=== PATIENT | female | born 1970 | race Caucasian/White ===

== ENCOUNTER → 2018-10-22 | Outpatient (CLI) | payer OTHER ==
[~2018-10-22] MED LIST: ASPI-624 PO; ATR20T PO; BUPR100T15 PO; BUPR100T8 PO; CARV6.252 PO; CHOL10007 PO; CYAN5000 SL; CYCL10TA9 PO; DOCU-143 PO; EFFIENT PO; FENO134C PO; FENO135C4 PO; HYDR-4227 PO; HYDR118S10 PO; IBUP-1773 PO; IBUP-30 PO; LISI10TA2 PO; OMEG1CAP58 PO; PANT40TA3 PO; POTA99TA15 PO; ROSU20TA2 PO; TRAM50TA2 PO; XARELTO PO
[2018-10-22 10:39] LABS: HEMOGLOBIN 13.7 G/DL (11.5-16.0); MEAN PLATELET VOLUME 11.7 FL (7.4-10.4); RED CELL DISTRIBUTION WIDTH 13.9 % (10.0-14.5); WHITE BLOOD COUNT 12.5 10^3/uL (4.3-11.0)
[2018-10-22 10:58] LABS: BUN/CREATININE RATIO 14; CALCIUM 9.5 MG/DL (8.5-10.1); CARBON DIOXIDE 24 MMOL/L (21-32); CHLORIDE 106 MMOL/L (98-107); CREATININE SERUM 0.58 MG/DL (0.60-1.30); GFR ESTIMATED > 60; GLUCOSE 112 MG/DL (70-105); POTASSIUM 3.4 MMOL/L (3.6-5.0); SODIUM 137 MMOL/L (135-145)
--- NOTE | 2018-10-22 18:50 | Diagnostic Imaging Report ---
EXAMINATION: PA chest at 10:15 a.m. INDICATION: Cough and fever. FINDINGS: The heart size is within normal limits and stable when compared to 10/26/2015. In the interval since the prior study, a few strands of increased density have developed in both lung bases. I suspect that these are secondary to scar formation and/or chronic atelectasis. There is no consolidated pneumonia identified and there is no sign of a pleural effusion. There is no evidence for pulmonary congestion either. The prominent epicardial fat pad in the right cardiophrenic angle seen previously is more striking on this exam. The mediastinum is not widened. The osseous structures are intact. IMPRESSION: Strands of chronic atelectasis/scar formation have developed in both lung bases since the prior exam. There is no acute cardiopulmonary abnormality noted. Dictated by: Dictated on workstation # [id number]
== END ==
LOC: RAD 09:56
PROVIDERS: ATTEND Family Medicine
DX: R05 Cough (principal); R50.9 Fever, unspecified
CPT/HCPCS: 36415; 71045; 80048; 85027

== ENCOUNTER 2018-10-24 10:22 | Emergency (ER) | payer OTHER ==
[~2018-10-24] VITALS: Ht 160 cm; Wt 77.1 kg
[~2018-10-24 10:22] MED LIST changes: -CYCL10TA9 PO; -OMEG1CAP58 PO
--- OUTSIDE RECORDS SUMMARY | 2018-10-24 10:30 | XMS REPORT | CCD ---
Author Author Krista Cody Organization Krista Cody MD, [facility] Address [address] [place] [address] Phone Care Team Providers Care Database Report Writer Name Role Phone PP Unavailable CCM Unavailable Summary Purpose Interface Exchange Insurance Providers Payer name Policy type / Coverage type Covered democrat ID Effective Begin Date Effective End Date Cigna Commercial Insurance [id number] Unknown Family history Grandmother Diagnosis Age At Onset No Family Disease Entered N/A Aunt Diagnosis Age At Onset Myocardial infarction Unknown Diabetes Unknown Cardiovascular disease Unknown Father Diagnosis Age At Onset Myocardial infarction Unknown Stroke Unknown Uncle Diagnosis Age At Onset Heart disease Unknown Grandfather Diagnosis Age At Onset No Family Disease Entered N/A Mother Diagnosis Age At Onset Hodgkin's disease Unknown Uncle Diagnosis Age At Onset Diabetes mellitus Type 2 Unknown Social History Social History Element Codes Description Effective Dates Tobacco history SNOMED CT: 48293841 Current every day smoker 4cigarettes a day - restarted in May of 201709/02/2017 Marital status Unknown 10/04/2013 Number of children Unknown 3 10/04/2013 Living arrangements Unknown House 10/04/2013 Employment Unknown 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 Unknown Has never used illegal drugs 10/04/2013 Allergies, Adverse Reactions, Alerts Substance Reaction Codes Entered Date Inactivated Date Status * NO KNOWN ENVIRONMENTAL ALLERGIES Unknown 10/04/2013 No Inactive Date Active * NO KNOWN FOOD ALLERGIES Unknown 10/04/2013 No Inactive Date Active * NO KNOWN DRUG ALLERGIES Unknown 10/04/2013 No Inactive Date Active Past Medical History Illness Codes Condition Status Onset Date Resolved Date Cough ICD-9: 786.2 ICD-10: R05 Active 08/13/2017 Unknown Fever presenting with conditions classified elsewhere ICD-9: 780.61 ICD-10: R50.81 Active 10/21/2018 Unknown Pneumonia due to other specified bacteria ICD-9: 482.81 ICD-10: J15.8 Active 10/21/2018 Unknown Encounter for general adult medical examination without abnormal findings ICD-9: V70.0 ICD-10: Z00.00 Active 02/18/2017 Unknown Essential (primary) hypertension ICD-9: 401.9 ICD-10: I10 Active 02/03/2016 Unknown Tobacco use ICD-9: 305.1 ICD-10: Z72.0 Active 02/18/2017 Unknown Acute upper respiratory infection, unspecified ICD-9: 465.9 ICD-10: J06.9 Active 08/13/2017 Unknown Corns and callosities ICD- 9: 700 ICD-10: L84 Active 02/18/2017 Unknown Encounter for screening mammogram for malignant neoplasm of breast ICD-9: V76.12 ICD-10: Z12.31 Active 02/18/2017 Unknown Chronic pain syndrome ICD- 9: 338.4 ICD-10: G89.4 Active 02/03/2016 Unknown 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 ICD-10: I25.10 Active 05/30/2015 Unknown Hyperglycemia, unspecified ICD-9: 790.29 ICD-10: R73.9 Active 05/30/2015 Unknown Pain in leg, unspecified ICD-9: 729.5 ICD-10: M79.606 Active 05/30/2015 Unknown Elevated glucose ICD-9: 790.29 Active 12/19/2014 Unknown OTH SCREENING MAMMOGRAM ICD-9: V76.12 Active 12/19/2014 Unknown Routine medical exam ICD- 9: V70.0 Active 12/19/2014 Unknown Depression Unknown Active 03/29/2014 Unknown Depression ICD-9: 311 Active 03/29/2014 Unknown Coronary artery disease ICD-9: 414.00 Active 12/01/2013 Unknown Hair loss ICD-9: 704.00 Active 12/01/2013 Unknown Chronic groin pain ICD- 9: 789.00 Active 11/03/2013 Unknown ESSENTIAL HYPERTENSION ICD-9: 401.9 Active 11/03/2013 Unknown Nerve pain ICD-9: 729.2 Active 11/03/2013 Unknown Hyperlipidemia Unknown Active 10/04/2013 Unknown Hypertension Unknown Active 10/04/2013 Unknown Miscarriage Unknown Active 10/04/2013 Unknown Myocardial infarction Unknown Active 10/04/2013 Unknown HYPERLIPIDEMIA ICD-9: 272.4 Active 10/04/2013 Unknown Non-healing open wound of left groin ICD-9: 879.5 Active 10/04/2013 Unknown Problems Condition Codes Effective Dates Condition Status Cough ICD-9: 786.2 ICD-10: R05 08/13/2017 Active Fever presenting with conditions classified elsewhere ICD-9: 780.61 ICD-10: R50.81 10/21/2018 Active Pneumonia due to other specified bacteria ICD-9: 482.81 ICD-10: J15.8 10/21/2018 Active Encounter for general adult medical examination without abnormal findings ICD-9: V70.0 ICD-10: Z00.00 02/18/2017 Active Essential (primary) hypertension ICD-9: 401.9 ICD-10: I10 02/03/2016 Active Tobacco use ICD-9: 305.1 ICD-10: Z72.0 02/18/2017 Active Acute upper respiratory infection, unspecified ICD-9: 465.9 ICD-10: J06.9 08/13/2017 Active Corns and callosities ICD- 9: 700 ICD-10: L84 02/18/2017 Active Encounter for screening mammogram for malignant neoplasm of breast ICD-9: V76.12 ICD-10: Z12.31 02/18/2017 Active Chronic pain syndrome ICD- 9: 338.4 ICD-10: G89.4 02/03/2016 Active 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 ICD-10: I25.10 05/30/2015 Active Hyperglycemia, unspecified ICD-9: 790.29 ICD-10: R73.9 05/30/2015 Active Pain in leg, unspecified ICD-9: 729.5 ICD-10: M79.606 05/30/2015 Active Elevated glucose ICD-9: 790.29 12/19/2014 Active OTH SCREENING MAMMOGRAM ICD-9: V76.12 12/19/2014 Active Routine medical exam ICD- 9: V70.0 12/19/2014 Active Depression Unknown 03/29/2014 Active Depression ICD-9: 311 03/29/2014 Active Coronary artery disease ICD-9: 414.00 12/01/2013 Active Hair loss ICD-9: 704.00 12/01/2013 Active Chronic groin pain ICD- 9: 789.00 11/03/2013 Active ESSENTIAL HYPERTENSION ICD-9: 401.9 11/03/2013 Active Nerve pain ICD-9: 729.2 11/03/2013 Active Hyperlipidemia Unknown 10/04/2013 Active Hypertension Unknown 10/04/2013 Active Miscarriage Unknown 10/04/2013 Active Myocardial infarction Unknown 10/04/2013 Active HYPERLIPIDEMIA ICD-9: 272.4 10/04/2013 Active Non-healing open wound of left groin ICD-9: 879.5 10/04/2013 Active Medications Medication Codes Instructions Start Date Stop Date Status Fill Instructions cefdinir 300 mg capsule RxNorm: 834583 1 Capsule(s) PO BID 10/21/2018 10/30/2018 Active Kenalog 40 mg/mL suspension for injection RxNorm: 6869899 Milliliter(s) Inj 10/21/2018 10/21/2018 Inactive ceftriaxone 500 mg solution for injection RxNorm: 9245295 Inj 10/21/2018 10/21/2018 Inactive Crestor 40 mg tablet RxNorm: 974905 Tablet(s) PO Tablet(s) TAKE 1 TABLET BY MOUTH DAILY 12/15/2017 04/13/2018 Inactive Zithromax Z-Gagandeep 250 mg tablet RxNorm: 788008 1 Tablet(s) PO UD 08/13/2017 08/17/2017 Inactive Trilipix 135 mg capsule,delayed release RxNorm: 983852 Capsule(s) PO TAKE 1 CAPSULE BY MOUTH EVERY EVENING 07/17/2017 07/11/2018 Inactive Crestor 20 mg tablet RxNorm: 113314 Tablet(s) TAKE 1 TABLET BY MOUTH DAILY 07/17/2017 12/14/2017 Inactive Chantix 1 mg tablet RxNorm: 986244 1 Tablet(s) PO daily 02/18/2017 06/17/2017 Inactive Wellbutrin SR 150 mg tablet,extended release RxNorm: 513706 1 Tablet(s) PO BID 12/31/2016 03/30/2017 Inactive Crestor 20 mg tablet RxNorm: 244902 Tablet(s) TAKE 1 TABLET BY MOUTH DAILY 12/31/2016 03/30/2017 Inactive Trilipix 135 mg capsule,delayed release RxNorm: 274838 Capsule(s) PO TAKE 1 CAPSULE BY MOUTH EVERY EVENING 12/31/2016 03/30/2017 Inactive Wellbutrin SR 150 mg tablet,sustained-release RxNorm: 832061 1 Tablet(s) PO BID 07/31/2016 12/30/2016 Inactive Crestor 20 mg tablet RxNorm: 035560 Tablet(s) TAKE 1 TABLET BY MOUTH DAILY 07/31/2016 12/30/2016 Inactive Trilipix 135 mg capsule,delayed release RxNorm: 461414 Capsule(s) PO TAKE 1 CAPSULE BY MOUTH EVERY EVENING 07/31/2016 12/30/2016 Inactive tramadol 50 mg tablet RxNorm: 241083 Tablet(s) TAKE 1 TABLET BY MOUTH THREE TIMES DAILY NEEDED 06/10/2016 01/27/2017 Inactive tramadol 50 mg tablet RxNorm: 267372 Tablet(s) TAKE 1 TABLET BY MOUTH THREE TIMES DAILY NEEDED 03/11/2016 06/08/2016 Inactive tramadol 50 mg tablet RxNorm: 241776 Tablet(s) TAKE 1 TABLET BY MOUTH THREE TIMES DAILY NEEDED 02/05/2016 03/05/2016 Inactive Generic For:*ULTRAM 50MG 12/24/2015 10:55:16 AM tramadol 50 mg tablet RxNorm: 228799 1 Tablet(s) PO TID PRN as needed 12/25/2015 12/25/2015 Inactive tramadol 50 mg tablet RxNorm: 346311 TAKE 1 TABLET BY MOUTH THREE TIMES DAILY NEEDED -NEEDS TO MAKE AN APPOINTMENT WITH FOR REFILLS 12/25/2015 01/23/2016 Inactive Generic For:*ULTRAM 50MG 12/24/2015 10:55:16 AM tramadol 50 mg tablet RxNorm: 777922 1 Tablet(s) PO TID PRN as needed 11/15/2015 12/13/2015 Inactive Wellbutrin SR 100 mg tablet,sustained-release RxNorm: 956843 1 Tablet(s) BID 1 TABLET(S) BY MOUTH TWICE DAILY 10/31/2015 10/31/2015 Inactive Generic For:*WELLBUTRIN 100MG SR 07/02/2015 9:16:05 AM Crestor 20 mg tablet RxNorm: 147402 Tablet(s) TAKE 1 TABLET BY MOUTH DAILY 10/31/2015 04/27/2016 Inactive 04/27/2015 1:12:55 PM Trilipix 135 mg capsule,delayed release RxNorm: 746324 Capsule(s) PO TAKE 1 CAPSULE BY MOUTH EVERY EVENING 10/31/2015 04/27/2016 Inactive Generic For:TRILIPIX 135MG CAP 04/27/2015 1:12:50 PM Wellbutrin SR 150 mg tablet,sustained-release RxNorm: 973646 1 Tablet(s) PO BID 10/31/2015 04/27/2016 Inactive Trilipix 135 mg capsule,delayed release RxNorm: 503034 Capsule(s) TAKE 1 CAPSULE BY MOUTH EVERY EVENING 09/18/2015 10/30/2015 Inactive Generic For:TRILIPIX 135MG CAP 04/27/2015 1:12:50 PM Crestor 20 mg tablet RxNorm: 193763 Tablet(s) TAKE 1 TABLET BY MOUTH DAILY 09/18/2015 10/30/2015 Inactive 04/27/2015 1:12:55 PM Ultram 50 mg tablet RxNorm: 244252 1 Tablet(s) PO TID PRN as needed 08/22/2015 02/03/2016 Inactive tramadol 50 mg tablet RxNorm: 392339 1 Tablet(s) PO TID PRN as needed 08/22/2015 10/19/2015 Inactive tramadol 50 mg tablet RxNorm: 565223 1 Tablet(s) PO TID PRN as needed 07/18/2015 08/06/2015 Inactive Wellbutrin SR 100 mg tablet,sustained-release RxNorm: 368434 1 TABLET(S) BY MOUTH TWICE DAILY 07/02/2015 10/29/2015 Inactive Generic For:*WELLBUTRIN 100MG SR 07/02/2015 9:16:05 AM tramadol 50 mg tablet RxNorm: 923004 1 Tablet(s) PO TID PRN as needed 05/31/2015 08/21/2015 Inactive Effient 10 mg tablet RxNorm: 563391 1 Tablet(s) PO daily 05/16/2015 02/17/2017 Inactive DC briliant since insurance approved effient tramadol 50 mg tablet RxNorm: 282456 1 Tablet(s) PO TID PRN as needed 04/27/2015 05/15/2015 Inactive Crestor 20 mg tablet RxNorm: 713473 TAKE 1 TABLET BY MOUTH DAILY 04/27/2015 08/24/2015 Inactive 04/27/2015 1:12:55 PM Trilipix 135 mg capsule,delayed release RxNorm: 969181 TAKE 1 CAPSULE BY MOUTH EVERY EVENING 04/27/2015 08/24/2015 Inactive Generic For:TRILIPIX 135MG CAP 04/27/2015 1:12:50 PM tramadol 50 mg tablet RxNorm: 916937 1 Tablet(s) PO TID PRN as needed 01/04/2015 03/24/2015 Inactive Wellbutrin SR 100 mg tablet,sustained-release RxNorm: 043323 1 Tablet(s) PO BID 12/20/2014 04/18/2015 Inactive tramadol 50 mg tablet RxNorm: 420787 1 Tablet(s) PO TID PRN as needed 12/04/2014 12/23/2014 Inactive Crestor 20 mg tablet RxNorm: 992065 1 Tablet(s) PO daily 11/14/2014 03/13/2015 Inactive stop lipitor Trilipix 135 mg capsule,delayed release RxNorm: 991501 1 Capsule(s) PO QPM 11/14/2014 03/13/2015 Inactive tramadol 50 mg tablet RxNorm: 281683 1 Tablet(s) PO TID PRN as needed 11/02/2014 11/21/2014 Inactive tramadol 50 mg tablet RxNorm: 855775 1 Tablet(s) PO TID PRN as needed 10/02/2014 11/01/2014 Inactive BRILINTA 90 mg tablet RxNorm: 3608593 2 po on 1st day in am then 1 tab po that chantelle then 1 bid Tablet(s) PO 08/10/2014 08/10/2014 Inactive dc effient Effient 10 mg tablet RxNorm: 669749 1 Tablet(s) PO daily 08/10/2014 03/07/2015 Inactive DC briliant since insurance approved effient BRILINTA 90 mg tablet RxNorm: 8528061 2 po on 1st day in am then 1 tab po that chantelle then 1 bid Tablet(s) PO 08/10/2014 08/09/2014 Inactive dc effient tramadol 50 mg tablet RxNorm: 359472 1 Tablet(s) PO TID PRN as needed 08/07/2014 09/15/2014 Inactive tramadol 50 mg tablet RxNorm: 567729 1 Tablet(s) PO TID PRN as needed 06/12/2014 07/21/2014 Inactive Trilipix 135 mg capsule,delayed release RxNorm: 829872 1 Capsule(s) PO QPM 04/19/2014 08/16/2014 Inactive Cymbalta 30 mg capsule,delayed release RxNorm: 637678 1 Capsule(s) PO daily 03/29/2014 07/24/2014 Inactive tramadol 50 mg tablet RxNorm: 020391 1 Tablet(s) PO TID PRN as needed 03/08/2014 05/06/2014 Inactive hydrocodone 7.5 mg-acetaminophen 325 mg tablet RxNorm: 530570 1 or 2 q 6 hr Tablet(s) PO PRN as needed 02/20/2014 05/03/2015 Inactive Crestor 20 mg tablet RxNorm: 495672 1 Tablet(s) PO daily 02/07/2014 06/06/2014 Inactive stop lipitor hydrocodone 7.5 mg-acetaminophen 325 mg tablet RxNorm: 673760 1 or 2 q 6 hr Tablet(s) PO PRN as needed 12/01/2013 02/19/2014 Inactive gabapentin 100 mg capsule RxNorm: 961791 2 Capsule(s) PO TID 12/01/2013 01/29/2014 Inactive hydrocodone 7.5 mg-acetaminophen 325 mg tablet RxNorm: 932917 1 or 2 q 6 hr Tablet(s) PO PRN as needed 12/01/2013 05/04/2015 Inactive gabapentin 100 mg capsule RxNorm: 942554 2 Capsule(s) PO TID 12/01/2013 03/07/2014 Inactive gabapentin 100 mg capsule RxNorm: 408888 1 Capsule(s) PO TID 11/03/2013 11/30/2013 Inactive hydrocodone 7.5 mg-acetaminophen 325 mg tablet RxNorm: 402729 1 or 2 q 6 hr Tablet(s) PO PRN 11/03/2013 11/30/2013 Inactive Trilipix 135 mg capsule,delayed release RxNorm: 860427 1 Capsule(s) PO QPM 11/02/2013 03/01/2014 Inactive Ultram 50 mg tablet RxNorm: 724906 1 Tablet(s) PO TID PRN 11/02/2013 03/07/2014 Inactive aspirin 81 mg capsule,delayed release RxNorm: 636672 1 Capsule(s) PO daily No Start Date Active Klor-Con 10 mEq tablet,extended release RxNorm: 852351 1 Tablet(s) PO daily No Start Date 02/07/2014 Inactive Cymbalta oral RxNorm: 161778 oral No Start Date 03/28/2014 Inactive carvedilol 6.25 mg tablet RxNorm: 430223 1 Tablet(s) PO BID No Start Date 01/27/2017 Inactive atorvastatin 40 mg tablet RxNorm: 495736 1 Tablet(s) PO QPM No Start Date 02/06/2014 Inactive Effient 10 mg tablet RxNorm: 110234 1 Tablet(s) PO daily No Start Date 08/09/2014 Inactive Crestor 20 mg tablet RxNorm: 951644 1 Tablet(s) PO daily No Start Date 02/06/2014 Inactive stop lipitor Trilipix 135 mg capsule,delayed release RxNorm: 477840 1 Capsule(s) PO QPM No Start Date 11/01/2013 Inactive Ultram 50 mg tablet RxNorm: 718121 1 Tablet(s) PO TID PRN No Start Date 11/01/2013 Inactive hydrocodone 7.5 mg-acetaminophen 325 mg tablet RxNorm: 987826 1 or 2 q 6 hr Tablet(s) PO PRN No Start Date 11/02/2013 Inactive Medication Administered Medication Codes Instructions Start Date Status ceftriaxone 500 mg solution for injection RxNorm: 3013604 10/21/2018 Active Kenalog 40 mg/mL suspension for injection RxNorm: 6903482 Milliliter 10/21/2018 Active Immunizations Vaccine Codes Date Status Influenza CVX: 141 10/04/2013 completed Assessments Condition Codes Effective Dates Fever presenting with conditions classified elsewhere ICD-10: R50.81 ICD-9: 780.61 10/21/2018 Cough ICD-10: R05 ICD-9: 786.2 10/21/2018 Pneumonia due to other specified bacteria ICD-10: J15.8 ICD-9: 482.81 10/21/2018 Essential (primary) hypertension ICD-10: I10 ICD-9: 401.9 09/02/2017 Encounter for general adult medical examination without abnormal findings ICD-10: Z00.00 ICD-9: V70.0 09/02/2017 Tobacco use ICD-10: Z72.0 ICD-9: 305.1 09/02/2017 Acute upper respiratory infection, unspecified ICD-10: J06.9 ICD-9: 465.9 08/13/2017 Encounter for screening mammogram for malignant neoplasm of breast ICD-10: Z12.31 ICD-9: V76.12 02/18/2017 Corns and callosities ICD-10: L84 ICD-9: 700 02/18/2017 Chronic pain syndrome ICD-10: G89.4 ICD-9: 338.4 02/04/2016 Atherosclerotic heart disease of false pass coronary artery without angina pectoris ICD-10: I25.10 ICD-9: 414.00 05/31/2015 Pain in leg, unspecified ICD-10: M79.606 ICD-9: 729.5 05/31/2015 Hyperglycemia, unspecified ICD-10: R73.9 ICD-9: 790.29 05/31/2015 Elevated glucose ICD-9: 790.29 12/20/2014 Routine medical exam ICD-9: V70.0 12/20/2014 OTH SCREENING MAMMOGRAM ICD-9: V76.12 12/20/2014 ESSENTIAL HYPERTENSION ICD-9: 401.9 03/29/2014 Depression ICD-9: 311 03/29/2014 Chronic groin pain ICD-9: 789.00 03/29/2014 Nerve pain ICD-9: 729.2 03/08/2014 Coronary artery disease ICD-9: 414.00 03/08/2014 Hair loss ICD-9: 704.00 12/01/2013 Non-healing open wound of left groin ICD-9: 879.5 10/04/2013 HYPERLIPIDEMIA ICD-9: 272.4 10/04/2013 Reason For Visit Reason For Visit Effective Dates Notes fever 10/21/2018 well woman exam (40-65 years) 09/02/2017 cough 08/13/2017 skin lesion 02/18/2017 medication follow up 02/04/2016 medication follow up 05/31/2015 hypertension 12/20/2014 lower leg pain 03/29/2014 lower leg pain 03/08/2014 lower leg pain 02/08/2014 lower leg pain 12/01/2013 hypertension 11/03/2013 hypertension 10/04/2013 Results Observation Observation Code Item Item Code Result Date Comp Metabolic Nzv635 NA 133 mEq/L 12/04/2017 Comp Metabolic Pma034 K UNAVAILABLE; Specimen inadequately centrifuged, please recollect mEq/L 12/04/2017 Comp Metabolic Tca343 CL 106 mEq/L 12/04/2017 Comp Metabolic Kls867 CO2 22.0 mEq/L 12/04/2017 Comp Metabolic Ykw435 ANION GAP 13 12/04/2017 Comp Metabolic Mau899 GLUCOSE 94 mg/dL 12/04/2017 Comp Metabolic Nee306 Creat 0.5 mg/dL 12/04/2017 Comp Metabolic Kcz118 eGFR 131 ml/min/1.73m2 12/04/2017 Comp Metabolic Exl213 BUN 18 mg/dL 12/04/2017 Comp Metabolic Pwh952 B/C Ratio 34.0 Ratio 12/04/2017 Comp Metabolic Fmq840 CALCIUM 8.9 mg/dL 12/04/2017 Comp Metabolic Wmk697 ALK PHOS 83 U/L 12/04/2017 Comp Metabolic Tmr538 AST(SGOT) 16 U/L 12/04/2017 Comp Metabolic Cws091 ALT(SGPT) 13 U/L 12/04/2017 Comp Metabolic Oyj611 BILI T 0.2 mg/dL 12/04/2017 Comp Metabolic Jfi046 ALBUMIN 3.6 g/dL 12/04/2017 Comp Metabolic Lis953 TPRO 6.3 g/dL 12/04/2017 Comp Metabolic Wde799 GLOB 2.7 g/dL 12/04/2017 Comp Metabolic Zde851 A/G Ratio 1.3 Ratio 12/04/2017 Comp Metabolic Ihh484 Osmo 268 mOsmo 12/04/2017 Tsh Ord6 TSH (3rd IS) 2.22 uIU/mL 12/04/2017 Lipid Ord30 CHOL 263 mg/dL 12/04/2017 Lipid Ord30 HDL 34.0 mg/dl 12/04/2017 Lipid Ord30 TRIG 358 mg/dL 12/04/2017 Lipid Ord30 LDL 157 mg/dL 12/04/2017 Lipid Ord30 C/HDL 7.7 Ratio 12/04/2017 Cbc With Differential Ord2 WBC 8.92 K/ul 12/04/2017 Cbc With Differential Ord2 RBC 4.34 M/ul 12/04/2017 Cbc With Differential Ord2 HGB 13.8 g/dl 12/04/2017 Cbc With Differential Ord2 HCT 41.7 % 12/04/2017 Cbc With Differential Ord2 Neut% 65.4 % 12/04/2017 Cbc With Differential Ord2 MCV 96.1 fl 12/04/2017 Cbc With Differential Ord2 Lymph% 26.5 % 12/04/2017 Cbc With Differential Ord2 MCH 31.8 pg 12/04/2017 Cbc With Differential Ord2 Rains% 6.5 % 12/04/2017 Cbc With Differential Ord2 MCHC 33.1 pg 12/04/2017 Cbc With Differential Ord2 Eos% 1.3 % 12/04/2017 Cbc With Differential Ord2 PLT 260 K/ul 12/04/2017 Cbc With Differential Ord2 Baso% 0.3 % 12/04/2017 Cbc With Differential Ord2 RDW 13.5 % 12/04/2017 Cbc With Differential Ord2 Neut ABS# 5.83 K/ul 12/04/2017 Cbc With Differential Ord2 Lymph ABS# 2.36 K/ul 12/04/2017 Cbc With Differential Ord2 Rains ABS# 0.6 K/ul 12/04/2017 Cbc With Differential Ord2 Eos ABS# 0.1 K/ul 12/04/2017 Cbc With Differential Ord2 Baso ABS# 0.0 K/ul 12/04/2017 %Hba1C Csk865 % HbA1c 84758- 6 5.8 % 12/04/2017 %Hba1C Wnd434 Gluc Ave 120 mg/dL 12/04/2017 Lipid Ord30 CHOL 177 mg/dL 06/06/2015 Lipid Ord30 HDL 54.0 mg/dl 06/06/2015 Lipid Ord30 TRIG 100 mg/dL 06/06/2015 Lipid Ord30 LDL 103 mg/dL 06/06/2015 Lipid Ord30 C/HDL 3.3 Ratio 06/06/2015 Cbc With Differential Ord2 WBC 7.9 K/uL 06/06/2015 Cbc With Differential Ord2 LYM 2.7 K/uL 06/06/2015 Cbc With Differential Ord2 LYM% 33.6 % 06/06/2015 Cbc With Differential Ord2 NEUT/GRAN 4.7 K/uL 06/06/2015 Cbc With Differential Ord2 NEUT/GRAN % 59.4 % 06/06/2015 Cbc With Differential Ord2 MID 0.6 K/uL 06/06/2015 Cbc With Differential Ord2 MID% 7.0 % 06/06/2015 Cbc With Differential Ord2 RBC 4.21 M/uL 06/06/2015 Cbc With Differential Ord2 HGB 13.0 g/dL 06/06/2015 Cbc With Differential Ord2 HCT 42.4 % 06/06/2015 Cbc With Differential Ord2 MCV 101 fL 06/06/2015 Cbc With Differential Ord2 MCH 31 pg 06/06/2015 Cbc With Differential Ord2 MCHC 31 g/dL 06/06/2015 Cbc With Differential Ord2 PLT 305 K/uL 06/06/2015 Cbc With Differential Ord2 RDW 14.2 % 06/06/2015 Comp Metabolic Dve767 NA 136 mEq/L 06/06/2015 Comp Metabolic Orw782 K 3.7 mEq/L 06/06/2015 Comp Metabolic Mnj765 CL 102 mEq/L 06/06/2015 Comp Metabolic Cre187 CO2 24.0 mEq/L 06/06/2015 Comp Metabolic Iiv718 ANION GAP 14 06/06/2015 Comp Metabolic Vef031 GLUCOSE 111 mg/dL 06/06/2015 Comp Metabolic Axx042 Creat 0.8 mg/dL 06/06/2015 Comp Metabolic Qfr719 eGFR 80 ml/min/1.73m2 06/06/2015 Comp Metabolic Hzu498 BUN 18 mg/dL 06/06/2015 Comp Metabolic Umn670 B/C Ratio 22.0 Ratio 06/06/2015 Comp Metabolic Dkh860 CALCIUM 9.7 mg/dL 06/06/2015 Comp Metabolic Bpp728 ALK PHOS 54 U/L 06/06/2015 Comp Metabolic Btp430 AST(SGOT) 19 U/L 06/06/2015 Comp Metabolic Oeu967 ALT(SGPT) 19 U/L 06/06/2015 Comp Metabolic Tis377 BILI T 0.4 mg/dL 06/06/2015 Comp Metabolic Ssd966 ALBUMIN 3.9 g/dL 06/06/2015 Comp Metabolic Yva384 TPRO 6.6 g/dL 06/06/2015 Comp Metabolic Oik413 GLOB 2.7 g/dL 06/06/2015 Comp Metabolic Dxt191 A/G Ratio 1.4 Ratio 06/06/2015 Comp Metabolic Dec145 Osmo 275 mOsmo 06/06/2015 Tsh Ord6 hTSH II 3.02 uIU/mL 06/06/2015 %Hba1C Yrl810 % HbA1c 44069- 6 5.8 % 06/06/2015 %Hba1C Skk591 Gluc Ave 120 mg/dL 06/06/2015 %Hba1C Mil035 % HbA1c 48704- 6 5.8 % 12/20/2014 %Hba1C Axm812 Gluc Ave 120 mg/dL 12/20/2014 LIPID GRP HDL TEST 44 MG/DL 05/10/2014 LIPID GRP TRIG 140 MG/DL 05/10/2014 LIPID GRP TEST LDL 129 MG/DL 05/10/2014 LIPID GRP CHOL 201 MG/DL 05/10/2014 LIPID GRP RCHOL/HDL 4.57 RATIO 05/10/2014 LIPID GRP NON-HDL CH 157 MG/DL 05/10/2014 CHEM 14 8931760 AST 25 U/L 02/03/2014 CHEM 14 3565800 ALT 49 IU/L 02/03/2014 CHEM 14 7837798 BUN 13 MG/DL 02/03/2014 CHEM 14 2736069 ALBUMIN 3.7 GM/DL 02/03/2014 CHEM 14 9448182 CHLORIDE 105 MMOL/L 02/03/2014 CHEM 14 6088414 BILI TOT 0.5 MG/DL 02/03/2014 CHEM 14 6533204 ALK PHOS 67 U/L 02/03/2014 CHEM 14 5651738 SODIUM 136 MMOL/L 02/03/2014 CHEM 14 0506657 CREATININE 0.64 MG/DL 02/03/2014 CHEM 14 0113074 CALCIUM 9.3 MG/DL 02/03/2014 CHEM 14 4793940 POTASSIUM 3.8 MMOL/L 02/03/2014 CHEM 14 1596134 PROT TOT 6.7 GM/DL 02/03/2014 CHEM 14 7916972 GLUCOSE 114 MG/DL 02/03/2014 CHEM 14 2711932 BICARB 26 MMOL/L 02/03/2014 CHEM 14 6398813 ANION GAP 5 MEQ/L 02/03/2014 CBC 9179880 WBC 8.7 10e9/L 02/03/2014 CBC 5692325 RBC 4.12 10e12/L 02/03/2014 CBC 3290612 HGB 13.2 g/dL 02/03/2014 CBC 4279074 HCT DET 39.9 % 02/03/2014 CBC 1578873 MCV 96.8 fL 02/03/2014 CBC 7981038 MCH 32.0 pg 02/03/2014 CBC 9441323 MCHC 33.1 g/dL 02/03/2014 CBC 1354530 PLT 251 10e9/L 02/03/2014 CBC 2460038 MPV 11.5 fL 02/03/2014 CBC 2716160 JG % 54.8 % 02/03/2014 CBC 3153994 LY % 37.7 % 02/03/2014 CBC 5548352 MON % 5.7 % 02/03/2014 CBC 6864968 EOS % 1.6 % 02/03/2014 CBC 0286907 BASO % 0.2 % 02/03/2014 CBC 7140035 RDW 12.7 % 02/03/2014 CBC 9772635 ABS JG 4.77 10e9/L 02/03/2014 CBC 6150832 ABS LYMPH 3.28 10e9/L 02/03/2014 CBC 1578382 ABS MONO 0.50 10e9/L 02/03/2014 CBC 2079136 ABS EOS 0.14 10e9/L 02/03/2014 CBC 5141341 ABS BASO 0.02 10e9/L 02/03/2014 CBC 1066452 RDW-SD 43.4 fL 02/03/2014 GFR CALC 8444585 GFR AA >60 ML/MIN 02/03/2014 GFR CALC 7099678 GFR NON-AA >60 ML/MIN 02/03/2014 TSH 8598785 TSH 2.536 uIU/ML 02/03/2014 LIPID GRP HDL TEST 33 MG/DL 02/03/2014 LIPID GRP TRIG 142 MG/DL 02/03/2014 LIPID GRP TEST LDL 147 MG/DL 02/03/2014 LIPID GRP CHOL 208 MG/DL 02/03/2014 LIPID GRP RCHOL/HDL 6.30 RATIO 02/03/2014 LIPID GRP NON-HDL CH 175 MG/DL 02/03/2014 TSH 7721507 TSH 2.028 uIU/ML 10/27/2013 GFR CALC 1629382 GFR AA >60 ML/MIN 10/26/2013 GFR CALC 3844045 GFR NON-AA >60 ML/MIN 10/26/2013 CBC 3762995 WBC 8.1 10e9/L 10/26/2013 CBC 6569219 RBC 4.05 10e12/L 10/26/2013 CBC 3104415 HGB 13.2 g/dL 10/26/2013 CBC 2339595 HCT DET 38.5 % 10/26/2013 CBC [id number] MCV 95.1 fL 10/26/2013 CBC 3428820 MCH 32.6 pg 10/26/2013 CBC [id number] MCHC 34.3 g/dL 10/26/2013 CBC 3090277 PLT 303 10e9/L 10/26/2013 CBC 0565210 MPV 11.3 fL 10/26/2013 CBC 7845235 JG % 59.3 % 10/26/2013 CBC 7690497 LY % 32.8 % 10/26/2013 CBC 3376456 MON % 5.8 % 10/26/2013 CBC 9286133 EOS % 1.7 % 10/26/2013 CBC 3187394 BASO % 0.4 % 10/26/2013 CBC 9245021 RDW 14.4 % 10/26/2013 CBC 6754692 ABS JG 4.80 10e9/L 10/26/2013 CBC 5110243 ABS LYMPH 2.66 10e9/L 10/26/2013 CBC 7283829 ABS MONO 0.47 10e9/L 10/26/2013 CBC 8719574 ABS EOS 0.14 10e9/L 10/26/2013 CBC [id number] ABS BASO 0.03 10e9/L 10/26/2013 CBC [id number] RDW-SD 49.3 fL 10/26/2013 LIPID GRP HDL TEST 32 MG/DL 10/26/2013 LIPID GRP TRIG 266 MG/DL 10/26/2013 LIPID GRP TEST LDL 85 MG/DL 10/26/2013 LIPID GRP CHOL 170 MG/DL 10/26/2013 LIPID GRP RCHOL/HDL 5.31 RATIO 10/26/2013 CHEM 14 [id number] AST 15 U/L 10/26/2013 CHEM 14 [id number] ALT 19 IU/L 10/26/2013 CHEM 14 [id number] BUN 7 MG/DL 10/26/2013 CHEM 14 [id number] ALBUMIN 3.7 GM/DL 10/26/2013 CHEM 14 [id number] CHLORIDE 106 MMOL/L 10/26/2013 CHEM 14 [id number] BILI TOT 0.4 MG/DL 10/26/2013 CHEM 14 [id number] ALK PHOS 82 U/L 10/26/2013 CHEM 14 [id number] SODIUM 137 MMOL/L 10/26/2013 CHEM 14 [id number] CREATININE 0.56 MG/DL 10/26/2013 CHEM 14 [id number] CALCIUM 9.2 MG/DL 10/26/2013 CHEM 14 [id number] POTASSIUM 4.0 MMOL/L 10/26/2013 CHEM 14 [id number] PROT TOT 7.1 GM/DL 10/26/2013 CHEM 14 [id number] GLUCOSE 100 MG/DL 10/26/2013 CHEM 14 [id number] BICARB 25 MMOL/L 10/26/2013 CHEM 14 [id number] ANION GAP 6 MEQ/L 10/26/2013 Review of Systems System Result Effective Dates Constitutional recent illness 10/21/2018 Constitutional No anorexia 10/21/2018 Constitutional No night sweats 10/21/2018 Constitutional No chills 10/21/2018 Constitutional No diaphoresis 10/21/2018 Constitutional fatigue 10/21/2018 Constitutional No fever 10/21/2018 Constitutional No insomnia 10/21/2018 Constitutional No malaise 10/21/2018 Constitutional No weight loss 10/21/2018 Constitutional No weight gain 10/21/2018 Eyes No eye discharge 10/21/2018 Eyes No eye erythema 10/21/2018 Ears/Nose/Throat/Neck nasal allergies 10/21/2018 Ears/Nose/Throat/Neck nasal discharge 10/21/2018 Ears/Nose/Throat/Neck No otalgia 10/21/2018 Ears/Nose/Throat/Neck sinus congestion 10/21/2018 Ears/Nose/Throat/Neck No sore throat 10/21/2018 Cardiovascular No chest pain/pressure 10/21/2018 Cardiovascular No dyspnea 10/21/2018 Respiratory productive sputum 10/21/2018 Respiratory cough 10/21/2018 Gastrointestinal No abdominal pain 10/21/2018 Musculoskeletal No joint complaint 10/21/2018 Dermatologic No rash 10/21/2018 Constitutional No anorexia 09/02/2017 Constitutional No night sweats 09/02/2017 Constitutional No diaphoresis 09/02/2017 Eyes No eye discharge 09/02/2017 Eyes No eye erythema 09/02/2017 Ears/Nose/Throat/Neck No nasal discharge 09/02/2017 Respiratory No productive sputum 09/02/2017 Genitourinary/Nephrology No dysuria 09/02/2017 Musculoskeletal joint complaint 09/02/2017 Neurologic No alteration of consciousness 09/02/2017 Constitutional No recent illness 09/02/2017 Constitutional No chills 09/02/2017 Constitutional No fatigue 09/02/2017 Constitutional No fever 09/02/2017 Constitutional No insomnia 09/02/2017 Constitutional No malaise 09/02/2017 Ears/Nose/Throat/Neck nasal allergies 09/02/2017 Cardiovascular No chest pain/pressure 09/02/2017 Cardiovascular No dyspnea 09/02/2017 Respiratory No cough 09/02/2017 Gastrointestinal No abdominal pain 09/02/2017 Dermatologic No rash 09/02/2017 Dermatologic sores 09/02/2017 Psychiatric No anxiety 09/02/2017 Psychiatric No depression 09/02/2017 Constitutional recent illness 08/13/2017 Constitutional No anorexia 08/13/2017 Constitutional No night sweats 08/13/2017 Constitutional No chills 08/13/2017 Constitutional No diaphoresis 08/13/2017 Constitutional fatigue 08/13/2017 Constitutional No fever 08/13/2017 Constitutional No insomnia 08/13/2017 Constitutional No malaise 08/13/2017 Constitutional No weight loss 08/13/2017 Constitutional No weight gain 08/13/2017 Eyes No eye erythema 08/13/2017 Eyes No eye discharge 08/13/2017 Ears/Nose/Throat/Neck nasal allergies 08/13/2017 Ears/Nose/Throat/Neck nasal discharge 08/13/2017 Ears/Nose/Throat/Neck No otalgia 08/13/2017 Ears/Nose/Throat/Neck sinus congestion 08/13/2017 Ears/Nose/Throat/Neck No sore throat 08/13/2017 Cardiovascular No chest pain/pressure 08/13/2017 Cardiovascular No dyspnea 08/13/2017 Respiratory productive sputum 08/13/2017 Respiratory cough 08/13/2017 Gastrointestinal No abdominal pain 08/13/2017 Musculoskeletal No joint complaint 08/13/2017 Dermatologic No rash 08/13/2017 Constitutional No recent illness 02/18/2017 Constitutional No anorexia 02/18/2017 Constitutional No night sweats 02/18/2017 Constitutional No chills 02/18/2017 Constitutional No diaphoresis 02/18/2017 Constitutional No fatigue 02/18/2017 Constitutional No fever 02/18/2017 Constitutional No insomnia 02/18/2017 Constitutional No malaise 02/18/2017 Eyes No eye discharge 02/18/2017 Eyes No eye erythema 02/18/2017 Ears/Nose/Throat/Neck nasal allergies 02/18/2017 Ears/Nose/Throat/Neck No nasal discharge 02/18/2017 Cardiovascular No chest pain/pressure 02/18/2017 Cardiovascular No dyspnea 02/18/2017 Respiratory No productive sputum 02/18/2017 Respiratory No cough 02/18/2017 Gastrointestinal No abdominal pain 02/18/2017 Genitourinary/Nephrology No dysuria 02/18/2017 Musculoskeletal joint complaint 02/18/2017 Dermatologic No rash 02/18/2017 Neurologic No alteration of consciousness 02/18/2017 Psychiatric No anxiety 02/18/2017 Psychiatric No depression 02/18/2017 Dermatologic sores 02/18/2017 Constitutional No chills 02/04/2016 Constitutional No fever 02/04/2016 Eyes No vision change 02/04/2016 Cardiovascular No chest pain/pressure 02/04/2016 Cardiovascular No dyspnea 02/04/2016 Respiratory No cough 02/04/2016 Respiratory No dyspnea 02/04/2016 Gastrointestinal No abdominal pain 02/04/2016 Musculoskeletal stiffness 02/04/2016 Musculoskeletal muscle weakness 02/04/2016 Musculoskeletal myalgias 02/04/2016 Neurologic paresthesia 02/04/2016 Constitutional No recent illness 02/04/2016 Constitutional No diaphoresis 02/04/2016 Ears/Nose/Throat/Neck No nasal discharge 02/04/2016 Ears/Nose/Throat/Neck No nasal allergies 02/04/2016 Respiratory No chest congestion 02/04/2016 Gastrointestinal No constipation 02/04/2016 Gastrointestinal No diarrhea 02/04/2016 Gastrointestinal No vomiting 02/04/2016 Gastrointestinal No nausea 02/04/2016 Neurologic No alteration of consciousness 02/04/2016 Neurologic No mental status change 02/04/2016 Constitutional No recent illness 05/31/2015 Constitutional No chills 05/31/2015 Constitutional No night sweats 05/31/2015 Constitutional No anorexia 05/31/2015 Constitutional No diaphoresis 05/31/2015 Constitutional No fatigue 05/31/2015 Constitutional No fever 05/31/2015 Constitutional No insomnia 05/31/2015 Constitutional No malaise 05/31/2015 Constitutional No weight loss 05/31/2015 Constitutional No weight gain 05/31/2015 Eyes No eye discharge 05/31/2015 Eyes No eye erythema 05/31/2015 Ears/Nose/Throat/Neck No nasal discharge 05/31/2015 Ears/Nose/Throat/Neck nasal allergies 05/31/2015 Cardiovascular No chest pain/pressure 05/31/2015 Cardiovascular No dyspnea 05/31/2015 Respiratory No productive sputum 05/31/2015 Respiratory No cough 05/31/2015 Gastrointestinal No abdominal pain 05/31/2015 Genitourinary/Nephrology No dysuria 05/31/2015 Musculoskeletal joint complaint 05/31/2015 Dermatologic No rash 05/31/2015 Neurologic No alteration of consciousness 05/31/2015 Constitutional No chills 12/20/2014 Constitutional fatigue 12/20/2014 Constitutional No fever 12/20/2014 Constitutional No insomnia 12/20/2014 Eyes No vision change 12/20/2014 Ears/Nose/Throat/Neck No dizziness 12/20/2014 Ears/Nose/Throat/Neck No dysphagia 12/20/2014 Ears/Nose/Throat/Neck No headache 12/20/2014 Ears/Nose/Throat/Neck No nasal allergies 12/20/2014 Ears/Nose/Throat/Neck No postnasal drip 12/20/2014 Ears/Nose/Throat/Neck No sinus congestion 12/20/2014 Cardiovascular No chest pain/pressure 12/20/2014 Cardiovascular No dyspnea 12/20/2014 Cardiovascular No edema 12/20/2014 Cardiovascular fatigue 12/20/2014 Cardiovascular hypertension 12/20/2014 Cardiovascular No near-syncope/dizziness 12/20/2014 Respiratory No chest tightness 12/20/2014 Respiratory No cough 12/20/2014 Respiratory No dyspnea 12/20/2014 Respiratory No pedal edema 12/20/2014 Gastrointestinal No abdominal pain 12/20/2014 Gastrointestinal No constipation 12/20/2014 Gastrointestinal No diarrhea 12/20/2014 Gastrointestinal No gastroesophageal reflux 12/20/2014 Musculoskeletal stiffness 12/20/2014 Musculoskeletal muscle weakness 12/20/2014 Musculoskeletal myalgias 12/20/2014 Neurologic No dizziness 12/20/2014 Neurologic paresthesia 12/20/2014 Neurologic No syncope 12/20/2014 Psychiatric No anxiety 12/20/2014 Psychiatric No depression 12/20/2014 Dermatologic No rash 12/20/2014 Dermatologic No scar 12/20/2014 Genitourinary/Nephrology No dysuria 12/20/2014 Genitourinary/Nephrology No nocturia 12/20/2014 Genitourinary/Nephrology No urinary incontinence 12/20/2014 Constitutional No chills 03/29/2014 Constitutional fatigue 03/29/2014 Constitutional No fever 03/29/2014 Constitutional No insomnia 03/29/2014 Constitutional weight gain 03/29/2014 Eyes No vision change 03/29/2014 Ears/Nose/Throat/Neck No dizziness 03/29/2014 Ears/Nose/Throat/Neck No dysphagia 03/29/2014 Ears/Nose/Throat/Neck No headache 03/29/2014 Ears/Nose/Throat/Neck No nasal allergies 03/29/2014 Ears/Nose/Throat/Neck No postnasal drip 03/29/2014 Ears/Nose/Throat/Neck No sinus congestion 03/29/2014 Cardiovascular No chest pain/pressure 03/29/2014 Cardiovascular No dyspnea 03/29/2014 Cardiovascular No edema 03/29/2014 Cardiovascular fatigue 03/29/2014 Cardiovascular hypertension 03/29/2014 Cardiovascular No near-syncope/dizziness 03/29/2014 Respiratory No chest tightness 03/29/2014 Respiratory No cough 03/29/2014 Respiratory No dyspnea 03/29/2014 Respiratory No pedal edema 03/29/2014 Gastrointestinal No abdominal pain 03/29/2014 Gastrointestinal No constipation 03/29/2014 Gastrointestinal No diarrhea 03/29/2014 Gastrointestinal No gastroesophageal reflux 03/29/2014 Musculoskeletal stiffness 03/29/2014 Musculoskeletal muscle weakness 03/29/2014 Musculoskeletal myalgias 03/29/2014 Neurologic No dizziness 03/29/2014 Neurologic paresthesia 03/29/2014 Neurologic No syncope 03/29/2014 Psychiatric No anxiety 03/29/2014 Psychiatric No depression 03/29/2014 Constitutional No chills 03/08/2014 Constitutional fatigue 03/08/2014 Constitutional No fever 03/08/2014 Constitutional No insomnia 03/08/2014 Constitutional weight gain 03/08/2014 Eyes No vision change 03/08/2014 Ears/Nose/Throat/Neck No dizziness 03/08/2014 Ears/Nose/Throat/Neck No dysphagia 03/08/2014 Ears/Nose/Throat/Neck No headache 03/08/2014 Ears/Nose/Throat/Neck No nasal allergies 03/08/2014 Ears/Nose/Throat/Neck No postnasal drip 03/08/2014 Ears/Nose/Throat/Neck No sinus congestion 03/08/2014 Cardiovascular No chest pain/pressure 03/08/2014 Cardiovascular No dyspnea 03/08/2014 Cardiovascular No edema 03/08/2014 Cardiovascular fatigue 03/08/2014 Cardiovascular hypertension 03/08/2014 Cardiovascular No near-syncope/dizziness 03/08/2014 Respiratory No chest tightness 03/08/2014 Respiratory No cough 03/08/2014 Respiratory No dyspnea 03/08/2014 Respiratory No pedal edema 03/08/2014 Gastrointestinal No abdominal pain 03/08/2014 Gastrointestinal No constipation 03/08/2014 Gastrointestinal No diarrhea 03/08/2014 Gastrointestinal No gastroesophageal reflux 03/08/2014 Musculoskeletal stiffness 03/08/2014 Musculoskeletal muscle weakness 03/08/2014 Musculoskeletal myalgias 03/08/2014 Neurologic No dizziness 03/08/2014 Neurologic paresthesia 03/08/2014 Neurologic No syncope 03/08/2014 Psychiatric No anxiety 03/08/2014 Psychiatric No depression 03/08/2014 Constitutional No chills 02/08/2014 Constitutional fatigue 02/08/2014 Constitutional No fever 02/08/2014 Constitutional No insomnia 02/08/2014 Eyes No vision change 02/08/2014 Ears/Nose/Throat/Neck No dizziness 02/08/2014 Ears/Nose/Throat/Neck No dysphagia 02/08/2014 Ears/Nose/Throat/Neck No headache 02/08/2014 Ears/Nose/Throat/Neck No nasal allergies 02/08/2014 Ears/Nose/Throat/Neck No postnasal drip 02/08/2014 Ears/Nose/Throat/Neck No sinus congestion 02/08/2014 Cardiovascular No chest pain/pressure 02/08/2014 Cardiovascular No dyspnea 02/08/2014 Cardiovascular No edema 02/08/2014 Cardiovascular exercise intolerance 02/08/2014 Cardiovascular fatigue 02/08/2014 Cardiovascular hypertension 02/08/2014 Cardiovascular No near-syncope/dizziness 02/08/2014 Respiratory No chest tightness 02/08/2014 Respiratory No cough 02/08/2014 Respiratory No dyspnea 02/08/2014 Respiratory No pedal edema 02/08/2014 Gastrointestinal No abdominal pain 02/08/2014 Gastrointestinal No constipation 02/08/2014 Gastrointestinal No diarrhea 02/08/2014 Gastrointestinal No gastroesophageal reflux 02/08/2014 Genitourinary/Nephrology No urinary urgency 02/08/2014 Genitourinary/Nephrology No urinary incontinence 02/08/2014 Musculoskeletal stiffness 02/08/2014 Musculoskeletal muscle weakness 02/08/2014 Dermatologic No rash 02/08/2014 Neurologic No dizziness 02/08/2014 Neurologic No syncope 02/08/2014 Psychiatric No anxiety 02/08/2014 Psychiatric No depression 02/08/2014 Hematologic/Lymphatic No abnormal ecchymoses 02/08/2014 Hematologic/Lymphatic No abnormal bleeding and bruising 02/08/2014 Neurologic paresthesia 02/08/2014 Dermatologic No sores 02/08/2014 Musculoskeletal myalgias 02/08/2014 Genitourinary/Nephrology No dysuria 02/08/2014 Constitutional weight gain 02/08/2014 Constitutional No chills 12/01/2013 Constitutional fatigue 12/01/2013 Constitutional No fever 12/01/2013 Constitutional No insomnia 12/01/2013 Constitutional No malaise 12/01/2013 Eyes No blindness 12/01/2013 Eyes No vision change 12/01/2013 Ears/Nose/Throat/Neck No dental pain 12/01/2013 Ears/Nose/Throat/Neck No dizziness 12/01/2013 Ears/Nose/Throat/Neck No dysphagia 12/01/2013 Ears/Nose/Throat/Neck No headache 12/01/2013 Ears/Nose/Throat/Neck No hearing loss 12/01/2013 Ears/Nose/Throat/Neck No nasal allergies 12/01/2013 Ears/Nose/Throat/Neck No sore throat 12/01/2013 Ears/Nose/Throat/Neck No postnasal drip 12/01/2013 Ears/Nose/Throat/Neck No sinus congestion 12/01/2013 Cardiovascular No chest pain/pressure 12/01/2013 Cardiovascular No dyspnea 12/01/2013 Cardiovascular No edema 12/01/2013 Cardiovascular exercise intolerance 12/01/2013 Cardiovascular fatigue 12/01/2013 Cardiovascular hypertension 12/01/2013 Cardiovascular No near-syncope/dizziness 12/01/2013 Respiratory No chest tightness 12/01/2013 Respiratory No cigarette smoking 12/01/2013 Respiratory No cough 12/01/2013 Respiratory No dyspnea 12/01/2013 Respiratory No pedal edema 12/01/2013 Respiratory No snoring 12/01/2013 Respiratory No wheezing 12/01/2013 Gastrointestinal No hemorrhoids 12/01/2013 Gastrointestinal No abdominal pain 12/01/2013 Gastrointestinal No constipation 12/01/2013 Gastrointestinal No diarrhea 12/01/2013 Gastrointestinal No gastroesophageal reflux 12/01/2013 Gastrointestinal No nausea 12/01/2013 Genitourinary/Nephrology No urinary urgency 12/01/2013 Genitourinary/Nephrology No urinary incontinence 12/01/2013 Musculoskeletal stiffness 12/01/2013 Musculoskeletal muscle weakness 12/01/2013 Dermatologic No rash 12/01/2013 Dermatologic sores 12/01/2013 Neurologic No dizziness 12/01/2013 Neurologic No headache 12/01/2013 Neurologic No neck pain 12/01/2013 Neurologic No syncope 12/01/2013 Psychiatric No anxiety 12/01/2013 Psychiatric No depression 12/01/2013 Hematologic/Lymphatic No abnormal ecchymoses 12/01/2013 Hematologic/Lymphatic No abnormal bleeding and bruising 12/01/2013 Constitutional recent illness 11/03/2013 Constitutional No chills 11/03/2013 Constitutional fatigue 11/03/2013 Constitutional No fever 11/03/2013 Constitutional No insomnia 11/03/2013 Constitutional No malaise 11/03/2013 Eyes No blindness 11/03/2013 Eyes No vision change 11/03/2013 Ears/Nose/Throat/Neck No dental pain 11/03/2013 Ears/Nose/Throat/Neck No dizziness 11/03/2013 Ears/Nose/Throat/Neck No dysphagia 11/03/2013 Ears/Nose/Throat/Neck No headache 11/03/2013 Ears/Nose/Throat/Neck No hearing loss 11/03/2013 Ears/Nose/Throat/Neck No nasal allergies 11/03/2013 Ears/Nose/Throat/Neck No sore throat 11/03/2013 Ears/Nose/Throat/Neck No postnasal drip 11/03/2013 Ears/Nose/Throat/Neck No sinus congestion 11/03/2013 Cardiovascular No chest pain/pressure 11/03/2013 Cardiovascular No dyspnea 11/03/2013 Cardiovascular No edema 11/03/2013 Cardiovascular exercise intolerance 11/03/2013 Cardiovascular fatigue 11/03/2013 Cardiovascular hypertension 11/03/2013 Cardiovascular No near-syncope/dizziness 11/03/2013 Respiratory No chest tightness 11/03/2013 Respiratory No cigarette smoking 11/03/2013 Respiratory No cough 11/03/2013 Respiratory No dyspnea 11/03/2013 Respiratory No pedal edema 11/03/2013 Respiratory No snoring 11/03/2013 Respiratory No wheezing 11/03/2013 Gastrointestinal No hemorrhoids 11/03/2013 Gastrointestinal No abdominal pain 11/03/2013 Gastrointestinal No constipation 11/03/2013 Gastrointestinal No diarrhea 11/03/2013 Gastrointestinal No gastroesophageal reflux 11/03/2013 Gastrointestinal No nausea 11/03/2013 Genitourinary/Nephrology No urinary urgency 11/03/2013 Genitourinary/Nephrology No urinary incontinence 11/03/2013 Musculoskeletal stiffness 11/03/2013 Musculoskeletal muscle weakness 11/03/2013 Dermatologic No rash 11/03/2013 Dermatologic sores 11/03/2013 Neurologic No dizziness 11/03/2013 Neurologic No headache 11/03/2013 Neurologic No neck pain 11/03/2013 Neurologic No syncope 11/03/2013 Psychiatric No anxiety 11/03/2013 Psychiatric No depression 11/03/2013 Hematologic/Lymphatic No abnormal ecchymoses 11/03/2013 Hematologic/Lymphatic No abnormal bleeding and bruising 11/03/2013 Constitutional recent illness 10/04/2013 Constitutional No chills 10/04/2013 Constitutional fatigue 10/04/2013 Constitutional No fever 10/04/2013 Constitutional No insomnia 10/04/2013 Constitutional No malaise 10/04/2013 Eyes No blindness 10/04/2013 Eyes No vision change 10/04/2013 Ears/Nose/Throat/Neck No dental pain 10/04/2013 Ears/Nose/Throat/Neck No dizziness 10/04/2013 Ears/Nose/Throat/Neck No dysphagia 10/04/2013 Ears/Nose/Throat/Neck No headache 10/04/2013 Ears/Nose/Throat/Neck No hearing loss 10/04/2013 Ears/Nose/Throat/Neck No nasal allergies 10/04/2013 Ears/Nose/Throat/Neck No sore throat 10/04/2013 Ears/Nose/Throat/Neck No postnasal drip 10/04/2013 Ears/Nose/Throat/Neck No sinus congestion 10/04/2013 Cardiovascular No chest pain/pressure 10/04/2013 Cardiovascular No dyspnea 10/04/2013 Cardiovascular No edema 10/04/2013 Cardiovascular exercise intolerance 10/04/2013 Cardiovascular fatigue 10/04/2013 Cardiovascular No near-syncope/dizziness 10/04/2013 Cardiovascular hypertension 10/04/2013 Respiratory No chest tightness 10/04/2013 Respiratory No cigarette smoking 10/04/2013 Respiratory No cough 10/04/2013 Respiratory No dyspnea 10/04/2013 Respiratory No pedal edema 10/04/2013 Respiratory No snoring 10/04/2013 Respiratory No wheezing 10/04/2013 Gastrointestinal No hemorrhoids 10/04/2013 Gastrointestinal No abdominal pain 10/04/2013 Gastrointestinal No constipation 10/04/2013 Gastrointestinal No diarrhea 10/04/2013 Gastrointestinal No gastroesophageal reflux 10/04/2013 Gastrointestinal No nausea 10/04/2013 Genitourinary/Nephrology No urinary urgency 10/04/2013 Genitourinary/Nephrology No urinary incontinence 10/04/2013 Musculoskeletal stiffness 10/04/2013 Musculoskeletal muscle weakness 10/04/2013 Dermatologic sores 10/04/2013 Dermatologic No rash 10/04/2013 Psychiatric No anxiety 10/04/2013 Psychiatric No depression 10/04/2013 Neurologic No dizziness 10/04/2013 Neurologic No headache 10/04/2013 Neurologic No neck pain 10/04/2013 Neurologic No syncope 10/04/2013 Hematologic/Lymphatic No abnormal ecchymoses 10/04/2013 Hematologic/Lymphatic No abnormal bleeding and bruising 10/04/2013 Physical Exam Exam Name System Name Item Name Status Result Effective Dates Notes Full Exam - General 1994 Constitutional general appearance Development: well developed 10/21/2018 None Full Exam - General 1994 Constitutional general appearance Development: appears stated age 0510/21/2018 None Full Exam - General 1994 Constitutional general appearance Evidence of Distress: mild distress 10/21/2018 None Full Exam - General 1994 Psychiatric orientation/consciousness Overall: oriented to person, place and time 10/21/2018 None Full Exam - General 1994 Psychiatric mood and affect Mood: happy 10/21/2018 None Full Exam - General 1994 Psychiatric mood and affect Overall: normal mood and affect 10/21/2018 None Full Exam - General 1994 Lymphatic neck nodes Overall: shotty lymphadenopathy 10/21/2018 None Full Exam - General 1994 Respiratory auscultation Upper lung field: Breath sounds clear 10/21/2018 None Full Exam - General 1994 Respiratory auscultation Lower lung field: diminished 10/21/2018 None Full Exam - General 1994 Respiratory auscultation Lower lung field: crackles 10/21/2018 None Full Exam - General 1994 Cardiovascular auscultation of heart Overall: regular rate 10/21/2018 None Full Exam - General 1994 Cardiovascular auscultation of heart Overall: normal heart sounds 10/21/2018 None Full Exam - General 1994 Cardiovascular auscultation of heart Overall: no murmurs 10/21/2018 None Full Exam - General 1994 Cardiovascular extremities Overall: no clubbing 10/21/2018 None Full Exam - General 1994 Ears/Nose/Throat otoscopic exam Tympanic membrane: air-fluid level 09/02/2017 None Full Exam - General 1994 Musculoskeletal digits and nails Digits: a normal exam 09/02/2017 None Full Exam - General 1994 Musculoskeletal gait and station Overall: normal gait 09/02/2017 None Full Exam - General 1994 Musculoskeletal gait and station Overall: normal station 09/02/2017 None Full Exam - General 1994 Integument inspection of skin Location: left foot 09/02/2017 great toe medial edge - corn - debrided with sharp knife Full Exam - General 1994 Constitutional general appearance Development: well developed 09/02/2017 None Full Exam - General 1994 Constitutional general appearance Development: appears stated age 0409/02/2017 None Full Exam - General 1994 Constitutional general appearance Hygiene/Attention to Grooming: good hygiene 09/02/2017 None Full Exam - General 1994 Eyes conjunctiva/eyelids Overall: conjunctiva clear 09/02/2017 None Full Exam - General 1994 Eyes conjunctiva/eyelids Overall: cornea clear 09/02/2017 None Full Exam - General 1994 Eyes conjunctiva/eyelids Overall: eyelids normal 09/02/2017 None Full Exam - General 1994 Eyes pupils and irises Overall: pupils equal, round, reactive to light and accomodation 09/02/2017 None Full Exam - General 1994 Ears/Nose/Throat lips/teeth/gingiva Overall: benign lips 09/02/2017 None Full Exam - General 1994 Ears/Nose/Throat oral cavity/pharynx/larynx Overall: oral mucosa clear 09/02/2017 None Full Exam - General 1994 Ears/Nose/Throat oral cavity/pharynx/larynx Overall: oropharyngeal mucosa clear 09/02/2017 None Full Exam - General 1994 Ears/Nose/Throat oral cavity/pharynx/larynx Overall: hypopharynx benign 09/02/2017 None Full Exam - General 1994 Ears/Nose/Throat oral cavity/pharynx/larynx Overall: no masses 09/02/2017 None Full Exam - General 1994 Respiratory auscultation Overall: breath sounds clear bilaterally 09/02/2017 None Full Exam - General 1994 Respiratory respiratory effort/rhythm Overall: no retractions 09/02/2017 None Full Exam - General 1994 Respiratory respiratory effort/rhythm Overall: normal rate 09/02/2017 None Full Exam - General 1994 Cardiovascular extremities Overall: no clubbing 09/02/2017 None Full Exam - General 1994 Cardiovascular auscultation of heart Overall: regular rate 09/02/2017 None Full Exam - General 1994 Cardiovascular auscultation of heart Overall: normal heart sounds 09/02/2017 None Full Exam - General 1994 Abdomen abdominal exam Overall: no tenderness 09/02/2017 None Full Exam - General 1994 Abdomen abdominal exam Overall: normal bowel sounds 09/02/2017 None Full Exam - General 1994 Musculoskeletal spine, ribs and pelvis Overall: spine benign 09/02/2017 None Full Exam - General 1994 Musculoskeletal spine, ribs and pelvis Overall: sacroiliac joint benign 09/02/2017 None Full Exam - General 1994 Musculoskeletal spine, ribs and pelvis Overall: good posture 09/02/2017 None Full Exam - General 1994 Musculoskeletal head and neck Overall: head atraumatic 09/02/2017 None Full Exam - General 1994 Musculoskeletal head and neck Overall: cervical spine benign 09/02/2017 None Full Exam - General 1994 Neurologic deep tendon reflexes Overall: deep tendon reflexes intact 09/02/2017 None Full Exam - General 1994 Neurologic cranial nerves Overall: crainial nerves 2 - 12 grossly intact 09/02/2017 None Full Exam - General 1994 Psychiatric orientation/consciousness Overall: oriented to person, place and time 09/02/2017 None Full Exam - General 1994 Psychiatric mood and affect Overall: normal mood and affect 09/02/2017 None Full Exam - ENT Constitutional general appearance Overall: well nourished 08/13/2017 None Full Exam - ENT Constitutional general appearance Overall: well developed 08/13/2017 None Full Exam - ENT Constitutional general appearance Overall: in no acute distress 08/13/2017 None Full Exam - ENT Neurologic orientation Overall: oriented to person, place and time 08/13/2017 None Full Exam - ENT Integument inspection of skin Overall: no rash, lesions 08/13/2017 None Full Exam - ENT Lymphatic palpation of lymph nodes Overall: shotty lymphadenopathy 08/13/2017 None Full Exam - ENT Cardiovascular auscultation of heart Overall: regular rate 08/13/2017 None Full Exam - ENT Cardiovascular auscultation of heart Overall: normal heart sounds 08/13/2017 None Full Exam - ENT Respiratory inspection Overall: no retractions 08/13/2017 None Full Exam - ENT Respiratory inspection Overall: normal rate 08/13/2017 None Full Exam - ENT Respiratory auscultation Overall: breath sounds clear bilaterally 08/13/2017 None Full Exam - ENT Face and Head palpation Right maxillary sinus: tender 08/13/2017 None Full Exam - ENT Face and Head palpation Left maxillary sinus: nontender 08/13/2017 None Full Exam - ENT Ears/Nose/Throat otoscopic exam Overall: external auditory canals normal 08/13/2017 None Full Exam - ENT Ears/Nose/Throat otoscopic exam Left tympanic membrane: air-fluid level 08/13/2017 None Full Exam - ENT Ears/Nose/Throat otoscopic exam Right tympanic membrane: air-fluid level 08/13/2017 None Full Exam - ENT Ears/Nose/Throat oropharynx Overall: oral mucosa clear 08/13/2017 None Full Exam - General 1994 Constitutional general appearance Development: well developed 02/18/2017 None Full Exam - General 1994 Constitutional general appearance Development: appears stated age 0902/18/2017 None Full Exam - General 1994 Constitutional general appearance Hygiene/Attention to Grooming: good hygiene 02/18/2017 None Full Exam - General 1994 Eyes conjunctiva/eyelids Overall: conjunctiva clear 02/18/2017 None Full Exam - General 1994 Eyes conjunctiva/eyelids Overall: cornea clear 02/18/2017 None Full Exam - General 1994 Eyes conjunctiva/eyelids Overall: eyelids normal 02/18/2017 None Full Exam - General 1994 Eyes pupils and irises Overall: pupils equal, round, reactive to light and accomodation 02/18/2017 None Full Exam - General 1994 Ears/Nose/Throat otoscopic exam Tympanic membrane: air-fluid level 02/18/2017 None Full Exam - General 1994 Ears/Nose/Throat lips/teeth/gingiva Overall: benign lips 02/18/2017 None Full Exam - General 1994 Ears/Nose/Throat oral cavity/pharynx/larynx Overall: oral mucosa clear 02/18/2017 None Full Exam - General 1994 Ears/Nose/Throat oral cavity/pharynx/larynx Overall: oropharyngeal mucosa clear 02/18/2017 None Full Exam - General 1994 Ears/Nose/Throat oral cavity/pharynx/larynx Overall: hypopharynx benign 02/18/2017 None Full Exam - General 1994 Ears/Nose/Throat oral cavity/pharynx/larynx Overall: no masses 02/18/2017 None Full Exam - General 1994 Respiratory auscultation Overall: breath sounds clear bilaterally 02/18/2017 None Full Exam - General 1994 Respiratory respiratory effort/rhythm Overall: no retractions 02/18/2017 None Full Exam - General 1994 Respiratory respiratory effort/rhythm Overall: normal rate 02/18/2017 None Full Exam - General 1994 Cardiovascular extremities Overall: no clubbing 02/18/2017 None Full Exam - General 1994 Cardiovascular auscultation of heart Overall: regular rate 02/18/2017 None Full Exam - General 1994 Cardiovascular auscultation of heart Overall: normal heart sounds 02/18/2017 None Full Exam - General 1994 Abdomen abdominal exam Overall: no tenderness 02/18/2017 None Full Exam - General 1994 Abdomen abdominal exam Overall: normal bowel sounds 02/18/2017 None Full Exam - General 1994 Musculoskeletal digits and nails Digits: a normal exam 02/18/2017 None Full Exam - General 1994 Musculoskeletal spine, ribs and pelvis Overall: spine benign 02/18/2017 None Full Exam - General 1994 Musculoskeletal spine, ribs and pelvis Overall: sacroiliac joint benign 02/18/2017 None Full Exam - General 1994 Musculoskeletal spine, ribs and pelvis Overall: good posture 02/18/2017 None Full Exam - General 1994 Musculoskeletal gait and station Overall: normal gait 02/18/2017 None Full Exam - General 1994 Musculoskeletal gait and station Overall: normal station 02/18/2017 None Full Exam - General 1994 Musculoskeletal head and neck Overall: head atraumatic 02/18/2017 None Full Exam - General 1994 Musculoskeletal head and neck Overall: cervical spine benign 02/18/2017 None Full Exam - General 1994 Neurologic deep tendon reflexes Overall: deep tendon reflexes intact 02/18/2017 None Full Exam - General 1994 Neurologic cranial nerves Overall: crainial nerves 2 - 12 grossly intact 02/18/2017 None Full Exam - General 1994 Psychiatric orientation/consciousness Overall: oriented to person, place and time 02/18/2017 None Full Exam - General 1994 Psychiatric mood and affect Overall: normal mood and affect 02/18/2017 None Full Exam - General 1994 Integument inspection of skin Location: left foot 02/18/2017 great toe medial edge - corn - debrided with sharp knife Full Exam - General 1994 Constitutional general appearance Hygiene/Attention to Grooming: good hygiene 02/04/2016 None Full Exam - General 1994 Eyes conjunctiva/eyelids Overall: conjunctiva clear 02/04/2016 None Full Exam - General 1994 Eyes conjunctiva/eyelids Overall: cornea clear 02/04/2016 None Full Exam - General 1994 Eyes conjunctiva/eyelids Overall: eyelids normal 02/04/2016 None Full Exam - General 1994 Ears/Nose/Throat lips/teeth/gingiva Overall: benign lips 02/04/2016 None Full Exam - General 1994 Ears/Nose/Throat oral cavity/pharynx/larynx Overall: oral mucosa clear 02/04/2016 None Full Exam - General 1994 Ears/Nose/Throat oral cavity/pharynx/larynx Overall: oropharyngeal mucosa clear 02/04/2016 None Full Exam - General 1994 Ears/Nose/Throat oral cavity/pharynx/larynx Overall: no masses 02/04/2016 None Full Exam - General 1994 Respiratory auscultation Overall: breath sounds clear bilaterally 02/04/2016 None Full Exam - General 1994 Respiratory respiratory effort/rhythm Overall: no retractions 02/04/2016 None Full Exam - General 1994 Respiratory respiratory effort/rhythm Overall: normal rate 02/04/2016 None Full Exam - General 1994 Cardiovascular extremities Overall: no clubbing 02/04/2016 None Full Exam - General 1994 Cardiovascular auscultation of heart Overall: regular rate 02/04/2016 None Full Exam - General 1994 Cardiovascular auscultation of heart Overall: normal heart sounds 02/04/2016 None Full Exam - General 1994 Abdomen abdominal exam Overall: no tenderness 02/04/2016 None Full Exam - General 1994 Abdomen abdominal exam Overall: normal bowel sounds 02/04/2016 None Full Exam - General 1994 Musculoskeletal spine, ribs and pelvis Overall: good posture 02/04/2016 None Full Exam - General 1994 Musculoskeletal head and neck Overall: head atraumatic 02/04/2016 None Full Exam - General 1994 Neurologic cranial nerves Overall: crainial nerves 2 - 12 grossly intact 02/04/2016 None Full Exam - General 1994 Psychiatric orientation/consciousness Overall: oriented to person, place and time 02/04/2016 None Full Exam - General 1994 Psychiatric mood and affect Overall: normal mood and affect 02/04/2016 None Full Exam - General 1994 Constitutional general appearance Overall: well nourished 02/04/2016 None Full Exam - General 1994 Constitutional general appearance Overall: in no acute distress 02/04/2016 None Full Exam - General 1994 Constitutional general appearance Overall: well developed 02/04/2016 None Full Exam - General 1994 Ears/Nose/Throat otoscopic exam Overall: external auditory canals clear 02/04/2016 None Full Exam - General 1994 Ears/Nose/Throat otoscopic exam Overall: tympanic membranes clear 02/04/2016 None Full Exam - General 1994 Psychiatric appearance Overall: well-groomed, good eye contact 02/04/2016 None Full Exam - General 1994 Psychiatric speech Overall: normal quality, no aphasia 02/04/2016 None Full Exam - General 1994 Psychiatric speech Overall: normal quality, quantity, rate 02/04/2016 None Full Exam - General 1994 Constitutional general appearance Development: well developed 05/31/2015 None Full Exam - General 1994 Constitutional general appearance Development: appears stated age 0105/31/2015 None Full Exam - General 1994 Constitutional general appearance Hygiene/Attention to Grooming: good hygiene 05/31/2015 None Full Exam - General 1994 Eyes conjunctiva/eyelids Overall: conjunctiva clear 05/31/2015 None Full Exam - General 1994 Eyes conjunctiva/eyelids Overall: cornea clear 05/31/2015 None Full Exam - General 1994 Eyes conjunctiva/eyelids Overall: eyelids normal 05/31/2015 None Full Exam - General 1994 Eyes pupils and irises Overall: pupils equal, round, reactive to light and accomodation 05/31/2015 None Full Exam - General 1994 Ears/Nose/Throat lips/teeth/gingiva Overall: benign lips 05/31/2015 None Full Exam - General 1994 Ears/Nose/Throat oral cavity/pharynx/larynx Overall: oral mucosa clear 05/31/2015 None Full Exam - General 1994 Ears/Nose/Throat oral cavity/pharynx/larynx Overall: oropharyngeal mucosa clear 05/31/2015 None Full Exam - General 1994 Ears/Nose/Throat oral cavity/pharynx/larynx Overall: hypopharynx benign 05/31/2015 None Full Exam - General 1994 Ears/Nose/Throat oral cavity/pharynx/larynx Overall: no masses 05/31/2015 None Full Exam - General 1994 Respiratory auscultation Overall: breath sounds clear bilaterally 05/31/2015 None Full Exam - General 1994 Respiratory respiratory effort/rhythm Overall: no retractions 05/31/2015 None Full Exam - General 1994 Respiratory respiratory effort/rhythm Overall: normal rate 05/31/2015 None Full Exam - General 1994 Cardiovascular extremities Overall: no clubbing 05/31/2015 None Full Exam - General 1994 Cardiovascular auscultation of heart Overall: regular rate 05/31/2015 None Full Exam - General 1994 Cardiovascular auscultation of heart Overall: normal heart sounds 05/31/2015 None Full Exam - General 1994 Abdomen abdominal exam Overall: no tenderness 05/31/2015 None Full Exam - General 1994 Abdomen abdominal exam Overall: normal bowel sounds 05/31/2015 None Full Exam - General 1994 Musculoskeletal digits and nails Digits: a normal exam 05/31/2015 None Full Exam - General 1994 Musculoskeletal spine, ribs and pelvis Overall: spine benign 05/31/2015 None Full Exam - General 1994 Musculoskeletal spine, ribs and pelvis Overall: sacroiliac joint benign 05/31/2015 None Full Exam - General 1994 Musculoskeletal spine, ribs and pelvis Overall: good posture 05/31/2015 None Full Exam - General 1994 Musculoskeletal gait and station Overall: normal gait 05/31/2015 None Full Exam - General 1994 Musculoskeletal gait and station Overall: normal station 05/31/2015 None Full Exam - General 1994 Musculoskeletal head and neck Overall: head atraumatic 05/31/2015 None Full Exam - General 1994 Musculoskeletal head and neck Overall: cervical spine benign 05/31/2015 None Full Exam - General 1994 Neurologic deep tendon reflexes Overall: deep tendon reflexes intact 05/31/2015 None Full Exam - General 1994 Neurologic cranial nerves Overall: crainial nerves 2 - 12 grossly intact 05/31/2015 None Full Exam - General 1994 Psychiatric orientation/consciousness Overall: oriented to person, place and time 05/31/2015 None Full Exam - General 1994 Psychiatric mood and affect Overall: normal mood and affect 05/31/2015 None Full Exam - General 1994 Ears/Nose/Throat otoscopic exam Tympanic membrane: air-fluid level 05/31/2015 None Full Exam - General 1994 Constitutional general appearance Development: well developed 12/20/2014 None Full Exam - General 1994 Constitutional general appearance Development: appears stated age 0712/20/2014 None Full Exam - General 1994 Constitutional general appearance Hygiene/Attention to Grooming: good hygiene 12/20/2014 None Full Exam - General 1994 Eyes conjunctiva/eyelids Overall: conjunctiva clear 12/20/2014 None Full Exam - General 1994 Eyes conjunctiva/eyelids Overall: cornea clear 12/20/2014 None Full Exam - General 1994 Eyes conjunctiva/eyelids Overall: eyelids normal 12/20/2014 None Full Exam - General 1994 Eyes pupils and irises Overall: pupils equal, round, reactive to light and accomodation 12/20/2014 None Full Exam - General 1994 Ears/Nose/Throat lips/teeth/gingiva Overall: benign lips 12/20/2014 None Full Exam - General 1994 Ears/Nose/Throat oral cavity/pharynx/larynx Overall: oral mucosa clear 12/20/2014 None Full Exam - General 1994 Ears/Nose/Throat oral cavity/pharynx/larynx Overall: oropharyngeal mucosa clear 12/20/2014 None Full Exam - General 1994 Ears/Nose/Throat oral cavity/pharynx/larynx Overall: hypopharynx benign 12/20/2014 None Full Exam - General 1994 Ears/Nose/Throat oral cavity/pharynx/larynx Overall: no masses 12/20/2014 None Full Exam - General 1994 Respiratory auscultation Overall: breath sounds clear bilaterally 12/20/2014 None Full Exam - General 1994 Respiratory respiratory effort/rhythm Overall: no retractions 12/20/2014 None Full Exam - General 1994 Respiratory respiratory effort/rhythm Overall: normal rate 12/20/2014 None Full Exam - General 1994 Cardiovascular extremities Overall: no clubbing 12/20/2014 None Full Exam - General 1994 Cardiovascular auscultation of heart Overall: regular rate 12/20/2014 None Full Exam - General 1994 Cardiovascular auscultation of heart Overall: normal heart sounds 12/20/2014 None Full Exam - General 1994 Abdomen abdominal exam Overall: no tenderness 12/20/2014 None Full Exam - General 1994 Abdomen abdominal exam Overall: normal bowel sounds 12/20/2014 None Full Exam - General 1994 Musculoskeletal digits and nails Digits: a normal exam 12/20/2014 None Full Exam - General 1994 Musculoskeletal upper extremity Overall: normal shoulder 12/20/2014 None Full Exam - General 1994 Musculoskeletal upper extremity Overall: normal elbow 12/20/2014 None Full Exam - General 1994 Musculoskeletal upper extremity Overall: normal wrist 12/20/2014 None Full Exam - General 1994 Musculoskeletal lower extremity Overall: knee benign 12/20/2014 None Full Exam - General 1994 Musculoskeletal lower extremity Overall: foot benign 12/20/2014 None Full Exam - General 1994 Musculoskeletal lower extremity Overall: lower leg non-tender, without crepitus or defects 12/20/2014 None Full Exam - General 1994 Musculoskeletal lower extremity Palpation - thigh: tenderness 12/20/2014 left greater than right - tender from groin onto anterior thigh with pain noted in an area extending out from groin onto anterior and medial thigh on th eleft and mostly in the groin region on the right, with a little extension onto medial thigh. Full Exam - General 1994 Musculoskeletal lower extremity Muscle Strength/Tone - thigh: quadriceps: normal bulk 12/20/2014 None Full Exam - General 1994 Musculoskeletal lower extremity Muscle Strength/Tone - thigh: hamstrings: normal bulk 12/20/2014 None Full Exam - General 1994 Musculoskeletal spine, ribs and pelvis Overall: spine benign 12/20/2014 None Full Exam - General 1994 Musculoskeletal spine, ribs and pelvis Overall: sacroiliac joint benign 12/20/2014 None Full Exam - General 1994 Musculoskeletal spine, ribs and pelvis Overall: good posture 12/20/2014 None Full Exam - General 1994 Musculoskeletal gait and station Overall: normal gait 12/20/2014 None Full Exam - General 1994 Musculoskeletal gait and station Overall: normal station 12/20/2014 None Full Exam - General 1994 Musculoskeletal head and neck Overall: head atraumatic 12/20/2014 None Full Exam - General 1994 Musculoskeletal head and neck Overall: cervical spine benign 12/20/2014 None Full Exam - General 1994 Integument inspection of skin Location: inguinal area 12/20/2014 scars with hypertrophic scar formation - worse in the left groin than on the right Full Exam - General 1994 Integument palpation Leg: tender 12/20/2014 in groin, no induration noted, no erythema Full Exam - General 1994 Neurologic deep tendon reflexes Overall: deep tendon reflexes intact 12/20/2014 None Full Exam - General 1994 Neurologic cranial nerves Overall: crainial nerves 2 - 12 grossly intact 12/20/2014 None Full Exam - General 1994 Psychiatric orientation/consciousness Overall: oriented to person, place and time 12/20/2014 None Full Exam - General 1994 Psychiatric mood and affect Overall: normal mood and affect 12/20/2014 None Full Exam - General 1994 Constitutional general appearance Development: well developed 03/29/2014 None Full Exam - General 1994 Constitutional general appearance Development: appears stated age 1103/29/2014 None Full Exam - General 1994 Constitutional general appearance Hygiene/Attention to Grooming: good hygiene 03/29/2014 None Full Exam - General 1994 Eyes conjunctiva/eyelids Overall: conjunctiva clear 03/29/2014 None Full Exam - General 1994 Eyes conjunctiva/eyelids Overall: cornea clear 03/29/2014 None Full Exam - General 1994 Eyes conjunctiva/eyelids Overall: eyelids normal 03/29/2014 None Full Exam - General 1994 Eyes pupils and irises Overall: pupils equal, round, reactive to light and accomodation 03/29/2014 None Full Exam - General 1994 Ears/Nose/Throat lips/teeth/gingiva Overall: benign lips 03/29/2014 None Full Exam - General 1994 Ears/Nose/Throat oral cavity/pharynx/larynx Overall: oral mucosa clear 03/29/2014 None Full Exam - General 1994 Ears/Nose/Throat oral cavity/pharynx/larynx Overall: oropharyngeal mucosa clear 03/29/2014 None Full Exam - General 1994 Ears/Nose/Throat oral cavity/pharynx/larynx Overall: hypopharynx benign 03/29/2014 None Full Exam - General 1994 Ears/Nose/Throat oral cavity/pharynx/larynx Overall: no masses 03/29/2014 None Full Exam - General 1994 Respiratory auscultation Overall: breath sounds clear bilaterally 03/29/2014 None Full Exam - General 1994 Respiratory respiratory effort/rhythm Overall: no retractions 03/29/2014 None Full Exam - General 1994 Respiratory respiratory effort/rhythm Overall: normal rate 03/29/2014 None Full Exam - General 1994 Cardiovascular extremities Overall: no clubbing 03/29/2014 None Full Exam - General 1994 Cardiovascular auscultation of heart Overall: regular rate 03/29/2014 None Full Exam - General 1994 Cardiovascular auscultation of heart Overall: normal heart sounds 03/29/2014 None Full Exam - General 1994 Abdomen abdominal exam Overall: no tenderness 03/29/2014 None Full Exam - General 1994 Abdomen abdominal exam Overall: normal bowel sounds 03/29/2014 None Full Exam - General 1994 Musculoskeletal digits and nails Digits: a normal exam 03/29/2014 None Full Exam - General 1994 Musculoskeletal upper extremity Overall: normal shoulder 03/29/2014 None Full Exam - General 1994 Musculoskeletal upper extremity Overall: normal elbow 03/29/2014 None Full Exam - General 1994 Musculoskeletal upper extremity Overall: normal wrist 03/29/2014 None Full Exam - General 1994 Musculoskeletal lower extremity Overall: knee benign 03/29/2014 None Full Exam - General 1994 Musculoskeletal lower extremity Overall: foot benign 03/29/2014 None Full Exam - General 1994 Musculoskeletal lower extremity Overall: lower leg non-tender, without crepitus or defects 03/29/2014 None Full Exam - General 1994 Musculoskeletal lower extremity Palpation - thigh: tenderness 03/29/2014 left greater than right - tender from groin onto anterior thigh with pain noted in an area extending out from groin onto anterior and medial thigh on th eleft and mostly in the groin region on the right, with a little extension onto medial thigh. Full Exam - General 1994 Musculoskeletal lower extremity Muscle Strength/Tone - thigh: quadriceps: normal bulk 03/29/2014 None Full Exam - General 1994 Musculoskeletal lower extremity Muscle Strength/Tone - thigh: hamstrings: normal bulk 03/29/2014 None Full Exam - General 1994 Musculoskeletal spine, ribs and pelvis Overall: spine benign 03/29/2014 None Full Exam - General 1994 Musculoskeletal spine, ribs and pelvis Overall: sacroiliac joint benign 03/29/2014 None Full Exam - General 1994 Musculoskeletal spine, ribs and pelvis Overall: good posture 03/29/2014 None Full Exam - General 1994 Musculoskeletal gait and station Overall: normal gait 03/29/2014 None Full Exam - General 1994 Musculoskeletal gait and station Overall: normal station 03/29/2014 None Full Exam - General 1994 Musculoskeletal head and neck Overall: head atraumatic 03/29/2014 None Full Exam - General 1994 Musculoskeletal head and neck Overall: cervical spine benign 03/29/2014 None Full Exam - General 1994 Integument inspection of skin Location: inguinal area 03/29/2014 scars with hypertrophic scar formation - worse in the left groin than on the right Full Exam - General 1994 Integument palpation Leg: tender 03/29/2014 in groin, no induration noted, no erythema Full Exam - General 1994 Neurologic deep tendon reflexes Overall: deep tendon reflexes intact 03/29/2014 None Full Exam - General 1994 Neurologic cranial nerves Overall: crainial nerves 2 - 12 grossly intact 03/29/2014 None Full Exam - General 1994 Psychiatric orientation/consciousness Overall: oriented to person, place and time 03/29/2014 None Full Exam - General 1994 Psychiatric mood and affect Overall: normal mood and affect 03/29/2014 None Full Exam - General 1994 Constitutional general appearance Development: well developed 03/08/2014 None Full Exam - General 1994 Constitutional general appearance Development: appears stated age 1003/08/2014 None Full Exam - General 1994 Constitutional general appearance Hygiene/Attention to Grooming: good hygiene 03/08/2014 None Full Exam - General 1994 Eyes conjunctiva/eyelids Overall: conjunctiva clear 03/08/2014 None Full Exam - General 1994 Eyes conjunctiva/eyelids Overall: cornea clear 03/08/2014 None Full Exam - General 1994 Eyes conjunctiva/eyelids Overall: eyelids normal 03/08/2014 None Full Exam - General 1994 Eyes pupils and irises Overall: pupils equal, round, reactive to light and accomodation 03/08/2014 None Full Exam - General 1994 Ears/Nose/Throat lips/teeth/gingiva Overall: benign lips 03/08/2014 None Full Exam - General 1994 Ears/Nose/Throat oral cavity/pharynx/larynx Overall: oral mucosa clear 03/08/2014 None Full Exam - General 1994 Ears/Nose/Throat oral cavity/pharynx/larynx Overall: oropharyngeal mucosa clear 03/08/2014 None Full Exam - General 1994 Ears/Nose/Throat oral cavity/pharynx/larynx Overall: hypopharynx benign 03/08/2014 None Full Exam - General 1994 Ears/Nose/Throat oral cavity/pharynx/larynx Overall: no masses 03/08/2014 None Full Exam - General 1994 Respiratory auscultation Overall: breath sounds clear bilaterally 03/08/2014 None Full Exam - General 1994 Respiratory respiratory effort/rhythm Overall: no retractions 03/08/2014 None Full Exam - General 1994 Respiratory respiratory effort/rhythm Overall: normal rate 03/08/2014 None Full Exam - General 1994 Cardiovascular extremities Overall: no clubbing 03/08/2014 None Full Exam - General 1994 Cardiovascular auscultation of heart Overall: regular rate 03/08/2014 None Full Exam - General 1994 Cardiovascular auscultation of heart Overall: normal heart sounds 03/08/2014 None Full Exam - General 1994 Abdomen abdominal exam Overall: no tenderness 03/08/2014 None Full Exam - General 1994 Abdomen abdominal exam Overall: normal bowel sounds 03/08/2014 None Full Exam - General 1994 Musculoskeletal digits and nails Digits: a normal exam 03/08/2014 None Full Exam - General 1994 Musculoskeletal upper extremity Overall: normal shoulder 03/08/2014 None Full Exam - General 1994 Musculoskeletal upper extremity Overall: normal elbow 03/08/2014 None Full Exam - General 1994 Musculoskeletal upper extremity Overall: normal wrist 03/08/2014 None Full Exam - General 1994 Musculoskeletal lower extremity Overall: knee benign 03/08/2014 None Full Exam - General 1994 Musculoskeletal lower extremity Overall: foot benign 03/08/2014 None Full Exam - General 1994 Musculoskeletal lower extremity Overall: lower leg non-tender, without crepitus or defects 03/08/2014 None Full Exam - General 1994 Musculoskeletal lower extremity Palpation - thigh: tenderness 03/08/2014 left greater than right - tender from groin onto anterior thigh with pain noted in an area extending out from groin onto anterior and medial thigh on th eleft and mostly in the groin region on the right, with a little extension onto medial thigh. Full Exam - General 1994 Musculoskeletal lower extremity Muscle Strength/Tone - thigh: quadriceps: normal bulk 03/08/2014 None Full Exam - General 1994 Musculoskeletal lower extremity Muscle Strength/Tone - thigh: hamstrings: normal bulk 03/08/2014 None Full Exam - General 1994 Musculoskeletal spine, ribs and pelvis Overall: spine benign 03/08/2014 None Full Exam - General 1994 Musculoskeletal spine, ribs and pelvis Overall: sacroiliac joint benign 03/08/2014 None Full Exam - General 1994 Musculoskeletal spine, ribs and pelvis Overall: good posture 03/08/2014 None Full Exam - General 1994 Musculoskeletal gait and station Overall: normal gait 03/08/2014 None Full Exam - General 1994 Musculoskeletal gait and station Overall: normal station 03/08/2014 None Full Exam - General 1994 Musculoskeletal head and neck Overall: head atraumatic 03/08/2014 None Full Exam - General 1994 Musculoskeletal head and neck Overall: cervical spine benign 03/08/2014 None Full Exam - General 1994 Integument inspection of skin Location: inguinal area 03/08/2014 scars with hypertrophic scar formation - worse in the left groin than on the right Full Exam - General 1994 Integument palpation Leg: tender 03/08/2014 in groin, no induration noted, no erythema Full Exam - General 1994 Neurologic deep tendon reflexes Overall: deep tendon reflexes intact 03/08/2014 None Full Exam - General 1994 Neurologic cranial nerves Overall: crainial nerves 2 - 12 grossly intact 03/08/2014 None Full Exam - General 1994 Psychiatric orientation/consciousness Overall: oriented to person, place and time 03/08/2014 None Full Exam - General 1994 Psychiatric mood and affect Overall: normal mood and affect 03/08/2014 None Full Exam - General 1994 Constitutional general appearance Development: well developed 02/08/2014 None Full Exam - General 1994 Constitutional general appearance Development: appears stated age 0902/08/2014 None Full Exam - General 1994 Constitutional general appearance Hygiene/Attention to Grooming: good hygiene 02/08/2014 None Full Exam - General 1994 Eyes conjunctiva/eyelids Overall: conjunctiva clear 02/08/2014 None Full Exam - General 1994 Eyes conjunctiva/eyelids Overall: cornea clear 02/08/2014 None Full Exam - General 1994 Eyes conjunctiva/eyelids Overall: eyelids normal 02/08/2014 None Full Exam - General 1994 Eyes pupils and irises Overall: pupils equal, round, reactive to light and accomodation 02/08/2014 None Full Exam - General 1994 Ears/Nose/Throat lips/teeth/gingiva Overall: benign lips 02/08/2014 None Full Exam - General 1994 Ears/Nose/Throat oral cavity/pharynx/larynx Overall: oral mucosa clear 02/08/2014 None Full Exam - General 1994 Ears/Nose/Throat oral cavity/pharynx/larynx Overall: oropharyngeal mucosa clear 02/08/2014 None Full Exam - General 1994 Ears/Nose/Throat oral cavity/pharynx/larynx Overall: hypopharynx benign 02/08/2014 None Full Exam - General 1994 Ears/Nose/Throat oral cavity/pharynx/larynx Overall: no masses 02/08/2014 None Full Exam - General 1994 Respiratory auscultation Overall: breath sounds clear bilaterally 02/08/2014 None Full Exam - General 1994 Respiratory respiratory effort/rhythm Overall: no retractions 02/08/2014 None Full Exam - General 1994 Respiratory respiratory effort/rhythm Overall: normal rate 02/08/2014 None Full Exam - General 1994 Cardiovascular extremities Overall: no clubbing 02/08/2014 None Full Exam - General 1994 Cardiovascular auscultation of heart Overall: regular rate 02/08/2014 None Full Exam - General 1994 Cardiovascular auscultation of heart Overall: normal heart sounds 02/08/2014 None Full Exam - General 1994 Abdomen abdominal exam Overall: no tenderness 02/08/2014 None Full Exam - General 1994 Abdomen abdominal exam Overall: normal bowel sounds 02/08/2014 None Full Exam - General 1994 Musculoskeletal spine, ribs and pelvis Overall: spine benign 02/08/2014 None Full Exam - General 1994 Musculoskeletal spine, ribs and pelvis Overall: sacroiliac joint benign 02/08/2014 None Full Exam - General 1994 Musculoskeletal spine, ribs and pelvis Overall: good posture 02/08/2014 None Full Exam - General 1994 Musculoskeletal head and neck Overall: head atraumatic 02/08/2014 None Full Exam - General 1994 Musculoskeletal head and neck Overall: cervical spine benign 02/08/2014 None Full Exam - General 1994 Neurologic deep tendon reflexes Overall: deep tendon reflexes intact 02/08/2014 None Full Exam - General 1994 Neurologic cranial nerves Overall: crainial nerves 2 - 12 grossly intact 02/08/2014 None Full Exam - General 1994 Psychiatric orientation/consciousness Overall: oriented to person, place and time 02/08/2014 None Full Exam - General 1994 Psychiatric mood and affect Overall: normal mood and affect 02/08/2014 None Full Exam - General 1994 Musculoskeletal digits and nails Digits: a normal exam 02/08/2014 None Full Exam - General 1994 Musculoskeletal upper extremity Overall: normal shoulder 02/08/2014 None Full Exam - General 1994 Musculoskeletal upper extremity Overall: normal elbow 02/08/2014 None Full Exam - General 1994 Musculoskeletal upper extremity Overall: normal wrist 02/08/2014 None Full Exam - General 1994 Musculoskeletal lower extremity Overall: knee benign 02/08/2014 None Full Exam - General 1994 Musculoskeletal lower extremity Overall: foot benign 02/08/2014 None Full Exam - General 1994 Musculoskeletal lower extremity Overall: lower leg non-tender, without crepitus or defects 02/08/2014 None Full Exam - General 1994 Musculoskeletal lower extremity Palpation - thigh: tenderness 02/08/2014 left greater than right - tender from groin onto anterior thigh with pain noted in an area extending out from groin onto anterior and medial thigh on th eleft and mostly in the groin region on the right, with a little extension onto medial thigh. Full Exam - General 1994 Musculoskeletal lower extremity Muscle Strength/Tone - thigh: quadriceps: normal bulk 02/08/2014 None Full Exam - General 1994 Musculoskeletal lower extremity Muscle Strength/Tone - thigh: hamstrings: normal bulk 02/08/2014 None Full Exam - General 1994 Musculoskeletal gait and station Overall: normal gait 02/08/2014 None Full Exam - General 1994 Musculoskeletal gait and station Overall: normal station 02/08/2014 None Full Exam - General 1994 Integument inspection of skin Location: inguinal area 02/08/2014 scars with hypertrophic scar formation - worse in the left groin than on the right Full Exam - General 1994 Integument palpation Leg: tender 02/08/2014 in groin, no induration noted, no erythema Full Exam - General 1994 Constitutional general appearance Development: well developed 12/01/2013 None Full Exam - General 1994 Constitutional general appearance Development: appears stated age 0712/01/2013 None Full Exam - General 1994 Constitutional general appearance Hygiene/Attention to Grooming: good hygiene 12/01/2013 None Full Exam - General 1994 Eyes conjunctiva/eyelids Overall: conjunctiva clear 12/01/2013 None Full Exam - General 1994 Eyes conjunctiva/eyelids Overall: cornea clear 12/01/2013 None Full Exam - General 1994 Eyes conjunctiva/eyelids Overall: eyelids normal 12/01/2013 None Full Exam - General 1994 Eyes pupils and irises Overall: pupils equal, round, reactive to light and accomodation 12/01/2013 None Full Exam - General 1994 Ears/Nose/Throat otoscopic exam Overall: external auditory canals clear 12/01/2013 None Full Exam - General 1994 Ears/Nose/Throat otoscopic exam Overall: tympanic membranes clear 12/01/2013 None Full Exam - General 1994 Ears/Nose/Throat lips/teeth/gingiva Overall: benign lips 12/01/2013 None Full Exam - General 1994 Ears/Nose/Throat lips/teeth/gingiva Overall: normal dentition 12/01/2013 None Full Exam - General 1994 Ears/Nose/Throat oral cavity/pharynx/larynx Overall: oral mucosa clear 12/01/2013 None Full Exam - General 1994 Ears/Nose/Throat oral cavity/pharynx/larynx Overall: oropharyngeal mucosa clear 12/01/2013 None Full Exam - General 1994 Ears/Nose/Throat oral cavity/pharynx/larynx Overall: hypopharynx benign 12/01/2013 None Full Exam - General 1994 Ears/Nose/Throat oral cavity/pharynx/larynx Overall: no masses 12/01/2013 None Full Exam - General 1994 Neck inspection of neck Overall: normal size 12/01/2013 None Full Exam - General 1994 Neck inspection of neck Overall: no masses 12/01/2013 None Full Exam - General 1994 Respiratory auscultation Overall: breath sounds clear bilaterally 12/01/2013 None Full Exam - General 1994 Respiratory respiratory effort/rhythm Overall: no retractions 12/01/2013 None Full Exam - General 1994 Respiratory respiratory effort/rhythm Overall: normal rate 12/01/2013 None Full Exam - General 1994 Cardiovascular extremities Overall: no clubbing 12/01/2013 None Full Exam - General 1994 Cardiovascular auscultation of heart Overall: regular rate 12/01/2013 None Full Exam - General 1994 Cardiovascular auscultation of heart Overall: normal heart sounds 12/01/2013 None Full Exam - General 1994 Abdomen abdominal exam Overall: no tenderness 12/01/2013 None Full Exam - General 1994 Abdomen abdominal exam Overall: normal bowel sounds 12/01/2013 None Full Exam - General 1994 Lymphatic neck nodes Overall: anterior cervical chain benign 12/01/2013 None Full Exam - General 1994 Lymphatic neck nodes Overall: posterior cervical chain benign 12/01/2013 None Full Exam - General 1994 Musculoskeletal spine, ribs and pelvis Overall: spine benign 12/01/2013 None Full Exam - General 1994 Musculoskeletal spine, ribs and pelvis Overall: sacroiliac joint benign 12/01/2013 None Full Exam - General 1994 Musculoskeletal spine, ribs and pelvis Overall: good posture 12/01/2013 None Full Exam - General 1994 Musculoskeletal head and neck Overall: head atraumatic 12/01/2013 None Full Exam - General 1994 Musculoskeletal head and neck Overall: cervical spine benign 12/01/2013 None Full Exam - General 1994 Integument inspection of skin Location: inguinal area 12/01/2013 healed surgical incision sites Full Exam - General 1994 Neurologic deep tendon reflexes Overall: deep tendon reflexes intact 12/01/2013 None Full Exam - General 1994 Neurologic cranial nerves Overall: crainial nerves 2 - 12 grossly intact 12/01/2013 None Full Exam - General 1994 Psychiatric orientation/consciousness Overall: oriented to person, place and time 12/01/2013 None Full Exam - General 1994 Psychiatric mood and affect Overall: normal mood and affect 12/01/2013 None Full Exam - General 1994 Constitutional general appearance Development: well developed 11/03/2013 None Full Exam - General 1994 Constitutional general appearance Development: appears stated age 0611/03/2013 None Full Exam - General 1994 Constitutional general appearance Hygiene/Attention to Grooming: good hygiene 11/03/2013 None Full Exam - General 1994 Eyes conjunctiva/eyelids Overall: conjunctiva clear 11/03/2013 None Full Exam - General 1994 Eyes conjunctiva/eyelids Overall: cornea clear 11/03/2013 None Full Exam - General 1994 Eyes conjunctiva/eyelids Overall: eyelids normal 11/03/2013 None Full Exam - General 1994 Eyes pupils and irises Overall: pupils equal, round, reactive to light and accomodation 11/03/2013 None Full Exam - General 1994 Ears/Nose/Throat otoscopic exam Overall: external auditory canals clear 11/03/2013 None Full Exam - General 1994 Ears/Nose/Throat otoscopic exam Overall: tympanic membranes clear 11/03/2013 None Full Exam - General 1994 Ears/Nose/Throat lips/teeth/gingiva Overall: benign lips 11/03/2013 None Full Exam - General 1994 Ears/Nose/Throat lips/teeth/gingiva Overall: normal dentition 11/03/2013 None Full Exam - General 1994 Ears/Nose/Throat oral cavity/pharynx/larynx Overall: oral mucosa clear 11/03/2013 None Full Exam - General 1994 Ears/Nose/Throat oral cavity/pharynx/larynx Overall: oropharyngeal mucosa clear 11/03/2013 None Full Exam - General 1994 Ears/Nose/Throat oral cavity/pharynx/larynx Overall: hypopharynx benign 11/03/2013 None Full Exam - General 1994 Ears/Nose/Throat oral cavity/pharynx/larynx Overall: no masses 11/03/2013 None Full Exam - General 1994 Neck inspection of neck Overall: normal size 11/03/2013 None Full Exam - General 1994 Neck inspection of neck Overall: no masses 11/03/2013 None Full Exam - General 1994 Respiratory auscultation Overall: breath sounds clear bilaterally 11/03/2013 None Full Exam - General 1994 Respiratory respiratory effort/rhythm Overall: no retractions 11/03/2013 None Full Exam - General 1994 Respiratory respiratory effort/rhythm Overall: normal rate 11/03/2013 None Full Exam - General 1994 Cardiovascular extremities Overall: no clubbing 11/03/2013 None Full Exam - General 1994 Cardiovascular auscultation of heart Overall: regular rate 11/03/2013 None Full Exam - General 1994 Cardiovascular auscultation of heart Overall: normal heart sounds 11/03/2013 None Full Exam - General 1994 Abdomen abdominal exam Overall: no tenderness 11/03/2013 None Full Exam - General 1994 Abdomen abdominal exam Overall: normal bowel sounds 11/03/2013 None Full Exam - General 1994 Lymphatic neck nodes Overall: anterior cervical chain benign 11/03/2013 None Full Exam - General 1994 Lymphatic neck nodes Overall: posterior cervical chain benign 11/03/2013 None Full Exam - General 1994 Musculoskeletal spine, ribs and pelvis Overall: spine benign 11/03/2013 None Full Exam - General 1994 Musculoskeletal spine, ribs and pelvis Overall: sacroiliac joint benign 11/03/2013 None Full Exam - General 1994 Musculoskeletal spine, ribs and pelvis Overall: good posture 11/03/2013 None Full Exam - General 1994 Musculoskeletal head and neck Overall: head atraumatic 11/03/2013 None Full Exam - General 1994 Musculoskeletal head and neck Overall: cervical spine benign 11/03/2013 None Full Exam - General 1994 Neurologic deep tendon reflexes Overall: deep tendon reflexes intact 11/03/2013 None Full Exam - General 1994 Neurologic cranial nerves Overall: crainial nerves 2 - 12 grossly intact 11/03/2013 None Full Exam - General 1994 Psychiatric orientation/consciousness Overall: oriented to person, place and time 11/03/2013 None Full Exam - General 1994 Psychiatric mood and affect Overall: normal mood and affect 11/03/2013 None Full Exam - General 1994 Integument inspection of skin Location: inguinal area 11/03/2013 healed surgical incision sites Full Exam - General 1994 Constitutional general appearance Development: appears stated age 0510/04/2013 None Full Exam - General 1994 Constitutional general appearance Development: well developed 10/04/2013 None Full Exam - General 1994 Constitutional general appearance Hygiene/Attention to Grooming: good hygiene 10/04/2013 None Full Exam - General 1994 Eyes conjunctiva/eyelids Overall: conjunctiva clear 10/04/2013 None Full Exam - General 1994 Eyes conjunctiva/eyelids Overall: cornea clear 10/04/2013 None Full Exam - General 1994 Eyes conjunctiva/eyelids Overall: eyelids normal 10/04/2013 None Full Exam - General 1994 Eyes pupils and irises Overall: pupils equal, round, reactive to light and accomodation 10/04/2013 None Full Exam - General 1994 Ears/Nose/Throat otoscopic exam Overall: external auditory canals clear 10/04/2013 None Full Exam - General 1994 Ears/Nose/Throat otoscopic exam Overall: tympanic membranes clear 10/04/2013 None Full Exam - General 1994 Ears/Nose/Throat lips/teeth/gingiva Overall: benign lips 10/04/2013 None Full Exam - General 1994 Ears/Nose/Throat lips/teeth/gingiva Overall: normal dentition 10/04/2013 None Full Exam - General 1994 Ears/Nose/Throat oral cavity/pharynx/larynx Overall: hypopharynx benign 10/04/2013 None Full Exam - General 1994 Ears/Nose/Throat oral cavity/pharynx/larynx Overall: no masses 10/04/2013 None Full Exam - General 1994 Ears/Nose/Throat oral cavity/pharynx/larynx Overall: oral mucosa clear 10/04/2013 None Full Exam - General 1994 Ears/Nose/Throat oral cavity/pharynx/larynx Overall: oropharyngeal mucosa clear 10/04/2013 None Full Exam - General 1994 Respiratory auscultation Overall: breath sounds clear bilaterally 10/04/2013 None Full Exam - General 1994 Respiratory respiratory effort/rhythm Overall: no retractions 10/04/2013 None Full Exam - General 1994 Respiratory respiratory effort/rhythm Overall: normal rate 10/04/2013 None Full Exam - General 1994 Cardiovascular extremities Overall: no clubbing 10/04/2013 None Full Exam - General 1994 Cardiovascular auscultation of heart Overall: normal heart sounds 10/04/2013 None Full Exam - General 1994 Cardiovascular auscultation of heart Overall: regular rate 10/04/2013 None Full Exam - General 1994 Abdomen abdominal exam Overall: no tenderness 10/04/2013 None Full Exam - General 1994 Abdomen abdominal exam Overall: normal bowel sounds 10/04/2013 None Full Exam - General 1994 Neurologic deep tendon reflexes Overall: deep tendon reflexes intact 10/04/2013 None Full Exam - General 1994 Neurologic cranial nerves Overall: crainial nerves 2 - 12 grossly intact 10/04/2013 None Full Exam - General 1994 Psychiatric orientation/consciousness Overall: oriented to person, place and time 10/04/2013 None Full Exam - General 1994 Psychiatric mood and affect Overall: normal mood and affect 10/04/2013 None Full Exam - General 1994 Neck inspection of neck Overall: normal size 10/04/2013 None Full Exam - General 1994 Neck inspection of neck Overall: no masses 10/04/2013 None Full Exam - General 1994 Lymphatic neck nodes Overall: anterior cervical chain benign 10/04/2013 None Full Exam - General 1994 Lymphatic neck nodes Overall: posterior cervical chain benign 10/04/2013 None Full Exam - General 1994 Musculoskeletal spine, ribs and pelvis Overall: good posture 10/04/2013 None Full Exam - General 1994 Musculoskeletal spine, ribs and pelvis Overall: sacroiliac joint benign 10/04/2013 None Full Exam - General 1994 Musculoskeletal spine, ribs and pelvis Overall: spine benign 10/04/2013 None Full Exam - General 1994 Musculoskeletal head and neck Overall: cervical spine benign 10/04/2013 None Full Exam - General 1994 Musculoskeletal head and neck Overall: head atraumatic 10/04/2013 None Full Exam - General 1994 Integument inspection of skin Location: inguinal area 10/04/2013 in bilateral groins - over middle of scars bilaterally - on right - 2.5cm of linear granulation tissue, with small discharge on gauze pad, nontender to touch, cauterized with silvernitrate and dressed with medihoney and telfa and gauze. left groin with open wound, 1.5 x 2cm - moderate drainage, friable tissue, cauterized with silver nitrate and dressed with medihoney, telfa and gauze. Procedures Procedure Codes Date URINALYSIS NONAUTO W/O SCOPE CPT-4: 83348 10/21/2018 THER/PROPH/DIAG INJ SC/IM CPT-4: 11893 10/21/2018 TRIAMCINOLONE ACET INJ NOS CPT-4: J3301 10/21/2018 ROCEPHIN, PER 250 MG CPT- 4: J0696 10/21/2018 TOBACCO-USE ONLINE MARKETER 3-[address]: [id number] CPT-4: G0436 02/18/2017 TRIM SKIN LESION CPT-4: 33144 02/18/2017 Vital Signs Date Vital 10/21/2018 Blood Pressure 1: 120/66 Code: 8480-6 Heart Rate 1: 99 bpm Height: SpO2: 97% Temperature: 37.1 (C) / 98.8 (F) Weight: 09/02/2017 Blood Pressure 1: 140/80 Code: 8480-6 BMI: 28.0 Code: 16146-9 Heart Rate 1: 96 bpm Height: 5'5" SpO2: 98% Temperature: 36.7 (C) / 98.1 (F) Weight: 168 lbs 08/13/2017 Blood Pressure 1: 118/76 Code: 8480-6 BMI: 28.0 Code: 92994-9 Heart Rate 1: 96 bpm Height: 5'5" SpO2: 98% Temperature: 37.2 (C) / 99.0 (F) Weight: 168 lbs 02/18/2017 Blood Pressure 1: 118/64 Code: 8480-6 BMI: 27.3 Code: 87898-8 Heart Rate 1: 88 bpm Height: 5'5" SpO2: 96% Weight: 164 lbs 02/04/2016 Blood Pressure 1: 120/64 Code: 8480-6 BMI: 25.0 Code: 92589-2 Heart Rate 1: 94 bpm Height: 5'5" SpO2: 97% Weight: 150 lbs 05/31/2015 Blood Pressure 1: 128/82 Code: 8480-6 BMI: 28.1 Code: 59391-0 Heart Rate 1: 97 bpm Height: 5'5" SpO2: 97% Weight: 169 lbs 12/20/2014 Blood Pressure 1: 120/58 Code: 8480-6 BMI: 28.6 Code: 45541-2 Heart Rate 1: 80 bpm Height: 5'5" SpO2: 97% Weight: 172 lbs 03/29/2014 Blood Pressure 1: 118/72 Code: 8480-6 Heart Rate 1: 72 bpm Height: 5'5" 03/08/2014 Blood Pressure 1: 118/76 Code: 8480-6 BMI: 30.6 Code: 08957-1 Heart Rate 1: 78 bpm Height: 5'5" Weight: 184 lbs 02/08/2014 Blood Pressure 1: 110/64 Code: 8480-6 BMI: 30.5 Code: 63208-5 Heart Rate 1: 86 bpm Height: 5'5" SpO2: 97% Weight: 183 lbs 12/01/2013 Blood Pressure 1: 116/72 Code: 8480-6 BMI: 29.1 Code: 28337-6 Heart Rate 1: 88 bpm Height: 5'5" Weight: 175 lbs 11/03/2013 Blood Pressure 1: 102/70 Code: 8480-6 BMI: 28.3 Code: 03494-0 Heart Rate 1: 76 bpm Height: 5'5" Weight: 170 lbs 10/04/2013 Blood Pressure 1: 100/48 Code: 8480-6 BMI: 27.5 Code: 17253-8 Heart Rate 1: 72 bpm Height: 5'5" Weight: 165 lbs 8 oz Functional Status No Functional Status data History of Present Illness Symptom Name Status Result Effective Date Notes Quality intermittent 10/21/2018 None Onset and Resolution sudden in onset 10/21/2018 None Onset of Symptom 2 days ago 10/21/2018 None Temperature 101 degrees 10/21/2018 None Pertinent Findings chills 10/21/2018 None Pertinent Findings nausea 10/21/2018 None Location diffusely 10/21/2018 None Quality aching 10/21/2018 None Quality constant 10/21/2018 None Quality burning 10/21/2018 None Onset and Resolution Denies sudden in onset 10/21/2018 None well woman exam (40-65 years) Cardiovascular Risk Factors dyslipidemia 09/02/2017 None well woman exam (40-65 years) Cardiovascular Risk Factors family history of cardiovascular disease 09/02/2017 None hypertension Quality chronic 09/02/2017 None hypertension Quality stable 09/02/2017 None hypertension Onset and Resolution ongoing 09/02/2017 None hypertension Onset of Symptom during adulthood 09/02/2017 None hypertension Severity mild 09/02/2017 None hypertension Alleviating Factors diet changes 09/02/2017 None hypertension Alleviating Factors exercise 09/02/2017 None hypertension Alleviating Factors medication 09/02/2017 None hypertension Pertinent Findings Denies dyspnea 09/02/2017 None cough Quality acute 08/13/2017 None cough Quality intermittent 08/13/2017 None cough Quality productive 08/13/2017 None cough Onset and Resolution ongoing 08/13/2017 None cough Pertinent Findings Denies fever 08/13/2017 None cough Pertinent Findings Denies chills 08/13/2017 None cough Pertinent Findings dyspnea 08/13/2017 None cough Pertinent Findings Denies nasal congestion 08/13/2017 None cough Pertinent Findings sputum production 08/13/2017 None cough Onset of Symptom _ weeks ago 08/13/2017 None cough Limitation on Activities does not limit activities 08/13/2017 None cough Frequency of Episodes unchanged 08/13/2017 None skin lesion Quality enlarging 02/18/2017 None skin lesion Onset and Resolution gradual in onset 02/18/2017 None skin lesion Onset of Symptom 1 years ago 02/18/2017 None skin lesion Frequency of Episodes daily 02/18/2017 None medication follow up Location oral intake 02/18/2017 None hypertension Quality chronic 02/18/2017 None hypertension Quality stable 02/18/2017 None hypertension Onset and Resolution ongoing 02/18/2017 None hypertension Onset of Symptom during adulthood 02/18/2017 None hypertension Severity mild 02/18/2017 None hypertension Alleviating Factors diet changes 02/18/2017 None hypertension Alleviating Factors exercise 02/18/2017 None hypertension Alleviating Factors medication 02/18/2017 None hypertension Pertinent Findings Denies dyspnea 02/18/2017 None medication follow up Additional Comments medication use 02/04/2016 None medication follow up Location oral intake 02/04/2016 None hypertension Quality chronic 02/04/2016 None hypertension Quality stable 02/04/2016 None hypertension Onset and Resolution ongoing 02/04/2016 None hypertension Onset of Symptom during adulthood 02/04/2016 None hypertension Severity mild 02/04/2016 None hypertension Pertinent Findings Denies dyspnea 02/04/2016 None hypertension Alleviating Factors diet changes 02/04/2016 None hypertension Alleviating Factors exercise 02/04/2016 None hypertension Alleviating Factors medication 02/04/2016 None medication follow up Additional Comments medication: _ 05/31/2015 None medication follow up Location oral intake 05/31/2015 None lower leg pain Location on the left 05/31/2015 None lower leg pain Location on the right 05/31/2015 None lower leg pain Quality aching pain 05/31/2015 None lower leg pain Quality numbness 05/31/2015 None lower leg pain Onset and Resolution ongoing 05/31/2015 several time a day lower leg pain Severity mild 05/31/2015 None lower leg pain Pertinent Findings decreased range of motion 05/31/2015 None lower leg pain Pertinent Findings pain with movement 05/31/2015 None lower leg pain Pertinent Findings Denies redness 05/31/2015 None lower leg pain Pertinent Findings Denies swelling 05/31/2015 None lower leg pain Pertinent Findings Denies warmth 05/31/2015 None hypertension Onset and Resolution ongoing 12/20/2014 None depression Quality stable 12/20/2014 None depression Onset and Resolution ongoing 12/20/2014 None depression Onset of Symptom during adulthood 12/20/2014 None depression Alleviating Factors medication 12/20/2014 None lower leg pain Location on the left 03/29/2014 states it feels like muscle spasm and is painful when it happens lower leg pain Location on the right 03/29/2014 None lower leg pain Quality aching pain 03/29/2014 None lower leg pain Quality numbness 03/29/2014 None lower leg pain Onset and Resolution ongoing 03/29/2014 several time a day lower leg pain Severity mild 03/29/2014 None lower leg pain Pertinent Findings decreased range of motion 03/29/2014 None lower leg pain Pertinent Findings pain with movement 03/29/2014 None lower leg pain Pertinent Findings Denies redness 03/29/2014 None lower leg pain Pertinent Findings Denies swelling 03/29/2014 None lower leg pain Pertinent Findings Denies warmth 03/29/2014 None lower leg pain Pertinent Findings weakness 03/29/2014 None hypertension Quality chronic 03/29/2014 None hypertension Onset and Resolution ongoing 03/29/2014 None hypertension Onset of Symptom during adulthood 03/29/2014 None hypertension Blood Pressure Values not checking blood pressure at home 03/29/2014 None hypertension Triggers no known associated factors 03/29/2014 None hypertension Alleviating Factors medication 03/29/2014 None hypertension Pertinent Findings decreased energy 03/29/2014 None hypertension Pertinent Findings Denies dizziness 03/29/2014 None hypertension Pertinent Findings Denies dyspnea 03/29/2014 None hypertension Pertinent Findings Denies edema 03/29/2014 None hypertension Pertinent Findings confusion 03/29/2014 None hypertension Pertinent Findings anxiety 03/29/2014 yolanda depression Quality acute 03/29/2014 None depression Onset of Symptom 3 days ago 03/29/2014 None depression Pertinent Findings depressed mood 03/29/2014 None depression Pertinent Findings anxiety 03/29/2014 None lower leg pain Location on the left 03/08/2014 states it feels like muscle spasm and is painful when it happens lower leg pain Location on the right 03/08/2014 None lower leg pain Quality aching pain 03/08/2014 None lower leg pain Quality numbness 03/08/2014 None lower leg pain Onset and Resolution ongoing 03/08/2014 several time a day lower leg pain Severity mild 03/08/2014 None lower leg pain Pertinent Findings decreased range of motion 03/08/2014 None lower leg pain Pertinent Findings pain with movement 03/08/2014 None lower leg pain Pertinent Findings Denies redness 03/08/2014 None lower leg pain Pertinent Findings Denies swelling 03/08/2014 None lower leg pain Pertinent Findings Denies warmth 03/08/2014 None lower leg pain Pertinent Findings weakness 03/08/2014 None lower leg pain Location on the left 02/08/2014 states it feels like muscle spasm and is painful when it happens lower leg pain Location on the right 02/08/2014 None lower leg pain Quality aching pain 02/08/2014 None lower leg pain Quality numbness 02/08/2014 None lower leg pain Onset and Resolution ongoing 02/08/2014 several time a day lower leg pain Severity mild 02/08/2014 None lower leg pain Pertinent Findings decreased range of motion 02/08/2014 None lower leg pain Pertinent Findings pain with movement 02/08/2014 None lower leg pain Pertinent Findings Denies redness 02/08/2014 None lower leg pain Pertinent Findings Denies swelling 02/08/2014 None lower leg pain Pertinent Findings Denies warmth 02/08/2014 None lower leg pain Pertinent Findings weakness 02/08/2014 None lower leg pain Location on the left 12/01/2013 states it feels like muscle spasm and is painfull when it happens lower leg pain Location on the right 12/01/2013 None lower leg pain Onset and Resolution ongoing 12/01/2013 several time a day lower leg pain Quality aching pain 12/01/2013 None lower leg pain Quality numbness 12/01/2013 None lower leg pain Severity mild 12/01/2013 None lower leg pain Pertinent Findings decreased range of motion 12/01/2013 None lower leg pain Pertinent Findings pain with movement 12/01/2013 None lower leg pain Pertinent Findings weakness 12/01/2013 None lower leg pain Pertinent Findings Denies warmth 12/01/2013 None lower leg pain Pertinent Findings Denies swelling 12/01/2013 None lower leg pain Pertinent Findings Denies redness 12/01/2013 None hypertension Blood Pressure Values not checking blood pressure at home 11/03/2013 None hypertension Pertinent Findings Denies dizziness 11/03/2013 None hypertension Pertinent Findings Denies dyspnea 11/03/2013 None hypertension Pertinent Findings Denies edema 11/03/2013 None hypertension Pertinent Findings Denies decreased energy 11/03/2013 None hypertension Quality chronic 11/03/2013 None hypertension Onset and Resolution ongoing 11/03/2013 None hypertension Onset of Symptom during adulthood 11/03/2013 None hypertension Triggers no known associated factors 11/03/2013 None hypertension Alleviating Factors medication 11/03/2013 None hypertension Quality chronic 10/04/2013 None hypertension Onset and Resolution ongoing 10/04/2013 None hypertension Onset of Symptom during adulthood 10/04/2013 None hypertension Severity mild 10/04/2013 None hypertension Blood Pressure Values not checking blood pressure at home 10/04/2013 None Advance Directives No Advance Directive data Encounters Encounter Performer Location Codes Date ([id number]) [id number] EST. PATIENT, LEVEL III Diagnosis: Pneumonia due to other specified bacteria[ICD10: J15.8] Diagnosis: Cough[ICD10: R05] Diagnosis: Fever presenting with conditions classified elsewhere[ICD10: R50.81] Krista Cody MD, [facility] CPT-4: 11591 10/21/2018 ([id number]) PREV VISIT EST AGE 40-64 Diagnosis: Encounter for general adult medical examination without abnormal findings[ICD10: Z00.00] Diagnosis: Essential (primary) hypertension[ICD10: I10] Diagnosis: Tobacco use[ICD10: Z72.0] [facility] CPT-[facility]: 60742 09/02/2017 ([id number]) 81439 EST. PATIENT, LEVEL III Diagnosis: Cough[ICD10: R05] Diagnosis: Acute upper respiratory infection, unspecified[ICD10: J06.9] [facility] CPT-4: 31614 08/13/2017 ([id number]) PREV VISIT EST AGE 40-64 Diagnosis: Encounter for general adult medical examination without abnormal findings[ICD10: Z00.00] [facility] CPT-4: 75522 02/18/2017 48491 EST. PATIENT, LEVEL IV Diagnosis: Essential (primary) hypertension[ICD10: I10] Diagnosis: Chronic pain syndrome[ICD10: G89.4] [facility] CPT- 4: 98706 02/04/2016 ([id number]) 34796 EST. 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 PATIENT, LEVEL III Diagnosis: Chronic groin pain[ICD9: 789.00] Diagnosis: Depression[ICD9: 311] Diagnosis: ESSENTIAL HYPERTENSION[ICD9: 401.9] Krista Cody MD [facility] CPT- 4: 32481 03/29/2014 ([id number]) 15372 EST. PATIENT, LEVEL III Diagnosis: ESSENTIAL HYPERTENSION[ICD9: 401.9] Diagnosis: Coronary artery disease[ICD9: 414.00] Diagnosis: Nerve pain[ICD9: 729.2] Krista Cody MD, [facility] CPT-4: 08321 03/08/2014 ([id number]) 57881 EST. PATIENT, LEVEL IV Diagnosis: ESSENTIAL HYPERTENSION[ICD9: 401.9] Diagnosis: Chronic groin pain[ICD9: 789.00] Diagnosis: Nerve pain[ICD9: 729.2] Krista Cody MD, [facility] CPT-4: 13618 02/08/2014 ([id number]) 86900 EST. PATIENT, LEVEL IV Diagnosis: Nerve pain[ICD9: 729.2] Diagnosis: Chronic groin pain[ICD9: 789.00] Diagnosis: Hair loss[ICD9: 704.00] Diagnosis: Coronary artery disease[ICD9: 414.00] Krista Cody MD, [facility] CPT-4: 41241 12/01/2013 ([id number]) 01187 EST. PATIENT, LEVEL IV Diagnosis: ESSENTIAL HYPERTENSION[ICD9: 401.9] Diagnosis: Chronic groin pain[ICD9: 789.00] Diagnosis: Nerve pain[ICD9: 729.2] [facility] CPT-4: 86264 11/03/2013 ([id number]) OFFICE/OUTPATIENT VISIT NEW Diagnosis: ESSENTIAL HYPERTENSION[SNOMED: [id number]] Diagnosis: HYPERLIPIDEMIA[ICD9: 272.4] Diagnosis: Chronic groin pain[ICD9: 789.00] Diagnosis: Non-healing open wound of left groin[ICD9: 879.5] Diagnosis: Coronary artery disease[ICD9: 414.00] [facility] CPT-4: 69539 10/04/2013 Plan of Care Planned Activity Notes Codes Status Date Visit Plan: Pneumonia - Pt has been diagnosed with pneumonia by physical exam. A chest xray has been ordered as have antibiotics. The pt is aware of the diagnosis and the need for acute treatment of this illness. Cough with fever - check ua and labs at hospital - chest xray pending - rocephin 1gram and 40mg kenalog today 10/21/2018 Patient Education: Patient Medication Summary Completed 10/21/2018 Visit Plan: Well Adult - pt was counseled about diet, exercise, and encouraged to follow a heart healthy diet and increase activity level. The patient was instructed to RTC yearly for well adult exams and PRN for acute illnesses. The pt was also instructed to have yearly labs for check of cholesterol, thyroid, chem panel, CBC, and renal functioning. Hypertension - well controlled - continue with current medications, continue with no added salt diet. Pt has been encouraged to exercise daily. The pt has been advised to call the office if there are any acute concerns about change in blood pressure readings at home. Tobacco abuse - chronic condition for this patient. Patient has been counseled about need to stop smoking due to the negative health affects. Pt has vocalized understanding and states that they will consider smoking cessation, but the pt is not yet ready to use medication to assist cessation. 09/02/2017 Appointment: Krista Cody WPtel: [address] [place], [place] [id number] (15 min) Moderate 09/02/2017 Patient Education: Patient Medication Summary Completed 09/02/2017 Care Plan: Comp Metabolic Cancelled 09/02/2017 Care Plan: Cbc With Differential Cancelled 09/02/2017 Care Plan: Tsh Cancelled 09/02/2017 Care Plan: Lipid Cancelled 09/02/2017 Visit Plan: URI - Pt advised to increase fluids, vitamin C. Discussed natural and expected course of this diagnosis and need to alert me if symptoms do not follow expected course, or if any worse. RX sent to patient's pharmacy. 08/13/2017 Appointment: Eliane Merrill WPtel: [phone] [phone] [place] (15 min) Moderate 08/13/2017 Patient Education: Patient Medication Summary Completed 08/13/2017 Visit Plan: Well Adult - pt was counseled about diet, exercise, and encouraged to follow a heart healthy diet and increase activity level. The patient was instructed to RTC yearly for well adult exams and PRN for acute illnesses. The pt was also instructed to have yearly labs for check of cholesterol, thyroid, chem panel, CBC, and renal functioning. Debridement of corn on great toe left foot - 15 blade scalpel utilized to remove corn. 02/18/2017 Appointment: Krista Cody WPtel: [phone] [facility] (15 min) Moderate 02/18/2017 Patient Education: Patient Medication Summary Completed 02/18/2017 Patient Education: Obesity Completed 02/18/2017 Patient Education: Hypertension Completed 02/18/2017 Patient Education: Smoking and Tobacco Addiction Completed 02/18/2017 Care Plan: SCREENINGMAMMOGRAPHYDIGITAL LOINC : 92978-3 Pending 02/18/2017 Visit Plan: Hypertension - well controlled - continue with current medications, continue with no added salt diet. Pt has been encouraged to exercise daily. The pt has been advised to call the office if there are any acute concerns about change in blood pressure readings at home. Chronic groin pain - pt has chronic pain - has been maintained on current medications, has not sought out other medications, only uses PRN pain medications as directed, and understands the consequences of over-medication. 02/04/2016 Appointment: Melissa Akhtar [facility]el[facility] [phone] [facility] [place] (30 min) Complex 02/04/2016 Patient Education: Patient Medication Summary Completed 02/04/2016 Referral: Alem Dutton Referral Completed 06/11/2015 Visit Plan: Hypertension - well controlled - continue with current medications, continue with no added salt diet. Pt has been encouraged to exercise daily. The pt has been advised to call the office if there are any acute concerns about change in blood pressure readings at home. CAD-history of stents-follow up with Dr Dutton Elevated blood sugars-check hgb a1c Chronic pain-refill tramadol 05/31/2015 Patient Education: Patient Medication Summary Completed 05/31/2015 Patient Education: Hypertension Completed 05/31/2015 Care Plan: Referral Order SNOMED-CT : [id number] Ordered 05/31/2015 Appointment: (15 min) Moderate 12/25/2014 Visit Plan: Well Adult - pt was counseled about diet, exercise, and encouraged to follow a heart healthy diet and increase activity level. The patient was instructed to RTC yearly for well adult exams and PRN for acute illnesses. The pt was also instructed to have yearly labs for check of cholesterol, thyroid, chem panel, CBC, and renal functioning. 12/20/2014 Appointment: Krista Cody WPtel: [facility]6 [facility] (15 min) Moderate 12/20/2014 Patient Education: Patient Medication Summary Completed 12/20/2014 Visit Plan: Hypertension - well controlled - continue with current medications, continue with no added salt diet. Pt has been encouraged to exercise daily. The pt has been advised to call the office if there are any acute concerns about change in blood pressure readings at home. Depression - uncontrolled - Pt has been counseled about the diagnosis of depression, the potential causes, and risks associated with the diagnosis. The pt denies suicidal ideation, or plans. The patient has been counseled about treatment options, and understands the risks associated with treatment of depression, as well as the risks associated with NOT treating the depression. I believe the pt will benefit from medical intervention and an antidepressant has been appropriately prescribed for this patient. Pt started on Cymbalta Chronic groin pain - pt to continue with exercises. Treatment of groin pain with stretching, and use tiger balm to contracted muscles. 03/29/2014 Appointment: Krsita Cody WPtel: [facility]1 [facility] [place] Follow up 03/29/2014 Patient Education: Patient Medication Summary Completed 03/29/2014 Patient Education: Hypertension Completed 03/29/2014 Visit Plan: Hypertension - well controlled - continue with current medications, continue with no added salt diet. Pt has been encouraged to exercise daily. The pt has been advised to call the office if there are any acute concerns about change in blood pressure readings at home. Nerve pain - stable - pt starting on cymbalta soon. Pt released to work. 03/08/2014 Appointment: [facility]el[phone] [facility] Follow up 03/08/2014 Patient Education: Patient Medication Summary Completed 03/08/2014 Patient Education: Hypertension Completed 03/08/2014 Visit Plan: Hypertension - well controlled - continue with current medications, continue with no added salt diet. Pt has been encouraged to exercise daily. The pt has been advised to call the office if there are any acute concerns about change in blood pressure readings at home. Chronic groin pain, weakness, easy fatigue - pt is not yet ready for return to work physically - she was not able to start in cardiac rehab immediately post-op due to her open groin wounds and the resistance of her insurance company to approve the cardiac rehab program. She is entering into her last phase of rehab, has gained strength , but continues to have pain in her thighs and groin with prolonged standing. I have encouraged Concha to seek long-term disability so that she can continue to rehabilitate and she should try a tens unit to see if this will help to desensitize her nerve endings and allow for some pain-free periods of time. 02/08/2014 Appointment: Krist[facility] Cody [facility]Ptel[facility] [phone] [facility] [place] Follow up 02/08/2014 Patient Education: Patient Medication Summary Completed 02/08/2014 Patient Education: Hypertension Completed 02/08/2014 Visit Plan: CAD - HTN - Pt needs to see Dr. Dutton - she needs to have cardiovascular follow up as she has had a myocardial infarction at such a young age. Hair loss - multifactorial - may be medication related, but is also likely due to her shock and acute illness. Pt needs to start on biotin and start on rogaine shampoo. Nerve pain - pt to increase gabapentin to 200mg tid, and if needed 300mg tid. 12/01/2013 Appointment: Krist[facility] Cody [facility]Ptel[facility] [phone] [facility] Follow up 12/01/2013 Patient Education: Patient Medication Summary Completed 12/01/2013 Visit Plan: Hypertension - well controlled - continue with current medications, continue with no added salt diet. Pt has been encouraged to exercise daily. The pt has been advised to call the office if there are any acute concerns about change in blood pressure readings at home. Right Groin pain and Neuropathic pain - recommended pt to start on gabapentin 100mg - will increase up to 3 doses daily and may further increase her medication if indicated by uncontrolled pain symptoms. 11/03/2013 Appointment: Krista Cody WPtel: [phone] [facility] Follow up 11/03/2013 Patient Education: Patient Medication Summary Completed 11/03/2013 Patient Education: Hypertension Completed 11/03/2013 Visit Plan: Hypertension - well controlled - continue with current medications, continue with no added salt diet. Pt has been encouraged to exercise daily. The pt has been advised to call the office if there are any acute concerns about change in blood pressure readings at home. Coronary artery disease - post stenting and pt with instrument adjuster monitoring her symptoms, and will have close follow up with instrument adjuster. Hyperlipidemia - pt has been counseled about appropriate diet, exercise, and need for low fat food choices. I have discussed the need for the patient to take medications as prescribed. If the patient has negative side effects from the medication, they are to CALL the office and not abruptly discontinue the medication without discussion with a practicioner in the office. We will check labs in 3-6 months for follow up on the patient's chronic medical problem and to assure normal liver response to medications. need to check labs. Groin pain - post extensive surgical intervention in bilateral groins - wounds healing, but with granulation tissue present - cauterized bilaterally and dressed with medihoney, pt to change in two days, thendaily thereafter. Rx for hydrocodone for groin pain - will eventually taper off of hydrocodone, to ultram then off of the medications completely. Pt to RTC in one month - sooner if she has problems. pt to have labs checked. 10/04/2013 Appointment: Krista Cody WPtel: [facility] New Patient 10/04/2013 Patient Education: Patient Medication Summary Completed 10/04/2013 Patient Education: Hypertension Completed 10/04/2013 Referral: Alem Dutotn Referral Initiated Instructions Comment Pt to have labs checked silvernitrate applied to right groin medihoney to left groin.. Hypertension - well controlled - continue with current medications, continue with no added salt diet. Pt has been encouraged to exercise daily. The pt has been advised to call the office if there are any acute concerns about change in blood pressure readings at home. Coronary artery disease - post stenting and pt with instrument adjuster monitoring her symptoms, and will have close follow up with instrument adjuster. Hyperlipidemia - pt has been counseled about appropriate diet, exercise, and need for low fat food choices. I have discussed the need for the patient to take medications as prescribed. If the patient has negative side effects from the medication, they are to CALL the office and not abruptly discontinue the medication without discussion with a practicioner in the office. We will check labs in 3-6 months for follow up on the patient's chronic medical problem and to assure normal liver response to medications. need to check labs. Groin pain - post extensive surgical intervention in bilateral groins - wounds healing, but with granulation tissue present - cauterized bilaterally and dressed with medihoney, pt to change in two days, thendaily thereafter. Rx for hydrocodone for groin pain - will eventually taper off of hydrocodone, to ultram then off of the medications completely. Pt to RTC in one month - sooner if she has problems. pt to have labs checked. gabapentin 100mg at night x 2 nights, then increase to 100mg twice daily x 2 days, then 100mg three times daily. . Hypertension - well controlled - continue with current medications, continue with no added salt diet. Pt has been encouraged to exercise daily. The pt has been advised to call the office if there are any acute concerns about change in blood pressure readings at home. Right Groin pain and Neuropathic pain - recommended pt to start on gabapentin 100mg - will increase up to 3 doses daily and may further increase her medication if indicated by uncontrolled pain symptoms. Refer to Dr Dutton [facility] . Hypertension - well controlled - continue with current medications, continue with no added salt diet. Pt has been encouraged to exercise daily. The pt has been advised to call the office if there are any acute concerns about change in blood pressure readings at home. CAD-history of stents-follow up with Dr Dutton Elevated blood sugars-check hgb a1c Chronic pain-refill tramadol vitamin b12 1999 . Hypertension - well controlled - continue with current medications, continue with no added salt diet. Pt has been encouraged to exercise daily. The pt has been advised to call the office if there are any acute concerns about change in blood pressure readings at home. Depression - uncontrolled - Pt has been counseled about the diagnosis of depression, the potential causes, and risks associated with the diagnosis. The pt denies suicidal ideation, or plans. The patient has been counseled about treatment options, and understands the risks associated with treatment of depression, as well as the risks associated with NOT treating the depression. I believe the pt will benefit from medical intervention and an antidepressant has been appropriately prescribed for this patient. Pt started on Cymbalta Chronic groin pain - pt to continue with exercises. Treatment of groin pain with stretching, and use tiger balm to contracted muscles. . Hypertension - well controlled - continue with current medications, continue with no added salt diet. Pt has been encouraged to exercise daily. The pt has been advised to call the office if there are any acute concerns about change in blood pressure readings at home. Chronic groin pain, weakness, easy fatigue - pt is not yet ready for return to work physically - she was not able to start in cardiac rehab immediately post-op due to her open groin wounds and the resistance of her insurance company to approve the cardiac rehab program. She is entering into her last phase of rehab, has gained strength, but continues to have pain in her thighs and groin with prolonged standing. I have encouraged Concha to seek long-term disability so that she can continue to rehabilitate and she should try a tens unit to see if this will help to desensitize her nerve endings and allow for some pain-free periods of time. Plan: (G0202) SCREENINGMAMMOGRAPHYDIGITAL . Well Adult - pt was counseled about diet, exercise, and encouraged to follow a heart healthy diet and increase activity level. The patient was instructed to RTC yearly for well adult exams and PRN for acute illnesses. The pt was also instructed to have yearly labs for check of cholesterol, thyroid, chem panel, CBC, and renal functioning. . URI - Pt advised to increase fluids, vitamin C. Discussed natural and expected course of this diagnosis and need to alert me if symptoms do not follow expected course, or if any worse. RX sent to patient's pharmacy. . Well Adult - pt was counseled about diet, exercise, and encouraged to follow a heart healthy diet and increase activity level. The patient was instructed to RTC yearly for well adult exams and PRN for acute illnesses. The pt was also instructed to have yearly labs for check of cholesterol, thyroid, chem panel, CBC, and renal functioning. Hypertension - well controlled - continue with current medications, continue with no added salt diet. Pt has been encouraged to exercise daily. The pt has been advised to call the office if there are any acute concerns about change in blood pressure readings at home. Tobacco abuse - chronic condition for this patient. Patient has been counseled about need to stop smoking due to the negative health affects. Pt has vocalized understanding and states that they will consider smoking cessation, but the pt is not yet ready to use medication to assist cessation. . Hypertension - well controlled - continue with current medications, continue with no added salt diet. Pt has been encouraged to exercise daily. The pt has been advised to call the office if there are any acute concerns about change in blood pressure readings at home. Chronic groin pain - pt has chronic pain - has been maintained on current medications, has not sought out other medications, only uses PRN pain medications as directed, and understands the consequences of over-medication. get over the counter flonase or nasonex or claritin nasal spray - use it daily Nasal spray- use twice daily, one spray per nostril twice daily, after 30 minutes, rinse out nose with saline spray.. Use opposite hand per nostril to spray in the nasal steroid allergy spray. . Well Adult - pt was counseled about diet, exercise, and encouraged to follow a heart healthy diet and increase activity level. The patient was instructed to RTC yearly for well adult exams and PRN for acute illnesses. The pt was also instructed to have yearly labs for check of cholesterol, thyroid, chem panel, CBC, and renal functioning. Debridement of corn on great toe left foot - 15 blade scalpel utilized to remove corn. biotin (or a hair and nails supplement) rogaine . CAD - HTN - Pt needs to see Dr. Dutton - she needs to have cardiovascular follow up as she has had a myocardial infarction at such a young age. Hair loss - multifactorial - may be medication related, but is also likely due to her shock and acute illness. Pt needs to start on biotin and start on rogaine shampoo. Nerve pain - pt to increase gabapentin to 200mg tid, and if needed 300mg tid. . Hypertension - well controlled - continue with current medications, continue with no added salt diet. Pt has been encouraged to exercise daily. The pt has been advised to call the office if there are any acute concerns about change in blood pressure readings at home. Nerve pain - stable - pt starting on cymbalta soon. Pt released to work. . Pneumonia - Pt has been diagnosed with pneumonia by physical exam. A chest xray has been ordered as have antibiotics. The pt is aware of the diagnosis and the need for acute treatment of this illness. Cough with fever - check ua and labs at hospital - chest xray pending - rocephin 1gram and 40mg kenalog today
[2018-10-24] MEDS ORDERED: NS IV 1000 ML 1,000 ML IV ONE (10:39)
[2018-10-24] MEDS ORDERED: KETOROLAC 30 MG/ML VIAL IVP STA (10:39)
[2018-10-24] MEDS ORDERED: ONDANSETRON 4 MG/2 ML (SDV) Z0FRAN IVP ONE (10:45)
--- NOTE | 2018-10-24 10:51 | NUR ---
pain and nausea medication given, will continue to monitor. call light in reach. family at bedside
[2018-10-24 10:52] LABS: BASOPHILS % (AUTO) 1 % (0-10); EOSINOPHILS # (AUTO) 0.1 10^3/uL (0.0-0.3); EOSINOPHILS % (AUTO) 1 % (0-10); HEMATOCRIT 41 % (35-52); HEMOGLOBIN 13.5 G/DL (11.5-16.0); LYMPHOCYTES # (AUTO) 2.6 X 10^3 (1.0-4.0); LYMPHOCYTES % (AUTO) 37 % (12-44); MEAN CORPUSCULAR HEMOGLOBIN 31 PG (25-34); MEAN CORPUSCULAR HGB CONC 33 G/DL (32-36); MEAN CORPUSCULAR VOLUME 94 FL (80-99); MEAN PLATELET VOLUME 11.4 FL (7.4-10.4); MONOCYTES # (AUTO) 0.4 X 10^3 (0.0-1.0); MONOCYTES % (AUTO) 6 % (0-12); NEUTROPHILS # (AUTO) 3.9 X 10^3 (1.8-7.8); NEUTROPHILS % (AUTO) 55 % (42-75); PLATELET COUNT 260 10^3/uL (130-400); RED CELL DISTRIBUTION WIDTH 13.7 % (10.0-14.5); WHITE BLOOD COUNT 7.1 10^3/uL (4.3-11.0)
--- NOTE | 2018-10-24 11:05 | NUR ---
Dr saenz in room to see patient
[2018-10-24] MEDS ORDERED: fentaNYL INJECTION 100 MCG/2 ML AMP IVP STA ×2 (11:08→11:57)
[2018-10-24 11:11] LABS: ALANINE AMINOTRANSFERASE 33 U/L (0-55); ALBUMIN 3.4 GM/DL (3.2-4.5); ALKALINE PHOSPHATASE 96 U/L (40-136); BILIRUBIN,TOTAL 0.2 MG/DL (0.1-1.0); BUN/CREATININE RATIO 11; CALCIUM 9.2 MG/DL (8.5-10.1); CARBON DIOXIDE 22 MMOL/L (21-32); CHLORIDE 107 MMOL/L (98-107); CREATININE SERUM 0.62 MG/DL (0.60-1.30); GFR ESTIMATED > 60; GLUCOSE 124 MG/DL (70-105); POTASSIUM 3.6 MMOL/L (3.6-5.0); SODIUM 141 MMOL/L (135-145); TOTAL PROTEIN 6.5 GM/DL (6.4-8.2)
--- NOTE | 2018-10-24 11:15 | NUR ---
iv fentanyl given for pain rated at a 9/10.
[2018-10-24] MEDS ORDERED: OMEG1CAP58 PO (11:20)
--- NOTE | 2018-10-24 11:40 | NUR ---
patient verbalizes pain has improved. will continue to monitor
--- NOTE | 2018-10-24 11:42 | ED General ---
General Chief Complaint: General Problems/Pain Stated Complaint: DX W/ PNA AND STREP/VOMITING/HEAD AND NECK PAIN Nursing Triage Note: SEEN ON THURSDAY BY PIERRE. DX WITH STREP AND PNEUMONIA. STATES SHE FEELS WORSE. HEADACHE, FEVER, NECK PAIN. PT HAS MASK ON. HAS BEEN TAKING IBUPROFEN 800MG THAT IS NOT HELPING. WAS GIVEN A SHOT AND ORAL ABX AT DR OFFICE. Nursing Sepsis Screen: No Definite Risk Source of Information: Patient Exam Limitations: No Limitations History of Present Illness Date Seen by Provider: Oct 24, 2018 Time Seen by Provider: 10:41 Initial Comments Here with report of feeling weak in worse with headache, fever and neck pain. She is taking ibuprofen and start helping. She was started on cefdinir after having shot of Rocephin. She reports neck pain is posterior lateral and bilateral. Did have nausea and vomiting today. Denies dysuria. Did have diarrhea this morning. Denies any recent tick exposure. Timing/Duration: 3-4 Days Severity: Moderate Associated Systoms: No Chest Pain, No Cough; Fever/Chills, Headaches, Nausea/Vomiting; No Shortness of Air; Weakness Allergies and Home Medications Allergies Coded Allergies: lisinopril (Verified Allergy, Severe, RASH, 10/24/18) Home Medications Aspirin 81 Mg Tablet, 81 MG PO HS, (Reported) Cholecalciferol (Vitamin D3) 1,000 Unit Capsule, 2,000 UNIT PO DAILY, (Reported) TAKES 2 (1,000 UNIT) CAPSULES Cyanocobalamin (Vitamin B-12) 5,000 Mcg Tab.subl, 5,000 MCG SL DAILY, (Reported) Fenofibric Acid (Choline) 135 Mg Capsule.dr, 135 MG PO HS, (Reported) Ibuprofen 200 Mg Tablet, 800 MG PO TID PRN for PAIN, (Reported) TAKES 4 (200MG) TABLETS Rosuvastatin Calcium 20 Mg Tablet, 20 MG PO HS, (Reported) Patient Home Medication List Home Medication List Reviewed: Yes Review of Systems Review of Systems Constitutional: see HPI; No chills; fever EENTM: no symptoms reported, throat pain; No nose congestion Respiratory: No cough, No short of breath Cardiovascular: no symptoms reported Gastrointestinal: No abdominal pain; diarrhea, nausea, vomiting Genitourinary: no symptoms reported Musculoskeletal: muscle pain, neck pain Skin: no symptoms reported Psychiatric/Neurological: See HPI All Other Systems Reviewed Negative Unless Noted: Yes Past Xvavbup-Ysawoi-Upoxmu Hx Past Med/Social Hx: Reviewed Nursing Past Med/Soc Hx Patient Social History Alcohol Use: Denies Use Recreational Drug Use: No Smoking Status: Current Everyday Smoker Type Used: Cigarettes Former Smoker, Quit: Oct 25, 2013 2nd Hand Smoke Exposure: Yes Recent Foreign Travel: No Contact w/Someone Who Travel: No Recent Infectious Disease Expo: No Recent Hopitalizations: No Seasonal Allergies Seasonal Allergies: No Past Medical History Surgeries: Yes (FEMORAL CUT DOWN-FROM BLOCKAGE IN LEGS AFTER HEART CATH) 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 Respiratory: No Cardiac: Yes (TWO STENTS 2013) High Cholesterol Neurological: Yes Headaches /Migraines Reproductive Disorders: No Female Reproductive Disorders: Menstrual Problems, Ovarian Cyst 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: 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 HIV/AIDS: No Genitourinary: No Gastrointestinal: No Musculoskeletal: No Endocrine: Yes (BOARDERLINE DIABETIC) Loss of Vision: Denies Hearing Impairment: Denies Cancer: No Psychosocial: No Integumentary: No Blood Disorders: No Adverse Reaction/Blood Tranf: No Family Medical History Reviewed Nursing Family Hx Cardiovascular disease 19 FATHER Completed stroke 19 FATHER FH: Hodgkins disease 19 MOTHER Myocardial infarction 19 FATHER Physical Exam-Suspected Sepsis Physical Exam Vital Signs Vital Signs - First Documented 10/24/18 10:27 Temp 97.6 Pulse 71 Resp 16 B/P (MAP) 156/89 (111) Pulse Ox 98 O2 Delivery Room Air Capillary Refill : Less Than 3 Seconds Blood Pressure Mean: 111 Height, Weight, BMI Height: 5'3.00" Weight: 170lbs. 0.0oz. [id number]; 26.6 BMI Method:Stated General Appearance: WD/WN, Mild Distress HEENT: PERRL/EOMI, TMs Normal, Pharynx Normal Neck: Supple, Lymphadenopathy (L), Lymphadenopathy (R), Tender Lateral; No Tender Midline Respiratory: Lungs Clear, Normal Breath Sounds Cardiovascular: Regular Rate, Rhythm, No Murmur Gastrointestinal: Non Tender, Soft Back: Normal Inspection, No CVA Tenderness, No Vertebral Tenderness Extremity: Normal Range of Motion, Non Tender Neurologic/Psychiatric: Alert, Oriented x3 Skin: normal color, warm/dry Progress/Results/Core Measures Suspected Sepsis Recent Fever Within 48 Hours: Yes Infection Criteria Present: Documented Infection New/Unexplained Altered Menta: No Sepsis Screen: No Definite Risk SIRS Temperature:97.6 Pulse: 71 Respiratory Rate: 16 Laboratory Tests 10/24/18 10:45: White Blood Count 7.1 Blood Pressure 156 /89 Mean: 111 Laboratory Tests 10/24/18 10:45: Creatinine 0.62, Platelet Count 260, Total Bilirubin 0.2 Results/Orders Lab Results Laboratory Tests Test 10/24/18 10:45 10/24/18 13:41 Range/Units White Blood Count 7.1 4.3-11.0 10^3/uL Red Blood Count 4.33 L 4.35-5.85 10^6/uL Hemoglobin 13.5 11.5-16.0 G/DL Hematocrit 41 35-52 % Mean Corpuscular Volume 94 80-99 FL Mean Corpuscular Hemoglobin 31 25-34 PG Mean Corpuscular Hemoglobin Concent 33 32-36 G/DL Red Cell Distribution Width 13.7 10.0-14.5 % Platelet Count 260 130-400 10^3/uL Mean Platelet Volume 11.4 H 7.4-10.4 FL Neutrophils (%) (Auto) 55 42-75 % Lymphocytes (%) (Auto) 37 12-44 % Monocytes (%) (Auto) 6 0-12 % Eosinophils (%) (Auto) 1 0-10 % Basophils (%) (Auto) 1 0-10 % Neutrophils # (Auto) 3.9 1.8-7.8 X 10^3 Lymphocytes # (Auto) 2.6 1.0-4.0 X 10^3 Monocytes # (Auto) 0.4 0.0-1.0 X 10^3 Eosinophils # (Auto) 0.1 0.0-0.3 10^3/uL Basophils # (Auto) 0.0 0.0-0.1 10^3/uL Sodium Level 141 135-145 MMOL/L Potassium Level 3.6 3.6-5.0 MMOL/L Chloride Level 107 98-107 MMOL/L Carbon Dioxide Level 22 21-32 MMOL/L Anion Gap 12 5-14 MMOL/L Blood Urea Nitrogen 7 7-18 MG/DL Creatinine 0.62 0.60-1.30 MG/DL Estimat Glomerular Filtration Rate > 60 BUN/Creatinine Ratio 11 Glucose Level 124 H 70-105 MG/DL Calcium Level 9.2 8.5-10.1 MG/DL Corrected Calcium 9.7 8.5-10.1 MG/DL Total Bilirubin 0.2 0.1-1.0 MG/DL Aspartate Amino Transf (AST/SGOT) 24 5-34 U/L Alanine Aminotransferase (ALT/SGPT) 33 0-55 U/L Alkaline Phosphatase 96 40-136 U/L C-Reactive Protein High Sensitivity 2.96 H 0.00-0.50 MG/DL Total Protein 6.5 6.4-8.2 GM/DL Albumin 3.4 3.2-4.5 GM/DL Urine Color YELLOW Urine Clarity CLEAR Urine pH 7 5-9 Urine Specific [place] 1.010 L 1.016-1.022 Urine Protein NEGATIVE NEGATIVE Urine Glucose (UA) NEGATIVE NEGATIVE Urine Ketones NEGATIVE NEGATIVE Urine Nitrite NEGATIVE NEGATIVE Urine Bilirubin NEGATIVE NEGATIVE Urine Urobilinogen NORMAL NORMAL MG/DL Urine Leukocyte Esterase NEGATIVE NEGATIVE Urine RBC (Auto) NEGATIVE NEGATIVE Urine RBC RARE /HPF Urine WBC NONE /HPF Urine Squamous Epithelial Cells 2-5 /HPF Urine Crystals NONE /LPF Urine Bacteria FEW H /HPF Urine Casts NONE /LPF Urine Mucus NEGATIVE /LPF Urine Culture Indicated NO My Orders Orders - JUNI STALLWORTH MD Chest Pa/Lat (2 View) (10/24/18 10:39) Cbc With Automated Diff (10/24/18 10:39) Comprehensive Metabolic Panel (10/24/18 10:39) Hs C Reactive Protein (10/24/18 10:39) Ua Culture If Indicated (10/24/18 10:39) Ed Iv/Invasive Line Start (10/24/18 10:39) Ns Iv 1000 Ml (Sodium Chloride 0.9%) (10/24/18 10:39) Ketorolac Injection (Toradol Injection) (10/24/18 10:39) Ondansetron Injection (Zofran Injectio (10/24/18 10:45) Fentanyl Injection (Sublimaze Injection (10/24/18 11:08) Ct Head Wo (10/24/18 11:12) Fentanyl Injection (Sublimaze Injection (10/24/18 11:57) Dexamethasone Injection (Decadron Inject (10/24/18 12:00) Ed Iv/Invasive Line Start (10/24/18 12:18) Lactated Ringers (Lr 1000 Ml Iv Solution (10/24/18 12:18) Medications Given in ED Current Medications Medications Dose Ordered Sig/Josiah Route Start Time Stop Time Status Last Admin Dose Admin Dexamethasone Sodium Phosphate 10 mg ONCE ONCE IV 10/24/18 12:00 10/24/18 12:01 DC 10/24/18 12:12 10 MG Lactated Ringer's 1,000 ml @ 0 mls/hr Q0M ONCE IV 10/24/18 12:18 10/24/18 12:19 DC 10/24/18 12:21 1,000 MLS/HR Ondansetron HCl 4 mg ONCE ONCE IVP 10/24/18 10:45 10/24/18 10:46 DC 10/24/18 10:51 4 MG Sodium Chloride 1,000 ml @ 0 mls/hr Q0M ONCE IV 10/24/18 10:39 10/24/18 10:41 DC 10/24/18 10:51 1,000 MLS/HR Vital Signs/I&O 10/24/18 10:27 Temp 97.6 Pulse 71 Resp 16 B/P (MAP) 156/89 (111) Pulse Ox 98 O2 Delivery Room Air Capillary Refill : Less Than 3 Seconds Blood Pressure Mean: 111 Progress Note : Progress Note Seen and evaluated. IV, labs, chest x-ray and UA ordered. Normal saline 1 L bolus. Zofran 4 mg IV and Toradol 30 mg IV ordered. Monitor patient. 1155: CT head was ordered as well and this is negative. Still has pain. Fentanyl 75 g IV and Decadron 10 mg IV ordered. Monitor patient. 1430: Improved overall. Still having a little right-sided neck tightness with the left side is better. Flexeril 10 mg by mouth. She will continue his outpatient. No significant acute findings. We will continue her antibiotics. I will send a copy of the chart to Dr. Cody. Discharged home with return precautions. Patient verbalize understanding instructions and agreement with plan. No current findings of pneumonia or urinary tract infection. Diagnostic Imaging Diagonstic Imaging: Xray Plain Films/CT/US/NM/MRI: chest Comments [facility]. [place], [place] NAME: DANICA MARVIN [facility] REC#: [id number] PT STATUS: REG ER : 1970 PHYSICIAN: JUNI STALLWORTH MD ADMIT DATE: 10/24/18/ER Draft Date of Exam:10/24/18 CHEST PA/LAT (2 VIEW) Examination: Chest, PA and lateral views Indication: Headache, fever, and neck pain. Comparison: Multiple priors, most recent performed on 10/22/2018. Findings: Mild bibasilar atelectasis/scarring. The lungs are otherwise clear and the pulmonary vasculature is normal. No pneumothorax or pleural effusion. The cardiomediastinal silhouette is unchanged. No acute osseous abnormality is appreciated. Impression: No evidence of acute chest disease. No significant change from prior exam. Dictated on workstation # [id number] Dict: 10/24/18 1137 Trans: 10/24/18 1139 MICHELET Interpreted by: SMILEY CAO DO Electronically signed by: [facility]: CT Plain Films/CT/US/NM/MRI: head Comments [facility] [place] [place] NAME: DANICA MARVIN [facility] REC#: [id number] PT STATUS: REG ER : 1970 PHYSICIAN: JUNI STALLWORTH MD ADMIT DATE: 10/24/18/ER Draft Date of Exam:10/24/18 CT HEAD WO PROCEDURE: CT head without contrast. TECHNIQUE: Multiple contiguous axial images were obtained through the brain without the use of intravenous contrast. Auto Exposure Controls were utilized during the CT exam to meet ALARA standards for radiation dose reduction. INDICATION: Headache and neck pain. COMPARISON: None. FINDINGS: BRAIN: No parenchymal hemorrhage, midline shift or mass effect. Pastor-white matter differentiation is intact. No acute infarct. No white matter lesions. Ventricles, sulci and basilar cisterns are normal. EXTRA-AXIAL SPACES: No subdural or epidural collections. ORBITS AND PARANASAL SINUSES: Visualized orbits and globes are intact. Visualized paranasal sinuses and mastoid air cells are clear. CALVARIUM AND SOFT TISSUES: The calvarium is intact. No fractures or suspicious bony lesions. The extracranial soft tissues are unremarkable. IMPRESSION: No acute intracranial pathology is appreciated. Dictated on workstation # [id number] Dict: 10/24/18 1140 Trans: 10/24/18 1145 TS [id number] Interpreted by: SMILEY CAO DO Electronically signed by: Departure Impression Primary Impression: Tension headache Disposition: 01 HOME, SELF-CARE Condition: Stable Departure-Patient Inst. Decision time for Depature: 14:32 Referrals: CLARK CODY MD (PCP/Family) Primary Care Physician Patient Instructions: Tension Headache (DC) Add. Discharge Instructions: All discharge instructions reviewed with patient and/or family. Voiced understanding. You may take ibuprofen 800 mg every 8 hours as needed for pain. You may also take Tylenol/acetaminophen 1000 mg every 8 hours as needed for pain. Drink plenty of fluids. Follow-up with your doctor in a few days for recheck. Return for worse pain, fever, vomiting, weakness, breathing problems, vision or balance problems or other concerns as needed. Scripts Cyclobenzaprine HCl (Cyclobenzaprine HCl) 10 Mg Tablet 10 MG PO Q8H PRN for SPASMS, #15 TAB 0 Refills Prov: JUNI STALLWORTH MD 10/24/18 Copy Copies To 1: CLARK CODY MD, TIMOTHY D MD Oct 24, 2018 11:42
--- NOTE | 2018-10-24 11:46 | Diagnostic Imaging Report ---
PROCEDURE: CT head without contrast. TECHNIQUE: Multiple contiguous axial images were obtained through the brain without the use of intravenous contrast. Auto Exposure Controls were utilized during the CT exam to meet ALARA standards for radiation dose reduction. INDICATION: Headache and neck pain. COMPARISON: None. FINDINGS: BRAIN: No parenchymal hemorrhage, midline shift or mass effect. Pastor-white matter differentiation is intact. No acute infarct. No white matter lesions. Ventricles, sulci and basilar cisterns are normal. EXTRA-AXIAL SPACES: No subdural or epidural collections. ORBITS AND PARANASAL SINUSES: Visualized orbits and globes are intact. Visualized paranasal sinuses and mastoid air cells are clear. CALVARIUM AND SOFT TISSUES: The calvarium is intact. No fractures or suspicious bony lesions. The extracranial soft tissues are unremarkable. IMPRESSION: No acute intracranial pathology is appreciated. Dictated by: Dictated on workstation # [id number]
[2018-10-24] MEDS ORDERED: DEXAMETHASONE 10 MG/ML (DECADRON) 1 ML VIAL IV ONE (12:00)
--- NOTE | 2018-10-24 12:00 | NUR ---
reassessed pain patient rates pain at an 01/01. reported to Dr Camargo.
[2018-10-24] MEDS ORDERED: LACTATED RINGERS 1,000 ML IV ONE (12:18)
--- NOTE | 2018-10-24 12:40 | NUR ---
PATIENT RESTING QUIETLY WITH EYES CLOSED, DENIES NEEDS AT THIS TIME. WILL CONTINUE TO MONITOR.
--- NOTE | 2018-10-24 13:30 | NUR ---
CHECKED ON PATIENT TO ASSESS NEEDS, DENIES NEEDS AT THIS TIME. WILL CONTINUE TO MONITOR, CALL LIGHT WITHIN REACH.
[2018-10-24 13:51] LABS: BILIRUBIN,URINE NEGATIVE (NEGATIVE); CLARITY,URINE CLEAR; COLOR,URINE YELLOW; GLUCOSE, URINE (UA) NEGATIVE (NEGATIVE); KETONES,URINE NEGATIVE (NEGATIVE); LEUKOCYTE ESTERASE ,URINE NEGATIVE (NEGATIVE); NITRITE,URINE NEGATIVE (NEGATIVE); PH,URINE 7 (5-9); PROTEIN,URINE NEGATIVE (NEGATIVE); UROBILINOGEN,URINE NORMAL (NORMAL)
[2018-10-24 14:03] LABS: BACTERIA,URINE FEW /HPF; RBC,URINE RARE /HPF
[2018-10-24] MEDS ORDERED: CYCLOBENZAPRINE 10 MG (FLEXERIL) TAB PO STA (14:28)
[2018-10-24] MEDS ORDERED: CYCL10TA9 PO (14:29)
[2018-10-24 14:40] VITALS: BP 112/83
== END 2018-10-24 14:40 | disposition home or self-care (01) ==
LOC: EDUNIT# 10:22 → ER 10:23
DX: G44.209 Tension-type headache, unspecified, not intractable (principal); E78.00 Pure hypercholesterolemia, unspecified; Z82.49 Family history of ischemic heart disease and other diseases of the circulatory system; Z80.7 Family history of other malignant neoplasms of lymphoid, hematopoietic and related tissues; Z87.448 Personal history of other diseases of urinary system; Z95.5 Presence of coronary angioplasty implant and graft; Z88.8 Allergy status to other drugs, medicaments and biological substances; Z79.82 Long term (current) use of aspirin; Z87.891 Personal history of nicotine dependence; Z90.710 Acquired absence of both cervix and uterus
CPT/HCPCS: 36415; 70450; 71046; 80053; 81000; 85025; 86141; 96361; 96374; 96375; 96376

== ENCOUNTER 2019-04-25 08:19 | Emergency (ER) | payer OTHER ==
[~2019-04-25] VITALS: Ht 162 cm; Wt 72.0 kg
[~2019-04-25 08:19] MED LIST changes: +CYCL10TA9 PO; +OMEG1CAP58 PO
[2019-04-25] MEDS ORDERED: FAMOTIDINE 20MG/2ML IV (PEPCID) IV STA (08:30)
[2019-04-25 08:47] LABS: BASOPHILS % (AUTO) 0 % (0-10); EOSINOPHILS # (AUTO) 0.1 10^3/uL (0.0-0.3); EOSINOPHILS % (AUTO) 1 % (0-10); HEMATOCRIT 42 % (35-52); HEMOGLOBIN 13.9 G/DL (11.5-16.0); LYMPHOCYTES # (AUTO) 1.9 X 10^3 (1.0-4.0); LYMPHOCYTES % (AUTO) 18 % (12-44); MEAN CORPUSCULAR HEMOGLOBIN 31 PG (25-34); MEAN CORPUSCULAR HGB CONC 33 G/DL (32-36); MEAN CORPUSCULAR VOLUME 94 FL (80-99); MEAN PLATELET VOLUME 11.5 FL (7.4-10.4); MONOCYTES # (AUTO) 0.5 X 10^3 (0.0-1.0); MONOCYTES % (AUTO) 5 % (0-12); NEUTROPHILS # (AUTO) 8.2 X 10^3 (1.8-7.8); NEUTROPHILS % (AUTO) 77 % (42-75); PLATELET COUNT 283 10^3/uL (130-400); RED CELL DISTRIBUTION WIDTH 13.7 % (10.0-14.5); WHITE BLOOD COUNT 10.7 10^3/uL (4.3-11.0)
--- NOTE | 2019-04-25 08:49 | ED Abdominal Pain ---
General Chief Complaint: Abdominal/GI Problems Stated Complaint: ABD PAIN Source of Information: Patient, EMS History of Present Illness Date Seen by Provider: Apr 25, 2019 Time Seen by Provider: 08:25 Initial Comments 48-year-old female presents with epigastric abdominal discomfort. Patient was brought in by EMS after they were called out for and anxiety reaction. Patient initially had some epigastric pain, hyperventilation, carpal spasms per EMS. Patient now presents with some mild epigastric discomfort, multiple episodes of vomiting per her but no longer vomiting. No fevers chills. She had a normal bowel movement today. No diarrhea. No other systemic complaints at this time patient reports that she quit smoking yesterday Allergies and Home Medications Allergies Coded Allergies: lisinopril (Verified Allergy, Severe, RASH, 10/24/18) Home Medications Aspirin 81 Mg Tablet, 81 MG PO HS, (Reported) Cholecalciferol (Vitamin D3) 1,000 Unit Capsule, 2,000 UNIT PO DAILY, (Reported) TAKES 2 (1,000 UNIT) CAPSULES Cyanocobalamin (Vitamin B-12) 5,000 Mcg Tab.subl, 5,000 MCG SL DAILY, (Reported) Cyclobenzaprine HCl 10 Mg Tablet, 10 MG PO Q8H PRN for SPASMS Prescribed by: JUNI STALLWORTH on 10/24/18 1429 Fenofibric Acid (Choline) 135 Mg Capsule.dr, 135 MG PO HS, (Reported) Ibuprofen 200 Mg Tablet, 800 MG PO TID PRN for PAIN, (Reported) TAKES 4 (200MG) TABLETS Rosuvastatin Calcium 20 Mg Tablet, 20 MG PO HS, (Reported) Patient Home Medication List Home Medication List Reviewed: Yes Review of Systems Review of Systems Constitutional: No chills, No fever EENTM: No Symptoms Reported Respiratory: See HPI Cardiovascular: See HPI Gastrointestinal: See HPI Skin: no symptoms reported Psychiatric/Neurological: Anxiety Endocrine: No Symptoms Reported Past Egotcps-Mzhnur-Bdnppr Hx Patient Social History Type Used: Cigarettes Former Smoker, Quit: Oct 25, 2013 2nd Hand Smoke Exposure: Yes Recent Hopitalizations: No Seasonal Allergies Seasonal Allergies: No Past Medical History Surgeries: Yes (FEMORAL CUT DOWN-FROM BLOCKAGE IN LEGS AFTER HEART CATH) 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 Respiratory: No Cardiac: Yes (TWO STENTS 2013) High Cholesterol Neurological: Yes Headaches /Migraines Reproductive Disorders: No Female Reproductive Disorders: Menstrual Problems, 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 HIV/AIDS: No Genitourinary: No Gastrointestinal: No Musculoskeletal: No 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 0.0oz. 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, normal mood/affect, oriented x 3 Skin: normal color, warm/dry Lymphatic: no adenopathy Progress/Results/Core Measures Results/Orders Lab Results Laboratory Tests Test 04/25/19 08:38 04/25/19 11:11 Range/Units White Blood Count 10.7 4.3-11.0 10^3/uL Red Blood Count 4.45 4.35-5.85 10^6/uL Hemoglobin 13.9 11.5-16.0 G/DL Hematocrit 42 35-52 % Mean Corpuscular Volume 94 80-99 FL Mean Corpuscular Hemoglobin 31 25-34 PG Mean Corpuscular Hemoglobin Concent 33 32-36 G/DL Red Cell Distribution Width 13.7 10.0-14.5 % Platelet Count 283 130-400 10^3/uL Mean Platelet Volume 11.5 H 7.4-10.4 FL Neutrophils (%) (Auto) 77 H 42-75 % Lymphocytes (%) (Auto) 18 12-44 % Monocytes (%) (Auto) 5 0-12 % Eosinophils (%) (Auto) 1 0-10 % Basophils (%) (Auto) 0 0-10 % Neutrophils # (Auto) 8.2 H 1.8-7.8 X 10^3 Lymphocytes # (Auto) 1.9 1.0-4.0 X 10^3 Monocytes # (Auto) 0.5 0.0-1.0 X 10^3 Eosinophils # (Auto) 0.1 0.0-0.3 10^3/uL Basophils # (Auto) 0.0 0.0-0.1 10^3/uL Sodium Level 139 135-145 MMOL/L Potassium Level 3.3 L 3.6-5.0 MMOL/L Chloride Level 103 98-107 MMOL/L Carbon Dioxide Level 27 21-32 MMOL/L Anion Gap 9 5-14 MMOL/L Blood Urea Nitrogen 15 7-18 MG/DL Creatinine 0.72 0.60-1.30 MG/DL Estimat Glomerular Filtration Rate > 60 BUN/Creatinine Ratio 21 Glucose Level 152 H 70-105 MG/DL Calcium Level 9.3 8.5-10.1 MG/DL Corrected Calcium 9.5 8.5-10.1 MG/DL Total Bilirubin 0.3 0.1-1.0 MG/DL Aspartate Amino Transf (AST/SGOT) 19 5-34 U/L Alanine Aminotransferase (ALT/SGPT) 27 0-55 U/L Alkaline Phosphatase 102 40-136 U/L Total Protein 6.8 6.4-8.2 GM/DL Albumin 3.7 3.2-4.5 GM/DL Lipase 33 8-78 U/L Urine Color YELLOW Urine Clarity SL CLOUDY Urine pH 8.5 5-9 Urine Specific [place] 1.015 L 1.016-1.022 Urine Protein NEGATIVE NEGATIVE Urine Glucose (UA) NEGATIVE NEGATIVE Urine Ketones NEGATIVE NEGATIVE Urine Nitrite NEGATIVE NEGATIVE Urine Bilirubin NEGATIVE NEGATIVE Urine Urobilinogen 0.2 < = 1.0 MG/DL Urine Leukocyte Esterase NEGATIVE NEGATIVE Urine RBC (Auto) NEGATIVE NEGATIVE Urine RBC NONE /HPF Urine WBC RARE /HPF Urine Squamous Epithelial Cells 0-2 /HPF Urine Crystals PRESENT H /LPF Urine Amorphous Sediment MOD [place] PHOSPHATE H /LPF Urine Bacteria NEGATIVE /HPF Urine Casts NONE /LPF Urine Mucus NEGATIVE /LPF Urine Culture Indicated NO My Orders Orders - BRICE,AMAIRANI L DO Comprehensive Metabolic Panel (04/25/19 08:30) Lipase (04/25/19 08:30) Ua Culture If Indicated (04/25/19 08:30) Acute Abd Series (04/25/19 08:30) Cbc With Automated Diff (04/25/19 08:30) Famotidine Injection (Pepcid Injection) (04/25/19 08:30) Vital Signs/I&O 04/25/19 08:52 Temp 36.7 Pulse 75 Resp 16 B/P (MAP) 133/80 (97) Pulse Ox 94 Progress Progress Note : Time: 11:40 Progress Note Review labs and x-ray with patient. They showed some moderate constipation but no other acute findings on her workup or physical exam. Patient is having some occasional periumbilical cramping. Discussed with them that could be possibly early appendicitis that in light of a negative x-ray and findings of constipation we discussed the risks and benefits of CAT scan versus watchful waiting. They decided they would prefer to wait and see if symptoms improve with MiraLAX. If symptoms worsen or become focused in the right lower quadrant she should return for to the ER or her primary care for further evaluation. Patient also had symptoms consistent with an anxiety reaction upon initial presentation. Patient is stable upon discharge. Departure Impression Primary Impression: Anxiety reaction Additional Impressions: Constipation Qualified Codes: K59.00 - Constipation, unspecified Abdominal cramping, periumbilical Disposition: 01 HOME, SELF-CARE Condition: Stable Departure-Patient Inst. Referrals: CLARK JAY MD (PCP/Family) Primary Care Physician Patient Instructions: Anxiety, Adult (DC), Constipation in Adults, Hyperventilation Add. Discharge Instructions: MiraLAX 2-3 times daily until soft daily stool then as needed All discharge instructions reviewed with patient and/or family. Voiced understanding. The Emergency Department focuses on treating and ruling out life-threatening diseases. Whenever possible, a diagnosis is given. However most patient's are given an impression based on the history, physical exam, and workup during their brief time in the ER. Information about probable diagnosis and other educational material has been provided. Please take the time to read and understand this information. It is very important that he follow up with a doctor as discussed during her visit today. Failure to adhere to your follow-up instructions may result in severe disability, injury or so please make sure to keep your appointments. Please keep in mind the emergency department is not designed to be your primary care or "family doctor" and not urgent issues are best evaluated by an outpatient physician AMAIRANI BRICE DO Apr 25, 2019 08:48 POS
[2019-04-25 09:18] LABS: ALANINE AMINOTRANSFERASE 27 U/L (0-55); ALBUMIN 3.7 GM/DL (3.2-4.5); ALKALINE PHOSPHATASE 102 U/L (40-136); BILIRUBIN,TOTAL 0.3 MG/DL (0.1-1.0); BUN/CREATININE RATIO 21; CALCIUM 9.3 MG/DL (8.5-10.1); CARBON DIOXIDE 27 MMOL/L (21-32); CHLORIDE 103 MMOL/L (98-107); CREATININE SERUM 0.72 MG/DL (0.60-1.30); GFR ESTIMATED > 60; GLUCOSE 152 MG/DL (70-105); LIPASE 33 U/L (8-78); POTASSIUM 3.3 MMOL/L (3.6-5.0); SODIUM 139 MMOL/L (135-145); TOTAL PROTEIN 6.8 GM/DL (6.4-8.2)
--- NOTE | 2019-04-25 09:42 | Diagnostic Imaging Report ---
PATIENT HISTORY: Left upper quadrant abdominal pain. TECHNIQUE: Three views of the chest and abdomen were obtained. COMPARISON: 10/24/2018. FINDINGS: The lung volumes are normal. Bibasilar atelectasis is present, right greater than left. No focal consolidation is seen. No large pleural effusion or pneumothorax is seen. The cardiomediastinal silhouette is normal in size and contour. No acute osseous abnormality is seen. No evidence of bowel obstruction or large collections of free intraperitoneal air. A moderate amount of stool is seen throughout the colon. No abnormal calcifications. The included osseous structures are unremarkable. IMPRESSION: 1. Bibasilar atelectasis, right greater than left. 2. Moderate amount of stool in the colon, which can be seen with constipation. Dictated by: Dictated on workstation # [id number]
[2019-04-25 11:17] LABS: BILIRUBIN,URINE NEGATIVE (NEGATIVE); CLARITY,URINE SL CLOUDY; COLOR,URINE YELLOW; GLUCOSE, URINE (UA) NEGATIVE (NEGATIVE); KETONES,URINE NEGATIVE (NEGATIVE); LEUKOCYTE ESTERASE ,URINE NEGATIVE (NEGATIVE); NITRITE,URINE NEGATIVE (NEGATIVE); PH,URINE 8.5 (5-9); PROTEIN,URINE NEGATIVE (NEGATIVE)
[2019-04-25 11:28] LABS: AMORPHOUS SEDIMENT,UR MOD AMOR PHOSPHATE /LPF; BACTERIA,URINE NEGATIVE /HPF; SQUAMOUS EPITHELIAL CELL,UR 0-2 /HPF; WBC,URINE RARE /HPF
[2019-04-25 12:03] VITALS: BP 119/78
--- OUTSIDE RECORDS SUMMARY | 2019-05-19 18:52 | XMS REPORT | Continuity of Care Document ---
Author Organization Unknown Address Unknown Phone Unavailable Allergies Active Description Code Type Severity Reaction Onset Reported/Identified Relationship to Patient Clinical Status Yes No Known Drug Allergies [id number] Drug Allergy Unknown N/A 08/13/2013 Yes lisinopril [id number] Drug Allerg y Severe RASH 10/24/2018 Medications There is no data. Problems Date Dx Coded Attending Type Code Diagnosis Diagnosed By 08/13/2013 JOE GUSMAN MD Ot 305. 1 08/13/2013 JOE GUSMAN MD Ot 410. 11 08/13/2013 JOE GUSMAN MD Ot 785. 51 08/13/2013 JOE GUSMAN MD Ot 998. 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,UNSPEC SITE,SUBSEQ 04/04/2014 SHIRAZ RUANO DO Ot V57.89 REHABILITATION PROC NEC 04/05/2014 SHIRAZ RUANO DO Ot 410.92 04/05/2014 SHIRAZ RUANO DO Ot V57.89 04/05/2014 SHIRAZ RUANO DO Ot 410.92 04/05/2014 SHIRAZ RUANO DO Ot V57.89 04/05/2014 SHIRAZ RUANO DO Ot 410.92 04/05/2014 RUANO SHIRAZ BLANKENSHIP Ot V57.89 04/05/2014 SHIRAZ RUANO DO M Ot 410.92 04/05/2014 SHIRAZ RUANO DO Ot V57.89 04/06/2014 SHIRAZ RUANO DO Ot 410.92 04/06/2014 SHIRAZ RUANO DO Ot V57.89 04/07/2014 SHIRAZ RUANO DO Ot 410.92 04/07/2014 SHIRAZ RUANO DO Ot V57.89 05/15/2014 SHIRAZ RUANO DO Ot 410.92 05/15/2014 SHIRAZ RUANO DO Ot V57.89 07/04/2014 SHIRAZ RUANO DO M Ot 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,UNSPEC SITE,SUBSEQ 07/04/2014 RUANO DO, SHIRAZ Melvin Ot V57.89 REHABILITATION PROC NEC 09/18/2014 FENECH DO, SMILEY S Ot 620.2 09/18/2014 FENECH DO, SMILEY S Ot 626.2 09/18/2014 FENECH DO, SMILEY S Ot V76.12 09/18/2014 RUANO DO, SHIRAZ Melvin Ot 410.92 09/18/2014 RUANO DO, SHIRAZ Melvin Ot V57.89 01/04/2015 FENECH DO, SMILEY S Ot 620.2 01/04/2015 FENECH DO, SMILEY S Ot 626.2 01/04/2015 FENECH DO, SMILEY S Ot V76.12 01/04/2015 RUANO DO, SHIRAZ Melvin Ot 410.92 01/04/2015 RUANO DO, SHIRAZ Melvin Ot V57.89 01/10/2015 FENECH DO, SMILEY S Ot 620.2 01/10/2015 FENECH DO, SMILEY S Ot 626.2 01/10/2015 FENECH DO, SMILEY S Ot V76.12 01/10/2015 RUANO DO, TRESSA Ot 410.92 01/10/2015 RUANO DO, SHIRAZ Melvin Ot V57.89 01/10/2015 FENECH DO, SMILEY S Ot 620.2 01/10/2015 FENECH DO, SMILEY S Ot 626.2 01/10/2015 FENECH DO, SMILEY S Ot V76.12 01/10/2015 RUANO DO, TRESSA Ot 410.92 01/10/2015 RUANO DO, SHIRAZ Melvin Ot V57.89 06/11/2015 FENECH DO, SMILEY S Ot 620.2 06/11/2015 FENECH DO, SMILEY S Ot 626.2 06/11/2015 FENECH DO, SMILEY S Ot V76.12 06/11/2015 RUANO DO, SHIRAZ Melvin Ot 410.92 06/11/2015 RUANO DO, SHIRAZ Melvin Ot V57.89 07/05/2015 DILLAN MAY MD, FACC FACP CCDS Ot E78.0 07/05/2015 LALO OLMOS FACC, DILLAN FACP CCDS Ot I25.10 07/12/2015 FENECH DO, SMILEY S Ot N93.8 07/23/2015 FENECH DO, SMILEY S Ot N92.0 07/23/2015 FENECH DO, SMILEY S Ot N94.6 07/23/2015 FENECH DO, SMILEY S Ot Z01.812 07/23/2015 FENECH DO, SMILEY S Ot Z11.2 07/26/2015 LALO OLMOS FACC, DILLAN FACP CCDS Ot E78.0 07/26/2015 LALO OLMOS FACC, ALI FACP CCDS Ot I25.10 07/26/2015 FENECH DO, SMILEY S Ot N93.8 07/26/2015 FENECH DO, SMILEY S Ot N92.0 07/26/2015 FENECH DO, SMILEY S Ot N94.6 07/26/2015 FENECH DO, SMILEY S Ot Z01.812 07/26/2015 FENECH DO, SMILEY S Ot Z11.2 07/26/2015 FENECH DO, SMILEY S Ot I25.2 07/26/2015 FENECH DO, SMILEY S Ot N92.0 07/26/2015 FENECH DO, SMILEY S Ot N94.6 08/03/2015 FENECH DO, SMILEY S Ot I25.2 08/03/2015 FENECH DO, SMILEY S Ot N92.0 08/03/2015 FENECH DO, SMILEY S Ot N94.6 08/04/2015 FENECH DO, SMILEY S Ot I25.2 08/04/2015 FENECH DO, SMILEY S Ot N92.0 08/04/2015 FENECH DO, SMILEY S Ot N94.6 10/27/2015 LALO OLMOS FACC, DILLAN FACP CCDS Ot E78.5 HYPERLIPIDEMIA, UNSPECIFIED 10/27/2015 LALO OLMOS FACC, DILLAN FACP CCDS Ot I25.10 ATHSCL HEART DISEASE OF [place] CORONARY 10/27/2015 LALO OLMOS FACC, ALI FACP CCDS Ot I25.5 ISCHEMIC CARDIOMYOPATHY 10/27/2015 LALO OLMOS FACC, ALI FACP CCDS Ot R07.89 OTHER CHEST PAIN 10/27/2015 LALO OLMOS FACC, ALI FACP CCDS Ot Z87.891 PERSONAL HISTORY OF NICOTINE DEPENDENCE 10/27/2015 LALO OLMOS FACC, ALI FACP CCDS Ot Z95.5 PRESENCE OF CORONARY ANGIOPLASTY IMPLANT 10/31/2015 LALO OLMOS FACC, ALI FACP CCDS Ot R07.89 OTHER CHEST PAIN 11/17/2015 LALO OLMOS FACC, ALI FACP CCDS Ot R07.89 OTHER CHEST PAIN 08/03/2017 SMILEY ROGERS DO Ot 620.2 OVARIAN CYST NEC/NOS 08/03/2017 SMILEY ROGERS DO Ot 626.2 EXCESSIVE MENSTRUATION 08/03/2017 SMILEY ORGERS DO Ot V76.12 OTH SCREEN MAMMO-MALIGN NEOPLASM OF [place] 08/03/2017 RUANO DO, TRESSA Ot 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,UNSPEC SITE,SUBSEQ 08/03/2017 RUANO DO TRESSA Ot V57.89 REHABILITATION PROC NEC 10/24/2018 RUANO DO, TRESSA Ot 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,UNSPEC SITE,SUBSEQ 10/24/2018 RUANO DO, TRESSA Ot V57.89 REHABILITATION PROC NEC 10/24/2018 RUANO DO, TRESSA Ot 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,UNSPEC SITE,SUBSEQ 10/24/2018 RUANO DOSHIRAZ M Ot V57.89 REHABILITATION PROC NEC 10/24/2018 JUNI STALLWORTH MD Ot E78.00 PURE HYPERCHOLESTEROLEMIA, UNSPECIFIED 10/24/2018 JUNI STALLWORTH MD Ot G44.209 TENSION-TYPE HEADACHE, UNSPECIFIED, NOT 10/24/2018 JUNI STALLWORTH MD Ot R51 HEADACHE 10/24/2018 JUNI STALLWORTH MD Ot Z79.82 NURSING HOME (CURRENT) USE OF ASPIRIN 10/24/2018 JUNI STALLWORTH MD Ot Z80.7 FAM HX OF MALIG NEOPLM OF LYMPHOID, ADILENE 10/24/2018 JUNI STALLWORTH MD, Ot Z82.49 FAMILY HX OF ISCHEM HEART DIS AND OTH DI 10/24/2018 JUNI STALLWORTH MD Ot Z87.448 PERSONAL HISTORY OF OTHER DISEASES OF UR 10/24/2018 JUNI STALLWORTH MD, Ot Z87.891 PERSONAL HISTORY OF NICOTINE DEPENDENCE 10/24/2018 JUNI STALLWORTH MD Ot Z88.8 ALLERGY STATUS TO OT DRUG/MEDS/BIOL SUB 10/24/2018 JUNI STALLWORTH MD Ot Z90.710 ACQUIRED ABSENCE OF BOTH CERVIX AND UTER 10/24/2018 JUNI STALLWORTH MD Ot Z95.5 PRESENCE OF CORONARY ANGIOPLASTY IMPLANT 10/24/2018 CLARK JAY MD Ot R0 5 COUGH 10/24/2018 CLARK JAY MD Ot R50.9 FEVER, UNSPECIFIED 10/28/2018 JUNI STALLWORTH MD Ot E78.00 PURE HYPERCHOLESTEROLEMIA, UNSPECIFIED 10/28/2018 JUNI STALLWORTH MD Ot G44.209 TENSION-TYPE HEADACHE, UNSPECIFIED, NOT 10/28/2018 JUNI STALLWORTH MD Ot R51 HEADACHE 10/28/2018 JUNI STALLWORTH MD Ot Z79.82 NURSING HOME (CURRENT) USE OF ASPIRIN 10/28/2018 JUNI STALLWORTH MD Ot Z80.7 FAM HX OF MALIG NEOPLM OF LYMPHOID, ADILENE 10/28/2018 JUNI STALLWORTH MD, Ot Z82.49 FAMILY HX OF ISCHEM HEART DIS AND OTH DI 10/28/2018 JUNI STALLWORTH MD, Ot Z87.448 PERSONAL HISTORY OF OTHER DISEASES OF UR 10/28/2018 JUNI STALLWORTH MD, Ot Z87.891 PERSONAL HISTORY OF NICOTINE DEPENDENCE 10/28/2018 JUNI STALLWORTH MD, Ot Z88.8 ALLERGY STATUS TO OT DRUG/MEDS/BIOL SUB 10/28/2018 JUNI STALLWORTH MD Ot Z90.710 ACQUIRED ABSENCE OF BOTH CERVIX AND UTER 10/28/2018 JUNI STALLWORTH MD Ot Z95.5 PRESENCE OF CORONARY ANGIOPLASTY IMPLANT 10/28/2018 CLARK JAY MD Ot R0 5 COUGH 10/28/2018 CLARK JAY MD Ot R50.9 FEVER, UNSPECIFIED 11/03/2018 CLARK JAY MD Ot R0 5 COUGH 11/03/2018 CLARK JAY MD Ot R50.9 FEVER, UNSPECIFIED 04/25/2019 BRICE DO, AMAIRANI L Ot E78.0 0 PURE HYPERCHOLESTEROLEMIA, UNSPECIFIED 04/25/2019 BRICE DO, AMAIRANI L Ot F41.1 GENERALIZED ANXIETY DISORDER 04/25/2019 BRICE DO, AMAIRANI L Ot G43.9 09 MIGRAINE, UNSP, NOT INTRACTABLE, WITHOUT 04/25/2019 BRICE DO, AMAIRANI L Ot K59.0 0 CONSTIPATION, UNSPECIFIED 04/25/2019 BRICE DO, AMAIRANI L Ot R10.1 3 EPIGASTRIC PAIN 04/25/2019 BRICE DO, AMAIRANI L Ot Z79.8 2 NURSING HOME (CURRENT) USE OF ASPIRIN 04/25/2019 BRICE DO, AMAIRANI L Ot Z87.8 91 PERSONAL HISTORY OF NICOTINE DEPENDENCE 04/25/2019 BRICE DO, AMAIRANI L Ot Z88.8 ALLERGY STATUS TO OTH DRUG/MEDS/BIOL SUB 04/25/2019 BRICE DO, AMAIRANI L Ot Z90.7 10 ACQUIRED ABSENCE OF BOTH CERVIX AND UTER 04/30/2019 BRICE DO, AMAIRANI L Ot E78.0 0 PURE HYPERCHOLESTEROLEMIA, UNSPECIFIED 04/30/2019 BRICE DO, AMAIRANI L Ot F41.1 GENERALIZED ANXIETY DISORDER 04/30/2019 BRICE DO, AMAIRANI L Ot G43.9 09 MIGRAINE, UNSP, NOT INTRACTABLE, WITHOUT 04/30/2019 BRICE DO, AMAIRANI L Ot K59.0 0 CONSTIPATION, UNSPECIFIED 04/30/2019 BRICE DO, AMAIRANI L Ot R10.1 3 EPIGASTRIC PAIN 04/30/2019 BRICE DO, AMAIRANI L Ot Z79.8 2 NURSING HOME (CURRENT) USE OF ASPIRIN 04/30/2019 BRICE DO, AMAIRANI L Ot Z87.8 91 PERSONAL HISTORY OF NICOTINE DEPENDENCE 04/30/2019 BRICE DO, AMAIRANI L Ot Z88.8 ALLERGY STATUS TO OTH DRUG/MEDS/BIOL SUB 04/30/2019 BRICE DO, AMAIRANI L Ot Z90.7 10 ACQUIRED ABSENCE OF BOTH CERVIX AND UTER Procedures There is no data. Results Test Result Range Automated blood complete blood count ([facility] [place]) panel - 10/22/18 10:32 Blood leukocytes automated count (number/volume) 12.5 10*3/uL 4.3-11.0 Blood erythrocytes automated count (number/volume) 4.38 10*6/uL 4.35-5.85 Venous blood hemoglobin measurement (mass/volume) 13.7 g/dL 11.5-16.0 Blood hematocrit (volume fraction) 40 % 35-52 Automated erythrocyte mean corpuscular volume 92 [ foz_us] 80-99 Automated erythrocyte mean corpuscular h emoglobin (mass per erythrocyte) 31 pg 25-34 Automated erythrocyte mean corpuscular h emoglobin concentration measurement (mass/volume) 34 g/dL 32-36 Automated erythrocyte distribution width ratio 13. 9 % 10.0- 14.5 Automated blood platelet count (count/volume) 203 10*3/uL 130-400 Automated blood platelet mean volume measurement 11.7 [foz_us] 7.4-10.4 Whole blood basic metabolic panel - 09/24 06/12 10:32 Serum or plasma sodium measurement (moles/volume) 137 mmol/L 135-145 Serum or plasma potassium measurement (moles/volume) 3.4 mmol/L 3.6-5.0 Serum or plasma chloride measurement (moles/volume) 106 mmol/L 98-107 Carbon dioxide 24 mmol/L 21-32 Serum or plasma anion gap determination (moles/volume) 7 mmol/L 5-14 Serum or plasma urea nitrogen measurement (mass/volume ) 8 mg/dL 7-18 Serum or plasma creatinine measurement (mass/volume) 0.58 mg/dL 0.60-1.30 Serum or plasma urea nitrogen/creatinine mass ratio 14 NRG Serum or plasma creatinine measurement w ith calculation of estimated glomerular filtration rate > NRG Serum or plasma glucose measurement (mass/volume) 112 mg/dL 70-105 Serum or plasma calcium measurement (mass/volume) 9.5 mg/dL 8.5-10.1 Complete blood count (CBC) with automate d white blood cell (WBC) differential - 10/24/18 10:45 Blood leukocytes automated count (number/volume) 7.1 10*3/uL 4.3-11.0 Blood erythrocytes automated count (number/volume) 4.33 10*6/uL 4.35-5.85 Venous blood hemoglobin measurement (mass/volume) 13.5 g/dL 11.5-16.0 Blood hematocrit (volume fraction) 41 % 35-52 Automated erythrocyte mean corpuscular volume 94 [ foz_us] 80-99 Automated erythrocyte mean corpuscular h emoglobin (mass per erythrocyte) 31 pg 25-34 Automated erythrocyte mean corpuscular h emoglobin concentration measurement (mass/volume) 33 g/dL 32-36 Automated erythrocyte distribution width ratio 13. 7 % 10.0- 14.5 Automated blood platelet count (count/volume) 260 10*3/uL 130-400 Automated blood platelet mean volume measurement 11.4 [foz_us] 7.4-10.4 Automated blood neutrophils/100 leukocytes 55 % 42-75 Automated blood lymphocytes/100 leukocytes 37 % 12-44 Blood monocytes/100 leukocytes 6 % 0-12 Automated blood eosinophils/100 leukocytes 1 % 0-10 Automated blood basophils/100 leukocytes 1 % 0-10 Blood neutrophils automated count (number/volume) 3.9 10*3 1.8-7.8 Blood lymphocytes automated count (number/volume) 2.6 10*3 1.0-4.0 Blood monocytes automated count (number/volume) 0. 4 10*3 0.0-1.0 Automated eosinophil count 0.1 10*3/uL 0 .0-0.3 Automated blood basophil count (count/volume) 0.0 10*3/uL 0.0-0.1 Comprehensive metabolic panel - 10/24/18 10:45 Serum or plasma sodium measurement (moles/volume) 141 mmol/L 135-145 Serum or plasma potassium measurement (moles/volume) 3.6 mmol/L 3.6-5.0 Serum or plasma chloride measurement (moles/volume) 107 mmol/L 98-107 Carbon dioxide 22 mmol/L 21-32 Serum or plasma anion gap determination (moles/volume) 12 mmol/L 5-14 Serum or plasma urea nitrogen measurement (mass/volume ) 7 mg/dL 7-18 Serum or plasma creatinine measurement (mass/volume) 0.62 mg/dL 0.60-1.30 Serum or plasma urea nitrogen/creatinine mass ratio 11 NRG Serum or plasma creatinine measurement w ith calculation of estimated glomerular filtration rate > NRG Serum or plasma glucose measurement (mass/volume) 124 mg/dL 70-105 Serum or plasma calcium measurement (mass/volume) 9.2 mg/dL 8.5-10.1 Serum or plasma total bilirubin measurement (mass/volu me) 0.2 mg/dL 0.1-1.0 Serum or plasma alkaline phosphatase migel surement (enzymatic activity/volume) 96 U/L 40-136 Serum or plasma aspartate aminotransfera se measurement (enzymatic activity/volume) 24 U/L 5-34 Serum or plasma alanine aminotransferase measurement (enzymatic activity/volume) 33 U/L 0-55 Serum or plasma protein measurement (mass/volume) 6.5 g/dL 6.4-8.2 Serum or plasma albumin measurement (mass/volume) 3.4 g/dL 3.2-4.5 CALCIUM CORRECTED 9.7 mg/dL 8.5-10.1 Serum or plasma C reactive protein measu rement (mass/volume) - 10/24/18 10:45 Serum or plasma C reactive protein measurement (mass/v olume) 2.96 mg/dL 0.00-0.50 Complete urinalysis with reflex to cultu re - 10/24/18 13:41 Urine color determination YELLOW NRG Urine clarity determination CLEAR NR G Urine pH measurement by test strip 7 5-9 Specific gravity of urine by test strip 1.010 1.016-1.022 Urine protein assay by test strip, semi-quantitative NEGATIVE NEGATIVE Urine glucose detection by automated test strip NE GATIVE NEGATIVE Erythrocytes detection in urine sediment by light micr oscopy NEGATIVE NEGATIVE Urine ketones detection by automated test strip NE GATIVE NEGATIVE Urine nitrite detection by test strip NEGATIVE NEGATIVE Urine total bilirubin detection by test strip NEGA TIVE NEGATIVE Urine urobilinogen measurement by automated test strip (mass/volume) NORMAL NORMAL Urine leukocyte esterase detection by dipstick NEG ATIVE NEGATIVE Automated urine sediment erythrocyte cou nt by microscopy (number/high power field) RARE NRG Automated urine sediment leukocyte count by microscopy (number/high power field) NONE NRG Bacteria detection in urine sediment by light microsco py FEW NRG Squamous epithelial cells detection in u rine sediment by light microscopy 2-5 NRG Crystals detection in urine sediment by light microsco py NONE NRG Casts detection in urine sediment by light microscopy NONE NRG Mucus detection in urine sediment by light microscopy NEGATIVE NRG Complete urinalysis with reflex to culture NO NRG Complete blood count (CBC) with automate d white blood cell (WBC) differential - 04/25/19 08:38 Blood leukocytes automated count (number/volume) 10.7 10*3/uL 4.3-11.0 Blood erythrocytes automated count (number/volume) 4.45 10*6/uL 4.35-5.85 Venous blood hemoglobin measurement (mass/volume) 13.9 g/dL 11.5-16.0 Blood hematocrit (volume fraction) 42 % 35-52 Automated erythrocyte mean corpuscular volume 94 [ foz_us] 80-99 Automated erythrocyte mean corpuscular h emoglobin (mass per erythrocyte) 31 pg 25-34 Automated erythrocyte mean corpuscular h emoglobin concentration measurement (mass/volume) 33 g/dL 32-36 Automated erythrocyte distribution width ratio 13. 7 % 10.0- 14.5 Automated blood platelet count (count/volume) 283 10*3/uL 130-400 Automated blood platelet mean volume measurement 11.5 [foz_us] 7.4-10.4 Automated blood neutrophils/100 leukocytes 77 % 42-75 Automated blood lymphocytes/100 leukocytes 18 % 12-44 Blood monocytes/100 leukocytes 5 % 0-12 Automated blood eosinophils/100 leukocytes 1 % 0-10 Automated blood basophils/100 leukocytes 0 % 0-10 Blood neutrophils automated count (number/volume) 8.2 10*3 1.8-7.8 Blood lymphocytes automated count (number/volume) 1.9 10*3 1.0-4.0 Blood monocytes automated count (number/volume) 0. 5 10*3 0.0-1.0 Automated eosinophil count 0.1 10*3/uL 0 .0-0.3 Automated blood basophil count (count/volume) 0.0 10*3/uL 0.0-0.1 Comprehensive metabolic panel - 04/25/19 08:38 Serum or plasma sodium measurement (moles/volume) 139 mmol/L 135-145 Serum or plasma potassium measurement (moles/volume) 3.3 mmol/L 3.6-5.0 Serum or plasma chloride measurement (moles/volume) 103 mmol/L 98-107 Carbon dioxide 27 mmol/L 21-32 Serum or plasma anion gap determination (moles/volume) 9 mmol/L 5-14 Serum or plasma urea nitrogen measurement (mass/volume ) 15 mg/dL 7-18 Serum or plasma creatinine measurement (mass/volume) 0.72 mg/dL 0.60-1.30 Serum or plasma urea nitrogen/creatinine mass ratio 21 NRG Serum or plasma creatinine measurement w ith calculation of estimated glomerular filtration rate > NRG Serum or plasma glucose measurement (mass/volume) 152 mg/dL 70-105 Serum or plasma calcium measurement (mass/volume) 9.3 mg/dL 8.5-10.1 Serum or plasma total bilirubin measurement (mass/volu me) 0.3 mg/dL 0.1-1.0 Serum or plasma alkaline phosphatase migel surement (enzymatic activity/volume) 102 U/L 40-136 Serum or plasma aspartate aminotransfera se measurement (enzymatic activity/volume) 19 U/L 5-34 Serum or plasma alanine aminotransferase measurement (enzymatic activity/volume) 27 U/L 0-55 Serum or plasma protein measurement (mass/volume) 6.8 g/dL 6.4-8.2 Serum or plasma albumin measurement (mass/volume) 3.7 g/dL 3.2-4.5 CALCIUM CORRECTED 9.5 mg/dL 8.5-10.1 Lipase - 04/25/19 08:38 Lipase 33 U/L 8-78 Complete urinalysis with reflex to cultu re - 04/25/19 11:11 Urine color determination YELLOW NRG Urine clarity determination SL CLOUDY N RG Urine pH measurement by test strip 8.5 5-9 Specific gravity of urine by test strip 1.015 1.016-1.022 Urine protein assay by test strip, semi-quantitative NEGATIVE NEGATIVE Urine glucose detection by automated test strip NE GATIVE NEGATIVE Erythrocytes detection in urine sediment by light micr oscopy NEGATIVE NEGATIVE Urine ketones detection by automated test strip NE GATIVE NEGATIVE Urine nitrite detection by test strip NEGATIVE NEGATIVE Urine total bilirubin detection by test strip NEGA TIVE NEGATIVE Urine urobilinogen measurement by automated test strip (mass/volume) 0.2 mg/dL < = 1.0 Urine leukocyte esterase detection by dipstick NEG ATIVE NEGATIVE Automated urine sediment erythrocyte cou nt by microscopy (number/high power field) NONE NRG Automated urine sediment leukocyte count by microscopy (number/high power field) RARE NRG Bacteria detection in urine sediment by light microsco py NEGATIVE NRG Squamous epithelial cells detection in u rine sediment by light microscopy 0-2 NRG Crystals detection in urine sediment by light microsco py PRESENT NRG Casts detection in urine sediment by light microscopy NONE NRG Mucus detection in urine sediment by light microscopy NEGATIVE NRG Complete urinalysis with reflex to culture NO NRG Amorphous sediment detection in urine sediment by ligh t microscopy MOD [place] PHOSPHATE NRG Encounters ACCT No. Visit Date/Time Discharge Status Pt. Type Provider Facility Loc./Unit Complaint [id number] 04/25/2019 08:21:00 11:56:00 DIS Emergency BRICE DO AMAIRANI L [facility] ER ABD PAIN [id number] 10/29/2018 13:15:00 13:15:00 CAN Preadmit SHANEKA GIPSON APRN [facility] RAD LUNG SCARRING [id number] 10/24/2018 10:23:00 06/02/2 019 14:40:00 DIS Emergency FEDERICA OLMOS, JUNI Chu [facility] ER DX W/ PNA AND STREP/VOMITING/HEAD AND NECK PAIN [id number] 10/22/2018 09:56:00 019 23:59:59 CLS Outpatient CLARK JAY MD [facility] RAD COUGH,FEVER [id number] 02/18/2017 10:59:00 017 23:59:59 CLS Preadmit CLARK JAY MD [facility] RAD SCREENING [id number] 10/30/2015 12:03:00 016 23:59:59 CLS Outpatient LALO OLMOS FACC, DILLAN CASTRO CC DS [facility] CARD [id number] 10/26/2015 12:16:00 016 12:30:00 DIS Inpatient LALO OLMOS FACC, DILLAN CASTRO CCD S [facility] CSD [id number] 07/26/2015 06:00:00 016 17:25:00 DIS Outpatient SMILEY ROGERS DO S [facility] SDC [id number] 07/05/2015 14:17:00 016 23:59:59 CLS Outpatient SMILEY ROGERS DO S [facility] PREOP [id number] 06/27/2015 13:18:00 016 23:59:59 CLS Outpatient KEN BLANKENSHIP SMILEY S [facility] RAD [id number] 06/20/2015 15:03:00 016 23:59:59 CLS Outpatient LALO OLMOS FACC, DILLAN CASTRO CC DS [facility] CARD [id number] 07/05/2014 11:00:00 015 23:59:59 CLS Preadmit SHIRAZ RUANO DO [facility] CR AMI [id number] 05/03/2014 08:31:00 015 00:01:00 DIS Outpatient SHIRAZ RUANO DO Vi [facility] CR AMI [id number] 02/10/2014 11:52:00 00:01:00 DIS Outpatient SHIRAZ RUANO DO [facility] CR AMI [id number] 12/26/2013 15:09:00 11:58:00 DIS Outpatient [id number] 12/28/2013 14:09:00 23:59:59 CLS Outpatient SMILEY ROGERS DO [facility] RAD ROUTINE,POLYMENORRHEA [id number] 09/07/2013 14:12:00 15:33:00 DIS Emergency [id number] 09/02/2013 14:30:00 23:59:59 CLS Outpatient [id number] 08/13/2013 10:21:00 16:15:00 DIS Inpatient NASEEM OLMOS, JOE Chu [facility] ICU
== END 2019-04-25 11:56 | disposition home or self-care (01) ==
LOC: EDUNIT# 08:19 → ER 08:21
DX: K59.00 Constipation, unspecified (principal); F41.1 Generalized anxiety disorder; E78.00 Pure hypercholesterolemia, unspecified; G43.909 Migraine, unspecified, not intractable, without status migrainosus; Z88.8 Allergy status to other drugs, medicaments and biological substances; Z79.82 Long term (current) use of aspirin; Z87.891 Personal history of nicotine dependence; Z90.710 Acquired absence of both cervix and uterus
CPT/HCPCS: 36415; 74022; 80053; 81000; 83690; 85025; 96374

== ENCOUNTER 2019-11-08 07:42 | Observation (INO) | payer OTHER ==
[2019-11-08] VITALS (13 sets, daily range): BP systolic 91–127; BP diastolic 65–90
[~2019-11-08] VITALS: Ht 162.6 cm; Wt 86.0 kg
[~2019-11-08 07:42] MED LIST changes: -TRAM50TA2 PO; +TRM50T PO
[2019-11-08] MEDS ORDERED: ASPIRIN 81 MG CHEW (CHILDREN'S ASA) PO ONE (08:00)
--- NOTE | 2019-11-08 08:00 | ED Chest Pain ---
General Stated Complaint: CHEST PAIN Source: patient, old records History of Present Illness Date Seen by Provider: Nov 08, 2019 Time Seen by Provider: 08:00 Initial Comments PT ARRIVES VIA POV FROM HOME PT SEEN IN COVID UNIT, BASED ON CURRENT HOSPITAL POLICY-PPE WORN AT ALL TIMES C/O MID STERNAL CHEST PAIN THAT BEGAN AROUND 0020 THIS MORNING/LAST NIGHT, AFTER SHE GOT OFF WORK AT [employer]--NORMAL WORK ACTIVITIES RATES PAIN 5/10 PAIN WORSE WITH LAYING DOWN NO RADIATION OF PAIN C/O MILD SHORTNESS OF BREATH NO COUGH NO FEVER NO RECENT ILLNESS NO GI SYMPTOMS NO SWELLING IN LEGS/ FEET OR PAIN IN CALVES NO CHANGES IN SMELL/TASTE HAS HISTORY OF ACS/MD WITH STENT TO LAD X 1 AND STENTS TO RCA X 2--BOTH IN 2013 ONLY TAKES 1 BABY ASPIRIN, AND HAS BEEN OFF ALL PRESCRIPTION MEDICATIONS FOR YEARS HAS NOT FOLLOWED UP WITH SNOW REMOVAL/PLOWING/DR. MAY IN MANY YEARS STATES THIS PAIN IS THE SAME WITH MD, BUT NOT BAD PCP: DR. JAY Allergies and Home Medications Allergies Coded Allergies: lisinopril (Verified Allergy, Severe, RASH, 10/24/18) Home Medications Aspirin 81 Mg Tablet.dr, 81 MG PO DAILY, (Reported) Cholecalciferol (Vitamin D3) 25 Mcg Capsule, 25 MCG PO DAILY, (Reported) Cyanocobalamin (Vitamin B-12) 2,500 Mcg Tablet, 2,500 MCG PO DAILY, (Reported) [place]-3 Fatty Acids/Fish Oil 1 Each Capsule.dr, 1 EACH PO DAILY, (Reported) Turmeric Root Extract 538 Mg Capsule, 538 MG PO DAILY, (Reported) Patient Home Medication List Home Medication List Reviewed: Yes Review of Systems Review of Systems Constitutional: no symptoms reported; No chills, No diaphoresis, No dizziness, No fever, No malaise EENTM: No Symptoms Reported Respiratory: See HPI, Shortness of Air Cardiovascular: See HPI, Chest Pain; Denies Edema, Denies Irregular Heart Rate, Denies Lightheadedness, Denies Palpitations, Denies Syncope Gastrointestinal: No Symptoms Reported; Denies Abdominal Pain; Vomiting Genitourinary: No Symptoms Reported Musculoskeletal: no symptoms reported Skin: no symptoms reported Psychiatric/Neurological: No Symptoms Reported Endocrine: No Symptoms Reported Hematologic/Lymphatic: No Symptoms Reported Past Zdgfcxf-Lrczhq-Sglmns Hx Past Med/Social Hx: Reviewed and Corrections made Patient Social History Alcohol Use: Rarely Uses Recreational Drug Use: No Smoking Status: Current Everyday Smoker (1/2 PPD) Type Used: Cigarettes 2nd Hand Smoke Exposure: Yes Recent Foreign Travel: No Contact w/Someone Who Travel: No Recent Hopitalizations: No Seasonal Allergies Seasonal Allergies: No Past Medical History Surgeries: Yes (SEE BELOW) Cardiac, Coronary Stent, 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, Oophorectomy, Vascular Surgery Respiratory: No Cardiac: Yes (STENT X 1 TO LAD/STENTS X 2 TO RCA--2013;BILAT FEM ARTERY REPAIR POST CATHS) Coronary Artery Disease, Heart Attack, High Cholesterol, Hypertension Neurological: Yes (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) Headaches /Migraines Reproductive Disorders: Yes (HYST/BSO 2015) Female Reproductive Disorders: Menstrual Problems, 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 HIV/AIDS: No Genitourinary: No Gastrointestinal: No Musculoskeletal: No Endocrine: Yes (BOARDERLINE DIABETIC; GESTATIONAL DIABETES) Loss of Vision: Denies Hearing Impairment: Denies Cancer: No Psychosocial: No Integumentary: No Blood Disorders: No Adverse Reaction/Blood Tranf: No Family Medical History Cardiovascular disease 19 FATHER Completed stroke 19 FATHER FH: Hodgkins disease 19 MOTHER Myocardial infarction 19 FATHER PSH: -CARDIAC CATHS--STENT TO LAD X 1; STENTS TO RCA X 2--BOTH IN 2013 -BILATERAL FEMORAL ARTERY REPAIRS 2013, POST CARDIAC CATHS--RIGHT PSEUDOANEURYSM REPAIR, LEFT FEMORAL ARTERY BLEED -HYST/BSO 2015 FOR DUB Physical Exam Vital Signs Vital Signs - First Documented 11/08/19 11/08/19 07:50 08:29 Temp 37.0 Pulse 84 Resp 18 B/P (MAP) 152/89 (110) Pulse Ox 98 O2 Delivery Room Air Capillary Refill : Height, Weight, BMI Height: 5'3.00" Weight: 170lbs. 0.0oz. 77.796956tp; 27.00 BMI Method:Stated General Appearance: No Apparent Distress, WD/WN, Other (DOES NOT APPEAR ILL OR TO BE IN ANY DISCOMFORT OR DISTRESS) HEENT: PERRL/EOMI Neck: Full Range of Motion, Normal Inspection, Non Tender, Supple; No Carotid Bruit, No JVD Respiratory: Normal Breath Sounds, No Accessory Muscle Use, No Respiratory Distress, Other (MID STERNAL TENDERNESS--PALPATION REPRODUCES PAIN ) Cardiovascular: Regular Rate, Rhythm, No Edema, No JVD, No Murmur, Normal Peripheral Pulses Gastrointestinal: Normal Bowel Sounds, No Organomegaly, No Pulsatile Mass, Non Tender, Soft Extremity: Normal Capillary Refill, Normal Inspection, Normal Range of Motion, Non Tender, No Calf Tenderness, No Pedal Edema Neurologic/Psychiatric: Alert, Oriented x3, No Motor/Sensory Deficits, Normal Mood/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, 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 as Tested Skin: Normal Color, Warm/Dry Progress/Results/Core Measures Results/Orders Lab Results Laboratory Tests Test 11/08/19 08:10 11/08/19 08:15 Range/Units White Blood Count 10.2 4.3-11.0 10^3/uL Red Blood Count 4.58 4.35-5.85 10^6/uL Hemoglobin 14.2 11.5-16.0 G/DL Hematocrit 43 35-52 % Mean Corpuscular Volume 94 80-99 FL Mean Corpuscular Hemoglobin 31 25-34 PG Mean Corpuscular Hemoglobin Concent 33 32-36 G/DL Red Cell Distribution Width 14.6 H 10.0-14.5 % Platelet Count 273 130-400 10^3/uL Mean Platelet Volume 12.1 H 7.4-10.4 FL Neutrophils (%) (Auto) 56 42-75 % Lymphocytes (%) (Auto) 34 12-44 % Monocytes (%) (Auto) 8 0-12 % Eosinophils (%) (Auto) 2 0-10 % Basophils (%) (Auto) 0 0-10 % Neutrophils # (Auto) 5.7 1.8-7.8 X 10^3 Lymphocytes # (Auto) 3.5 1.0-4.0 X 10^3 Monocytes # (Auto) 0.8 0.0-1.0 X 10^3 Eosinophils # (Auto) 0.2 0.0-0.3 10^3/uL Basophils # (Auto) 0.0 0.0-0.1 10^3/uL Erythrocyte Sedimentation Rate 40 H 0-20 MM/HR Prothrombin Time 12.0 L 12.2-14.7 SEC INR Comment 0.9 0.8-1.4 Activated Partial Thromboplast Time 28 24-35 SEC D-Dimer 0.29 0.00-0.49 UG/ML Sodium Level 141 135-145 MMOL/L Potassium Level 3.8 3.6-5.0 MMOL/L Chloride Level 105 98-107 MMOL/L Carbon Dioxide Level 23 21-32 MMOL/L Anion Gap 13 5-14 MMOL/L Blood Urea Nitrogen 13 7-18 MG/DL Creatinine 0.72 0.60-1.30 MG/DL Estimat Glomerular Filtration Rate > 60 BUN/Creatinine Ratio 18 Glucose Level 115 H 70-105 MG/DL Calcium Level 9.6 8.5-10.1 MG/DL Corrected Calcium 9.9 8.5-10.1 MG/DL Magnesium Level 2.3 1.6-2.4 MG/DL Total Bilirubin 0.2 0.1-1.0 MG/DL Aspartate Amino Transf (AST/SGOT) 17 5-34 U/L Alanine Aminotransferase (ALT/SGPT) 22 0-55 U/L Alkaline Phosphatase 113 40-136 U/L Lactate Dehydrogenase 197 125-220 U/L Total Creatine Kinase 87 29-168 U/L Creatine Kinase MB 2.6 <6.6 NG/ML Myoglobin 29.2 10.0-92.0 NG/ML Troponin I 0.195 H <0.028 NG/ML C-Reactive Protein High Sensitivity 0.97 H 0.00-0.50 MG/DL B-Type Natriuretic Peptide 11.8 <100.0 PG/ML Total Protein 7.2 6.4-8.2 GM/DL Albumin 3.6 3.2-4.5 GM/DL Amylase Level 47 25-125 U/L Lipase 52 8-78 U/L Procalcitonin 0.04 <0.10 NG/ML Serum Test, Qualitative NEGATIVE NEGATIVE My Orders Orders - RAFIQ HADLEY DO Cbc With Automated Diff (11/08/19 07:46) Magnesium (11/08/19 07:46) Chest 1 View, Ap/Pa Only (11/08/19 07:46) Ekg Tracing (11/08/19 07:46) Comprehensive Metabolic Panel (11/08/19 07:46) Myoglobin Serum (11/08/19 07:46) Protime With Inr (11/08/19 07:46) Partial Thromboplastin Time (11/08/19 07:46) O2 (11/08/19 07:46) Monitor-Rhythm Ecg Trace Only (11/08/19 07:46) Ed Iv/Invasive Line Start (11/08/19 07:46) Creatine Kinase (11/08/19 07:46) Creatine Kinase Mb (11/08/19 07:46) Lipase (11/08/19 07:46) Amylase (11/08/19 07:46) BNP (11/08/19 07:46) Fibrin Degradation Products (11/08/19 07:46) Troponin I (11/08/19 07:46) Nitroglycerin 0.4 Mg Btl 25's (Nitrostat (11/08/19 08:00) Aspirin Chewable Tablet (Baby Aspirin Ch (11/08/19 08:00) Hcg,Qualitative Serum (11/08/19 07:46) Procalcitonin (Pct) (11/08/19 07:46) Hs C Reactive Protein (11/08/19 07:46) Erythrocyte Sedimentation Rate (11/08/19 07:46) LDH (11/08/19 07:46) Coronavirus Sars-Cov-2 So 2018 (11/08/19 07:46) Ondansetron Injection (Zofran Injectio (11/08/19 09:00) Ketorolac Injection (Toradol Injection) (11/08/19 09:00) Pantoprazole Injection (Protonix Injecti (11/08/19 09:00) Medications Given in ED Current Medications Medications Dose Ordered Sig/Josiah Route Start Time Stop Time Status Last Admin Dose Admin Aspirin 324 mg ONCE ONCE PO 11/08/19 08:00 11/08/19 08:01 DC 11/08/19 08:22 324 MG Ketorolac Tromethamine 30 mg ONCE ONCE IVP 11/08/19 09:00 11/08/19 09:01 DC 11/08/19 08:57 30 MG Nitroglycerin 0.4 mg UD PRN SL 11/08/19 08:00 11/08/19 08:43 DC 11/08/19 08:37 0.4 MG Ondansetron HCl 4 mg ONCE ONCE IVP 11/08/19 09:00 11/08/19 09:01 DC 11/08/19 08:57 4 MG Pantoprazole 40 mg ONCE ONCE IV 11/08/19 09:00 11/08/19 09:01 DC 11/08/19 08:57 40 MG Vital Signs/I&O 6/16/20 6/16/20 07:50 08:29 Temp 37.0 Pulse 84 Resp 18 B/P (MAP) 152/89 (110) Pulse Ox 98 O2 Delivery Room Air Progress Progress Note : Progress Note GIVEN 4 BABY ASPIRIN GIVEN NTG SL X 3 WITHOUT RELIEF OF PAIN, BUT BEGAN TO GET NAUSEATED AFTER 3RD NTG GIVEN ZOFRAN AND PROTONIX GIVEN TORADOL--NO RELIEF GIVEN ADDITIONAL MEDICATIONS AT DR. BURGESS'S RECOMMENDATIONS PAIN BEGINNING TO EASE AT TIME OF ADMIT Initial ECG Impression Date: Nov 08, 2019 Initial ECG Impression Time: 07:55 Initial ECG Rate: 84 Initial ECG Rhythm: Normal Sinus Initial ECG Impression: Normal Diagnostic Imaging Comments CXR--NO ACUTE PROCESS, CHRONIC BIBASILAR ATELECTASIS--PER RADIOLOGIST REPORT AT 0942 Reviewed: Reviewed by Me Departure Communication (Admissions) 09--CONTACTED DR. BURGESS, SNOW REMOVAL/PLOWING, VIA TEXT, ORDERS NOTED BY HIM 0930--SPOKE WITH DR. JAY, ACCEPTS PT FOR ADMIT Impression Primary Impression: Chest pain Additional Impressions: COVID P.U.I. Elevated troponin Disposition: ADMITTED INPATIENT Condition: Improved Admissions Decision to Admit Reason: Admit from ER (General) Decision to Admit/Date: Nov 08, 2019 Time/Decision to Admit Time: 09:30 Departure-Patient Inst. Referrals: CLARK JAY MD (PCP/Family) Primary Care Physician RAFIQ HADLEY DO Nov 08, 2019 08:00
[2019-11-08] MEDS: NITROGLYCERIN 0.4 MG SL TABS BTL 25'S SL PRN ×3 (08:22→08:37)
[2019-11-08 08:42] LABS: BASOPHILS % (AUTO) 0 % (0-10); EOSINOPHILS # (AUTO) 0.2 10^3/uL (0.0-0.3); EOSINOPHILS % (AUTO) 2 % (0-10); HEMATOCRIT 43 % (35-52); HEMOGLOBIN 14.2 G/DL (11.5-16.0); LYMPHOCYTES # (AUTO) 3.5 X 10^3 (1.0-4.0); LYMPHOCYTES % (AUTO) 34 % (12-44); MEAN CORPUSCULAR HEMOGLOBIN 31 PG (25-34); MEAN CORPUSCULAR HGB CONC 33 G/DL (32-36); MEAN CORPUSCULAR VOLUME 94 FL (80-99); MEAN PLATELET VOLUME 12.1 FL (7.4-10.4); MONOCYTES # (AUTO) 0.8 X 10^3 (0.0-1.0); MONOCYTES % (AUTO) 8 % (0-12); NEUTROPHILS # (AUTO) 5.7 X 10^3 (1.8-7.8); NEUTROPHILS % (AUTO) 56 % (42-75); PLATELET COUNT 273 10^3/uL (130-400); RED CELL DISTRIBUTION WIDTH 14.6 % (10.0-14.5); WHITE BLOOD COUNT 10.2 10^3/uL (4.3-11.0)
--- NOTE | 2019-11-08 08:47 | NUR ---
PT CO OF NAUSEA. NO CHANGE IN PAIN LEVEL
[2019-11-08 08:56] LABS: INR 0.9 (0.8-1.4)
[2019-11-08] MEDS ORDERED: KETOROLAC 30 MG/ML VIAL IVP ONE (09:00)
[2019-11-08] MEDS ORDERED: PANTOPRAZOLE 40 MG (PROTONIX) VIAL IV ONE (09:00)
[2019-11-08] MEDS ORDERED: ONDANSETRON 4 MG/2 ML (SDV) Z0FRAN IVP ONE (09:00)
[2019-11-08 09:04] LABS: ALANINE AMINOTRANSFERASE 22 U/L (0-55); ALBUMIN 3.6 GM/DL (3.2-4.5); ALKALINE PHOSPHATASE 113 U/L (40-136); BILIRUBIN,TOTAL 0.2 MG/DL (0.1-1.0); BUN/CREATININE RATIO 18; CALCIUM 9.6 MG/DL (8.5-10.1); CARBON DIOXIDE 23 MMOL/L (21-32); CHLORIDE 105 MMOL/L (98-107); CREATINE KINASE 87 U/L (29-168); CREATININE SERUM 0.72 MG/DL (0.60-1.30); GFR ESTIMATED > 60; GLUCOSE 115 MG/DL (70-105); MAGNESIUM 2.3 MG/DL (1.6-2.4); POTASSIUM 3.8 MMOL/L (3.6-5.0); SODIUM 141 MMOL/L (135-145); TOTAL PROTEIN 7.2 GM/DL (6.4-8.2)
[2019-11-08 09:05] LABS: AMYLASE 47 U/L (25-125); LIPASE 52 U/L (8-78)
[2019-11-08 09:12] LABS: CREATINE KINASE MB 2.6 NG/ML (<6.6)
[2019-11-08] MEDS ORDERED: morphine INJ 10 MG/ML 1ML (SYR OR VIAL) IVP STA (09:24)
--- NOTE | 2019-11-08 09:25 | Diagnostic Imaging Report ---
HISTORY: Chest pain TECHNIQUE: Frontal view of the chest. COMPARISON: 04/25/2019 FINDINGS: Bibasilar opacities, likely atelectasis, are again seen. No new consolidation is seen. There is no pleural effusion or pneumothorax. The cardiac silhouette is normal in size and contour. IMPRESSION: 1. Chronic bibasilar atelectasis with no new consolidation seen. Dictated by: Dictated on workstation # [id number]
[2019-11-08] MEDS ORDERED: ENOXAPARIN 80 MG/0.8 ML (LOVENOX) SYR SC ONE (09:30)
[2019-11-08] MEDS ORDERED: HEParin 1000 UNIT/ML (10ML VIAL) FOR BOLUS IV ONE ×2 (09:36→20:30)
[2019-11-08] MEDS ORDERED: HEParin DRIP 25000 UNIT/500ML 500 ML IV ONE (09:36)
[2019-11-08] MEDS ORDERED: meTOproloL SUCCINATE 50 MG (TOPROL XL) TAB PO SCH (09:45)
[2019-11-08] MEDS ORDERED: TICAGRELOR 90 MG TABLET (BRILINTA) PO ONE (09:45)
[2019-11-08] MEDS ORDERED: NITRO DRIP 25000 MCG/D5W 250 ML IV SCH (09:45)
--- NOTE | 2019-11-08 10:16 | NUR ---
pain4/10
--- NOTE | 2019-11-08 10:37 | NUR ---
VITAL SIGNS 0755- 152/89 ND-83 0800- 158/93 85 0815 144/94 94 0822 137/92 87 0825 136/89 95 0827 132/87 94 0830 126/93 98 0835 120/83 95 0840 122/85 96 0850 131/81 85 0900 117/90 87 0915 115/82 85 0930 123/85 82 0945 124/87 81 0955 121/77 74 1010 125/72 74 1015 117/66 72 1020 129/75 75 1025 105/73 78 1030 134/76 75 1040 117/77 70 1045 112/74 72
[2019-11-08] MEDS ORDERED: CATHETER FLUSH 10 ML SYR IV PRN (11:15)
[2019-11-08] MEDS ORDERED: morphine INJ 4 MG/ML 1 ML (VIAL/SYRINGE) IV PRN (11:15)
[2019-11-08] MEDS ORDERED: NITROGLYCERIN 0.4 MG SL TABS BTL 25'S SL PRN (11:15)
[2019-11-08] MEDS ORDERED: HEParin DRIP 25000 UNIT/500ML 500 ML IV SCH (12:26)
--- NOTE | 2019-11-08 13:50 | NUR ---
REPEAT LABS DRAWN PER DR BURGESS ORDER. PT IS RESTING COMFORTABLY IN NAD. SHE DENIES CHEST PAIN AT THIS TIME. SPOKE WITH DR JAY AND UPDATED ON DR BURGESS'S PLAN TO AWAIT PENDING TROPONIN TO DECIDE CATH DATE. PT CONTINUES TO BE NPO.
[2019-11-08] MEDS: NITRO DRIP 25000 MCG/D5W 250 ML IV SCH (14:50)
[2019-11-08] MEDS ORDERED: TURM538C PO (15:00)
[2019-11-08] MEDS ORDERED: CHOL100048 PO (15:00)
[2019-11-08] MEDS ORDERED: OMEG1CAP24 PO (15:00)
[2019-11-08] MEDS ORDERED: ASPI-983 PO (15:00)
[2019-11-08] MEDS ORDERED: CYAN250010 PO (15:00)
--- NOTE | 2019-11-08 15:01 | NUR ---
SPOKE WITH THE PT (I CALLED HER CELL PHONE) TO COMPLETE THE MED REC PT DENIES TAKING ANY PRESCRIPTION MEDICATIONS. PT IMPLIED THAT IN THE PAST SHE HAS HAD PRESCRIPTION MEDICATIONS BUT HAS STOPPED TAKING THEM. OTC MEDS: VIT B12 VIT D ASPIRIN 81 TURMERIC OMEGA 3
[2019-11-08] MEDS: CATHETER FLUSH 10 ML SYR IV SCH ×2 (17:38→20:46)
--- NOTE | 2019-11-08 20:07 | History & Physical ---
History of Present Illness History of Present Illness Reason for visit/HPI PT IS A 48 Y/O FEMALE WHO IS KNOWN TO ME FROM CLINIC AND PREVIOUS HOSPITALIZATIONS. DANICA REPORTS THAT SHE HAD CHEST PAIN STARTING ON THURSDAY EVENING INTERMITTENTLY, THEN IT BECAME MORE PROGRESSIVE LAST NIGHT AND SHE TOOK AN ASPIRIN WITH MINIMAL IMPROVEMENT. HOWEVER THIS MORNING, HER CHEST PAIN ESCALATED AND SHE DECIDED TO "NOT IGNORE THIS AGAIN" AND SHE PRESENTED TO THE HOSPITAL FOR FURTHER WORK- UP/EVALUATION. SHE WAS FOUND TO HAVE AN ELEVATED TROPONIN IN THE ER AND WITH A POSITIVE HX OF CAD WITH INTERVENTIONS, SHE WAS ADMITTED TO THE ICU FOR CHEST PAIN AND POSSIBLE HEART CATHETERIZATION. 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 Date of Admission Nov 08, 2019 at 09:17 Date Seen by a Provider: Nov 08, 2019 Time Seen by a Provider: 19:40 I consulted on this patient on 11/08/19 20:01 Attending Physician Clark Cody MD Admitting Physician Clark Cody MD Consult CARDIOLOGY Allergies and Home Medications Allergies Coded Allergies: lisinopril (Verified Allergy, Severe, RASH, 10/24/18) Home Medications Aspirin 81 Mg Tablet.dr, 81 MG PO DAILY, (Reported) Cholecalciferol (Vitamin D3) 25 Mcg Capsule, 25 MCG PO DAILY, (Reported) Cyanocobalamin (Vitamin B-12) 2,500 Mcg Tablet, 2,500 MCG PO DAILY, (Reported) [place]-3 Fatty Acids/Fish Oil 1 Each Capsule.dr, 1 EACH PO DAILY, (Reported) Turmeric Root Extract 538 Mg Capsule, 538 MG PO DAILY, (Reported) Patient Home Medication List Home Medication List Reviewed: Yes Past Rtrmvej-Sgopll-Kamrjd Hx Past Med/Social Hx: Reviewed Nursing Past Med/Soc Hx, Reviewed and Corrections made Patient Social History Marrital Status: Living Status: LIVES AT HOME WITH SPOUSE - WHO WORKS IN HOSPITAL IN [facility] [employer] Employed/Student: employed (AT [employer]) Alcohol Use: Rarely Uses Recreational Drug Use: No Smoking Status: Current Everyday Smoker (1/2 PPD) Type Used: Cigarettes 2nd Hand Smoke Exposure: Yes Physical Abuse Screen: No Sexual Abuse: No Recent Foreign Travel: No Contact w/other who traveled: No Recent Hopitalizations: No Recent Infectious Disease Expo: No Social History LIVES AT HOME WITH SPOUSE AND KIDS, WORKS AT [employer] AND WORKS IN HOSPITAL IN [employer]IN[employer]NAN[employer] AT [facility] Seasonal Allergies Seasonal Allergies: No Past Medical History Surgeries: Cardiac, Coronary Stent, 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, Oophorectomy, Vascular Surgery Currently Using CPAP: No Currently Using BIPAP: No Cardiac: Coronary Artery Disease, Heart Attack, High Cholesterol, Hypertension Neurological: Headaches /Migraines : No Reproductive: Yes (HYST/BSO 2015) Sexually Transmitted Disease: No HIV/AIDS: No Female Reproductive Disorders: Menstrual Problems, Ovarian Cyst 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 Loss of Vision: Denies Hearing Impairment: Denies History of Blood Disorders: No Adverse Reaction to Blood Timmons: No CARDIAC CATHS--STENT TO LAD X 1; STENTS TO RCA X 2--BOTH IN 2013 -BILATERAL FEMORAL ARTERY REPAIRS 2013, POST CARDIAC CATHS--RIGHT PSEUDOANEURYSM REPAIR, LEFT FEMORAL ARTERY BLEED -HYST/BSO 2015 FOR DUB Family History Reviewed and Corrections made Cardiovascular disease 19 FATHER Completed stroke 19 FATHER FH: Hodgkins disease 19 MOTHER Myocardial infarction 19 FATHER Heart Disease, Cancer, CVA, Hypertension, Stroke Review of Systems Constitutional: No chills, No fever, No malaise, No weakness EENTM: No hearing loss, No hoarseness, No throat pain Respiratory: cough; No dyspnea on exertion, No orthopnea, No short of breath Cardiovascular: chest pain; No edema; Hx of Intervention; No palpitations; vascular heart diseas Gastrointestinal: No abdominal pain, No constipation, No diarrhea, No loss of appetite, No nausea, No vomiting Genitourinary: no symptoms reported Musculoskeletal: No back pain, No muscle weakness Skin: no symptoms reported; No lesions, No rash Psychiatric/Neurological: Denies Anxiety, Denies Weakness All Other Systems Reviewed Negative Unless Noted: Yes Physical Exam Vital Signs Vital Signs - First Documented 11/08/19 11/08/19 11/08/19 07:50 08:29 11:10 Temp 37.0 Pulse 84 Resp 18 B/P (MAP) 152/89 (110) Pulse Ox 98 O2 Delivery Room Air O2 Flow Rate 2.00 Capillary Refill : Less Than 3 Seconds Height, Weight, BMI Height: 5'3.00" Weight: 170lbs. 0.0oz. 77.630347gr; 31.27 BMI Method:Stated General Appearance: No Apparent Distress, WD/WN Eyes: Bilateral Eye Normal Inspection, Bilateral Eye PERRL, Bilateral Eye EOMI HEENT: PERRL/EOMI, TMs Normal, Normal ENT Inspection, Pharynx Normal Neck: Full Range of Motion, Non Tender, Supple Respiratory: Chest Non Tender, Lungs Clear, Normal Breath Sounds, No Accessory Muscle Use, No Respiratory Distress Cardiovascular: Regular Rate, Rhythm, No Edema, Normal Peripheral Pulses Gastrointestinal: Normal Bowel Sounds, No Organomegaly, Non Tender, Soft Rectal: Deferred Back: Normal Inspection, No Vertebral Tenderness Extremity: Normal Capillary Refill, Normal Inspection, Normal Range of Motion, Non Tender, No Calf Tenderness, No Pedal Edema Neurologic/Psychiatric: Alert, Oriented x3, No Motor/Sensory Deficits, Normal Mood/Affect, 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 - CONTINUE WITH NITRO DRIP - CONTINUE WITH IV HEPARIN TOBACCOISM - ENCOURAGE SMOKING CESSATION - WILL ADDRESS AND ENCOURAGE PT TO ATTEND SMOKING CESSATION CLASSES WELL INITIATE MEDICATION OUTPATIENT. DVT PROPHYLAXIS WITH SCD'S - PT ON HEPARIN DRIP PER CARDIOLOGY GI PROPHYLAXIS WITH PEPCID PO Admission Diagnosis UNSTABLE CHEST PAIN HX OF CORONARY ARTERY DISEASE STATUS POST STENTING IN 2013 TO LAD, RCA X 2 TOBACCOISM Admission Status: Observation Clinical Quality Measures AMI/AHF: ASA po Prior to arrival: Yes (2-81MG) DVT/VTE Risk/Contraindication: Risk Factor Score Per Nursin RFS Level Per Nursing on Admit: 4+=Very High CLARK CODY MD Nov 08, 2019 20:07
[2019-11-08] MEDS ORDERED: diphenhydrAMINE 50 MG/ML INJ (BENADRYL) IM ONE (20:45)
[2019-11-08] MEDS ORDERED: ACETAMINOPHEN 325 MG TABLET PO ONE (20:45)
[2019-11-08] MEDS: FAMOTIDINE 20 MG (PEPCID) TABLET PO SCH (20:46)
[2019-11-09] VITALS (21 sets, daily range): BP systolic 100–153; BP diastolic 65–89
[2019-11-09 02:48] LABS: BASOPHILS % (AUTO) 0 % (0-10); EOSINOPHILS # (AUTO) 0.1 10^3/uL (0.0-0.3); EOSINOPHILS % (AUTO) 1 % (0-10); HEMATOCRIT 38 % (35-52); HEMOGLOBIN 12.2 G/DL (11.5-16.0); LYMPHOCYTES # (AUTO) 2.5 X 10^3 (1.0-4.0); LYMPHOCYTES % (AUTO) 21 % (12-44); MEAN CORPUSCULAR HEMOGLOBIN 31 PG (25-34); MEAN CORPUSCULAR HGB CONC 33 G/DL (32-36); MEAN CORPUSCULAR VOLUME 96 FL (80-99); MEAN PLATELET VOLUME 11.9 FL (7.4-10.4); MONOCYTES # (AUTO) 0.6 X 10^3 (0.0-1.0); MONOCYTES % (AUTO) 5 % (0-12); NEUTROPHILS # (AUTO) 8.7 X 10^3 (1.8-7.8); NEUTROPHILS % (AUTO) 73 % (42-75); PLATELET COUNT 245 10^3/uL (130-400); RED CELL DISTRIBUTION WIDTH 14.6 % (10.0-14.5); WHITE BLOOD COUNT 11.8 10^3/uL (4.3-11.0)
[2019-11-09 03:15] LABS: ALBUMIN 3.1 GM/DL (3.2-4.5); CHLORIDE 106 MMOL/L (98-107); POTASSIUM 4.1 MMOL/L (3.6-5.0); SODIUM 139 MMOL/L (135-145)
[2019-11-09 03:16] LABS: CALCIUM 8.6 MG/DL (8.5-10.1)
[2019-11-09 03:17] LABS: GLUCOSE 107 MG/DL (70-105); TOTAL PROTEIN 5.9 GM/DL (6.4-8.2); TRIGLYCERIDES 268 MG/DL (<150); VLDL CHOLESTEROL 54 MG/DL (5-40)
[2019-11-09 03:18] LABS: CARBON DIOXIDE 23 MMOL/L (21-32)
[2019-11-09 03:19] LABS: BILIRUBIN,TOTAL 0.3 MG/DL (0.1-1.0)
[2019-11-09 03:21] LABS: ALKALINE PHOSPHATASE 98 U/L (40-136); CREATININE SERUM 0.67 MG/DL (0.60-1.30); GFR ESTIMATED > 60
[2019-11-09 03:22] LABS: BUN/CREATININE RATIO 28; CHOLESTEROL 257 MG/DL (< 200)
[2019-11-09 03:23] LABS: HDL CHOLESTEROL 36 MG/DL (40-60)
[2019-11-09 03:24] LABS: ALANINE AMINOTRANSFERASE 22 U/L (0-55)
[2019-11-09] MEDS: CATHETER FLUSH 10 ML SYR IV SCH ×3 (04:15→19:50)
[2019-11-09] MEDS: ASPIRIN E.C. 81 MG (ECOTRIN) TAB PO SCH (09:48)
[2019-11-09] MEDS: FAMOTIDINE 20 MG (PEPCID) TABLET PO SCH ×2 (09:48→19:50)
--- NOTE | 2019-11-09 10:04 | Progress Note ---
Subjective Subjective Date Seen by Provider: Nov 09, 2019 Time Seen by Provider: 08:00 All Other Systems Reviewed All Other Systems Reviewed: Yes Objective Exam Vital Signs Vital Signs - First Documented 11/08/19 11/08/19 11/08/19 07:50 08:29 11:10 Temp 37.0 Pulse 84 Resp 18 B/P (MAP) 152/89 (110) Pulse Ox 98 O2 Delivery Room Air O2 Flow Rate 2.00 Capillary Refill : Less Than 3 Seconds General Appearance: No Apparent Distress, WD/WN Eyes: Bilateral Eye Normal Inspection, Bilateral Eye PERRL, Bilateral Eye EOMI HEENT: PERRL/EOMI, TMs Normal, Normal ENT Inspection, Pharynx Normal Neck: Full Range of Motion, Non Tender, Supple Respiratory: Chest Non Tender, Lungs Clear, Normal Breath Sounds, No Accessory Muscle Use, No Respiratory Distress Cardiovascular: Regular Rate, Rhythm, No Edema, Normal Peripheral Pulses Gastrointestinal: Normal Bowel Sounds, No Organomegaly, Non Tender, Soft Rectal: Deferred Back: Normal Inspection, No Vertebral Tenderness Extremity: Normal Capillary Refill, Normal Inspection, Normal Range of Motion, Non Tender, No Calf Tenderness, No Pedal Edema Neurologic/Psychiatric: Alert, Oriented x3, No Motor/Sensory Deficits, Normal Mood/Affect, 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 as Tested Skin: Normal Color, Warm/Dry Lymphatic: No Adenopathy Results Lab Laboratory Tests 11/08/19 13:25: Activated Partial Thromboplast Time 62H, Troponin I 0.263H 11/08/19 19:15: Activated Partial Thromboplast Time 32 11/09/19 02:35: Activated Partial Thromboplast Time 65H, Troponin I 0.155H, White Blood Count 11.8H, Red Blood Count 3.90L, Hemoglobin 12.2, Hematocrit 38, Mean Corpuscular Volume 96, Mean Corpuscular Hemoglobin 31, Mean Corpuscular Hemoglobin Concent 33, Red Cell Distribution Width 14.6H, Platelet Count 245, Mean Platelet Volume 11.9H, Neutrophils (%) (Auto) 73, Lymphocytes (%) (Auto) 21, Monocytes (%) (Auto) 5, Eosinophils (%) (Auto) 1, Basophils (%) (Auto) 0, Neutrophils # (Auto) 8.7H, Lymphocytes # (Auto) 2.5, Monocytes # (Auto) 0.6, Eosinophils # (Auto) 0.1, Basophils # (Auto) 0.0, Sodium Level 139, Potassium Level 4.1, Chloride Level 106, Carbon Dioxide Level 23, Anion Gap 10, Blood Urea Nitrogen 19H, Creatinine 0.67, Estimat Glomerular Filtration Rate > 60, BUN/Creatinine Ratio 28, Glucose Level 107H, Calcium Level 8.6, Corrected Calcium 9.3, Total Bilirubin 0.3, Aspartate Amino Transf (AST/SGOT) 17, Alanine Aminotransferase (ALT/SGPT) 22, Alkaline Phosphatase 98, Total Protein 5.9L, Albumin 3.1L, Triglycerides Level 268H, Cholesterol Level 257H, LDL Cholesterol Direct 205H, VLDL Cholesterol 54H, HDL Cholesterol 36L Assessment/Plan Assessment/Plan Admission Dx UNSTABLE CHEST PAIN HX OF CORONARY ARTERY DISEASE STATUS POST STENTING IN 2013 TO LAD, RCA X 2 TOBACCOISM Admission Dx UNSTABLE CHEST PAIN HX OF CORONARY ARTERY DISEASE STATUS POST STENTING IN 2013 TO LAD, RCA X 2 TOBACCOISM Clinical Quality Measures Admission Status Admission Dx UNSTABLE CHEST PAIN HX OF CORONARY ARTERY DISEASE STATUS POST STENTING IN 2013 TO LAD, RCA X 2 TOBACCOISM AMI/AHF: ASA po Prior to arrival: Yes (2-81MG) DVT/VTE Risk/Contraindication: Risk Factor Score Per Nursin RFS Level Per Nursing on Admit: 4+=Very High CLARK JAY MD Nov 09, 2019 10:04
[2019-11-09] MEDS ORDERED: HEParin 1000 UNIT/ML (10ML VIAL) FOR BOLUS ONE (11:04)
[2019-11-09] MEDS ORDERED: TICAGRELOR 90 MG TABLET (BRILINTA) PO NR (11:15)
[2019-11-09] MEDS ORDERED: TICAGRELOR 90 MG TABLET (BRILINTA) PO ONE (11:16)
[2019-11-09] MEDS: HEParin 1000 UNIT/ML (10ML VIAL) FOR BOLUS IV SCH ×2 (12:02→21:32)
[2019-11-09] MEDS: fentaNYL INJECTION 100 MCG/2 ML AMP IVP PRN ×4 (13:32→23:13)
--- NOTE | 2019-11-09 13:36 | Consultation-Cardiology ---
HPI-Cardiology Cardiology Consultation: Date of Consultation 11/09/19 Date of Admission Attending Physician Krista Cody MD Admitting Physician Krista Cody MD Consulting Physician Ngozi LINDER MD HPI: Time Seen by a Provider: 12:00 Chief Complaint: Chest pain This is a 48-year-old lady with history of borderline diabetes, active smoking, family history of CAD who presents to the hospital with complains of intermittent chest pain for the last few days. No significant exacerbating or relieving factors. Mild to moderate intensity. No radiation. Associated shortness of breath. Review of Systems-Cardiology Review of Systems Constitutional: As described under HPI; No As described under HPI, No no symptoms reported, No chills, No fever, No lightheadedness Eyes: No As described under HPI, No no symptoms reported, No blindness, No blurred vision, No contact lenses, No drainage, No decreased acuity, No foreign body sensation, No pain, No vision change Ears/Nose/Throat: No As described under HPI, No no symptoms reported, No chronic hearing loss, No ear discharge, No ear pain, No nasal drainage, No ulcerations Respiratory: No no symptoms reported; As described under HPI; No As described under HPI, No cough, No orthopnea, No shortness of breath, No SOB with excertion Cardiovascular: No no symptoms reported; As described under HPI; No As described under HPI; chest pain; No edema, No irregular heart rate, No lightheadedness, No palpitations Gastrointestinal: No no symptoms reported, No As described under HPI, No abdomen distended, No abdominal pain, No blood streaked bowels, No constipation, No diarrhea, No nausea, No vomiting, No stool coloration changes Genitourinary: No As described under HPI, No burning, No dysuria, No discharge, No frequency, No flank pain, No hematuria, No urgency : Yes : No Skin: No rash, No skin related problems, No ulcerations Psychiatric/Neurological: No anxiety, No depression, No seizure, No focal weakness, No syncope Hematologic: No bleeding abnormalities All Other Systems Reviewed Negative Unless Noted: Yes [id number]-Tvhoyl Hx Patient Social History Marrital Status: Living Status: LIVES AT HOME WITH SPOUSE - WHO WORKS IN [facility] IN [facility] Employed/Student: employed (AT [employer]) Alcohol Use: Rarely Uses Recreational Drug Use: No Smoking Status: Current Everyday Smoker (1/2 PPD) Type Used: Cigarettes 2nd Hand Smoke Exposure: Yes Recent Foreign Travel: No Recent Infectious Disease Expo: No Hospitalization with Isolation: Denies Physical Abuse Screen: No Sexual Abuse: No Past Medical History PMH As described under Assessment. Family Medical History Family Medical History: She reports family history of early CAD Family History: Cardiovascular disease 19 FATHER Completed stroke 19 FATHER FH: Hodgkins disease 19 MOTHER Myocardial infarction 19 FATHER Allergies and Home Medications Allergies Coded Allergies: lisinopril (Verified Allergy, Severe, RASH, 10/24/18) Home Medications Aspirin 81 Mg Tablet.dr, 81 MG PO DAILY, (Reported) Cholecalciferol (Vitamin D3) 25 Mcg Capsule, 25 MCG PO DAILY, (Reported) Cyanocobalamin (Vitamin B-12) 2,500 Mcg Tablet, 2,500 MCG PO DAILY, (Reported) [place]-3 Fatty Acids/Fish Oil 1 Each Capsule.dr, 1 EACH PO DAILY, (Reported) Turmeric Root Extract 538 Mg Capsule, 538 MG PO DAILY, (Reported) Patient Home Medication List Home Medication List Reviewed: Yes Physical Exam-Cardiology Physical Exam Vital Signs/I&O 11/09/19 11/09/19 11/09/19 11/09/19 03:00 04:00 04:00 05:00 Pulse 78 75 80 Resp 12 10 B/P (MAP) 116/69 (85) 121/75 (90) 104/72 (83) Pulse Ox 93 95 93 92 O2 Delivery Nasal Cannula Nasal Cannula Nasal Cannula Nasal Cannula O2 Flow Rate 2.00 2.00 2.00 2.00 11/09/19 11/09/19 11/09/19 11/09/19 06:00 07:00 08:00 09:00 Pulse 80 79 78 80 Resp 14 11 13 B/P (MAP) 139/89 (106) 125/82 (96) 113/84 (94) 133/85 (101) Pulse Ox 92 94 92 94 O2 Delivery Nasal Cannula Nasal Cannula Nasal Cannula Nasal Cannula O2 Flow Rate 2.00 2.00 2.00 2.00 11/09/19 11/09/19 11/09/19 11/09/19 09:30 09:30 10:00 11:00 Temp 37.1 Pulse 79 86 Resp 13 13 B/P (MAP) 153/87 (109) 128/75 (92) Pulse Ox 94 93 93 O2 Delivery Room Air Nasal Cannula Nasal Cannula O2 Flow Rate 2.00 2.00 11/09/19 12:00 Pulse 79 Resp 24 B/P (MAP) 139/86 (103) Pulse Ox 96 O2 Delivery Nasal Cannula O2 Flow Rate 2.00 11/09/19 00:00 Intake Total 320 ml Output Total 0 ml Balance 320 ml Capillary Refill : Less Than 3 Seconds Constitutional: appears stated age, AAO x 3; No apparent distress; well- developed, well-nourished HEENT: PERRL; No discharge; hearing is well preserved, oral hygience is good; No ulceration, No xanthelasmas are seen Neck: No carotid bruit; carotid pulses are 2 + bilaterally Respiratory: chest is bilaterally symmetric, lungs clear to auscultation; No stridor, No wheezing, No pleural rub Cardiovascular: regular rate-rhythm, S1 and S2; No diastolic murmur, No systolic murmur Gastrointestinal: soft, audible bowel sounds; No spleenomegaly Rectal: deferred Extremities: normal range of motion, non-tender, normal inspection; No clubbing, No cyanosis; no lower extremity edema bilateral; No significant edema Neurologic/Psychiatric: no motor/sensory deficits, alert, normal mood/affect, oriented x 3, power is 5/5 both on sides Skin: normal color, warm/dry; No rash, No ulcerations Data Review Labs Laboratory Tests 11/08/19 19:15: Activated Partial Thromboplast Time 32 11/09/19 02:35: Activated Partial Thromboplast Time 65H, White Blood Count 11.8H, Red Blood Count 3.90L, Hemoglobin 12.2, Hematocrit 38, Mean Corpuscular Volume 96, Mean Corpuscular Hemoglobin 31, Mean Corpuscular Hemoglobin Concent 33, Red Cell Distribution Width 14.6H, Platelet Count 245, Mean Platelet Volume 11.9H, Neutrophils (%) (Auto) 73, Lymphocytes (%) (Auto) 21, Monocytes (%) (Auto) 5, Eosinophils (%) (Auto) 1, Basophils (%) (Auto) 0, Neutrophils # (Auto) 8.7H, Lymphocytes # (Auto) 2.5, Monocytes # (Auto) 0.6, Eosinophils # (Auto) 0.1, Basophils # (Auto) 0.0, Sodium Level 139, Potassium Level 4.1, Chloride Level 106, Carbon Dioxide Level 23, Anion Gap 10, Blood Urea Nitrogen 19H, Creatinine 0.67, Estimat Glomerular Filtration Rate > 60, BUN/Creatinine Ratio 28, Glucose Level 107H, Calcium Level 8.6, Corrected Calcium 9.3, Total Bilirubin 0.3, Aspartate Amino Transf (AST/SGOT) 17, Alanine Aminotransferase (ALT/SGPT) 22, Alkaline Phosphatase 98, Troponin I 0.155H, Total Protein 5.9L, Albumin 3.1L, Triglycerides Level 268H, Cholesterol Level 257H, LDL Cholesterol Direct 205H, VLDL Cholesterol 54H, HDL Cholesterol 36L 11/09/19 10:00: Activated Partial Thromboplast Time 42H Microbiology 11/08/19 MRSA Screen - Final, Complete MRSA not isolated ECG Impression ECG Initial ECG Rhythm: Normal Sinus Initial ECG Impression: Nonspecific Changes A/P-Cardiology Assessment/Admission Diagnosis Non-STEMI, COVID-19 negative, Active smoker, Borderline diabetes, Hyperlipidemia Plan Non-STEMI, IV heparin. Aspirin, Brilinta. Coronary angiography is recommended. I discussed at length about the risks and complication including one to 2 percent risk of stroke, [place] and even . The patient accepted the risk and would like to proceed with the procedure. We'll schedule for tomorrow. We'll also request echocardiogram. COVID-19 negative, Active smoker, smoking cessation was strongly recommended. Borderline diabetes, deferred to the primary team. Hyperlipidemia, start high dose statin therapy. Thank you for your consultation. Please call me if you have any questions. Morgan Linder MD, FACP, FACC, FSCAI, FHRS, CCDS Interventional Cardiology Cardiac Electrophysiology Vascular Medicine and Endovascular Interventions Clinical Quality Measures AMI/AHF: ASA po Prior to arrival: Yes (2-81MG) DVT/VTE Risk/Contraindication: Risk Factor Score Per Nursin RFS Level Per Nursing on Admit: 4+=Very High Ngozi LINDER MD Nov 09, 2019 13:36
[2019-11-09] MEDS: ONDANSETRON 4 MG/2 ML (SDV) Z0FRAN IVP PRN (15:13)
[2019-11-09] MEDS: NITRO DRIP 25000 MCG/D5W 250 ML IV SCH ×2 (15:18→19:50)
[2019-11-10] VITALS (24 sets, daily range): BP systolic 107–149; BP diastolic 63–95
[2019-11-10] MEDS: CATHETER FLUSH 10 ML SYR IV SCH ×3 (05:22→23:55)
[2019-11-10] MEDS: fentaNYL INJECTION 100 MCG/2 ML AMP IVP PRN ×2 (05:44→08:36)
[2019-11-10] MEDS ORDERED: LIDOCAINE 1% INJ 20 ML 20 ML VIAL ONE (06:59)
[2019-11-10] MEDS ORDERED: HEParin (CATH LAB) 2,000 ML IV ONE (06:59)
[2019-11-10] MEDS: ASPIRIN E.C. 81 MG (ECOTRIN) TAB PO SCH (08:36)
[2019-11-10] MEDS: FAMOTIDINE 20 MG (PEPCID) TABLET PO SCH ×2 (08:36→20:54)
--- NOTE | 2019-11-10 08:37 | Discharge Summary ---
Diagnosis/Chief Complaint Date of Admission Nov 08, 2019 at 09:17 Date of Discharge Reason Hospital Visit PT IS A 48 Y/O FEMALE WHO IS KNOWN TO ME FROM CLINIC AND PREVIOUS HOSPITAL IZATIONS. DANICA REPORTS THAT SHE HAD CHEST PAIN STARTING ON THURSDAY EVENING INTERMITTENTLY, THEN IT BECAME MORE PROGRESSIVE LAST NIGHT AND SHE TOOK AN ASPIRIN WITH MINIMAL IMPROVEMENT. HOWEVER THIS MORNING, HER CHEST PAIN ESCALATED AND SHE DECIDED TO "NOT IGNORE THIS AGAIN" AND SHE PRESENTED TO THE HOSPITAL FOR FURTHER WORK- UP/EVALUATION. SHE WAS FOUND TO HAVE AN ELEVATED TROPONIN IN THE ER AND WITH A POSITIVE HX OF CAD WITH INTERVENTIONS, SHE WAS ADMITTED TO THE ICU FOR CHEST PAIN AND POSSIBLE HEART CATHETERIZATION. 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 Discharge Summary Discharge Physical Examination Allergies: Coded Allergies: lisinopril (Verified Allergy, Severe, RASH, 10/24/18) Vitals & I&Os Vital Signs Date Time Temp Pulse Resp B/P (MAP) Pulse Ox O2 Delivery O2 Flow Rate FiO2 11/10/19 07:14 36.4 11/10/19 06:00 67 16 107/63 (78) 92 Room Air 11/09/19 15:00 Hospital Course Pending Labs Laboratory Tests 11/10/19 03:11: Activated Partial Thromboplast Time 88 Discharge Instructions to patient/family Please see electronic discharge instructions given to patient. Discharge Medications Reviewed and agree with Discharge Medication list on patient's Discharge Instruction sheet Clinical Quality Measures AMI/AHF: ASA po Prior to arrival: Yes (2-81MG) DVT/VTE Risk/Contraindication: Risk Factor Score Per Nursin RFS Level Per Nursing on Admit: 4+=Very High CLARK JAY MD Nov 10, 2019 08:37
[2019-11-10] MEDS ORDERED: FAMO20TA5 PO (08:40)
[2019-11-10] MEDS ORDERED: ATOR80TA76 PO (08:40)
--- NOTE | 2019-11-10 09:30 | NUR ---
PT LEFT FLOOR W/ [employer] STAFF.
[2019-11-10] MEDS ORDERED: MIDAZOLAM 5 MG/5 ML (VERSED) VIAL ONE (09:34)
[2019-11-10] MEDS ORDERED: fentaNYL INJECTION 100 MCG/2 ML AMP ONE ×2 (09:34→10:33)
--- NOTE | 2019-11-10 09:52 | Cardiology Progress Note ---
Cardiology SOAP Progress Note Subjective: No further chest pain. Objective: I&O/Vital Signs 11/09/19 11/09/19 11/09/19 11/10/19 22:00 23:00 23:12 00:00 Temp 36.0 Pulse 80 74 73 Resp 13 15 12 B/P (MAP) 141/85 (103) 132/80 (97) 112/67 (82) Pulse Ox 94 95 93 O2 Delivery Room Air Room Air Room Air 11/10/19 11/10/19 11/10/19 11/10/19 00:00 01:00 01:00 02:00 Pulse 69 69 73 Resp 17 16 B/P (MAP) 117/75 (89) 126/69 (88) Pulse Ox 94 94 93 O2 Delivery Room Air Room Air Room Air 11/10/19 11/10/19 11/10/19 11/10/19 03:00 04:00 04:00 05:00 Pulse 69 65 68 Resp 20 20 20 B/P (MAP) 118/73 (88) 129/88 (102) 116/78 (91) Pulse Ox 94 96 95 O2 Delivery Room Air Room Air Room Air Room Air 11/10/19 11/10/19 11/10/19 06:00 07:14 08:00 Temp 36.4 Pulse 67 Resp 16 B/P (MAP) 107/63 (78) Pulse Ox 92 O2 Delivery Room Air Room Air 11/10/19 00:00 Intake Total 900 ml Balance 900 ml Weight (Pounds): 170 Weight (Ounces): 0.0 Weight (Calculated Kilograms): [id number] Constitutional: appears stated age, AAO x 3; No apparent distress; well-develop ed, well-nourished Respiratory: chest is bilaterally symmetric, lungs clear to auscultation; No stridor, No wheezing, No pleural rub Cardiovascular: regular rate-rhythm, S1 and S2; No diastolic murmur, No systoli c murmur Gastrointestional: soft, audible bowel sounds; No spleenomegaly Extremities: normal range of motion, non-tender, normal inspection; No clubbing, No cyanosis; no lower extremity edema bilateral; No significant edema Neurologic/Psychiatric: no motor/sensory deficits, alert, normal mood/affect, oriented x 3, power is 5/5 both on sides Skin: normal color, warm/dry; No rash, No ulcerations Results/Procedures: Labs Laboratory Tests 11/09/19 10:00: Activated Partial Thromboplast Time 42H 11/09/19 18:42: Activated Partial Thromboplast Time 44H 11/10/19 03:11: Activated Partial Thromboplast Time 88H 11/10/19 09:29: Activated Partial Thromboplast Time 59H Microbiology 11/08/19 MRSA Screen - Final, Complete MRSA not isolated A/P: Assessment/Dx: Non-STEMI, COVID-19 negative, Active smoker, Borderline diabetes, Hyperlipidemia Plan: Non-STEMI, IV heparin. Aspirin, Brilinta. Coronary angiography is recommended. I discussed at length about the risks and complication including one to 2 percent risk of stroke, [place] and even . The patient accepted the risk and would like to proceed with the procedure. Coronary angiography scheduled today. Echocardiogram COVID-19 negative, Active smoker, smoking cessation was strongly recommended. Borderline diabetes, deferred to the primary team. Hyperlipidemia, start high dose statin therapy. Thank you for your consultation. Please call me if you have any questions. Morgan Linder MD, FACP, FACC, FSCAI, FHRS, CCDS Interventional Cardiology Cardiac Electrophysiology Vascular Medicine and Endovascular Interventions Clinical Quality Measures AMI/AHF: ASA po Prior to arrival: Yes (2-81MG) Ngozi LINDER MD Nov 10, 2019 09:52
--- NOTE | 2019-11-10 09:53 | Cardiac Procedure Note-CS/ASA ---
Pre-Procedure Note Pre-Op Procedure Note H&P Reviewed The H&P was reviewed, patient examined and no changes noted. Date H&P Reviewed: Nov 10, 2019 Time H&P Reviewed: 09:00 Conscious Sedation Pre-Proced Time 09:00 ASA Score 3 For ASA 3 and 4: Consider anesthesia and medical clearance. Also, for patients with a history of failed moderate sedation consider anesthesia. Airway Lungs Heart ASA score ASA 1: a normal healthy patient ASA 2: a patient with a mild systemic disease (mid diabetes, controlled hypertension, obesity ASA 3: a patient with a severe systemic disease that limits activity (angina, COPD, prior Myocardial infarction) ASA 4: a patient with an incapacitating disease that is a constant threat to life (CHF, renal failure) ASA 5: a moribund patient not expected to survive 24 hrs. (ruptured aneurysm) ASA 6: a declared brain- patient whose organs are being harvested. For emergent operations, add the letter E after the classification Mallampati Classification Grade 1 Sedation Plan Analgesia, Amnesia, Plan communicated to team members, Discussed options with patient/fam, Discussed risks with patient/fam The patient is an appropriate candidate to undergo the planned procedure, sedation, and anesthesia. The patient immediately re-assessed prior to indication. Ngozi BURGESS MD Nov 10, 2019 09:53
[2019-11-10] MEDS ORDERED: VERAPAMIL 5 MG/2 ML (CALAN) VIAL IV ONE (10:03)
[2019-11-10] MEDS ORDERED: HEParin 1000 UNIT/ML (10ML VIAL) FOR BOLUS ONE (10:03)
[2019-11-10] MEDS ORDERED: TICAGRELOR 90 MG TABLET (BRILINTA) PO ONE (10:21)
[2019-11-10] MEDS ORDERED: PATIENT MAY USE OWN MEDS, ALL PO SCH (11:00)
--- NOTE | 2019-11-10 11:00 | Coronary Angiography & PCI ---
Coronary Angiography & PCI DATE OF PROCEDURE: 11/10/19 INDICATION: Non-STEMI. PREOPERATIVE DIAGNOSIS: Non-STEMI. POSTOPERATIVE DIAGNOSIS: Severe distal RCA stenosis treated successfully with one drug-eluting stent. HISTORY: This is a 48-year-old lady with previous history of PCI and CAD. Also has previous history of anterior FL with primary PCI to proximal LAD with a drug-eluting stent. Active smoking, familial hyperlipidemia. Presents with chest pain and positive cardiac enzymes. COVID-19 negative. Therefore, the patient was scheduled for coronary angiography. PROCEDURES PERFORMED: 1.Coronary angiography. 2.Left heart catheterization. 3.PCI to the distal RCA with a drug-eluting stent. COMPLICATIONS: None. SPECIMENS: None. ESTIMATED BLOOD LOSS: 10 mL ANESTHESIA: Conscious sedation ANTICOAGULATION: IV heparin CONTRAST: 141 mL. FLUOROSCOPY: 16.1 minutes. FLOUROSCOPY DOSE: 1315 mgy. PROCEDURE DETAILS: The patient is a 48 female and was brought to the geophysical laboratory director a fter informed consent was taken. All the risks and complications were explained in detail; this included the risk of bleeding, vascular damage, stroke, FL and even . The patient was draped and prepped in the usual sterile fashion. Access was gained in the right radial artery with a 6 [place] sheath. Coronary angiography and left heart catheterization was performed with the [place] catheter. FINDINGS: 1.Left main: Patent. 2.LAD: Patent proximal LAD stent with mild diffuse disease distally. 3.Left circumflex artery: Mild to moderate diffuse disease. 4.RCA: Patent stents in the proximal RCA. Severe distal RCA stenosis. Stenosis severity is 80-90 percent. 5.Left heart catheterization: LV pressure 104/11 mmHg. LVEDP 18 mmHg. Aortic pressure 106/71 mmHg. Normal LV function with no wall motion abnormalities. No gradient across the aortic valve. RECOMMENDATIONS: PCI to the distal RCA is recommended. INTERVENTION DETAILS: JR4 guide catheter. BMW guidewire. IV heparin for anticoagulation. The patient was given aspirin and Brilinta before the procedure. The lesion was crossed with the BMW wire. The tip of the wire was placed in the PL branch. We could not perform a direct stenting. Therefore we went in with an emerge 2.0 x 8 mm balloon and predilated at 6, 10 nicho, 10 nicho respectively. While we were trying to position the drug-eluting stent, it resulted in decreased flow dist ally. Patient had an episode of ventricular fibrillation requiring defibrillation to sinus rhythm. We then placed a Xience Radha 2.25 x 15 mm stent at 14 nicho for 17 seconds. Postdilatation was done with an NC Quantum 2.5 x 12 mm balloon at 18 nicho for 34 seconds. Excellent results with no residual stenosis and [place]-3 flow distally. A mild to moderate lesion in the mid RCA was left alone. Patient tolerated procedure well and did not have any complication. The patient left the catheter lab in stable vital signs. CONCLUSIONS: 1. Severe distal RCA stenosis treated successfully with one drug-eluting stent. 2. Patent stents in the proximal RCA and proximal LAD. 3. Diffuse [id number]-qcwswpni disease noted in left circumflex artery. 4. Long-term dual antiplatelet therapy. 5. Aggressive secondary prevention measures. 6. Smoking cessation was strongly recommended. Morgan Linder MD, FACP, FACC, [facility] Interventional Cardiology Ngozi LINDER MD Nov 10, 2019 10:59
[2019-11-10] MEDS: NS IV 1000 ML 1,000 ML IV SCH ×2 (11:26→15:10)
[2019-11-10] MEDS: ONDANSETRON 4 MG/2 ML (SDV) Z0FRAN IVP PRN (15:02)
[2019-11-10] MEDS: meTOprolol TARTRATE 25 MG (LOPRESSOR) TABLET PO SCH (20:54)
[2019-11-10] MEDS: TICAGRELOR 90 MG TABLET (BRILINTA) PO SCH (20:54)
[2019-11-11] VITALS (9 sets, daily range): BP systolic 113–137; BP diastolic 76–97
[2019-11-11 03:23] LABS: HEMOGLOBIN 12.1 G/DL (11.5-16.0); MEAN PLATELET VOLUME 12.2 FL (7.4-10.4); RED CELL DISTRIBUTION WIDTH 14.3 % (10.0-14.5); WHITE BLOOD COUNT 9.8 10^3/uL (4.3-11.0)
[2019-11-11 03:32] LABS: CHLORIDE 108 MMOL/L (98-107); POTASSIUM 3.8 MMOL/L (3.6-5.0); SODIUM 140 MMOL/L (135-145)
[2019-11-11 03:33] LABS: GLUCOSE 97 MG/DL (70-105)
[2019-11-11 03:35] LABS: CARBON DIOXIDE 22 MMOL/L (21-32)
[2019-11-11 03:37] LABS: CREATININE SERUM 0.66 MG/DL (0.60-1.30); GFR ESTIMATED > 60
[2019-11-11 03:38] LABS: BUN/CREATININE RATIO 17
[2019-11-11] MEDS: CATHETER FLUSH 10 ML SYR IV SCH (06:09)
[2019-11-11] MEDS: NS IV 1000 ML 1,000 ML IV SCH (06:09)
[2019-11-11] MEDS: TICAGRELOR 90 MG TABLET (BRILINTA) PO SCH (08:03)
[2019-11-11] MEDS: FAMOTIDINE 20 MG (PEPCID) TABLET PO SCH (08:04)
[2019-11-11] MEDS: meTOprolol TARTRATE 25 MG (LOPRESSOR) TABLET PO SCH (08:04)
[2019-11-11] MEDS ORDERED: TICA90TA PO (08:47)
[2019-11-11] MEDS ORDERED: VALS40TA9 PO (08:47)
[2019-11-11] MEDS ORDERED: METO-333 PO (08:47)
--- NOTE | 2019-11-11 08:50 | Discharge Inst-Simple/Standard ---
Discharge Inst-Standard Reconcile Patient Problems Problems Reviewed?: Yes Discharge Medications New, Converted or Re-Newed RX: Transmitted to Pharmacy Patient Instructions/Follow Up Plan of Care/Instructions/FU: 1 [facility] Activity as Tolerated: Yes Discharge Diet: Low Fat/Low Cholesterol Return to The Hospital For: RECURRENT CHEST PAIN, SHORTNESS OF BREATH, DIZZINESS Planned Outpatient Orders/Ref. Pneu Vac Indicated: Yes Medication List: Active Scripts Active Valsartan 40 Mg Tablet 20 Mg PO DAILY Metoprolol Tartrate 25 Mg Tablet 12.5 Mg PO BID Brilinta (Ticagrelor) 90 Mg Tablet 90 Mg PO BID Famotidine 20 Mg Tablet 20 Mg PO BID Atorvastatin Calcium 80 Mg Tablet 80 Mg PO HS Reported [place] 3 Fish Oil Softgel ([place]-3 Fatty Acids/Fish Oil) 1 Each Capsule.dr 1 Each PO DAILY Turmeric (Turmeric Root Extract) 538 Mg Capsule 538 Mg PO DAILY Aspirin EC (Aspirin) 81 Mg Tablet.dr 81 Mg PO DAILY Vitamin D3 (Cholecalciferol (Vitamin D3)) 25 Mcg Capsule 25 Mcg PO DAILY Vitamin B12 (Cyanocobalamin (Vitamin B-12)) 2,500 Mcg Tablet 2,500 Mcg PO DAILY Lab results: Laboratory Tests Test 11/10/19 09:29 11/11/19 02:55 Range/Units Activated Partial Thromboplast Time 59 H 24-35 SEC White Blood Count 9.8 4.3-11.0 10^3/uL Red Blood Count 3.88 L 4.35-5.85 10^6/uL Hemoglobin 12.1 11.5-16.0 G/DL Hematocrit 37 35-52 % Mean Corpuscular Volume 95 80-99 FL Mean Corpuscular Hemoglobin 31 25-34 PG Mean Corpuscular Hemoglobin Concent 33 32-36 G/DL Red Cell Distribution Width 14.3 10.0-14.5 % Platelet Count 265 130-400 10^3/uL Mean Platelet Volume 12.2 H 7.4-10.4 FL Sodium Level 140 135-145 MMOL/L Potassium Level 3.8 3.6-5.0 MMOL/L Chloride Level 108 H 98-107 MMOL/L Carbon Dioxide Level 22 21-32 MMOL/L Anion Gap 10 5-14 MMOL/L Blood Urea Nitrogen 11 7-18 MG/DL Creatinine 0.66 0.60-1.30 MG/DL Estimat Glomerular Filtration Rate > 60 BUN/Creatinine Ratio 17 Glucose Level 97 70-105 MG/DL Calcium Level 9.0 8.5-10.1 MG/DL My orders: Orders - CLARK JAY MD Midazolam Injection (Versed Injection) (11/10/19 09:34) Fentanyl Injection (Sublimaze Injection (11/10/19 09:34) Verapamil Injection (Calan Injection) (11/10/19 10:03) Heparin (Bolus Per Protocol) (Heparin (B (11/10/19 10:03) Ticagrelor Tablet (Brilinta Tablet) (11/10/19 10:21) Fentanyl Injection (Sublimaze Injection (11/10/19 10:33) Ekg Tracing (11/11/19 05:00) CLARK JAY MD Nov 11, 2019 08:50
--- NOTE | 2019-11-11 08:53 | Discharge Summary ---
Diagnosis/Chief Complaint Date of Admission Nov 08, 2019 at 09:17 Date of Discharge Discharge Date: Nov 11, 2019 Discharge Time: 1000 Reason Hospital Visit PT IS A 48 Y/O FEMALE WHO IS KNOWN TO ME FROM CLINIC AND PREVIOUS HOSPITALIZATIONS. DANICA REPORTS THAT SHE HAD CHEST PAIN STARTING ON THURSDAY EVENING INTERMITTENTLY, THEN IT BECAME MORE PROGRESSIVE LAST NIGHT AND SHE TOOK AN ASPIRIN WITH MINIMAL IMPROVEMENT. HOWEVER THIS MORNING, HER CHEST PAIN ESCALATED AND SHE DECIDED TO "NOT IGNORE THIS AGAIN" AND SHE PRESENTED TO THE HOSPITAL FOR FURTHER WORK- UP/EVALUATION. SHE WAS FOUND TO HAVE AN ELEVATED TROPONIN IN THE ER AND WITH A POSITIVE HX OF CAD WITH INTERVENTIONS, SHE WAS ADMITTED TO THE ICU FOR CHEST PAIN AND POSSIBLE HEART CATHETERIZATION. 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 Discharge Summary Discharge Physical Examination Allergies: Coded Allergies: lisinopril (Verified Allergy, Severe, RASH, 10/24/18) Vitals & I&Os Vital Signs Date Time Temp Pulse Resp B/P (MAP) Pulse Ox O2 Delivery O2 Flow Rate FiO2 11/11/19 08:12 Room Air 11/11/19 08:00 73 13 137/94 (108) 96 11/11/19 07:20 36.9 11/10/19 12:30 2.00 Hospital Course Pending Labs Laboratory Tests 11/11/19 02:55: White Blood Count 9.8, Red Blood Count 3.88, Hemoglobin 12.1, Hematocrit 37, Mean Corpuscular Volume 95, Mean Corpuscular Hemoglobin 31, Mean Corpuscular Hemoglobin Concent 33, Red Cell Distribution Width 14.3, Platelet Count 265, Mean Platelet Volume 12.2, Sodium Level 140, Potassium Level 3.8, Chloride Level 108, Carbon Dioxide Level 22, Anion Gap 10, Blood Urea Nitrogen 11, Creatinine 0.66, Estimat Glomerular Filtration Rate > 60, BUN/Creatinine Ratio 17, Glucose Level 97, Calcium Level 9.0 Discharge Instructions to patient/family Please see electronic discharge instructions given to patient. Discharge Medications Reviewed and agree with Discharge Medication list on patient's Discharge Instruction sheet Clinical Quality Measures AMI/AHF: ASA po Prior to arrival: Yes (2-81MG) DVT/VTE Risk/Contraindication: Risk Factor Score Per Nursin RFS Level Per Nursing on Admit: 4+=Very High CLARK JAY MD Nov 11, 2019 08:53
[2019-11-11] MEDS ORDERED: ASPIRIN E.C. 81 MG (ECOTRIN) TAB PO SCH (09:00)
--- NOTE | 2019-11-11 09:35 | NUR ---
DANICA MARVIN demonstrates understanding of discharge instructions and accurately returns instructions upon questioning. Copy of Post-Discharge Instructions and Medication Discharge Instructions given to pt. DANICA MARVIN is able to manage continuing needs after discharge. Patients belongings returned to pt. Skin dry and intact; no breakdown noted. Patient discharged from [facility] on 11/11/19 at 0935. DANICA MARVIN left floor via , accompanied by staff.
--- NOTE | 2019-11-11 11:56 | Cardiology Progress Note ---
Cardiology SOAP Progress Note Subjective: No further chest pain. Objective: I&O/Vital Signs 11/11/19 11/11/19 11/11/19 11/11/19 00:00 00:00 01:00 01:00 Pulse 77 78 75 Resp 15 21 B/P (MAP) 130/79 (96) 127/97 (107) Pulse Ox 95 97 O2 Delivery Room Air Room Air Room Air 11/11/19 11/11/19 11/11/19 11/11/19 02:00 03:00 04:00 04:00 Pulse 80 73 75 Resp 20 20 12 B/P (MAP) 135/90 (105) 132/85 (101) 113/76 (88) Pulse Ox 96 96 92 O2 Delivery Room Air Room Air Room Air Room Air 11/11/19 11/11/19 11/11/19 11/11/19 05:00 06:00 07:00 07:00 Pulse 69 77 77 65 Resp 12 12 21 B/P (MAP) 130/93 (105) 135/91 (106) 119/86 (97) Pulse Ox 97 96 96 O2 Delivery Room Air Room Air Room Air 11/11/19 11/11/19 11/11/19 11/11/19 07:20 08:00 08:12 09:00 Temp 36.9 Pulse 73 84 Resp 13 29 B/P (MAP) 137/94 (108) Pulse Ox 96 96 O2 Delivery Room Air Room Air Room Air 11/11/19 09:35 B/P (MAP) 11/11/19 00:00 Intake Total 1040 ml Output Total 500 ml Balance 540 ml Weight (Pounds): 170 Weight (Ounces): 0.0 Weight (Calculated Kilograms): 77.591659 Constitutional: appears stated age, AAO x 3; No apparent distress; well- developed, well-nourished Respiratory: chest is bilaterally symmetric, lungs clear to auscultation; No stridor, No wheezing, No pleural rub Cardiovascular: regular rate-rhythm, S1 and S2; No diastolic murmur, No systolic murmur Gastrointestional: soft, audible bowel sounds; No spleenomegaly Extremities: normal range of motion, non-tender, normal inspection; No clubbing, No cyanosis; no lower extremity edema bilateral; No significant edema Neurologic/Psychiatric: no motor/sensory deficits, alert, normal mood/affect, oriented x 3, power is 5/5 both on sides Skin: normal color, warm/dry; No rash, No ulcerations Results/Procedures: Labs Laboratory Tests 11/11/19 02:55: White Blood Count 9.8, Red Blood Count 3.88L, Hemoglobin 12.1, Hematocrit 37, Mean Corpuscular Volume 95, Mean Corpuscular Hemoglobin 31, Mean Corpuscular Hemoglobin Concent 33, Red Cell Distribution Width 14.3, Platelet Count 265, Mean Platelet Volume 12.2H, Sodium Level 140, Potassium Level 3.8, Chloride Level 108H, Carbon Dioxide Level 22, Anion Gap 10, Blood Urea Nitrogen 11, Creatinine 0.66, Estimat Glomerular Filtration Rate > 60, BUN/Creatinine Ratio 17, Glucose Level 97, Calcium Level 9.0 Microbiology 11/08/19 MRSA Screen - Final, Complete MRSA not isolated A/P: Assessment/Dx: Non-STEMI, COVID-19 negative, Active smoker, Borderline diabetes, Hyperlipidemia Plan: Non-STEMI, IV heparin. Aspirin, Brilinta. Coronary angiography is recommended. I discussed at length about the risks and complication including one to 2 percent risk of stroke, VA and even . The patient accepted the risk and would like to proceed with the procedure. Coronary angiography performed on 11/10/2019 which showed severe distal RCA stenosis treated with one drug-eluting stent. Mild to moderate diffuse disease noted in the left circumflex artery. Patent stent in the proximal RCA and proximal LAD. Echocardiogram COVID-19 negative, Active smoker, smoking cessation was strongly recommended. Borderline diabetes, deferred to the primary team. Hyperlipidemia, start high dose statin therapy. Thank you for your consultation. Please call me if you have any questions. Morgan Linder MD, FACP, FACC, FSCAI, FHRS, CCDS Interventional Cardiology Cardiac Electrophysiology Vascular Medicine and Endovascular Interventions Clinical Quality Measures AMI/AHF: ASA po Prior to arrival: Yes (2-81MG) Ngozi LINDER MD Nov 11, 2019 11:56
== END 2019-11-11 09:35 | disposition home or self-care (01) ==
LOC: EDUNIT# 07:42 → ER 07:43 → CSD 09:17 → ICU 10:28
PROVIDERS: ADMIT Family Medicine; ATTEND Family Medicine
DX: R07.89 Other chest pain (principal); F17.210 Nicotine dependence, cigarettes, uncomplicated; I25.10 Atherosclerotic heart disease of native coronary artery without angina pectoris; E78.00 Pure hypercholesterolemia, unspecified; I10 Essential (primary) hypertension; G43.909 Migraine, unspecified, not intractable, without status migrainosus; E78.5 Hyperlipidemia, unspecified; I25.2 Old myocardial infarction; Z88.8 Allergy status to other drugs, medicaments and biological substances; Z79.82 Long term (current) use of aspirin; Z90.710 Acquired absence of both cervix and uterus; Z90.721 Acquired absence of ovaries, unilateral; Z95.5 Presence of coronary angioplasty implant and graft; Z20.828 Contact with and (suspected) exposure to other viral communicable diseases; Z79.899 Other long term (current) drug therapy
CPT/HCPCS: 71045; 80048; 80053 ×2; 80061; 82150; 82550; 82553; 83615; 83690; 83735; 83874; 83880; 84145; 84484 ×2; 84703; 85025 ×2; 85027; 85347; 85379; 85610; 85652; 85730 ×3; 86141; 87081; 93005 ×3; 93041; 93306; 93458; 99285; C1725 ×2; C1769; C1874; C1887; C1894; C9600; G0378 ×2; U0002; 36415; 87635; 96365; 96367; 96375

== ENCOUNTER → 2020-07-27 | Outpatient (CLI) | payer OTHER ==
[~2020-07-27] MED LIST changes: +ASPI-1238 PO; +ATOR80TA76 PO; +CHOL100048 PO; +CYAN250010 PO; +FAMO20TA5 PO; +METO-333 PO; +OMEG1CAP24 PO; -PANT40TA3 PO; +PANT40TA52 PO; +TICA90TA PO; +TURM538C PO; +VALS40TA9 PO
--- NOTE | 2020-07-27 16:37 | Diagnostic Imaging Report ---
INDICATION: Right foot pain AP, oblique, lateral views of the right foot are obtained. No fracture or acute bony abnormality seen. There is plantar and posterior calcaneal spurring. Joint spaces are unremarkable. IMPRESSION: Negative right foot. Dictated by: Dictated on workstation # [id number]
== END ==
LOC: RAD 14:57
PROVIDERS: ATTEND Nurse Practitioner Family
DX: M79.671 Pain in right foot (principal)
CPT/HCPCS: 73630

== ENCOUNTER → 2020-12-04 | Outpatient (CLI) | payer OTHER ==
--- NOTE | 2020-12-04 14:53 | Diagnostic Imaging Report ---
PROCEDURE: MRI right joint lower extremity without contrast. TECHNIQUE: Multiplanar, multisequence vpo-fmruoqak-fhomblvz MRI of the right lower extremity was accomplished. INDICATION: Right ankle pain. COMPARISON: None available. FINDINGS: Bones: There is moderate amount of edema throughout the talar dome and talar body. There is a faint linear hypointensity in the central aspect of the talar dome beneath the subchondral bone plate that could represent an insufficiency fracture. This does not have the features of an unstable osteochondral lesion. Tendons: Achilles is intact. Peroneus longus and brevis tendons are normal. The posterior tibialis, flexor digitorum longus, and flexor hallucis longus are normal. Anterior tibialis, extensor hallucis longus, and extensor digitorum longus are normal. Ligaments: The anterior and posterior distal tibiofibular ligaments are intact. The anterior talofibular, calcaneofibular, and posterior talofibular ligaments are normal. Medial deltoid ligamentous complex is normal. Soft tissues: Small ankle joint effusion. No features of plantar fasciitis. No scar tissue within the sinus tarsi. No mass effect on the tarsal tunnel. IMPRESSION: 1. Extensive bone marrow edema throughout the talar dome and talar body is most likely due to a small insufficiency fracture in the central talar dome. Alternatively, early osteonecrosis/AVN could give this appearance. There is no collapse of the subchondral bone plate or features of an unstable osteochondral lesion. 2. No ligament or tendon tear. Dictated by: Dictated on workstation # [id number]
== END ==
LOC: RAD 13:15
PROVIDERS: ATTEND Podiatrist Foot & Ankle Surgery
DX: M77.51 Other enthesopathy of right foot and ankle (principal)
CPT/HCPCS: 73721

== ENCOUNTER 2021-01-11 14:16 | Emergency (ER) | payer OTHER ==
[~2021-01-11] VITALS: Ht 162.5 cm; Wt 70.7 kg
[2021-01-11 14:44] VITALS: BP 121/81
--- NOTE | 2021-01-11 15:10 | ED Lower Extremity ---
General Chief Complaint: Lower Extremity Stated Complaint: R TOE PAIN Nursing Triage Note: PT AMB TO TRIAGE WITH COMPLAINT OF RIGHT TOE PAIN AFTER DROPPING DRYWALL ON FOOT LAST NIGHT. Source: patient Exam Limitations: no limitations (RICHARD CHAMBERLAIN APRN) History of Present Illness Date Seen by Provider: Jan 11, 2021 Time Seen by Provider: 15:07 Initial Comments Dropped drywall on right 1, 2, 3 toes last night. Has bruising to these toes. She is already in a walking boot secondary to a talus fracture being managed by Dr. Clayton from podiatry. Onset: yesterday Severity: moderate Pain/Injury Location: right 1st toe, right 2nd toe, right 3rd toe Method of Injury: direct blow Modifying Factors: Worse With Movement (RICHARD CHAMBERLAIN APRN) Allergies and Home Medications Allergies Coded Allergies: lisinopril (Verified Allergy, Severe, RASH, 10/24/18) Home Medications Aspirin 81 Mg Tablet., 81 MG PO DAILY, (Reported) Atorvastatin Calcium 80 Mg Tablet, 80 MG PO HS Prescribed by: CLARK JAY on 11/10/19 0934 Cholecalciferol (Vitamin D3) 25 Mcg Capsule, 25 MCG PO DAILY, (Reported) Cyanocobalamin (Vitamin B-12) 2,500 Mcg Tablet, 2,500 MCG PO DAILY, (Reported) Famotidine 20 Mg Tablet, 20 MG PO BID Prescribed by: CLARK JAY on 11/10/19 0934 Metoprolol Tartrate 25 Mg Tablet, 12.5 MG PO BID Prescribed by: CLARK JAY on 11/11/19 0847 [place]-3 Fatty Acids/Fish Oil 1 Each Capsule., 1 EACH PO DAILY, (Reported) Ticagrelor 90 Mg Tablet, 90 MG PO BID Prescribed by: CLARK JAY on 11/11/19 0847 Turmeric Root Extract 538 Mg Capsule, 538 MG PO DAILY, (Reported) Valsartan 40 Mg Tablet, 20 MG PO DAILY Prescribed by: CLARK JAY on 11/11/19 0847 Patient Home Medication List Home Medication List Reviewed: Yes (RICHARD CHAMBERLAIN APRN) Review of Systems Constitutional: see HPI EENTM: see HPI Respiratory: no symptoms reported Cardiovascular: no symptoms reported Genitourinary: no symptoms reported Musculoskeletal: see HPI Skin: no symptoms reported Psychiatric/Neurological: No Symptoms Reported (RICHARD CHAMBERLAIN APRN) Past Rvgqvbx-Kbtkbe-Fsqzhw Hx Patient Social History Tobacco Use?: No Use of E-Cig and/or Vaping dev: No Substance use?: No Alcohol Use?: No Pt feels they are or have been: No (RICHARD CHAMBERLAIN APRN) Seasonal Allergies Seasonal Allergies: No (RICHARD CHAMBERLAIN APRN) Past Medical History Surgeries: Yes (SEE BELOW) Cardiac, Coronary Stent, 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, Oophorectomy, Vascular Surgery Respiratory: No Currently Using CPAP: No Currently Using BIPAP: No Cardiac: Yes (STENT X 1 TO LAD/STENTS X 2 TO RCA--2013;BILAT FEM ARTERY REPAIR POST CATHS) Coronary Artery Disease, Heart Attack, High Cholesterol, Hypertension Neurological: Yes (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) Headaches /Migraines Reproductive Disorders: Yes (HYST/BSO 2015) Female Reproductive Disorders: Menstrual Problems, Ovarian Cyst [employer] History: 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 Sexually Transmitted Disease: No HIV/AIDS: No Genitourinary: No Gastrointestinal: No Musculoskeletal: No Endocrine: Yes (BOARDERLINE DIABETIC; GESTATIONAL DIABETES) Loss of Vision: Denies Hearing Impairment: Denies Cancer: No Psychosocial: No Integumentary: No Blood Disorders: No Adverse Reaction/Blood Tranf: No (RICHARD CHAMBERLAIN APRN) Family Medical History Cardiovascular disease 19 FATHER Completed stroke 19 FATHER FH: Hodgkins disease 19 MOTHER Myocardial infarction 19 FATHER Heart Disease, Cancer, CVA, Hypertension, Stroke (RICHARD CHAMBERLAIN APRN) Physical Exam Vital Signs Vital Signs - First Documented 01/11/21 14:44 Pulse 82 Resp 16 B/P (MAP) 121/81 (94) Pulse Ox 98 O2 Delivery Room Air (MADELEINE LAWTON MD) Vital Signs Capillary Refill : Less Than 3 Seconds (RICHARD CHAMBERLAIN APRN) Height, Weight, BMI Height: 5'3.00" Weight: 170lbs. 0.0oz. 77.421340gu; 26.00 BMI Method:Stated General Appearance: WD/WN, no apparent distress HEENT: PERRL/EOMI, normal ENT inspection Neck: non-tender, full range of motion Respiratory: no respiratory distress, no accessory muscle use Hips: bilateral hip non-tender, bilateral hip normal inspection, bilateral hip normal range of motion Legs: bilateral leg non-tender, bilateral leg normal inspection, bilateral leg normal range of motion Knees: bilateral knee non-tender, bilateral knee normal inspection, bilateral knee normal range of motion Ankles: right ankle pain, right ankle swelling Feet: right foot pain, right foot soft tissue tenderness, right foot swelling, right foot other (There is an ecchymosis to the plantar surface of the first MTP joint. The second and third toes she has taped together without significant swelling.) Neurologic/Psychiatric: alert, normal mood/affect, oriented x 3 Skin: normal color, warm/dry (RICHARD CHAMBERLAIN APRN) Progress/Results/Core Measures Results/Orders Vital Signs/I&O 01/11/21 14:44 Pulse 82 Resp 16 B/P (MAP) 121/81 (94) Pulse Ox 98 O2 Delivery Room Air (MADELEINE LAWTON MD) Blood Pressure Mean: 94 Diagnostic Imaging Diagonstic Imaging: Xray Comments NAME: DANICA MARVIN [facility] REC#: [id number] PT STATUS: REG ER : 1970 PHYSICIAN: RICHARD CHAMBERLAIN APRN ADMIT DATE: 01/11/21/ER Draft Date of Exam:01/11/21 FOOT, RIGHT, 3 VIEW INDICATION: Right foot injury, pain, swelling. COMPARISON: None. FINDINGS: Three views of the right foot demonstrate diffuse osteopenia. There is no acute fracture or dislocation. There is no radiopaque foreign body or bony erosion. IMPRESSION: No fracture or dislocation. Dictated on workstation # [id number] Dict: 01/11/21 1524 Trans: 01/11/21 1528 [id number] Interpreted by: JUDY MARTINEZ Electronically signed by: (RICHARD CHAMBERLAIN APRN) Departure Impression Primary Impression: Toe contusion Disposition: 01 HOME, SELF-CARE Condition: Stable Departure-Patient Inst. Decision time for Depature: 15:28 (RICHARD CHAMBERLAIN APRN) Referrals: CLARK JAY MD (PCP/Family) Primary Care Physician Patient Instructions: Toe Injury Add. Discharge Instructions: All discharge instructions reviewed with patient and/or family. Voiced understanding. ATTENDING PHYSICIAN NOTE: I was physically present as attending physician in the emergency department during the care of this patient, but I was not directly involved in the decision making or delivery of care for this patient. (MADELEINE LAWTON MD) RICHARD CHAMBERLAIN APRN Jan 11, 2021 15:09 MADELEINE LAWTON MD Jan 13, 2021 20:40
--- NOTE | 2021-01-11 15:28 | Diagnostic Imaging Report ---
INDICATION: Right foot injury, pain, swelling. COMPARISON: None. FINDINGS: Three views of the right foot demonstrate diffuse osteopenia. There is no acute fracture or dislocation. There is no radiopaque foreign body or bony erosion. IMPRESSION: No fracture or dislocation. Dictated by: Dictated on workstation # [id number]
== END 2021-01-11 15:44 | disposition home or self-care (01) ==
LOC: EDUNIT# 14:16 → ER 14:17
DX: S90.111A Contusion of right great toe without damage to nail, initial encounter (principal); S90.121A Contusion of right lesser toe(s) without damage to nail, initial encounter; I25.2 Old myocardial infarction; I10 Essential (primary) hypertension; E78.00 Pure hypercholesterolemia, unspecified; I25.10 Atherosclerotic heart disease of native coronary artery without angina pectoris; Z79.82 Long term (current) use of aspirin; Z79.899 Other long term (current) drug therapy; W20.8XXA Other cause of strike by thrown, projected or falling object, initial encounter
CPT/HCPCS: 73630

== ENCOUNTER 2021-02-10 12:11 | Emergency (ER) | payer OTHER ==
[~2021-02-10] VITALS: Ht 162.6 cm; Wt 76.0 kg
--- NOTE | 2021-02-10 12:52 | ED Respiratory ---
General Stated Complaint: FEVER/COUGH/SOB/SORE THROAT/HEADACHE/BODY ACHE History of Present Illness Date Seen by Provider: Feb 10, 2021 Time Seen by Provider: 12:28 Initial Comments 50-year-old female reports myalgias, cough, congestion and intermittent low grade fevers since 02/06/2021. She did receive both doses of the Materna vaccine in July and August 2020. She has no known exposure to Covid but works at [employer] and there have been positive employees, per patient. She has not had a test since October 2019. She took Ibuprofen at 0800 today for the myalgias. She smokes 2 packs of cigarettes, daily. History of CAD with MIs times 2. No chest pain. She denies SOA. She has been resting, but eating/drinking and trying to walk in her home. No household members are sick. She has not taken anything for the cough/congestion. She is on aspirin 81 mg daily, Dr. Dutton stopped her Brilinta. Timing/Duration: other (02/06/21) Severity: mild Prior Episodes/Possible Cause: no prior episodes Associated Symptoms: cough; No fever/chills; muscle aches, nasal congestion; No shortness of breath, No sinus infection; sore throat Allergies and Home Medications Allergies Coded Allergies: lisinopril (Verified Allergy, Severe, RASH, 10/24/18) Patient Home Medication List Home Medication List Reviewed: Yes Aspirin (Aspirin EC) 81 Mg Tablet., 81 MG PO DAILY, (Reported) Entered as Reported by: FRANK BURKS on 11/08/19 1500 Atorvastatin Calcium (Atorvastatin Calcium) 80 Mg Tablet, 80 MG PO HS Prescribed by: CLARK CODY on 11/10/19 0934 Cholecalciferol (Vitamin D3) (Vitamin D3) 25 Mcg Capsule, 25 MCG PO DAILY, (Reported) Entered as Reported by: FRANK BURKS on 11/08/19 1500 Cyanocobalamin (Vitamin B-12) (Vitamin B12) 2,500 Mcg Tablet, 2,500 MCG PO MYLENE DANIELS, (Reported) Entered as Reported by: FARNK BURKS on 11/08/19 1500 Famotidine (Famotidine) 20 Mg Tablet, 20 MG PO BID Prescribed by: CLARK CODY on 11/10/19 0934 Metoprolol Tartrate (Metoprolol Tartrate) 25 Mg Tablet, 12.5 MG PO BID Prescribed by: CLARK CODY on 11/11/19 08 [place]-3 Fatty Acids/Fish Oil ([place] 3 Fish Oil Softgel) 1 Each Capsule.dr, 1 EACH PO DAILY, (Reported) Entered as Reported by: FRANK BURKS on 11/08/191499 Ticagrelor (Brilinta) 90 Mg Tablet, 90 MG PO BID Prescribed by: CLARK CODY on 11/11/19 08 Turmeric Root Extract (Turmeric) 538 Mg Capsule, 538 MG PO DAILY, (Reported) Entered as Reported by: FRANK BURKS on 11/08/19 1500 Valsartan (Valsartan) 40 Mg Tablet, 20 MG PO DAILY Prescribed by: CLARK CODY on 11/11/19 08 Review of Systems Review of Systems Constitutional: see HPI, malaise EENTM: no symptoms reported, nose congestion Respiratory: see HPI, cough Cardiovascular: no symptoms reported, see HPI; No chest pain Gastrointestinal: no symptoms reported, see HPI All Other Systems Reviewed Negative Unless Noted: Yes Past Qkxrqkl-Rnbzrs-Bcofvq Hx Seasonal Allergies Seasonal Allergies: No Past Medical History Surgeries: Yes (SEE BELOW) Cardiac, Coronary Stent, 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, Oophorectomy, Vascular Surgery Respiratory: No Currently Using CPAP: No Currently Using BIPAP: No Cardiac: Yes (STENT X 1 TO LAD/STENTS X 2 TO RCA--2013;BILAT FEM ARTERY REPAIR POST CATHS) Coronary Artery Disease, Heart Attack, High Cholesterol, Hypertension Neurological: Yes (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) Headaches /Migraines Reproductive Disorders: Yes (HYST/BSO 2015) Female Reproductive Disorders: Menstrual Problems, 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 Sexually Transmitted Disease: No HIV/AIDS: No Genitourinary: No Gastrointestinal: No Musculoskeletal: No Endocrine: Yes (BOARDERLINE DIABETIC; GESTATIONAL DIABETES) Loss of Vision: Denies Hearing Impairment: Denies Cancer: No Psychosocial: No Integumentary: No Blood Disorders: No Adverse Reaction/Blood Tranf: No Family Medical History Reviewed Nursing Family Hx Cardiovascular disease 19 FATHER Completed stroke 19 FATHER FH: Hodgkins disease 19 MOTHER Myocardial infarction 19 FATHER Heart Disease, Cancer, CVA, Hypertension, Stroke Physical Exam Vital Signs - First Documented 02/10/21 12:22 Temp 36.9 Pulse 86 Resp 18 B/P (MAP) 87/68 (74) Pulse Ox 97 O2 Delivery Room Air Capillary Refill : Height: 5'3.00" Weight: 170lbs. 0.0oz. 77.666744ar; 26.00 BMI Method:Stated General Appearance: WD/WN, no apparent distress HEENT: PERRL/EOMI, normal ENT inspection, TMs normal, pharynx normal; No pharyngeal erythema, No tonsillar exudate Neck: non-tender, full range of motion, supple, normal inspection Respiratory: chest non-tender, lungs clear, normal breath sounds Cardiovascular: normal peripheral pulses, regular rate, rhythm Gastrointestinal: normal bowel sounds, non tender, soft Extremities: normal range of motion, non-tender, normal inspection Neurologic/Psychiatric: no motor/sensory deficits, alert, normal mood/affect, oriented x 3 Skin: normal color, warm/dry Progress/Results/Core Measures Suspected Sepsis SIRS Temperature: Pulse: Respiratory Rate: Laboratory Tests 02/10/21 12:35: White Blood Count 7.6 Blood Pressure / Mean: Laboratory Tests 02/10/21 12:35: Creatinine 0.63, Platelet Count 336, Total Bilirubin 0.3 Results/Orders Lab Results Laboratory Tests Test 02/10/21 12:30 02/10/21 12:35 Range/Units Influenza Type A Antigen NEGATIVE NEGATIVE Influenza Type B Antigen NEGATIVE NEGATIVE White Blood Count 7.6 4.3-11.0 10^3/uL Red Blood Count 3.96 3.80-5.11 10^6/uL Hemoglobin 12.0 11.5-16.0 g/dL Hematocrit 37 35-52 % Mean Corpuscular Volume 94 80-99 fL Mean Corpuscular Hemoglobin 30 25-34 pg Mean Corpuscular Hemoglobin Concent 32 32-36 g/dL Red Cell Distribution Width 14.6 H 10.0-14.5 % Platelet Count 336 130-400 10^3/uL Mean Platelet Volume 11.2 9.0-12.2 fL Immature Granulocyte % (Auto) 0 % Neutrophils (%) (Auto) 58 42-75 % Lymphocytes (%) (Auto) 34 12-44 % Monocytes (%) (Auto) 6 0-12 % Eosinophils (%) (Auto) 2 0-10 % Basophils (%) (Auto) 0 0-10 % Neutrophils # (Auto) 4.4 1.8-7.8 10^3/uL Lymphocytes # (Auto) 2.6 1.0-4.0 10^3/uL Monocytes # (Auto) 0.4 0.0-1.0 10^3/uL Eosinophils # (Auto) 0.2 0.0-0.3 10^3/uL Basophils # (Auto) 0.0 0.0-0.1 10^3/uL Immature Granulocyte # (Auto) 0.0 0.0-0.1 10^3/uL Sodium Level 138 135-145 MMOL/L Potassium Level 3.9 3.6-5.0 MMOL/L Chloride Level 105 98-107 MMOL/L Carbon Dioxide Level 23 21-32 MMOL/L Anion Gap 10 5-14 MMOL/L Blood Urea Nitrogen 10 7-18 MG/DL Creatinine 0.63 0.60-1.30 MG/DL Estimat Glomerular Filtration Rate 100 BUN/Creatinine Ratio 16 Glucose Level 114 H 70-105 MG/DL Calcium Level 8.9 8.5-10.1 MG/DL Corrected Calcium 9.5 8.5-10.1 MG/DL Total Bilirubin 0.3 0.1-1.0 MG/DL Aspartate Amino Transf (AST/SGOT) 13 5-34 U/L Alanine Aminotransferase (ALT/SGPT) 16 0-55 U/L Alkaline Phosphatase 126 40-136 U/L Lactate Dehydrogenase 242 H 125-220 U/L C-Reactive Protein High Sensitivity 5.41 H 0.00-0.50 MG/DL Total Protein 6.5 6.4-8.2 GM/DL Albumin 3.2 3.2-4.5 GM/DL Procalcitonin 0.04 <0.10 NG/ML My Orders Orders - ADA MENCHACA Influenza A & B Antigens (02/10/21 12:25) Cbc With Automated Diff (02/10/21 12:40) Comprehensive Metabolic Panel (02/10/21 12:40) Procalcitonin (Pct) (02/10/21 12:40) Hs C Reactive Protein (02/10/21 12:40) LDH (02/10/21 12:40) Chest 1 View, Ap/Pa Only (02/10/21 12:40) Coronavirus Sars-Cov-2 So 2018 (02/10/21 12:40) Vital Signs/I&O 02/10/21 12:22 Temp 36.9 Pulse 86 Resp 18 B/P (MAP) 87/68 (74) Pulse Ox 97 O2 Delivery Room Air Capillary Refill : Progress Note : Time: 12:28 Progress Note Patient seen and evaluated, drinking water with no nausea or vomiting. Vital signs are stable. Her initial SaO2 was 97% on room air after walking to exam room. Will complete send out COVID 19 test, explained to patient that results will be back in 24 hours and she will be called. She should also follow up with Dr. Cody, if her test is positive, she would be a good candidate for monoclonial antibody infusion (outpatient). We will get basic labs and chest- xray. 1325 Labs and chest xray normal. SaO2 has remained 95-98% on RA, while wearing a mask. She denies SOA or changes in symptoms. Discharge instructions and return precautions reviewed. All questions answered. Diagnostic Imaging Diagonstic Imaging: Xray Plain Films/CT/US/NM/MRI: chest Comments NAME: DANICA MARVIN [facility] REC#: [id number] PT STATUS: REG ER : 1970 PHYSICIAN: ADA MENCHACA ADMIT DATE: 02/10/21/ER Draft Date of Exam:02/10/21 CHEST 1 VIEW, AP/PA ONLY EXAMINATION: Chest radiograph, portable AP view. DATE: 02/10/2021 1:15 PM INDICATION: 50-year-old female, cough, shortness of breath. COMPARISON: November 08, 2019. FINDINGS: Heart size and mediastinal contours are unchanged. There is no identified pneumothorax. There is no large pleural effusion. There is no identified interval focal airspace consolidation. IMPRESSION: 1. No identified acute cardiopulmonary abnormality. Dictated on workstation # [id number] Dict: 02/10/21 1323 Trans: 02/10/21 1328 [facility] [id number] Interpreted by: RICHARD KELSEY MD Electronically signed by: Reviewed: Reviewed by Me Departure Impression Primary Impression: Viral URI Additional Impressions: CAD (coronary artery disease) Qualified Codes: I25.10 - Atherosclerotic heart disease of [place] coronary artery without angina pectoris Tobacco abuse Person under investigation for COVID-19 Disposition: HOME, SELF-CARE Condition: Stable Departure-Patient Inst. Decision time for Depature: 13:25 Referrals: CLARK CODY MD (PCP/Family) Primary Care Physician Patient Instructions: COVID-19 (DC), Viral Upper Respiratory Infection, Adult (DC) Add. Discharge Instructions: Continue taking your home medications as recommended. Walk for 5 to 10 minutes every hour, while awake. Take 10 deep breaths every hour while awake. Increase your water intake, 16 ounces every 2 hours while awake. Alternate between Tylenol 650 mg and ibuprofen 600 mg every 4 hours for body aches or fever. Call Dr. Cody tomorrow for your Covid results and to consider the monoclonal antibody infusion if you are positive. Decrease the number of cigarettes she smokes daily. Sleep on your stomach. Return to the emergency department for fever that is not reduced by Tylenol and/or ibuprofen, difficulty breathing, chest pain, persistent vomiting or diarrhea, or new urgent healthcare needs. Work/School Note: Work Release Form Date Seen in the Emergency Department: Feb 10, 2021 Restrictions: Need Release from Doctor Other Restrictions Listed Below: Needs release from primary care provider. Copy Copies To 1: CLARK CODY MD, AMY ARNP Feb 10, 2021 12:52
[2021-02-10 12:53] LABS: BASOPHILS % (AUTO) 0 % (0-10); EOSINOPHILS # (AUTO) 0.2 10^3/uL (0.0-0.3); EOSINOPHILS % (AUTO) 2 % (0-10); HEMATOCRIT 37 % (35-52); LYMPHOCYTES # (AUTO) 2.6 10^3/uL (1.0-4.0); LYMPHOCYTES % (AUTO) 34 % (12-44); MEAN CORPUSCULAR HEMOGLOBIN 30 pg (25-34); MEAN CORPUSCULAR HGB CONC 32 g/dL (32-36); MEAN CORPUSCULAR VOLUME 94 fL (80-99); MEAN PLATELET VOLUME 11.2 fL (9.0-12.2); MONOCYTES # (AUTO) 0.4 10^3/uL (0.0-1.0); MONOCYTES % (AUTO) 6 % (0-12); NEUTROPHILS # (AUTO) 4.4 10^3/uL (1.8-7.8); NEUTROPHILS % (AUTO) 58 % (42-75); PLATELET COUNT 336 10^3/uL (130-400); WHITE BLOOD COUNT 7.6 10^3/uL (4.3-11.0)
[2021-02-10 13:02] LABS: ALBUMIN 3.2 GM/DL (3.2-4.5)
[2021-02-10 13:03] LABS: POTASSIUM 3.9 MMOL/L (3.6-5.0)
[2021-02-10 13:04] LABS: CALCIUM 8.9 MG/DL (8.5-10.1)
[2021-02-10 13:05] LABS: TOTAL PROTEIN 6.5 GM/DL (6.4-8.2)
[2021-02-10 13:07] LABS: BILIRUBIN,TOTAL 0.3 MG/DL (0.1-1.0)
[2021-02-10 13:09] LABS: CREATININE SERUM 0.63 MG/DL (0.60-1.30)
--- NOTE | 2021-02-10 13:29 | Diagnostic Imaging Report ---
EXAMINATION: Chest radiograph, portable AP view. DATE: 02/10/2021 1:15 PM INDICATION: 50-year-old female, cough, shortness of breath. COMPARISON: November 08, 2019. FINDINGS: Heart size and mediastinal contours are unchanged. There is no identified pneumothorax. There is no large pleural effusion. There is no identified interval focal airspace consolidation. IMPRESSION: 1. No identified acute cardiopulmonary abnormality. Dictated by: Dictated on workstation # [id number]
[2021-02-10 13:50] VITALS: BP 121/80
== END 2021-02-10 13:50 | disposition home or self-care (01) ==
LOC: EDUNIT# 12:11 → ER 12:14
DX: J06.9 Acute upper respiratory infection, unspecified (principal); I25.10 Atherosclerotic heart disease of native coronary artery without angina pectoris; I25.2 Old myocardial infarction; I10 Essential (primary) hypertension; E78.00 Pure hypercholesterolemia, unspecified; F17.210 Nicotine dependence, cigarettes, uncomplicated; Z20.822 Contact with and (suspected) exposure to COVID-19; Z79.82 Long term (current) use of aspirin; Z79.899 Other long term (current) drug therapy
CPT/HCPCS: 36415; 71045; 80053; 83615; 84145; 85025; 86141; 87635; 87804

== ENCOUNTER → 2021-04-23 | Outpatient (CLI) | payer OTHER ==
[~2021-04-23] VITALS: Ht 162 cm; Wt 77.0 kg
[~2021-04-23] MED LIST changes: +CATHETER FLUSH 10 ML SYR IV PRN; +CYCL10TA25 PO; -CYCL10TA9 PO; +REGADENOSON 0.4 MG/5 ML SYR (LEXISCAN) IV ONE
[2021-04-23 13:15] VITALS: BP 136/84
--- NOTE | 2021-04-24 11:31 | STRESS TEST ---
DATE OF SERVICE: 04/23/2021 RESTING AND POST REGADENOSON TECHNETIUM-99M TETROFOSMIN SPECT CT IMAGING ORDERING PHYSICIAN: Dr. Dutton. PRIMARY PHYSICIAN: Dr. Cody. CLINICAL DIAGNOSIS: Coronary artery disease. The baseline images were carried out after injection of 10.65 mCi of technetium-99m Tetrofosmin. This was followed by 0.4 mg of Regadenoson and 32.9 mCi of technetium-99m Tetrofosmin for stress imaging. The electrocardiogram showed sinus rhythm at baseline. It did not change significantly with the Regadenoson infusion. The patient reported nausea after the Regadenoson infusion, which resolved in a few minutes. Review of images at rest and following stress indicates a small to moderate transient basal inferior perfusion defect. Gated images show normal global left ventricular systolic function with a normal regional wall motion. Left ventricular ejection fraction is calculated to be 55%. CONCLUSIONS: 1. This study is indicative of a small to moderate amount of basal inferior ischemia. 2. Normal regional wall motion. 3. Normal global left ventricular systolic function with a calculated ejection fraction of 55%. Job ID: [id number] DocumentID: [id number] Dictated Date: 04/24/2021 09:18:01 Digital Designer Date: 04/24/2021 11:30:12 Dictated By: DILLAN DUTTON MD, MA, FACP, FACC,
== END ==
LOC: CARD 03-29 07:46
PROVIDERS: ATTEND Internal Medicine Cardiovascular Disease
DX: I25.10 Atherosclerotic heart disease of native coronary artery without angina pectoris (principal)
CPT/HCPCS: 78452; 93017; A9502

== ENCOUNTER 2021-05-07 09:00 | Day surgery (SDC) | payer OTHER ==
[2021-05-07] VITALS (10 sets, daily range): BP systolic 97–168; BP diastolic 75–87
[~2021-05-07] VITALS: Ht 162.6 cm; Wt 76.5 kg
[2021-05-07 07:46] LABS: HEMATOCRIT 44 % (35-52); HEMOGLOBIN 14.5 g/dL (11.5-16.0); MEAN CORPUSCULAR HEMOGLOBIN 31 pg (25-34); MEAN CORPUSCULAR HGB CONC 33 g/dL (32-36); MEAN CORPUSCULAR VOLUME 94 fL (80-99); MEAN PLATELET VOLUME 11.5 fL (9.0-12.2); PLATELET COUNT 278 10^3/uL (130-400); WHITE BLOOD COUNT 7.5 10^3/uL (4.3-11.0)
[2021-05-07 07:59] LABS: INR 0.9 (0.8-1.4)
[2021-05-07 08:07] LABS: ALBUMIN 3.4 GM/DL (3.2-4.5); BILIRUBIN,TOTAL 0.2 MG/DL (0.1-1.0); CALCIUM 9.5 MG/DL (8.5-10.1); CREATININE SERUM 0.68 MG/DL (0.60-1.30); POTASSIUM 4.3 MMOL/L (3.6-5.0); TOTAL PROTEIN 6.7 GM/DL (6.4-8.2)
[~2021-05-07 09:00] MED LIST changes: +ALPR0.25 PO; +CALC-794 PO; -CATHETER FLUSH 10 ML SYR IV PRN; +ESCI20TA PO; +HEParin (CATH LAB) 2,000 ML IV ONE; +LIDOCAINE 1% INJ 20 ML 20 ML VIAL ONE; +NS IV 1000 ML 1,000 ML IV SCH; +NS IV 1000 ML 1,000 ML ONE; -REGADENOSON 0.4 MG/5 ML SYR (LEXISCAN) IV ONE
[2021-05-07] MEDS ORDERED: MIDAZOLAM 5 MG/5 ML (VERSED) VIAL ONE (09:17)
[2021-05-07] MEDS ORDERED: fentaNYL INJ 100 MCG/2 ML AMP ONE (09:17)
[2021-05-07] MEDS ORDERED: LIDOCAINE 1% INJ 20 ML 20 ML VIAL ONE (09:33)
--- NOTE | 2021-05-07 10:14 | Cardiac Procedure Note-CS/ASA ---
Pre-Procedure Note Pre-Op Procedure Note H&P Reviewed The H&P was reviewed, patient examined and no changes noted. Date H&P Reviewed: May 07, 2021 Time H&P Reviewed: 09:35 Conscious Sedation Pre-Proced Time 09:35 ASA Score 3 For ASA 3 and 4: Consider anesthesia and medical clearance. Also, for patients with a history of failed moderate sedation consider anesthesia. Airway Lungs Heart ASA score ASA 1: a normal healthy patient ASA 2: a patient with a mild systemic disease (mid diabetes, controlled hypertension, obesity ASA 3: a patient with a severe systemic disease that limits activity (angina, COPD, prior Myocardial infarction) ASA 4: a patient with an incapacitating disease that is a constant threat to life (CHF, renal failure) ASA 5: a moribund patient not expected to survive 24 hrs. (ruptured aneurysm) ASA 6: a declared brain- patient whose organs are being harvested. For emergent operations, add the letter E after the classification Mallampati Classification Grade 2 Sedation Plan Analgesia, Amnesia, Plan communicated to team members, Discussed options with patient/fam, Discussed risks with patient/fam The patient is an appropriate candidate to undergo the planned procedure, sedation, and anesthesia. The patient immediately re-assessed prior to indication. DILLAN MAY MD FACP [facility]AC [facility] May 07, 2021 10:14
[2021-05-07] MEDS ORDERED: NS IV 1000 ML 1,000 ML IV SCH (10:15)
[2021-05-07] MEDS ORDERED: PATIENT MAY USE OWN MEDS, ALL PO SCH (10:15)
--- NOTE | 2021-05-07 10:18 | Discharge Inst-Post CATH ---
Discharge Inst-CATH/EP Post Cardiac Cath/EP D/C Inst Follow Up/Plan F/u with Dr Dutton in one month ACTIVITY * Go Home directly and rest. * Limit activity of the leg (or wrist if it was used) for 7 days including aerobics, swimming, jogging, bicycling, etc. * Restrict stair-climbing for 7 days if possible, if not, climb up with your non-cath leg, then bring together on the same step. * Avoid lifting, pushing, pulling or excessive movement of the affected extremity for 7 days. * Customary sexual activity may be resumed after 2 days-use caution not to use a position that strains or causes pain to the affected extremity. * No driving for 24 hours. * NO SMOKING. * Avoid straining for bowel movements for 7 days. * Gentle walking on level ground is allowed. * Returning to work will depend on the type of procedure and the results. Your doctor will discuss this with you. CALL YOUR DOCTOR FOR ANY OF THE FOLLOWING: *If bleeding from the puncture site occurs- Apply gentle pressure to site with clean cloth and call your doctor or EMS. * If a knot or lump forms under the skin, increases in size, or causes pain. * If bruising appears to be worsening or moving further down your leg instead of disappearing. * Temperature above 101 F. CARE OF YOUR GROIN INCISION; * Bruising or purple discoloration of the skin near the puncture site is common. * You may shower only, no bathtub bathing for 5 days. Be careful to avoid slipping as your leg may feel stiff. * If a closure device was used on your femoral artery, please see the attached guide regarding care of the device and your leg. * Leave dressing on FOR 24 hours. CARE OF YOUR WRIST INCISION; * Bruising or purple discoloration of the skin near the puncture site is common. * You may shower. * DO NOT submerge wrist. * Leave dressing on FOR 24 hours. DILLAN DUTTON MD [facility] CCDS May 07, 2021 10:18
--- NOTE | 2021-05-07 10:18 | Discharge Inst-Cardiology ---
Discharge Inst-Cardiac Discharge Medications Continued Medications: Alprazolam (Xanax) 0.25 Mg Tablet 0.25 MG PO HS, TAB Aspirin (Aspirin EC) 81 Mg Tablet.dr 81 MG PO DAILY, TAB Atorvastatin Calcium (Atorvastatin Calcium) 80 Mg Tablet 80 MG PO HS, #60 TAB 3 Refills Calcium Carb & Citrate/Vit D3 (Calcium + D3 ER Tablet) 1 Each Tablet.er 2 EACH PO HS, TAB Cholecalciferol (Vitamin D3) (Vitamin D3) 25 Mcg Capsule 25 MCG PO DAILY, CAP Cyanocobalamin (Vitamin B-12) (Vitamin B12) 2,500 Mcg Tablet 2500 MCG PO DAILY, TAB Escitalopram Oxalate (Lexapro) 20 Mg Tablet 20 MG PO HS, TAB Famotidine (Famotidine) 20 Mg Tablet 20 MG PO BID, #60 TAB 3 Refills [place]-3 Fatty Acids/Fish Oil ([place] 3 Fish Oil Softgel) 1 Each Capsule. 1 EACH PO DAILY, DILLAN HANSON MD FACP [facility] CCDS May 07, 2021 10:18
--- NOTE | 2021-05-07 13:59 | CARDIAC CATHETERIZATION ---
DATE OF SERVICE: 05/07/2021 CARDIAC CATHETERIZATION REPORT INDICATION FOR PROCEDURE: The patient is a 50-year-old lady, who has had stenting of the left anterior descending and right coronary arteries. A recent myocardial perfusion imaging study was indicative of a basal inferior ischemia. Cardiac catheterization was recommended. Informed consent was obtained. DESCRIPTION OF PROCEDURE: She was brought to the cardiac catheterization laboratory. The left groin was prepared and draped in the usual sterile fashion. Lidocaine 1% was used for local anesthesia. Modified Seldinger technique was used to advance a 5-[place] sheath into the left femoral artery, a 5-[place] JL4 catheter was used for left coronary angiography, 5-[place] JR4 catheter for right coronary angiography, 5-[place] pigtail catheter was used for left heart catheterization, and left ventricular angiography. Angiography of the right femoral artery had been carried out through the sheath at the beginning of the procedure. At the end of the procedure, Mynx was used to achieve hemostasis following sheath removal. She tolerated the procedure well. HEMODYNAMICS: Left ventricular end-diastolic pressure following coronary angiography was 13 mmHg. There was no significant pressure gradient on pullback across the aortic valve. The ascending aortic pressure was 104/58 with a mean of 80 mmHg. CORONARY ANGIOGRAPHY: Diffuse coronary calcification is seen. Left main coronary artery does not exhibit significant disease. The left anterior descending artery has a patent stent in its proximal to mid portion. No significant in-stent restenosis is seen. The left anterior descending artery has diffuse mild plaques. The left circumflex artery is nondominant. It has multiple 40% to 50% stenosis in its proximal and mid portions. The right coronary artery is dominant. It is extensively stented in its proximal and mid portions and also in its distal portion. There are 40% to 50% stenoses. There does not appear to be any significant in-stent restenosis. LEFT VENTRICULAR ANGIOGRAPHY: Left ventricular angiography shows a well-preserved global left ventricular systolic function with an ejection fraction of approximately 50%. There does not appear to be any distinct regional wall motion abnormality. CONCLUSIONS: 1. Mild to moderate coronary artery disease. 2. Patent stents in the proximal to mid left anterior descending and in the proximal to mid right coronary and the distal right coronary artery. 3. Left ventricular end-diastolic pressure is 13 mmHg. 4. Well preserved global left ventricular systolic function with an ejection fraction of approximately 50%. DISCUSSION AND RECOMMENDATIONS: Based on the results of the study, it appears appropriate to continue a conservative approach. Risk factor modification has been reviewed. Current regimen is being continued. Outpatient followup is advised. Job ID: [id number] DocumentID: [id number] Dictated Date: 05/07/2021 10:26:43 Refrigeration Person Date: 05/07/2021 13:58:25 Dictated By: DILLAN MAY MD, MA, FACP, FACC,
== END 2021-05-07 13:45 | disposition home or self-care (01) ==
LOC: CATH 09:00 → SDC 11:06 → CATH 13:45
PROVIDERS: ATTEND Internal Medicine Cardiovascular Disease
DX: I25.10 Atherosclerotic heart disease of native coronary artery without angina pectoris (principal); E78.00 Pure hypercholesterolemia, unspecified; E78.5 Hyperlipidemia, unspecified; I25.5 Ischemic cardiomyopathy; E78.2 Mixed hyperlipidemia; G62.9 Polyneuropathy, unspecified; I34.0 Nonrheumatic mitral (valve) insufficiency; R09.89 Other specified symptoms and signs involving the circulatory and respiratory systems; I70.213 Atherosclerosis of native arteries of extremities with intermittent claudication, bilateral legs; F17.210 Nicotine dependence, cigarettes, uncomplicated; Z95.5 Presence of coronary angioplasty implant and graft; Z79.82 Long term (current) use of aspirin; Z79.899 Other long term (current) drug therapy; Z11.2 Encounter for screening for other bacterial diseases
CPT/HCPCS: 80053; 80061; 85027; 85610; 85730; 87081; 93458; C1760; C1894; 36415

== ENCOUNTER → 2021-05-16 | Outpatient (CLI) | payer OTHER ==
[~2021-05-16] MED LIST changes: -HEParin (CATH LAB) 2,000 ML IV ONE; -LIDOCAINE 1% INJ 20 ML 20 ML VIAL ONE; -NS IV 1000 ML 1,000 ML IV SCH; -NS IV 1000 ML 1,000 ML ONE
--- NOTE | 2021-05-16 12:15 | Diagnostic Imaging Report ---
Indication: History of femoral arterial dissection, catheterization Small nonvascularized hypoechoic structure ventral to the common femoral measures 2.1 x 0.8 x 0.7 cm likely a small hematoma with no internal blood flow. No demonstrated pseudoaneurysm and no findings of the AV fistula at the common femoral level. Throughout the left lower extremity arterial system there was a normal high resistive triphasic waveform with normal velocities. No abrupt velocity acceleration or deceleration. No segmental occlusion. No hemodynamically significant stenosis. Impression: Left lower extremity arterial system patent without hemodynamically significant stenosis or occlusion. Small hypoechoic structure ventral to the patent common femoral artery likely small hematoma. No evidence for patent pseudoaneurysm or AV fistula. Dictated by: Dictated on workstation # [id number]
== END ==
LOC: RAD 10:30
PROVIDERS: ATTEND Nurse Practitioner Family
DX: R10.2 Pelvic and perineal pain (principal); Z86.79 Personal history of other diseases of the circulatory system
CPT/HCPCS: 93926

== ENCOUNTER 2021-07-23 17:07 | Inpatient (IN) | payer OTHER ==
[~2021-07-23] VITALS: Ht 162.6 cm; Wt 74.0 kg
--- NOTE | 2021-07-23 17:29 | ED Chest Pain ---
General Chief Complaint: Chest Pain Stated Complaint: CHEST PAIN Source: patient Exam Limitations: no limitations History of Present Illness Date Seen by Provider: Jul 23, 2021 Time Seen by Provider: 17:26 Initial Comments Patient is a 50-year-old female with a history of dyslipidemia, coronary artery disease who presents ED with chest pain. Described as a pressure started around 2:00 when she woke up. Appears to be worse with exertion. Increasing pain around 4:00. She took 2 baby aspirin without significant improvement. She went to work and noted the pain to increase. History of cardiac stents. Cardiac catheterization in April 2021. she states this feels very similar to her previous heart attacks. She states she feels "off". Mild shortness of breath. She states she does smoke. No specific cough, vomiting, nausea, diarrhea, headache, dizziness, visual changes. Patient refused nitro. She states typically nitro does not help with her pain. Allergies and Home Medications Allergies Coded Allergies: lisinopril (Verified Allergy, Severe, RASH, 10/24/18) Patient Home Medication List Home Medication List Reviewed: Yes Alprazolam (Xanax) 0.25 Mg Tablet, 0.25 MG PO HS, (Reported) Entered as Reported by: NAOMI CAMP on 05/07/21 075 Aspirin (Aspirin EC) 81 Mg Tablet.dr, 81 MG PO DAILY, (Reported) Entered as Reported by: FRANK BURKS on 11/08/19 1500 Atorvastatin Calcium (Atorvastatin Calcium) 80 Mg Tablet, 80 MG PO HS Prescribed by: CLARK CODY on 11/10/19 0934 Calcium Carb & Citrate/Vit D3 (Calcium + D3 ER Tablet) 1 Each Tablet.er, 2 EACH PO HS, (Reported) Entered as Reported by: NAOMI CAMP on 05/07/21 075 Cholecalciferol (Vitamin D3) (Vitamin D3) 25 Mcg Capsule, 25 MCG PO DAILY, (Reported) Entered as Reported by: FRANK BURKS on 11/08/19 1500 Cyanocobalamin (Vitamin B-12) (Vitamin B12) 2,500 Mcg Tablet, 2,500 MCG PO DAILY, (Reported) Entered as Reported by: FRANK BURKS on 11/08/19 1500 Escitalopram Oxalate (Lexapro) 20 Mg Tablet, 20 MG PO HS, (Reported) Entered as Reported by: NAOMI CAMP on 05/07/21 0758 Famotidine (Famotidine) 20 Mg Tablet, 20 MG PO BID Prescribed by: CLARK CODY on 11/10/19 0934 [place]-3 Fatty Acids/Fish Oil ([place] 3 Fish Oil Softgel) 1 Each Capsule.dr, 1 EACH PO DAILY, (Reported) Entered as Reported by: FRANK BURKS on 11/08/19 1500 Review of Systems Review of Systems Constitutional: No chills, No diaphoresis, No dizziness, No fever, No malaise EENTM: No Blurred Vision, No Eye Pain, No Eye Tearing, No Ear Drainage, No Ear Pain Respiratory: Denies Cough, Denies Orthopnea, Denies Shortness of Air; SOA With Exertion; Denies SOA at Rest Cardiovascular: Chest Pain; Denies Edema Gastrointestinal: Denies Abdominal Pain, Denies Constipated, Denies Diarrhea Genitourinary: Denies Burning, Denies Discharge Musculoskeletal: No back pain, No joint pain Skin: No change in color, No change in hair/nails All Other Systems Reviewed Negative Unless Noted: Yes Past Hyubebg-Eeyrwz-Hzvoky Hx Immunizations Up To Date First/Initial COVID19 Vaccinat: 07/26/2020 Second COVID19 Vaccination Luigi: 08/30/2020 Seasonal Allergies Seasonal Allergies: No Past Medical History Surgeries: Yes (SEE BELOW) Cardiac, Coronary Stent, 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, Oophorectomy, Vascular Surgery Respiratory: No Currently Using CPAP: No Currently Using BIPAP: No Cardiac: Yes (STENT X 1 TO LAD/STENTS X 2 TO RCA--2013;BILAT FEM ARTERY REPAIR POST CATHS) Coronary Artery Disease, Heart Attack, High Cholesterol, Hypertension Neurological: Yes (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) Headaches /Migraines Reproductive Disorders: Yes (HYST/BSO 2016) Female Reproductive Disorders: Menstrual Problems, 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 Sexually Transmitted Disease: No HIV/AIDS: No Genitourinary: No Gastrointestinal: No Musculoskeletal: No Endocrine: Yes (BOARDERLINE DIABETIC; GESTATIONAL DIABETES) Loss of Vision: Denies Hearing Impairment: Denies Cancer: No Psychosocial: No Integumentary: No Blood Disorders: No Adverse Reaction/Blood Tranf: No Family Medical History Cardiovascular disease 19 FATHER Completed stroke 19 FATHER FH: Hodgkins disease 19 MOTHER Myocardial infarction 19 FATHER Heart Disease, Cancer, CVA, Hypertension, Stroke Physical Exam Vital Signs Vital Signs - First Documented 07/23/21 17:12 Temp 36.2 Pulse 87 Resp 19 B/P (MAP) 139/93 (108) Pulse Ox 97 O2 Delivery Room Air Capillary Refill : Less Than 3 Seconds Height, Weight, BMI Height: 5'3.00" Weight: 170lbs. 0.0oz. 77.640891os; 28.93 BMI Method:Stated General Appearance: No Apparent Distress, WD/WN HEENT: PERRL/EOMI, TMs Normal, Normal ENT Inspection, Pharynx Normal Neck: Full Range of Motion, Normal Inspection, Non Tender, Supple Respiratory: Chest Non Tender, Lungs Clear, Normal Breath Sounds, No Accessory Muscle Use, No Respiratory Distress Cardiovascular: Regular Rate, Rhythm, No Edema, No Gallop, No JVD, No Murmur Gastrointestinal: Normal Bowel Sounds, No Organomegaly, No Pulsatile Mass, Non Tender, Soft Extremity: Normal Capillary Refill, Normal Inspection, Normal Range of Motion, Non Tender, No Calf Tenderness Skin: Normal Color, Warm/Dry Progress/Results/Core Measures Results/Orders Lab Results Laboratory Tests Test 07/23/21 17:17 Range/Units White Blood Count 7.3 4.3-11.0 10^3/uL Red Blood Count 4.78 3.80-5.11 10^6/uL Hemoglobin 14.8 11.5-16.0 g/dL Hematocrit 45 35-52 % Mean Corpuscular Volume 93 80-99 fL Mean Corpuscular Hemoglobin 31 25-34 pg Mean Corpuscular Hemoglobin Concent 33 32-36 g/dL Red Cell Distribution Width 14.6 H 10.0-14.5 % Platelet Count 301 130-400 10^3/uL Mean Platelet Volume 11.4 9.0-12.2 fL Immature Granulocyte % (Auto) 0 % Neutrophils (%) (Auto) 57 42-75 % Lymphocytes (%) (Auto) 35 12-44 % Monocytes (%) (Auto) 7 0-12 % Eosinophils (%) (Auto) 1 0-10 % Basophils (%) (Auto) 1 0-10 % Neutrophils # (Auto) 4.1 1.8-7.8 10^3/uL Lymphocytes # (Auto) 2.5 1.0-4.0 10^3/uL Monocytes # (Auto) 0.5 0.0-1.0 10^3/uL Eosinophils # (Auto) 0.1 0.0-0.3 10^3/uL Basophils # (Auto) 0.0 0.0-0.1 10^3/uL Immature Granulocyte # (Auto) 0.0 0.0-0.1 10^3/uL Prothrombin Time 11.7 L 12.2-14.7 SEC INR Comment 0.8 0.8-1.4 Activated Partial Thromboplast Time 30 24-35 SEC Sodium Level 137 135-145 MMOL/L Potassium Level 4.5 3.6-5.0 MMOL/L Chloride Level 104 98-107 MMOL/L Carbon Dioxide Level 20 L 21-32 MMOL/L Anion Gap 13 5-14 MMOL/L Blood Urea Nitrogen 11 7-18 MG/DL Creatinine 0.71 0.60-1.30 MG/DL Estimat Glomerular Filtration Rate 103 BUN/Creatinine Ratio 15 Glucose Level 131 H 70-105 MG/DL Calcium Level 9.6 8.5-10.1 MG/DL Corrected Calcium 9.9 8.5-10.1 MG/DL Magnesium Level 2.0 1.6-2.4 MG/DL Total Bilirubin 0.3 0.1-1.0 MG/DL Aspartate Amino Transf (AST/SGOT) 15 5-34 U/L Alanine Aminotransferase (ALT/SGPT) 18 0-55 U/L Alkaline Phosphatase 129 40-136 U/L Myoglobin 33.7 10.0-92.0 NG/ML Troponin I < 0.028 <0.028 NG/ML B-Type Natriuretic Peptide 13.7 <100.0 PG/ML Total Protein 7.2 6.4-8.2 GM/DL Albumin 3.6 3.2-4.5 GM/DL My Orders Orders - LUCY VELASQUEZ Aspirin Chewable Tablet (Baby Aspirin Ch (07/23/21 17:45) Lorazepam Injection (Ativan Injection) (07/23/21 17:45) Aspirin Chewable Tablet (Baby Aspirin Ch (07/23/21 17:37) Aspirin Chewable Tablet (Baby Aspirin Ch (07/23/21 18:00) Bnp Agustín (07/23/21 18:08) Azithromycin Injection (Zithromax Inject (07/23/21 18:27) Ceftriaxone 1 Gm Pre-Mix (Rocephin 1 Gm (07/23/21 18:27) Blood Culture (07/23/21 18:30) Lactic Acid Analyzer (07/23/21 18:30) Covid 19 Inhouse Test (07/23/21 18:30) Influenza A And B By Pcr (07/23/21 18:30) Medications Given in ED Current Medications Medications Dose Ordered Sig/Josiah Route Start Time Stop Time Status Last Admin Dose Admin Aspirin 324 mg ONCE ONCE PO 07/23/21 18:00 07/23/21 18:01 DC 07/23/21 17:30 324 MG Lorazepam 0.5 mg Q8HR PRN IVP 07/23/21 17:45 07/23/21 17:43 0.5 MG Vital Signs/I&O 07/23/21 17:12 Temp 36.2 Pulse 87 Resp 19 B/P (MAP) 139/93 (108) Pulse Ox 97 O2 Delivery Room Air Comment Sinus rhythm, probable left atrial argument 81 bpm, QRS duration 99 MS, QTC 438 MS Departure Communication (Admissions) Time/Spoke to Admitting Phy: 18:[address] Cody who is her primary care physician. Consult Dr. Dutton continue home medications at this time. Patient presents ED with substernal chest pain. Rates pain 8 out of 10. Refused nitro. She has extensive cardiac history. Cardiac catheterization this past April showed mild to moderate coronary artery disease. Continue to can treat conservatively. She takes baby aspirin daily. Not currently on any type of hypertensive medication. She is currently on atorvastatin. Patient is not tachycardic or hypoxic. She reports a mild cough worse when she lays down. His tory of smoking. Chest x-ray concerning for right middle lobe pneumonia versus atelectasis. Will treat with azithromycin and Rocephin. Blood cultures pending. Initial cardiac enzymes were unremarkable. Her EKG without evidence of ST elevation or depression. She was given 4 baby aspirin here in the ED. Blood pressure controlled. Patient was discussed with Dr. Dutton who agrees admission to cardiac stepdown. Continue with home meds. She reports recent loss of family member which may be associated some of her pain versus possible pneumonia which will be treated with antibiotics. Due to her extensive cardiac history admission to her primary care physician Dr. Cody. Recommend CT chest in the morning. Continue with home medication. She does take Lexapro 25 mg daily. Serial troponins was ordered. Impression Primary Impression: Chest pain Additional Impression: Pneumonia Disposition: ADMITTED INPATIENT Condition: Stable Admissions Decision to Admit Reason: Admit from ER (General) Decision to Admit/Date: Jul 23, 2021 Time/Decision to Admit Time: 18:49 Departure-Patient Inst. Referrals: CLARK CODY MD (PCP/Family) Primary Care Physician LUCY VELASQUEZ Jul 23, 2021 17:29
[2021-07-23] MEDS ORDERED: ASPIRIN 325 MG (5 GR) TABLET PO ONE (17:30)
[2021-07-23 17:37] LABS: BASOPHILS % (AUTO) 1 % (0-10); EOSINOPHILS # (AUTO) 0.1 10^3/uL (0.0-0.3); EOSINOPHILS % (AUTO) 1 % (0-10); HEMATOCRIT 45 % (35-52); HEMOGLOBIN 14.8 g/dL (11.5-16.0); LYMPHOCYTES # (AUTO) 2.5 10^3/uL (1.0-4.0); LYMPHOCYTES % (AUTO) 35 % (12-44); MEAN CORPUSCULAR HEMOGLOBIN 31 pg (25-34); MEAN CORPUSCULAR HGB CONC 33 g/dL (32-36); MEAN CORPUSCULAR VOLUME 93 fL (80-99); MEAN PLATELET VOLUME 11.4 fL (9.0-12.2); MONOCYTES # (AUTO) 0.5 10^3/uL (0.0-1.0); MONOCYTES % (AUTO) 7 % (0-12); NEUTROPHILS # (AUTO) 4.1 10^3/uL (1.8-7.8); NEUTROPHILS % (AUTO) 57 % (42-75); PLATELET COUNT 301 10^3/uL (130-400); WHITE BLOOD COUNT 7.3 10^3/uL (4.3-11.0)
[2021-07-23] MEDS ORDERED: ASPIRIN 81 MG CHEW (CHILDREN'S ASA) ONE (17:37)
[2021-07-23 17:45] LABS: ALBUMIN 3.6 GM/DL (3.2-4.5)
[2021-07-23] MEDS ORDERED: ASPIRIN 81 MG CHEW (CHILDREN'S ASA) PO ONE ×2 (17:45→18:00)
[2021-07-23] MEDS ORDERED: LORazepam INJ 2 MG/ML (ATIVAN) VIAL IVP PRN (17:45)
[2021-07-23 17:46] LABS: POTASSIUM 4.5 MMOL/L (3.6-5.0)
[2021-07-23 17:47] LABS: CALCIUM 9.6 MG/DL (8.5-10.1); INR 0.8 (0.8-1.4); PROTHROMBIN TIME PATIENT 11.7 SEC (12.2-14.7)
[2021-07-23 17:48] LABS: TOTAL PROTEIN 7.2 GM/DL (6.4-8.2)
--- NOTE | 2021-07-23 17:48 | Diagnostic Imaging Report ---
INDICATION: Chest pain. TIME OF EXAM: 5:35 PM Correlation is made with prior chest of 02/10/2021. The heart size is normal. There is some density in the right lung base which partially obscures the right heart border. Some right middle lobe infiltrate or atelectasis cannot be excluded. Left lung is clear. No effusion or pneumothorax is seen. IMPRESSION: Findings suspect for right middle lobe infiltrate or atelectasis. Dictated by: Dictated on workstation # [id number]
[2021-07-23 17:50] LABS: BILIRUBIN,TOTAL 0.3 MG/DL (0.1-1.0)
[2021-07-23 17:52] LABS: CREATININE SERUM 0.71 MG/DL (0.60-1.30)
[2021-07-23] MEDS ORDERED: cefTRIAXone 1 GM PRE-MIX 50 ML IV STA (18:27)
[2021-07-23] MEDS ORDERED: AZITHROMYCIN INJECTION 500 MG in NS (IVPB) 250 ML IV STA (18:27)
[2021-07-23] MEDS ORDERED: cefTRIAXone 1 GM PRE-MIX 50 ML IV ONE (21:11)
[2021-07-23] MEDS ORDERED: morphine INJ 4 MG/ML 1 ML (VIAL/SYRINGE) IV PRN (22:00)
[2021-07-23] MEDS: AZITHROMYCIN 500 MG/NS 250 ML IVPB IV SCH ×2 (22:04)
[2021-07-23] MEDS: CATHETER FLUSH 10 ML SYR IVP SCH (22:05)
[2021-07-24 04:53] LABS: BASOPHILS % (AUTO) 1 % (0-10); EOSINOPHILS # (AUTO) 0.1 10^3/uL (0.0-0.3); EOSINOPHILS % (AUTO) 1 % (0-10); HEMATOCRIT 42 % (35-52); HEMOGLOBIN 13.6 g/dL (11.5-16.0); LYMPHOCYTES # (AUTO) 3.8 10^3/uL (1.0-4.0); LYMPHOCYTES % (AUTO) 49 % (12-44); MEAN CORPUSCULAR HEMOGLOBIN 30 pg (25-34); MEAN CORPUSCULAR HGB CONC 32 g/dL (32-36); MEAN CORPUSCULAR VOLUME 95 fL (80-99); MEAN PLATELET VOLUME 11.3 fL (9.0-12.2); MONOCYTES # (AUTO) 0.4 10^3/uL (0.0-1.0); MONOCYTES % (AUTO) 5 % (0-12); NEUTROPHILS # (AUTO) 3.4 10^3/uL (1.8-7.8); NEUTROPHILS % (AUTO) 44 % (42-75); PLATELET COUNT 252 10^3/uL (130-400); WHITE BLOOD COUNT 7.7 10^3/uL (4.3-11.0)
[2021-07-24 05:06] LABS: CHLORIDE 108 MMOL/L (98-107); POTASSIUM 4.1 MMOL/L (3.6-5.0); SODIUM 139 MMOL/L (135-145)
[2021-07-24 05:07] LABS: CALCIUM 9.2 MG/DL (8.5-10.1)
[2021-07-24 05:08] LABS: GLUCOSE 95 MG/DL (70-105); TRIGLYCERIDES 127 MG/DL (<150); VLDL CHOLESTEROL 25 MG/DL (5-40)
[2021-07-24 05:09] LABS: CARBON DIOXIDE 20 MMOL/L (21-32)
[2021-07-24 05:12] LABS: CREATININE SERUM 0.62 MG/DL (0.60-1.30); GFR ESTIMATED 108
[2021-07-24 05:13] LABS: BUN/CREATININE RATIO 18; CHOLESTEROL 243 MG/DL (< 200)
[2021-07-24 05:14] LABS: HDL CHOLESTEROL 38 MG/DL (40-60)
[2021-07-24] MEDS: CATHETER FLUSH 10 ML SYR IVP SCH ×3 (06:16→18:02)
[2021-07-24] MEDS ORDERED: IOHEXOL 350 MG/ML 100 ML (OMNIPAQUE 350) VIAL IV ONE ×2 (07:30→17:45)
[2021-07-24] MEDS ORDERED: NS 100 ML (IVPB) BAG IV ONE ×2 (07:30→17:45)
[2021-07-24] MEDS ORDERED: HOLD METFORMIN - RECEIVED CONTRAST 20 ML VIAL IV SCH ×2 (07:30→17:45)
[2021-07-24] MEDS ORDERED: CATHETER FLUSH 10 ML SYR IV PRN ×2 (07:30→17:45)
--- NOTE | 2021-07-24 08:19 | Consultation-Cardiology ---
HPI-Cardiology Cardiology Consultation: Date of Consultation 07/24/21 Time Seen by a Provider: 08:30 Date of Admission 07-23-21 Attending Physician Lencho Dutton MD [facility] Admitting Physician Clark Cody MD Consulting Physician EMMANUEL MCCARTNEY HPI: Chief Complaint: Chest pain Ms. Marvin is a 50 yr old female who has been admitted to [facility] from the ED with c/o CP and SOB. She reports frequent, lose cough which started yesterday. She reports ACW pain which started early this morning. Worse with cough. She reports occ feeling of fast heartbeat. No c/o syncope or near syncope. No c/o LE swelling. She reports she has not been sleeping well for quite some time. She denies any c/o CP at this time. Review of Systems-Cardiology Review of Systems Constitutional: No chills, No fever; malaise Eyes: No vision change Ears/Nose/Throat: No epistaxis, No recent hearing loss Respiratory: As described under HPI Cardiovascular: As described under HPI Gastrointestinal: No constipation, No diarrhea, No nausea, No vomiting Genitourinary: No dysuria, No hematuria Musculoskeletal: no symptoms reported Skin: No rash on exposed areas, No ulcerations on exposed areas Psychiatric/Neurological: anxiety, depression; No seizure, No focal weakness, No syncope Hematologic: No bleeding abnormalities All Other Systems Reviewed Negative Unless Noted: Yes [id number]-[id number]-Qdfdmv Hx Patient Social History Smoking Status: Current Everyday Smoker 2nd Hand Smoke Exposure: Yes Have you traveled recently?: No Alcohol Use?: No Pt feels they are or have been: No Tobacco type used: Cigarettes Past Medical History PMH As described under Assessment. Family Medical History Family Medical History: She reports family history of early CAD Family History: Cardiovascular disease 19 FATHER Completed stroke 19 FATHER FH: Hodgkins disease 19 MOTHER Myocardial infarction 19 FATHER Allergies and Home Medications Allergies Coded Allergies: lisinopril (Verified Allergy, Severe, RASH, 10/24/18) ceftriaxone (Verified Allergy, Intermediate, Hives, 07/25/21) clopidogrel (Verified Allergy, Unknown, 07/24/21) Patient Home Medication List Home Medication List Reviewed: Yes Alprazolam (Xanax) 0.25 Mg Tablet, 0.25 MG PO DAILY PRN for ANXIETY, (Reported) Entered as Reported by: NAOMI CAMP on 05/07/21757 Last Action: Reviewed Aspirin (Aspirin EC) 81 Mg Tablet.dr, 81 MG PO DAILY, (Reported) Entered as Reported by: FRANK BURKS on 11/08/191499 Last Action: Reviewed Atorvastatin Calcium (Atorvastatin Calcium) 80 Mg Tablet, 80 MG PO HS, (Reported) Entered as Reported by: FRANK BURKS on 07/24/21913 Last Action: Reviewed Calcium Carbonate (Calcium) 500 Mg Tablet, 1,000 MG PO DAILY, (Reported) Entered as Reported by: FRANK BURKS on 07/24/21913 Last Action: Reviewed Cholecalciferol (Vitamin D3) (Vitamin D3) 25 Mcg Capsule, 50 MCG PO DAILY, (Reported) Entered as Reported by: FRANK BURKS on 11/08/191499 Last Action: Reviewed Cyanocobalamin (Vitamin B-12) (Vitamin B12) 2,500 Mcg Tablet, 2,500 MCG PO DAILY, (Reported) Entered as Reported by: FRANK BURKS on 11/08/191499 Last Action: Reviewed Escitalopram Oxalate (Lexapro) 20 Mg Tablet, 20 MG PO HS, (Reported) Entered as Reported by: NAOMI CAMP on 05/07/21757 Last Action: Reviewed Famotidine (Famotidine) 20 Mg Tablet, 20 MG PO BID, (Reported) Entered as Reported by: FRANK BURKS on 07/24/21913 Last Action: Reviewed [place]-3 Fatty Acids/Fish Oil ([place] 3 Fish Oil Softgel) 1 Each Capsule.dr, 1 EACH PO DAILY, (Reported) Entered as Reported by: FRANK BURKS on 11/08/191499 Last Action: Reviewed Discontinued Medications Atorvastatin Calcium (Atorvastatin Calcium) 80 Mg Tablet, 80 MG PO HS Discontinued Reason: Duplicate Order Prescribed by: CLARK CODY on 11/10/19933 Last Action: Discontinued Calcium Carb & Citrate/Vit D3 (Calcium + D3 ER Tablet) 1 Each Tablet.er, 2 EACH PO HS, (Reported) Discontinued Reason: Prescription changed Entered as Reported by: NAOMI CAMP on 05/07/21757 Last Action: Last Taken Edited Famotidine (Famotidine) 20 Mg Tablet, 20 MG PO BID Discontinued Reason: No Longer Taking Prescribed by: CLARK CODY on 11/10/19933 Last Action: Discontinued Physical Exam-Cardiology Physical Exam Vital Signs/I&O 07/24/21 07/24/21 07/24/21 07/25/21 21:00 22:03 23:59 01:00 Temp 36.4 Pulse 90 Pulse Ox 95 O2 Delivery Room Air Nasal Cannula Nasal Cannula O2 Flow Rate 3.00 3.00 07/25/21 07/25/21 07/25/21 04:00 07:00 07:42 Temp 37.0 36.0 Pulse 76 73 Resp 12 B/P (MAP) 102/66 O2 Delivery Nasal Cannula Nasal Cannula O2 Flow Rate 3.00 3.00 07/25/21 00:00 Intake Total 1250 ml Balance 1250 ml Capillary Refill : Less Than 3 Seconds Constitutional: AAO x 3, well-developed, well-nourished HEENT: PERRL, hearing is well preserved, oral hygience is good Neck: No carotid bruit; carotid pulses are 2 + bilaterally Respiratory: No accessory muscle use, No respiratory distress; chest expansion is symmetric, chest is bilaterally symmetric, other (diminished breath sounds; frequent lose cough; hoarse voice) Cardiovascular: regular rate-rhythm; No JVD; S1 and S2 Gastrointestinal: No tender; soft, round Extremities: no lower extremity edema bilateral Neurologic/Psychiatric: grossly intact (moves all extremities) Skin: No rash on exposed areas, No ulcerations on exposed areas Data Review Labs Laboratory Tests 07/24/21 11:20: Troponin I < 0.028 Microbiology 07/23/21 Blood Culture - Preliminary, Resulted No growth Radiology NAME: DANICA MARVIN [facility] REC#: [id number] PT STATUS: REG ER : 1970 PHYSICIAN: JUNI STALLWORTH MD ADMIT DATE: 07/23/21/ER Signed Date of Exam:07/23/21 CHEST 1 VIEW, AP/PA ONLY INDICATION: Chest pain. TIME OF EXAM: 5:35 PM Correlation is made with prior chest of 02/10/2021. The heart size is normal. There is some density in the right lung base which partially obscures the right heart border. Some right middle lobe infiltrate or atelectasis cannot be excluded. Left lung is clear. No effusion or pneumothorax is seen. IMPRESSION: Findings suspect for right middle lobe infiltrate or atelectasis. Dictated by: Dictated on workstation # [id number] Dict: 07/23/21 1744 Trans: 07/23/21 1826 MICHELET [id number] Interpreted by: SURESH KIM MD Electronically signed by: SURESH KIM MD 07/23/21 1826 ECG Impression ECG Initial ECG Rhythm: Normal Sinus A/P-Cardiology Assessment/Admission Diagnosis Chest pain - no evidence of ACS Pneumonia - management per medical services CAD - S/p LAD stenting (Promus 3x16) at [facility] by Dr Cruz on 08/13/13. S/p RCA stenting (Two Promus 2.25x24 stents) by Dr Rojas at [facility] on 08/13/13 - S/p bilateral femoral artery surgery in July [address] Murdock; R femoral surgery for femoral artery pseudoaneurysm repair and L femoral surgery for femoral artery bleed - Coronary angiography and PCI was done on 11/10/[address] Linder Severe distal RCA stenosis was treated successfully with a drug-eluting stent. Stent in the LAD showed mild diffuse disease. The stent in the RCA was a Xience Radha 2.25 x 15 mm stent deployed at 14 nicho for 17 seconds. Postdilatation was done with NC Quantum 2.5 x 12 mm balloon at 18 nicho. DWAYNE-3 flow - Most recent cardiac cath of 05-07-21 showed Mild to moderate coronary artery disease. Patent stents in the proximal to mid left anterior descending and in the proximal to mid right coronary and the distal right coronary artery. Left ventricular end-diastolic pressure is 13 mmHg. Well preserved global left ventr icular systolic function with an ejection fraction of approximately 50%. H/o Ischemic cardiomyopathy - at the time of cath of July 2013. - Echocardiogram of 10-27-15 showed normal global LV systolic function witn an ejection fraction of approx 60%. Trivial to mild MR and TR. No evidence of any significant valvular stenosis. No pericadial effusion. PASP estimated to be approx 30mmHg - Echocardiogram of 11-09-[address] Linder showed LVEF 50-55%. Grade 1 diastolic dysfunction. PASP 20-25mmHg H/o tobaccoism - Quit smoking in July 2013, back to smoking since Feb 2020 - cessation advised H/o gestational diabetes - with her 3rd Hyperlipidemia - statin tx - followed by PCP Bilateral neuropathic pain of the legs - following surgeries noted above Discussion and Recomendations Chest pain of undetermined etiology - no evidence of ACS thus far - Echocardiogram today - CTA chest pending Pneumonia - management per medical services Continue home medications including ASA, statin Monitor lab Further recs will be based on her hospital course We would like to thank Dr. Cody for this consult I have spoke with her today regarding plan of care EMMANUEL COLIN Jul 24, 2021 08:19
--- NOTE | 2021-07-24 08:43 | Diagnostic Imaging Report ---
EXAMINATION: CT chest with intravenous contrast. TECHNIQUE: Multiple contiguous axial images were obtained through the chest after the uneventful administration of intravenous contrast. All CT scans use one or more of the following dose optimizing techniques: automated exposure control, MA and/or KvP adjustment based on patient size and exam type or iterative reconstruction. HISTORY: Chest pain. Pneumonia. COMPARISON: Chest radiograph on 07/23/2021. FINDINGS: The heart size is within normal limits. No pericardial effusion is present. Scattered mildly prominent lymph nodes are seen in the mediastinum, measuring up to 0.6 cm in short axis. No pathologically enlarged lymphadenopathy. Nodule seen in the right lobe of the thyroid measuring 0.7 cm. Centrilobular emphysema is visualized, greatest in the lung apices. Hazy opacities are seen in the dependent lungs bilaterally. Scattered subcentimeter nodules are visualized in the lungs, the largest in the right lower lobe measuring 0.5 cm. No evidence of pulmonary mass. No focal consolidations. No central endobronchial obstructing lesions. There is no pleural effusion or pneumothorax. The osseous structures demonstrate no acute abnormalities. Limited views of the upper abdominal structures demonstrate no acute abnormalities. Both adrenal glands are unremarkable. IMPRESSION: 1. Hazy opacities in the lung bases most suggestive of dependent atelectasis. No focal consolidation to suggest infection. 2. Scattered subcentimeter pulmonary nodules measuring up to 0.5 cm. Given the background centrilobular emphysema, followup in 6-[address] is recommended to ensure stability. 3. Mildly prominent mediastinal lymph nodes, likely reactive. 4. Nodule in the right lobe of the thyroid measuring 0.7 cm. This does not meet significance based on size criteria. Dictated by: Dictated on workstation # [id number]
[2021-07-24] MEDS: ASPIRIN E.C. 81 MG (ECOTRIN) TAB PO SCH (08:46)
[2021-07-24] MEDS ORDERED: FAMO20TA5 PO (09:14)
[2021-07-24] MEDS ORDERED: CALC-823 PO (09:14)
[2021-07-24] MEDS ORDERED: ATOR80TA76 PO (09:14)
[2021-07-24] MEDS ORDERED: ACETAMINOPHEN 325 MG TABLET PO PRN (09:30)
--- NOTE | 2021-07-24 10:52 | Consultation-Cardiology ---
HPI-Cardiology Cardiology Consultation: Date of Consultation 07/24/21 Time Seen by a Provider: 08:50 Date of Admission Attending Physician Admitting Physician Clark Cody MD Consulting Physician DILLAN MAY MD, MA, FACP, FACC, FSCAI, CCDS HPI: Chief Complaint: Chest pain Ms. Nowak is a 50 yr old female who has been admitted to [facility] from the ED with c/o CP and SOB. She reports frequent, lose cough which started yesterday. She reports ACW pain which started early this morning. Worse with cough. She reports occ feeling of fast heartbeat. No c/o syncope or near syncope. No c/o LE swelling. She reports she has not been sleeping well for quite some time. She denies any c/o CP at this time. Review of Systems-Cardiology Review of Systems Constitutional: No chills, No fever; malaise Eyes: No vision change Ears/Nose/Throat: No epistaxis, No recent hearing loss Respiratory: As described under HPI Cardiovascular: As described under HPI Gastrointestinal: No constipation, No diarrhea, No nausea, No vomiting Genitourinary: No dysuria, No hematuria Musculoskeletal: no symptoms reported Skin: No rash on exposed areas, No ulcerations on exposed areas Psychiatric/Neurological: anxiety, depression; No seizure, No focal weakness, No syncope Hematologic: No bleeding abnormalities All Other Systems Reviewed Negative Unless Noted: Yes QVU-Ytlomm-Lofdrk Hx Patient Social History Smoking Status: Current Everyday Smoker 2nd Hand Smoke Exposure: Yes Have you traveled recently?: No Alcohol Use?: No Pt feels they are or have been: No Tobacco type used: Cigarettes Past Medical History PMH As described under Assessment. Family Medical History Family Medical History: She reports family history of early CAD Family History: Cardiovascular disease 19 FATHER Completed stroke 19 FATHER FH: Hodgkins disease 19 MOTHER Myocardial infarction 19 FATHER Allergies and Home Medications Allergies Coded Allergies: lisinopril (Verified Allergy, Severe, RASH, 10/24/18) clopidogrel (Verified Allergy, Unknown, 07/24/21) Patient Home Medication List Home Medication List Reviewed: Yes Alprazolam (Xanax) 0.25 Mg Tablet, 0.25 MG PO DAILY PRN for ANXIETY, (Reported) Entered as Reported by: NAOMI CAMP on 05/07/21 2864 Last Action: Reviewed Aspirin (Aspirin EC) 81 Mg Tablet.dr, 81 MG PO DAILY, (Reported) Entered as Reported by: FRANK BURKS on 11/08/191499 Last Action: Reviewed Atorvastatin Calcium (Atorvastatin Calcium) 80 Mg Tablet, 80 MG PO HS, (Rep orted) Entered as Reported by: FRANK BURKS on 07/24/21913 Last Action: Reviewed Calcium Carbonate (Calcium) 500 Mg Tablet, 1,000 MG PO DAILY, (Reported) Entered as Reported by: FRANK BURKS on 07/24/21913 Last Action: Reviewed Cholecalciferol (Vitamin D3) (Vitamin D3) 25 Mcg Capsule, 50 MCG PO DAILY, (Re ported) Entered as Reported by: FRANK BURKS on 11/08/191499 Last Action: Reviewed Cyanocobalamin (Vitamin B-12) (Vitamin B12) 2,500 Mcg Tablet, 2,500 MCG PO DAILY, (Reported) Entered as Reported by: FRANK BURKS on 11/08/191499 Last Action: Reviewed Escitalopram Oxalate (Lexapro) 20 Mg Tablet, 20 MG PO HS, (Reported) Entered as Reported by: NAOMI CAMP on 05/07/21757 Last Action: Reviewed Famotidine (Famotidine) 20 Mg Tablet, 20 MG PO BID, (Reported) Entered as Reported by: FRANK BURKS on 07/24/21913 Last Action: Reviewed [place]-3 Fatty Acids/Fish Oil ([place] 3 Fish Oil Softgel) 1 Each Capsule.dr, 1 EACH PO DAILY, (Reported) Entered as Reported by: FRANK BURKS on 11/08/191499 Last Action: Reviewed Discontinued Medications Atorvastatin Calcium (Atorvastatin Calcium) 80 Mg Tablet, 80 MG PO HS Discontinued Reason: Duplicate Order Prescribed by: CLARK CODY on 11/10/19933 Last Action: Discontinued Calcium Carb & Citrate/Vit D3 (Calcium + D3 ER Tablet) 1 Each Tablet.er, 2 EACH PO HS, (Reported) Discontinued Reason: Prescription changed Entered as Reported by: NAOMI CAMP on 05/07/21757 Last Action: Last Taken Edited Famotidine (Famotidine) 20 Mg Tablet, 20 MG PO BID Discontinued Reason: No Longer Taking Prescribed by: CLARK CODY on 11/10/19933 Last Action: Discontinued Physical Exam-Cardiology Physical Exam Vital Signs/I&O 3/107/24/21 07/24/21 07/24/21 23:00 00:00 00:00 01:00 Temp 36.4 Pulse 79 80 68 Resp 14 11 B/P (MAP) 123/72 111/75 Pulse Ox 95 O2 Delivery Room Air Room Air 07/24/21 07/24/21 07/24/21 07/24/21 04:00 07:00 07:43 08:00 Temp 36.1 Pulse 76 73 66 73 Resp 10 22 16 B/P (MAP) 122/70 135/72 O2 Delivery Room Air Room Air Room Air 07/24/21 08:51 O2 Delivery Room Air 07/24/21 00:00 Intake Total 400 ml Balance 400 ml Capillary Refill : Less Than 3 Seconds Constitutional: AAO x 3, well-developed, well-nourished HEENT: PERRL, hearing is well preserved, oral hygience is good Neck: No carotid bruit; carotid pulses are 2 + bilaterally Respiratory: No accessory muscle use, No respiratory distress; chest expansion is symmetric, chest is bilaterally symmetric, other (diminished breath sounds; frequent lose cough; hoarse voice) Cardiovascular: regular rate-rhythm; No JVD; S1 and S2 Gastrointestinal: No tender; soft, round Extremities: no lower extremity edema bilateral Neurologic/Psychiatric: other (moves all limbs equally) Skin: No rash on exposed areas, No ulcerations on exposed areas Data Review Labs Laboratory Tests 07/23/21 17:17: White Blood Count 7.3, Red Blood Count 4.78, Hemoglobin 14.8, Hematocrit 45, Mean Corpuscular Volume 93, Mean Corpuscular Hemoglobin 31, Mean Corpuscular Hemoglobin Concent 33, Red Cell Distribution Width 14.6H, Platelet Count 301, Mean Platelet Volume 11.4, Immature Granulocyte % (Auto) 0, Neutrophils (%) (Auto) 57, Lymphocytes (%) (Auto) 35, Monocytes (%) (Auto) 7, Eosinophils (%) (Auto) 1, Basophils (%) (Auto) 1, Neutrophils # (Auto) 4.1, Lymphocytes # (Auto) 2.5, Monocytes # (Auto) 0.5, Eosinophils # (Auto) 0.1, Basophils # (Auto) 0.0, Immature Granulocyte # (Auto) 0.0, Prothrombin Time 11.7L, INR Comment 0.8, Activated Partial Thromboplast Time 30, Sodium Level 137, Potassium Level 4.5, Chloride Level 104, Carbon Dioxide Level 20L, Anion Gap 13, Blood Urea Nitrogen 11, Creatinine 0.71, Estimat Glomerular Filtration Rate 103, BUN/Creatinine Ratio 15, Glucose Level 131H, Calcium Level 9.6, Corrected Calcium 9.9, Magnesium Level 2.0, Total Bilirubin 0.3, Aspartate Amino Transf (AST/SGOT) 15, Alanine Aminotransferase (ALT/SGPT) 18, Alkaline Phosphatase 129, Myoglobin 33.7, Troponin I < 0.028, B-Type Natriuretic Peptide 13.7, Total Protein 7.2, Albumin 3.6 07/23/21 18:36: Influenza Type A (RT-PCR) Not Detected, Influenza Type B (RT-PCR) Not Detected, SARS-CoV-2 RNA (RT-PCR) Not Detected 07/23/21 18:47: Lactic Acid Level 0.97 07/23/21 23:10: Troponin I < 0.028 07/24/21 04:33: White Blood Count 7.7, Red Blood Count 4.48, Hemoglobin 13.6, Hematocrit 42, Mean Corpuscular Volume 95, Mean Corpuscular Hemoglobin 30, Mean Corpuscular Hemoglobin Concent 32, Red Cell Distribution Width 14.8H, Platelet Count 252, Mean Platelet Volume 11.3, Immature Granulocyte % (Auto) 0, Neutrophils (%) (Auto) 44, Lymphocytes (%) (Auto) 49H, Monocytes (%) (Auto) 5, Eosinophils (%) (Auto) 1, Basophils (%) (Auto) 1, Neutrophils # (Auto) 3.4, Lymphocytes # (Auto) 3.8, Monocytes # (Auto) 0.4, Eosinophils # (Auto) 0.1, Basophils # (Auto) 0.0, Immature Granulocyte # (Auto) 0.0, Sodium Level 139, Potassium Level 4.1, Chloride Level 108H, Carbon Dioxide Level 20L, Anion Gap 11, Blood Urea Nitrogen 11, Creatinine 0.62, Estimat Glomerular Filtration Rate 108, BUN/Creatinine Ratio 18, Glucose Level 95, Calcium Level 9.2, Troponin I < 0.028, Triglycerides Level 127, Cholesterol Level 243H, LDL Cholesterol Direct 200H, VLDL Cholesterol 25, HDL Cholesterol 38L A/P-Cardiology Assessment/Admission Diagnosis Chest pain, pleuritic - likely due to pneumonia - no evidence of ACS RML Pneumonia - management per medical services CAD - S/p LAD stenting (Promus 3x16) at [facility] by Dr Cruz on 08/13/13. S/p RCA stenting (Two Promus 2.25x24 stents) by Dr Rojas at [facility] on 08/13/13 - S/p bilateral femoral artery surgery in July [address] Murdock; R femoral surgery for femoral artery pseudoaneurysm repair and L femoral surgery for femoral artery bleed - Coronary angiography and PCI was done on 11/10/[address] Linder Severe distal RCA stenosis was treated successfully with a drug-eluting stent. Stent in the LAD showed mild diffuse disease. The stent in the RCA was a Xience Radha 2.25 x 15 mm stent deployed at 14 nicho for 17 seconds. Postdilatation was done with NC Quantum 2.5 x 12 mm balloon at 18 nicho. DWAYNE-3 flow - Most recent cardiac cath of 05-07-21 showed mild to moderate coronary artery disease. Patent stents in the proximal to mid left anterior descending and in the proximal to mid right coronary and the distal right coronary artery. Left ventricular end-diastolic pressure is 13 mmHg. Well preserved global left ventricular systolic function with an ejection fraction of approximately 50%. H/o Ischemic cardiomyopathy - at the time of cath of July 2013. - Echocardiogram of 10-27-15 showed normal global LV systolic function witn an ejection fraction of approx 60%. Trivial to mild MR and TR. No evidence of any significant valvular stenosis. No pericadial effusion. PASP estimated to be approx 30mmHg - Echocardiogram of 11-09-[address] Linder showed LVEF 50-55%. Grade 1 diastolic dysfunction. PASP 20-25mmHg H/o tobaccoism - Quit smoking in July 2013, back to smoking since Feb 2020 - cessation advised H/o gestational diabetes - with her 3rd Hyperlipidemia - statin tx - followed by PCP Bilateral neuropathic pain of the legs - following surgeries noted above Discussion and Recomendations Echocardiogram today CTA chest pending Treat pneumonia (managed by the Med svce) Continue home medications including ASA, statin Monitor lab Further recs will be based on her hospital course We would like to thank Dr. Cody for this consult DILLAN MAY MD FACP FAC CCDS Jul 24, 2021 10:52
[2021-07-24] MEDS: oxyCODONE/APAP 5/325MG (PERCOCET 5) TABLET PO PRN (11:18)
[2021-07-24] MEDS ORDERED: methylPREDNISolone 40 MG/ML (Solu-MEDROL) VIAL IV NR (17:15)
[2021-07-24] MEDS ORDERED: RT-ALBUTEROL SULF 2.5 MG/3 ML PRE-MIX VIAL ONE (17:15)
[2021-07-24 17:23] VITALS: BP 121/79
[2021-07-24] MEDS: ALPRAZolam 0.5 MG (XANAX) TAB PO PRN (17:25)
[2021-07-24] MEDS ORDERED: RT-ALBUTEROL/IPRATROPIUM 3 ML (DUONEB) VIAL INH PRN (17:30)
--- NOTE | 2021-07-24 18:17 | Diagnostic Imaging Report ---
INDICATION: Respiratory distress, shortness of breath. TECHNIQUE: Multiple contiguous axial images were obtained through the chest after uneventful bolus administration of intravenous contrast. 3D reconstructed CTA MIP acquisitions were also performed. Auto Exposure Controls were utilized during the CT exam to meet ALARA standards for radiation dose reduction. COMPARISON: Comparison made to the conventional CT chest of earlier the same day. There is no previous CTA for comparison. FINDINGS: The pulmonary parenchymal vessels are well opacified with no CT evidence of pulmonary emboli. The thoracic aorta shows no evidence of aneurysm or dissection. There are no enlarged mediastinal or hilar nodes. There are no enlarged axillary nodes or chest wall lesions. There is no significant pleural or pericardial fluid. Lung parenchymal windows again demonstrate emphysematous changes with subpleural blebs in the apical region. There is worsening bibasilar infiltrate versus atelectasis inferiorly. Tiny nodules described earlier today are unchanged. IMPRESSION: No CT evidence of pulmonary emboli or aortic dissection or aneurysm. There is worsening bibasilar atelectatic change versus infiltrate compared to the previous conventional CT of earlier the same day. Small nodular densities overlying the lung bases are unchanged. See previous recommendation. Dictated by: Dictated on workstation # [id number]
[2021-07-24] MEDS ORDERED: cefTRIAXone 1 GM/50 ML (PRE-MIX) IV SCH (21:00)
[2021-07-24] MEDS: AZITHROMYCIN 500 MG/NS 250 ML IVPB IV SCH ×2 (21:24)
[2021-07-24] MEDS: RT-ALBUTEROL/IPRATROPIUM 3 ML (DUONEB) VIAL INH SCH (22:02)
[2021-07-25] MEDS: RT-ALBUTEROL/IPRATROPIUM 3 ML (DUONEB) VIAL INH SCH ×4 (03:15→21:30)
[2021-07-25] MEDS ORDERED: diphenhydrAMINE 50 MG/ML INJ (BENADRYL) IVP STA (04:47)
[2021-07-25] MEDS ORDERED: FAMOTIDINE 20MG/2ML IV (PEPCID) IVP STA (04:47)
[2021-07-25] MEDS ORDERED: methylPREDNISolone 40 MG/ML (Solu-MEDROL) VIAL IV STA (04:47)
[2021-07-25] MEDS: CATHETER FLUSH 10 ML SYR IVP SCH ×3 (05:12→22:33)
--- NOTE | 2021-07-25 08:41 | Progress Note ---
Subjective Subjective Date Seen by Provider: Jul 25, 2021 Time Seen by Provider: 08:10 Pt reports that she is quite fatigued today - she had a rough night last night with her allergic reaction causing itching over her entire body. She denies current chest pain, but does feel quite short of breath and is coughing a lot. Review of Systems General: No Chills, No Night Sweats; Fatigue, Malaise; No Appetite Pulmonary: Dyspnea, Cough Cardiovascular: No: Chest Pain, Palpitations, Paroxysmal Noc. Dyspnea Gastrointestinal: No: Nausea, Vomiting, Abdominal Pain, Diarrhea, Constipation Neurological: Weakness All Other Systems Reviewed All Other Systems Reviewed: Yes Objective Exam Vital Signs Vital Signs Date Time Temp Pulse Resp B/P (MAP) Pulse Ox O2 Delivery O2 Flow Rate FiO2 07/25/21 07:42 36.0 73 12 102/66 Nasal Cannula 3.00 07/25/21 04:00 37.0 Nasal Cannula 3.00 07/25/21 01:00 90 07/24/21 23:59 36.4 Nasal Cannula 3.00 07/24/21 22:03 95 Nasal Cannula 3.00 07/24/21 21:00 Room Air 07/24/21 19:44 37.2 100 14 121/79 94 Nasal Cannula 07/24/21 19:00 104 07/24/21 17:23 38.4 111 94 07/24/21 17:19 Nasal Cannula 3.00 07/24/21 16:53 38.4 07/24/21 16:10 38.7 94 Nasal Cannula 4.00 07/24/21 16:00 38.7 111 22 121/79 89 Room Air 07/24/21 15:58 38.7 07/24/21 13:00 82 07/24/21 12:00 36.2 67 19 130/79 Room Air 07/24/21 08:51 Room Air I & O 07/25/21 07:00 Intake Total 1350 ml Balance 1350 ml General Appearance: WD/WN, Mild Distress HEENT: PERRL/EOMI, TMs Normal, Normal ENT Inspection, Pharynx Normal Neck: Full Range of Motion, Normal Inspection, Non Tender, Supple Respiratory: Chest Non Tender, No Accessory Muscle Use, No Respiratory Distress, Decreased Breath Sounds Cardiovascular: Regular Rate, Rhythm, No Edema Gastrointestinal: Normal Bowel Sounds, No Organomegaly, No Pulsatile Mass, Non Tender, Soft Extremity: Normal Capillary Refill, Normal Inspection, Normal Range of Motion, Non Tender, No Calf Tenderness Neurologic/Psychiatric: Alert, Oriented x3, Other (flat affect, mood congruent) Skin: Normal Color, Warm/Dry Results Lab Laboratory Tests 07/24/21 11:20: Troponin I < 0.028 Microbiology 07/23/21 Blood Culture - Preliminary, Resulted No growth Assessment/Plan Assessment/Plan Admission Dx Chest pain Chronic Hypertension Coronary artery disease Pneumonia COPD/Emphysema Tobacco use Anxiety and depression Grief Hyperlipidemia Assessment and Plan Chest pain Chronic Hypertension Coronary artery disease Pneumonia COPD/Emphysema Tobacco use Anxiety and depression Grief Hyperlipidemia Allergic reaction to rocephin Chest pain - defer to cardiology - work-up pending Chronic Hypertension - resume home regimen Coronary artery disease - aspirin therapy, cholesterol control, monitor symptoms, Allergic reaction to rocephin - rocephin added to her allergy list - pt was given iv steroid, benadryl and h2 shayna yesterday Pneumonia - stopped azithromycin and rocephin due to allergic reaction last night after pt had full dose of antibiotics - changed to levaquin 500mg iv daily, will repeat cxr tomorrow morning. - repeat imaging - checked CTA due to her acute symptoms on the evening of 07/24/21 - negative for pulmonary embolus - continue with breathing treatments via RT COPD/Emphysema - MAT protocol Tobacco use - pt is not interested in nicotine patches. Anxiety and depression and Grief - visits from pastoral care - pt to keep an upcoming appt with Dr. Askew for psychiatric treatment/eval/counseling over the of her spouse and her stalled grieving process due to the stress of her son's troubles Hyperlipidemia - resumed statin therapy dvt prophylaxis with scd's and lovenox gi prophylaxis with ppi CLARK JAY MD Jul 25, 2021 08:41
--- NOTE | 2021-07-25 08:42 | History & Physical ---
History of Present Illness History of Present Illness Reason for visit/HPI Pt is a 50 y/o female who is known to me from clinic - she presented to the hospital after having chest heaviness and pain after she presented to work on 07/23/21. 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 she has an extensive cardiac history and was admitted to the hospital even though her enzymes and EKG were not excessively worrisome for an acute cardiac event on initial eval. She did have a CT scan and CXR concerning for pneumonia and she was initiated on IV antibiotics on admission. This morning on eval, she was having a slight cough, however by re-eval in the evening she was feeling worse and in need of oxygen therapy. Date of Admission Jul 23, 2021 at 18:33 Date Seen by a Provider: Jul 24, 2021 Time Seen by a Provider: 08:10 Attending Physician Clark Cody MD Admitting Physician Clark Cody MD Consult Lencho Dutton MD Facp Facc Ccds Allergies and Home Medications Allergies Coded Allergies: lisinopril (Verified Allergy, Severe, RASH, 10/24/18) ceftriaxone (Verified Allergy, Intermediate, Hives, 07/25/21) clopidogrel (Verified Allergy, Unknown, 07/24/21) Patient Home Medication List Home Medication List Reviewed: Yes Alprazolam (Xanax) 0.25 Mg Tablet, 0.25 MG PO DAILY PRN for ANXIETY, (Reported) Entered as Reported by: NAOMI CAMP on 05/07/21 0758 Last Action: Reviewed Aspirin (Aspirin EC) 81 Mg Tablet.dr, 81 MG PO DAILY, (Reported) Entered as Reported by: FRANK BURKS on 11/08/19 1500 Last Action: Reviewed Atorvastatin Calcium (Atorvastatin Calcium) 80 Mg Tablet, 80 MG PO HS, (Reported) Entered as Reported by: FRANK BURKS on 07/24/21913 Last Action: Reviewed Calcium Carbonate (Calcium) 500 Mg Tablet, 1,000 MG PO DAILY, (Reported) Entered as Reported by: FRANK BURKS on 07/24/21913 Last Action: Reviewed Cholecalciferol (Vitamin D3) (Vitamin D3) 25 Mcg Capsule, 50 MCG PO DAILY, (Reported) Entered as Reported by: FRANK BURKS on 11/08/191499 Last Action: Reviewed Cyanocobalamin (Vitamin B-12) (Vitamin B12) 2,500 Mcg Tablet, 2,500 MCG PO DAILY, (Reported) Entered as Reported by: FRANK BURKS on 11/08/191499 Last Action: Reviewed Escitalopram Oxalate (Lexapro) 20 Mg Tablet, 20 MG PO HS, (Reported) Entered as Reported by: NAOMI CAMP on 05/07/21757 Last Action: Reviewed Famotidine (Famotidine) 20 Mg Tablet, 20 MG PO BID, (Reported) Entered as Reported by: FRANK BURKS on 07/24/21913 Last Action: Reviewed [place]-3 Fatty Acids/Fish Oil ([place] 3 Fish Oil Softgel) 1 Each Capsule.dr, 1 EACH PO DAILY, (Reported) Entered as Reported by: FRANK BURKS on 11/08/191499 Last Action: Reviewed Discontinued Medications Atorvastatin Calcium (Atorvastatin Calcium) 80 Mg Tablet, 80 MG PO HS Discontinued Reason: Duplicate Order Prescribed by: CLARK CODY on 11/10/19933 Last Action: Discontinued Calcium Carb & Citrate/Vit D3 (Calcium + D3 ER Tablet) 1 Each Tablet.er, 2 EACH PO HS, (Reported) Discontinued Reason: Prescription changed Entered as Reported by: NAOMI CAMP on 05/07/21757 Last Action: Last Taken Edited Famotidine (Famotidine) 20 Mg Tablet, 20 MG PO BID Discontinued Reason: No Longer Taking Prescribed by: CLARK CODY on 11/10/19933 Last Action: Discontinued Past Ojcdzws-Wqyvhw-Hjgqph Hx Patient Social History Marrital Status: Living Status: lives in her own home with her sons Employed/Student: employed Tobacco Use?: Yes Tobacco type used: Cigarettes Smoking Status: Current Everyday Smoker Smokeless Tobacco Frequency: Never a User Use of E-Cig and/or Vaping dev: No Substance use?: No Alcohol Use?: No Pt feels they are or have been: No Immunizations Up To Date First/Initial COVID19 Vaccinat: 07/26/2020 Second COVID19 Vaccination Luigi: 08/30/2020 Tetanus Booster (TDap): Unknown Seasonal Allergies Seasonal Allergies: No Current Status status: No status: No Advance Directives: No Advance Directive Location: Home Communicates: Verbally Primary Language: Cambodian Preferred Spoken Language: Cambodian Sensory deficits: Vision impairment Implanted or Applied Medical D: Stents Past Medical History Surgeries: Cardiac, Coronary Stent, 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, Oophorectomy, Vascular Surgery Currently Using CPAP: No Currently Using BIPAP: No Coronary Artery Disease, Heart Attack, High Cholesterol, Hypertension Headaches /Migraines [employer] History: 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 Sexually Transmitted Disease: No HIV/AIDS: No Loss of Vision: Denies Hearing Impairment: Denies Anxiety, Depression Blood Disorders: No Adverse Reaction/Blood Tranf: No Family Medical History Reviewed and Corrections made Cardiovascular disease 19 FATHER Completed stroke 19 FATHER FH: Hodgkins disease 19 MOTHER Myocardial infarction 19 FATHER Heart Disease, Cancer, CVA, Hypertension, Stroke Review of Systems Constitutional: No chills, No diaphoresis, No dizziness, No fever; malaise; No weakness EENTM: No no symptoms reported, No hearing loss, No double vision, No throat pain, No throat swelling Respiratory: cough, dyspnea on exertion, short of breath Cardiovascular: chest pain Gastrointestinal: No RUQ, No LUQ, No RLQ, No LLQ, No abdominal pain, No constipation, No diarrhea, No dysphagia, No nausea, No vomiting Genitourinary: no symptoms reported Musculoskeletal: no symptoms reported Skin: No no symptoms reported, No lesions, No rash Psychiatric/Neurological: Anxiety, Depressed (over the of her spouse and her son's legal troubles) Physical Exam Vital Signs Vital Signs - First Documented 07/23/21 07/24/21 17:12 16:10 Temp 36.2 Pulse 87 Resp 19 B/P (MAP) 139/93 (108) Pulse Ox 97 O2 Delivery Room Air O2 Flow Rate 4.00 Capillary Refill : Less Than 3 Seconds Height, Weight, BMI Height: 5'3.00" Weight: 170lbs. 0.0oz. 77.417719as; 28.17 BMI Method:Stated General Appearance: WD/WN, Mild Distress (tearful (on second eval around 5 pm, pt tearful and short of breath)) Eyes: Bilateral Eye Normal Inspection, Bilateral Eye PERRL, Bilateral Eye EOMI HEENT: PERRL/EOMI, Pharynx Normal Neck: Full Range of Motion, Non Tender, Supple Respiratory: Chest Non Tender, Crackles (faint crackles in bases bilaterally), Decreased Breath Sounds, Rhonci Cardiovascular: Regular Rate, Rhythm, Systolic Murmur Gastrointestinal: Normal Bowel Sounds, No Organomegaly, No Pulsatile Mass, Non Tender, Soft Rectal: Deferred Back: Normal Inspection, No CVA Tenderness, No Vertebral Tenderness Extremity: Normal Capillary Refill, Non Tender, No Calf Tenderness, No Pedal Ed bo Neurologic/Psychiatric: Alert, Oriented x3, No Motor/Sensory Deficits, Other (tearful) Skin: Normal Color, Warm/Dry Lymphatic: No Adenopathy Assessment/Plan Assessment and Plan Chest pain Chronic Hypertension Coronary artery disease Pneumonia COPD/Emphysema Tobacco use Anxiety and depression Grief Hyperlipidemia Chest pain - defer to cardiology - work-up pending Chronic Hypertension - resume home regimen Coronary artery disease - aspirin therapy, cholesterol control, monitor symptoms, Pneumonia - repeat imaging - check CTA due to her acute symptoms this evening - was planning on discharge, however with her acute shortness of breath and oxygen requirement, will change pt to full admission and have RT do breathing treatments on patient. - verbal order given to nurse to change pt to full admission COPD/Emphysema - MAT protocol Tobacco use - pt is not interested in nicotine patches. Anxiety and depression and Grief - will have ADA from pastoral care come to grief counselor patient, she has an upcoming appt with Dr. Askew for psychiatric treatment/eval/counseling over the of her spouse and her stalled grieving process due to the stress of her son's troubles Hyperlipidemia - resume statin therapy dvt prophylaxis with scd's and lovenox gi prophylaxis with ppi Admission Diagnosis Chest pain Chronic Hypertension Coronary artery disease Pneumonia COPD/Emphysema Tobacco use Anxiety and depression Grief Hyperlipidemia Admission Status: Inpatient Order (span 2 midnights) Reason for Inpatient Admission: inpt admission for chest pain, pneumonia, will require at least 2-3 midnights for treatment and stabilization. CLARK CODY MD Jul 25, 2021 08:42
[2021-07-25] MEDS ORDERED: PROMETHAZINE/ CODEINE SYRUP 5 ML UDC PO PRN (08:45)
[2021-07-25] MEDS: ASPIRIN E.C. 81 MG (ECOTRIN) TAB PO SCH (08:52)
--- NOTE | 2021-07-25 08:59 | Progress Note - Cardiology ---
Cardiology SOAP Progress Note Subjective: C/O increasing SOB this morning States she had a reaction to Rocephin C/O freq dry cough C/O gen weakness Objective: I&O/Vital Signs 07/24/21 07/24/21 07/24/21 07/25/21 21:00 22:03 23:59 01:00 Temp 36.4 Pulse 90 Pulse Ox 95 O2 Delivery Room Air Nasal Cannula Nasal Cannula O2 Flow Rate 3.00 3.00 07/25/21 07/25/21 07/25/21 04:00 07:00 07:42 Temp 37.0 36.0 Pulse 76 73 Resp 12 B/P (MAP) 102/66 O2 Delivery Nasal Cannula Nasal Cannula O2 Flow Rate 3.00 3.00 07/25/21 00:00 Intake Total 1250 ml Balance 1250 ml Weight (Pounds): 170 Weight (Ounces): 0.0 Weight (Calculated Kilograms): 77.529599 Constitutional: AAO x 3, well-developed, well-nourished Respiratory: No accessory muscle use, No respiratory distress; chest expansion is symmetric, chest is bilaterally symmetric, other (diminished breath sounds; frequent lose cough; hoarse voice) Cardiovascular: regular rate-rhythm; No JVD; S1 and S2 Gastrointestional: No tender; soft, round Extremities: no lower extremity edema bilateral Neurologic/Psychiatric: other (moves all limbs equally) Skin: No rash on exposed areas, No ulcerations on exposed areas Results/Procedures: Labs Laboratory Tests 07/24/21 11:20: Troponin I < 0.028 Microbiology 07/23/21 Blood Culture - Preliminary, Resulted No growth Laboratory Tests 07/23/21 17:17 07/24/21 04:33 A/P: Assessment: Chest pain, pleuritic - likely due to pneumonia - no evidence of ACS RML Pneumonia - management per medical services CAD - S/p LAD stenting (Promus 3x16) at [facility] by Dr Cruz on 08/13/13. S/p RCA stenting (Two Promus 2.25x24 stents) by Dr Rojas at [facility] [place] on 08/13/13 - S/p bilateral femoral artery surgery in July [address] Murdock; R femoral surgery for femoral artery pseudoaneurysm repair and L femoral surgery for femoral artery bleed - Coronary angiography and PCI was done on 11/10/[address] Linder Severe distal RCA stenosis was treated successfully with a drug-eluting stent. Stent in the LAD showed mild diffuse disease. The stent in the RCA was a Xience Radha 2.25 x 15 mm stent deployed at 14 nicho for 17 seconds. Postdilatation was done with NC Quantum 2.5 x 12 mm balloon at 18 nicho. DWAYNE-3 flow - Most recent cardiac cath of 05-07-21 showed mild to moderate coronary artery disease. Patent stents in the proximal to mid left anterior descending and in the proximal to mid right coronary and the distal right coronary artery. Left ventricular end-diastolic pressure is 13 mmHg. Well preserved global left ventricular systolic function with an ejection fraction of approximately 50%. H/o Ischemic cardiomyopathy - at the time of cath of July 2013. - Echocardiogram of 10-27-15 showed normal global LV systolic function witn an ej ection fraction of approx 60%. Trivial to mild MR and TR. No evidence of any significant valvular stenosis. No pericadial effusion. PASP estimated to be approx 30mmHg - Echocardiogram of 11-09-[address] Linder showed LVEF 50-55%. Grade 1 diastolic dysfunction. PASP 20-25mmHg - Echocardiogram of 07-24-21 showed LVEF 40-45%. Mild MR. Trivial AoR. PASP 35- 40 mmHg H/o tobaccoism - Quit smoking in July 2013, back to smoking since Feb 2020 - cessation advised H/o gestational diabetes - with her 3rd Hyperlipidemia - statin tx - followed by PCP Bilateral neuropathic pain of the legs - following surgeries noted above Plan: Treat pneumonia (managed by the Med svce) Monitor lab EMMANUEL COLIN Jul 25, 2021 08:59
[2021-07-25] MEDS ORDERED: PROMETHAZINE/ CODEINE SYRUP 5 ML UDC PO ONE (09:00)
[2021-07-25] MEDS ORDERED: FUROSEMIDE 40 MG/4 ML INJ (LASIX) IVP ONE (09:45)
[2021-07-25] MEDS ORDERED: KCL 20 MEQ TAB (K-DUR) PO ONE (09:45)
[2021-07-25] MEDS ORDERED: LOSARTAN 25 MG (COZAAR) TAB PO ONE (09:45)
[2021-07-25 10:03] LABS: CALCIUM 9.2 MG/DL (8.5-10.1); CREATININE SERUM 0.7 MG/DL (0.60-1.30); POTASSIUM 4.2 MMOL/L (3.6-5.0)
--- NOTE | 2021-07-25 17:17 | Progress Note - Cardiology ---
Cardiology SOAP Progress Note Subjective: Still has chest discomfort with deep inspiration Still has shortness of breath and gen malaise No n/v/d No focal weaknes No palp or syncope Objective: I&O/Vital Signs 07/25/21 07/25/21 07/25/21 07/25/21 07:00 07:42 09:00 09:52 Temp 36.0 Pulse 76 73 Resp 12 B/P (MAP) 102/66 Pulse Ox 93 O2 Delivery Nasal Cannula Room Air Nasal Cannula O2 Flow Rate 3.00 2.00 07/25/21 07/25/21 07/25/21 07/25/21 11:53 13:08 14:48 15:56 Temp 36.4 37.1 Pulse 79 87 92 Resp 21 14 B/P (MAP) 106/59 102/50 Pulse Ox 93 O2 Delivery Nasal Cannula Nasal Cannula Nasal Cannula O2 Flow Rate 3.00 2.00 2.00 07/24/21 23:59 Intake Total 1250 ml Balance 1250 ml Weight (Pounds): 170 Weight (Ounces): 0.0 Weight (Calculated Kilograms): 77.324415 Constitutional: AAO x 3, well-developed, well-nourished Respiratory: No accessory muscle use, No respiratory distress; chest expansion is symmetric, chest is bilaterally symmetric, other (diminished breath sounds; frequent lose cough; hoarse voice) Cardiovascular: regular rate-rhythm; No JVD; S1 and S2 Gastrointestional: No tender; soft, round Extremities: no lower extremity edema bilateral Neurologic/Psychiatric: other (moves all limbs equally) Skin: No rash on exposed areas, No ulcerations on exposed areas Results/Procedures: Labs Laboratory Tests 07/25/21 09:40: Sodium Level 137, Potassium Level 4.2, Chloride Level 106, Carbon Dioxide Level 21, Anion Gap 10, Blood Urea Nitrogen 12, Creatinine 0.70, Estimat Glomerular Filtration Rate 105, BUN/Creatinine Ratio 17, Glucose Level 268H, Calcium Level 9.2 Microbiology 07/23/21 Blood Culture - Preliminary, Resulted No growth Laboratory Tests 07/23/21 17:17 07/24/21 04:33 07/25/21 09:40 A/P: Assessment: Shortness of breath due to RML pneumonia and mild, acute, systolic CHF Chest pain, pleuritic - likely due to pneumonia - no evidence of ACS RML Pneumonia - management per medical services CAD - S/p LAD stenting (Promus 3x16) at [facility] by Dr Cruz on 08/13/13. S/p RCA stenting (Two Promus 2.25x24 stents) by Dr Rojas at [facility] on 08/13/13 - S/p bilateral femoral artery surgery in July [address] Murdock; R femoral surgery for femoral artery pseudoaneurysm repair and L femoral surgery for femoral artery bleed - Coronary angiography and PCI was done on 11/10/[address] Linder Severe distal RCA stenosis was treated successfully with a drug-eluting stent. Stent in the LAD showed mild diffuse disease. The stent in the RCA was a Xience Radha 2.25 x 15 mm stent deployed at 14 nicho for 17 seconds. Postdilatation was done with NC Quantum 2.5 x 12 mm balloon at 18 nicho. DWAYNE-3 flow - Most recent cardiac cath of 05-07-21 showed mild to moderate coronary artery disease. Patent stents in the proximal to mid left anterior descending and in the proximal to mid right coronary and the distal right coronary artery. Left ventricular end-diastolic pressure is 13 mmHg. Well preserved global left ventricular systolic function with an ejection fraction of approximately 50%. H/o Ischemic cardiomyopathy - at the time of cath of July 2013. - Echocardiogram of 10-27-15 showed normal global LV systolic function witn an ejection fraction of approx 60%. Trivial to mild MR and TR. No evidence of any significant valvular stenosis. No pericadial effusion. PASP estimated to be approx 30mmHg - Echocardiogram of 11-09-[address] Linder showed LVEF 50-55%. Grade 1 diastolic dysfunction. PASP 20-25mmHg - Echocardiogram of 07-24-21 showed LVEF 40-45%. Mid anteroseptal hypokinesis Mild MR. Trivial AoR. PASP 35-40 mmHg H/o tobaccoism - Quit smoking in July 2013, back to smoking since Feb 2020 - cessation advised H/o gestational diabetes - with her 3rd Hyperlipidemia - statin tx - followed by PCP Bilateral neuropathic pain of the legs - following surgeries noted above Plan: Treat pneumonia (managed by the Med svce) Add diuretic Monitor lab DILLAN MAY MD FACP FAC CCDS Jul 25, 2021 17:17
[2021-07-25] MEDS ORDERED: AZITHROMYCIN 250 MG TAB (ZITHROMAX) PO SCH (21:00)
[2021-07-25] MEDS: ALPRAZolam 0.5 MG (XANAX) TAB PO PRN (22:11)
[2021-07-25] MEDS: oxyCODONE/APAP 5/325MG (PERCOCET 5) TABLET PO PRN (22:11)
[2021-07-25] MEDS ORDERED: PANTOPRAZOLE 40 MG (PROTONIX) VIAL IV ONE (23:45)
[2021-07-26] MEDS: RT-ALBUTEROL/IPRATROPIUM 3 ML (DUONEB) VIAL INH SCH ×2 (02:08→09:53)
[2021-07-26 05:54] LABS: HEMATOCRIT 38 % (35-52); HEMOGLOBIN 12.2 g/dL (11.5-16.0); MEAN CORPUSCULAR HEMOGLOBIN 30 pg (25-34); MEAN CORPUSCULAR HGB CONC 32 g/dL (32-36); MEAN CORPUSCULAR VOLUME 95 fL (80-99); MEAN PLATELET VOLUME 11.5 fL (9.0-12.2); PLATELET COUNT 271 10^3/uL (130-400); WHITE BLOOD COUNT 14.1 10^3/uL (4.3-11.0)
[2021-07-26 06:10] LABS: POTASSIUM 4.5 MMOL/L (3.6-5.0)
[2021-07-26 06:12] LABS: CALCIUM 9.2 MG/DL (8.5-10.1)
[2021-07-26 06:16] LABS: CREATININE SERUM 0.64 MG/DL (0.60-1.30)
[2021-07-26] MEDS: CATHETER FLUSH 10 ML SYR IVP SCH (06:39)
[2021-07-26] MEDS: ASPIRIN E.C. 81 MG (ECOTRIN) TAB PO SCH (08:16)
[2021-07-26] MEDS: LOSARTAN 25 MG (COZAAR) TAB PO SCH ×2 (08:16→08:18)
--- NOTE | 2021-07-26 08:19 | Diagnostic Imaging Report ---
EXAMINATION: Chest 2 view HISTORY: Pneumonia. Cough. COMPARISON: 10/24/2018. 08/13/2021. FINDINGS: Patchy bibasilar opacities are present. No focal consolidation. No pleural effusion or pneumothorax. The cardiac silhouette is unremarkable. There is calcified aortic atherosclerotic plaque. No acute osseous abnormalities. IMPRESSION: 1. Patchy bibasilar opacities which may represent atelectasis or infection. Dictated by: Dictated on workstation # [id number]
[2021-07-26] MEDS ORDERED: PANTOPRAZOLE 40 MG (PROTONIX) VIAL IV SCH (09:00)
[2021-07-26] MEDS ORDERED: ENOXAPARIN 40 MG/0.4 ML (LOVENOX) SYR SC SCH (09:00)
[2021-07-26] MEDS ORDERED: diphenhydrAMINE 50 MG/ML INJ (BENADRYL) IM ONE (09:15)
[2021-07-26] MEDS ORDERED: FAMOTIDINE 20MG/2ML IV (PEPCID) IVP ONE (09:15)
[2021-07-26] MEDS ORDERED: methylPREDNISolone 40 MG/ML (Solu-MEDROL) VIAL IV ONE (09:15)
--- NOTE | 2021-07-26 12:12 | Discharge Summary ---
Diagnosis/Chief Complaint Date of Admission Jul 24, 2021 at 09:00 Date of Discharge 07/26/21 Discharge Date: Jul 26, 2021 Discharge Time: 12:30 Admission Diagnosis Admission Diagnosis Chest pain Chronic Hypertension Coronary artery disease Pneumonia COPD/Emphysema Tobacco use Anxiety and depression Grief Hyperlipidemia Allergic reaction to rocephin Discharge Diagnosis Chest pain Chronic Hypertension Coronary artery disease Pneumonia COPD/Emphysema Tobacco use Anxiety and depression Grief Hyperlipidemia Allergic reaction to rocephin Reason Hospital Visit Pt is a 50 y/o female who is known to me from clinic - she presented to the hospital after having chest heaviness and pain after she presented to work on 07/23/21. 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 she has an extensive cardiac history and was admitted to the hospital even though her enzymes and EKG were not excessively worrisome for an acute cardiac event on initial eval. She did have a CT scan and CXR concerning for pneumonia and she was initiated on IV antibiotics on admission. This morning on eval, she was having a slight cough, however by re-eval in the evening she was feeling worse and in need of oxygen therapy. Discharge Summary Consultations dr. dasilva Discharge Physical Examination Allergies: Coded Allergies: lisinopril (Verified Allergy, Severe, RASH, 10/24/18) ceftriaxone (Verified Allergy, Intermediate, Hives, 07/25/21) clopidogrel (Verified Allergy, Unknown, 07/24/21) Vitals & I&Os Vital Signs Date Time Temp Pulse Resp B/P (MAP) Pulse Ox O2 Delivery O2 Flow Rate FiO2 07/26/21 09:53 92 Room Air 07/26/21 07:42 36.5 15 102/79 07/26/21 07:00 69 General Appearance: Alert, Oriented X3, Cooperative, No Acute Distress HEENT: Atraumatic, PERRLA Respiratory: Other (upper lobes clear, lower lobes with crackles) Cardiovascular: Regular Rate Abdominal: Normal Bowel Sounds, Soft, No Tenderness Neuro: Cranial Nerves 3-12 NL Psych/Mental Status: Mental Status NL, Mood NL Hospital Course Chest pain Chronic Hypertension Coronary artery disease Pneumonia COPD/Emphysema Tobacco use Anxiety and depression Grief Hyperlipidemia Allergic reaction to rocephin Chest pain - defer to cardiology - work-up negative for cardiac cause to chest pain Chronic Hypertension - resumed home regimen Coronary artery disease - aspirin therapy, cholesterol control, monitor symptoms, Allergic reaction to rocephin - rocephin added to her allergy list - pt was given iv steroid, benadryl and h2 shayna yesterday Pneumonia - stopped azithromycin and rocephin due to allergic reaction last night after pt had full dose of antibiotics - changed to levaquin 500mg iv daily, will repeat cxr tomorrow morning. - repeat imaging - checked CTA due to her acute symptoms on the evening of 07/24/21 - negative for pulmonary embolus - continue with breathing treatments via RT - will send home with albuterol inhaler - COPD/Emphysema - MAT protocol - discussed with pt - she has the beginning of centrilobular emphysema - due to her continued smoking - discussed the need for Concha to stop smoking due to her young age with the beginning of a disease process that will lead to her having to wear oxygen as she gets older. Tobacco use - pt is not interested in nicotine patches. Anxiety and depression and Grief - visits from pastoral care - pt to keep an upcoming appt with Dr. Askew for psychiatric treatment/eval/counseling over the of her spouse and her stalled grieving process due to the stress of her son's troubles Hyperlipidemia - resumed statin therapy dvt prophylaxis with scd's and lovenox gi prophylaxis with ppi Pending Labs Laboratory Tests 07/26/21 05:42: Mean Blood Glucose [Pending], Hemoglobin A1c [Pending] 07/26/21 05:47: White Blood Count 14.1, Red Blood Count 4.03, Hemoglobin 12.2, Hematocrit 38, Mean Corpuscular Volume 95, Mean Corpuscular Hemoglobin 30, Mean Corpuscular Hemoglobin Concent 32, Red Cell Distribution Width 15.3, Platelet Count 271, Min[place] n Platelet Volume 11.5, Sodium Level 138, Potassium Level 4.5, Chloride Level 104, Carbon Dioxide Level 25, Anion Gap 9, Blood Urea Nitrogen 13, Creatinine 0.64, Estimat Glomerular Filtration Rate 107, BUN/Creatinine Ratio 20, Glucose Level 110, Calcium Level 9.2 Discharge Condition at discharge improved Instructions to patient/family Please see electronic discharge instructions given to patient. Discharge Medications Reviewed and agree with Discharge Medication list on patient's Discharge Instruction sheet CLARK JAY MD Jul 26, 2021 12:12
[2021-07-26] MEDS ORDERED: LACT1CAP57 PO (12:17)
[2021-07-26] MEDS ORDERED: ALBU18HF2 INH (12:17)
[2021-07-26] MEDS ORDERED: LOSA25TA41 PO (12:17)
[2021-07-26] MEDS ORDERED: PROM5SYR PO (12:17)
[2021-07-26] MEDS ORDERED: LEVO500T81 PO (12:17)
[2021-07-26] MEDS ORDERED: FAMO20TA5 PO (12:17)
--- NOTE | 2021-07-26 12:25 | Discharge Inst-Simple/Standard ---
Discharge Inst-Standard Reconcile Patient Problems Problems Reviewed?: Yes Discharge Medications New, Converted or Re-Newed RX: Transmitted to Pharmacy Patient Instructions/Follow Up Plan of Care/Instructions/FU: 1 wk [facility] [address] dasilva keep appt with dr. wood Activity as Tolerated: No (off of work until 07/30/21) Discharge Diet: Avoid Fatty Foods Health Concerns: pneumonia depression anxiety hypertension hyperlipidemai coronary artery disease tobacco use Return to The Hospital For: any concern for worsenign shortness of breath, chest pain, or other lifethreatening illness or injury Medication List: Active Scripts Active Prometh-Codein 6.25-10 mg/5 ml (Promethazine HCl/Codeine) 5 Ml Syrup 5 Ml PO Q4H PRN Probiotic & Acidophilus Cap (Lactobac Cmb #3/Fos/Pantethine) 1 Each Capsule 1 Each PO TID Ventolin Hfa (Albuterol Sulfate) 18 Gm Hfa.aer.ad 2 Puff INH Q6H Levofloxacin 500 Mg Tablet 500 Mg PO DAILY Losartan Potassium 25 Mg Tablet 25 Mg PO DAILY Famotidine 20 Mg Tablet 20 Mg PO BID Reported Atorvastatin Calcium 80 Mg Tablet 80 Mg PO HS LAST FILLED 05-16-2021 #30/30 DAY SUPPLY Calcium (Calcium Carbonate) 500 Mg Tablet 1,000 Mg PO DAILY Xanax (Alprazolam) 0.25 Mg Tablet 0.25 Mg PO DAILY PRN Lexapro (Escitalopram Oxalate) 20 Mg Tablet 20 Mg PO HS LAST FILLED 01-07-2021 #90/90 DAY SUPPLY [place] 3 Fish Oil Softgel ([place]-3 Fatty Acids/Fish Oil) 1 Each Capsule. 1 Each PO DAILY Aspirin EC (Aspirin) 81 Mg Tablet.dr 81 Mg PO DAILY Vitamin D3 (Cholecalciferol (Vitamin D3)) 25 Mcg Capsule 50 Mcg PO DAILY Vitamin B12 (Cyanocobalamin (Vitamin B-12)) 2,500 Mcg Tablet 2,500 Mcg PO DAILY Lab results: Laboratory Tests Test 07/26/21 05:42 07/26/21 05:47 Range/Units White Blood Count 14.1 H 4.3-11.0 10^3/uL Red Blood Count 4.03 3.80-5.11 10^6/uL Hemoglobin 12.2 11.5-16.0 g/dL Hematocrit 38 35-52 % Mean Corpuscular Volume 95 80-99 fL Mean Corpuscular Hemoglobin 30 25-34 pg Mean Corpuscular Hemoglobin Concent 32 32-36 g/dL Red Cell Distribution Width 15.3 H 10.0-14.5 % Platelet Count 271 130-400 10^3/uL Mean Platelet Volume 11.5 9.0-12.2 fL Sodium Level 138 135-145 MMOL/L Potassium Level 4.5 3.6-5.0 MMOL/L Chloride Level 104 98-107 MMOL/L Carbon Dioxide Level 25 21-32 MMOL/L Anion Gap 9 5-14 MMOL/L Blood Urea Nitrogen 13 7-18 MG/DL Creatinine 0.64 0.60-1.30 MG/DL Estimat Glomerular Filtration Rate 107 BUN/Creatinine Ratio 20 Glucose Level 110 H 70-105 MG/DL Calcium Level 9.2 8.5-10.1 MG/DL My orders: Orders - CLARK JAY MD Hemoglobin A1c (07/25/21 23:21) Sequential Compression Device (07/25/21 23:33) Pantoprazole Injection (Protonix Injecti (07/25/21 23:45) Pantoprazole Injection (Protonix Injecti (07/26/21 09:00) Enoxaparin Injection (Lovenox Injectio (07/26/21 09:00) Ambulate W/O 02-Home O2 Qual (07/26/21 08:23) Methylprednisolone Sod Succ (Solu-Medrol (07/26/21 09:15) Famotidine Injection (Pepcid Injection) (07/26/21 09:15) Diphenhydramine Injection (Benadryl Inje (07/26/21 09:15) Attending Discharge Inpt/Inobs (07/26/21 12:07) CLARK JAY MD Jul 26, 2021 12:25
--- NOTE | 2021-07-26 15:23 | Progress Note - Cardiology ---
Cardiology SOAP Progress Note Subjective: Feels better today No cp or palp or syncope No shortness of breath at rest No n/v Gen malaise and weakness present Objective: I&O/Vital Signs 07/26/21 07/26/21 07/26/21 07/26/21 04:00 07:00 07:42 09:45 Temp 36.8 36.5 Pulse 65 69 Resp 11 15 B/P (MAP) 94/64 102/79 Pulse Ox 92 97 O2 Delivery Nasal Cannula Nasal Cannula Room Air O2 Flow Rate 1.50 2.00 07/26/21 07/26/21 09:53 13:33 B/P (MAP) Pulse Ox 92 O2 Delivery Room Air O2 Flow Rate 07/25/21 23:59 Intake Total 1300 ml Balance 1300 ml Weight (Pounds): 170 Weight (Ounces): 0.0 Weight (Calculated Kilograms): 77.854799 Constitutional: AAO x 3, well-developed, well-nourished Respiratory: No accessory muscle use, No respiratory distress; chest expansion is symmetric, chest is bilaterally symmetric, other (diminished breath sounds; frequent lose cough; hoarse voice) Cardiovascular: regular rate-rhythm; No JVD; S1 and S2 Gastrointestional: No tender; soft, round Extremities: no lower extremity edema bilateral Neurologic/Psychiatric: other (moves all limbs equally) Skin: No rash on exposed areas, No ulcerations on exposed areas Results/Procedures: Labs Laboratory Tests 07/26/21 05:42: 07/26/21 05:47: White Blood Count 14.1H, Red Blood Count 4.03, Hemoglobin 12.2, Hematocrit 38, Mean Corpuscular Volume 95, Mean Corpuscular Hemoglobin 30, Mean Corpuscular Hemoglobin Concent 32, Red Cell Distribution Width 15.3H, Platelet Count 271, Mean Platelet Volume 11.5, Sodium Level 138, Potassium Level 4.5, Chloride Level 104, Carbon Dioxide Level 25, Anion Gap 9, Blood Urea Nitrogen 13, Creatinine 0.64, Estimat Glomerular Filtration Rate 107, BUN/Creatinine Ratio 20, Glucose Level 110H, Calcium Level 9.2 Microbiology 07/23/21 Blood Culture - Preliminary, Resulted No growth Laboratory Tests 07/25/21 09:40 07/26/21 05:47 A/P: Assessment: Shortness of breath due to RML pneumonia and mild, acute, systolic CHF Chest pain, pleuritic - likely due to pneumonia - no evidence of ACS RML Pneumonia - management per medical services CAD - S/p LAD stenting (Promus 3x16) at [facility] by Dr Cruz on 08/13/13. S/p RCA stenting (Two Promus 2.25x24 stents) by Dr Rojas at [facility] on 08/13/13 - S/p bilateral femoral artery surgery in July [address] Murdock; R femoral surgery for femoral artery pseudoaneurysm repair and L femoral surgery for femoral artery bleed - Coronary angiography and PCI was done on 11/10/[address] Linder Severe distal RCA stenosis was treated successfully with a drug-eluting stent. Stent in the LAD showed mild diffuse disease. The stent in the RCA was a Xience Radha 2.25 x 15 mm stent deployed at 14 nicho for 17 seconds. Postdilatation was done with NC Quantum 2.5 x 12 mm balloon at 18 nicho. DWAYNE-3 flow - Most recent cardiac cath of 05-07-21 showed mild to moderate coronary artery disease. Patent stents in the proximal to mid left anterior descending and in the proximal to mid right coronary and the distal right coronary artery. Left ventricular end-diastolic pressure is 13 mmHg. Well preserved global left ventricular systolic function with an ejection fraction of approximately 50%. H/o Ischemic cardiomyopathy - at the time of cath of July 2013. - Echocardiogram of 10-27-15 showed normal global LV systolic function witn an ejection fraction of approx 60%. Trivial to mild MR and TR. No evidence of any significant valvular stenosis. No pericadial effusion. PASP estimated to be approx 30mmHg - Echocardiogram of 11-09-[address] Linder showed LVEF 50-55%. Grade 1 diastolic dysfunction. PASP 20-25mmHg - Echocardiogram of 07-24-21 showed LVEF 40-45%. Mid anteroseptal hypokinesis Mild MR. Trivial AoR. PASP 35-40 mmHg H/o tobaccoism - Quit smoking in July 2013, back to smoking since Feb 2020 - cessation advised H/o gestational diabetes - with her 3rd Hyperlipidemia - statin tx - followed by PCP Bilateral neuropathic pain of the legs - following surgeries noted above Plan: Considerable symptomatic improvement Continue current regimen Ok to d/c from cardiac standpoint Outpt f/u advised Questions answered DILLAN MAY MD FACP FACC CCDS Jul 26, 2021 15:23
== END 2021-07-26 13:37 | disposition home or self-care (01) | DRG 195 ==
LOC: EDUNIT# 17:07 → ER 17:08 → CSD 18:33 → OBSVTOIN 07-24 09:00
PROVIDERS: ADMIT Family Medicine; ATTEND Internal Medicine Cardiovascular Disease
DX: J18.9 Pneumonia, unspecified organism (principal); J43.9 Emphysema, unspecified; I10 Essential (primary) hypertension; I25.10 Atherosclerotic heart disease of native coronary artery without angina pectoris; F17.210 Nicotine dependence, cigarettes, uncomplicated; F41.9 Anxiety disorder, unspecified; F32.A Depression, unspecified; F43.21 Adjustment disorder with depressed mood; R07.9 Chest pain, unspecified; E78.00 Pure hypercholesterolemia, unspecified; I25.2 Old myocardial infarction; Z79.82 Long term (current) use of aspirin; Z79.899 Other long term (current) drug therapy; Z95.5 Presence of coronary angioplasty implant and graft; G43.909 Migraine, unspecified, not intractable, without status migrainosus; T36.1X5A Adverse effect of cephalosporins and other beta-lactam antibiotics, initial encounter; Z20.822 Contact with and (suspected) exposure to COVID-19
CPT/HCPCS: 36415; 71045; 71046; 71260; 71275; 80048; 80053; 80061; 83036; 83605; 83735; 83874; 83880; 84484; 85025; 85027; 85610; 85730; 87040; 87636; 93005; 93041; 93306; 94640; 94664; 94760; 94761